=== PATIENT | female | born 1965 | race African-American/Black ===

== ENCOUNTER 2017-10-29 16:18 | Emergency (ER) | payer OTHER ==
[~2017-10-29] VITALS: Ht 149.9 cm; Wt 97.8 kg
[~2017-10-29 16:18] MED LIST: ALPR0.5T PO; ATAZ300C PO; CETI10TA84 PO; FLNIN NAE; RTN100 PO; TRVHP PO
[2017-10-29 16:22] VITALS: TEMP 37; Ht 149.9 cm; Wt 97.8 kg
--- NOTE | 2017-10-29 16:49 | EMERGENCY ROOM VISIT NOTE ---
ED Visit Note First contact with patient: 16:30 CHIEF COMPLAINT: Low back pain, rash on right thigh HISTORY OF PRESENTING ILLNESS: This 52-year-old female patient presents to the emergency department by private vehicle with her complaining of pain in the low back which began approximately 5 days ago. She states the pain starts in her buttock area and radiates down the lateral and medial aspect of her right thigh. She states the pain is most significant on her inner thigh. The pain was gradual in onset, is now constant and worse with movement and walking. The patient notes the pain as constant, severe, burning and a 10/10. The patient saw her PCP on Tuesday when her symptoms started, was prescribed prednisone taper and tizanidine for muscle relaxer which she has been taking, but has not had any relief of the pain. Patient states last night she got in a hot bath and noticed increased burning and pain on her right inner thigh, after she got out of the bath she noticed a red bumpy rash. She states the rash has been painful and has not gone away, which is what prompted her to come to the ED today. Patient denies any loss of control of their bowel or bladder functions. There has been no leg numbness or weakness, and no change in sensation. No nausea or vomiting or abdominal pain. No chest pain or shortness of breath. No fevers or chills. The patient has not had prior back injuries. No dysuria or increased urinary frequency. REVIEW OF SYSTEMS: A complete 10 point review of systems was reviewed with the patient with pertinent positives and negatives as per history of present illness. All else were negative. PAST MEDICAL HISTORY: Diabetes, no longer on medications; gastric bypass surgery SOCIAL HISTORY: Lives at home with her . Denies tobacco, alcohol, recreational drug use. ALLERGIES: Reviewed in chart. PHYSICAL EXAM: CONSTITUTIONAL: Pleasant and cooperative. No acute distress, but appears uncomfortable and in pain. Well-hydrated, well appearing and well nourished. HEENT: Normocephalic, atraumatic. Pupils equal, round and reactive to light, EOMI. TMs normal. Pharynx normal. Moist mucous membranes. NECK: Supple, full active range of motion without discomfort. No cervical adenopathy. RESPIRATORY: Clear to auscultation bilaterally with no wheezing, crackles, rhonchi or stridor. Equal expansion bilaterally. CARDIOVASCULAR: Regular rate and rhythm with no murmurs, rubs or gallops. Normal peripheral perfusion. No edema. GASTROINTESTINAL: Soft, nontender, nondistended. No palpable masses or HSM. Bowel sounds present in all quadrants. MUSCULOSKELETAL: Full range of motion of all joints without discomfort. No muscle atrophy, erythema, or edema noted of the back. There is no tenderness over the lumbar spinous processes. There is no tenderness over the paraspinous muscles bilaterally. There is no tenderness over the thoracic spine or paraspinous muscles. There are no muscle spasms present. The patient is slow to move around with maximum tenderness with standing from sitting. Negative straight leg raise test bilaterally. INTEGUMENTARY: There is a vesicular rash in a linear pattern along the medial thigh extending to the knee, as well as some blotchy red spots on the medial calf that have not become vesicular yet. The rash is extremely painful to even light touch. No drainage from the lesions noted. There is no rash noted anywhere else on the right leg, or anywhere else on the body. The rash appears consistent with a shingles infection. NEUROLOGIC: Alert and oriented X 4 with normal affect. Cranial nerves II-XII grossly intact. No focal neurologic deficits noted. Normal sensation to light and sharp touch. Deep tendon reflexes 2+ in the lower extremities. Dorsalis pedis pulse 2+ bilaterally. Strength 5/5 and equal in the bilateral lower extremities. ED COURSE AND MEDICAL DECISION MAKING: CC: Patient presenting with complaint of back pain radiating into the right thigh, rash DIFFERENTIAL DIAGNOSIS: Includes, but not limited to low back pain, lumbar radiculopathy, sciatica, shingles infection, contact dermatitis, allergic reaction, among others. MEDICATION RECONCILIATION: I attest that I have personally reviewed the patient 's current medication list. INITIAL VITAL SIGNS REVIEW: I reviewed the patient's initial vital signs and interpret them as follows: T: Afebrile; BP: Hypertensive; HR: Within normal limits; RR: Within normal limits; Pulse Ox: Within normal limits on room air. Blood pressure screening: The patient was found to have an elevated blood pressure and was referred to their primary doctor for recheck and further treatment. SUMMARY: Patient was evaluated at bedside, history and physical exam performed. Patient is alert and oriented, no acute distress but does appear uncomfortable and in pain, resting on the stretcher. Patient does not have any midline or paraspinous muscle tenderness of the thoracic or lumbar spine on exam. Neurologic exam is intact with no focal deficits, strength and sensation intact to both lower extremities. There is a linear patterned vesicular rash noted along the medial thigh that is exquisitely tender to touch, appears consistent with a shingles rash. Orders were placed at bedside for IM Toradol and PO Percocet to treat pain, PO Valtrex to initiate treatment for shingles infection. Rx for oxycodone and Valtrex were sent to the pharmacy. Patient reassessed multiple times throughout ED stay, patient reports much improved pain after medications, and appears much more comfortable. Patient was updated on all results and plan for discharge, she was encouraged to follow closely with her primary care provider. She was educated regarding her medications and expected progression of the shingles. Patient was also given strict return precautions should her symptoms worsen, she verbalized understanding. Patient was discharged home in stable condition and ambulatory. Problem List Medical Problems: (1) DM (diabetes mellitus) Status: Chronic (2) Human Immunodeficiency Virus [Hiv] Disease Status: Chronic Current/Historical Medications Scheduled Valacyclovir Hcl (Valtrex), 1,000 MG PO TID Scheduled PRN Oxycodone Ir (Roxicodone Ir), 1-2 TAB PO Q6H PRN for Severe Pain Allergies Coded Allergies: Ciprofloxacin (Verified Allergy, Severe, TONGUE SWELLS, HIVES/ITCHING, THROAT "CLOSES", 10/29/17) Vital Signs Date Time Temp Pulse Resp B/P (MAP) Pulse Ox O2 Delivery O2 Flow Rate FiO2 10/29/17 18:34 58 18 155/90 97 Room Air 10/29/17 16:22 37.0 67 18 153/85 99 Room Air Medications Administered Medications (Trade) Dose Ordered Sig/Edy Route Start Time Stop Time Status Last Admin Dose Admin Valacyclovir HCl (Valtrex Tab) 1,000 mg NOW ONCE PO 10/29/17 17:00 10/29/17 17:01 DC 10/29/17 17:07 1,000 MG Ketorolac Tromethamine (Toradol Inj) 60 mg NOW STAT IM 10/29/17 16:56 10/29/17 16:59 DC 10/29/17 17:07 60 MG Oxycodone/ Acetaminophen (Percocet 5-325mg Tab) 1 tab NOW STAT PO 10/29/17 16:56 10/29/17 16:59 DC 10/29/17 17:08 1 TAB Oxycodone HCl (Roxicodone Immediate Rel 5MG Home Pack) 1 homepack UD ONCE PO 10/29/17 18:30 10/29/17 18:31 DC 10/29/17 18:32 1 HOMEPACK Departure Information Impression Primary Impression: Thigh shingles Dispostion Home / Self-Care Condition GOOD Prescriptions Valacyclovir Hcl (VALTREX) 1 Gm Tab 1000 MG PO TID for 7 Days, #21 TAB Prov: Alice Ledesma, PRINCIPAL STATISTICAL SCIENTIST 10/29/17 Oxycodone Ir (Roxicodone Ir) 5 Mg Tab 1-2 TAB PO Q6H Y for Severe Pain, #20 TAB Prov: Alice Ledesma, PRINCIPAL STATISTICAL SCIENTIST 10/29/17 Referrals Idania Irizarry M.D. (PCP) Patient Instructions ED Shingles, [facility] Additional Instructions You have been evaluated and treated in the emergency department for shingles. You have been prescribed oxycodone to be taken as needed for SEVERE pain. This is a narcotic, do not drive, operate machinery, or alcohol while you are taking this medication. You may also take extra strength Tylenol (500 mg) 2 tablets every 8 hours as needed for pain. You have been prescribed Valtrex, which is an antiviral medication to treat the shingles. Take this 3 times a day for 7 days. You may continue taking the prednisone taper and muscle relaxer as prescribed. Please follow-up with your primary care provider if your symptoms are not improving or if they are getting worse. Please return to the emergency department for signs of secondary infection, including red/inflamed skin, hot to touch, pus drainage from the rash, fever/ chills, or any other concerns. Work Instructions Return To Work: 5 days
[2017-10-29] MEDS ORDERED: KETOROLAC TROMETHAMINE 60 MG/2 ML VIAL IM STA (16:56)
[2017-10-29] MEDS ORDERED: OXYCODONE/ACETAMINOPHEN 5-325 TAB PO STA (16:56)
[2017-10-29] MEDS ORDERED: VALA1TAB2 PO (18:06)
[2017-10-29] MEDS ORDERED: OXYC1TAB3 PO (18:06)
[2017-10-29] MEDS ORDERED: OXYCODONE IR HOME PACK PO ONE (18:30)
[2017-10-29 18:34] VITALS: BP 155/90; PULSE 58; O2SAT 97
== END 2017-10-29 18:46 | disposition home or self-care (01) ==
LOC: C.EDB 16:19 → C.EDD 18:46
DX: B02.9 Zoster without complications (principal); E11.9 Type 2 diabetes mellitus without complications; Z98.84 Bariatric surgery status; Z21 Asymptomatic human immunodeficiency virus [HIV] infection status; Z79.899 Other long term (current) drug therapy; Z88.1 Allergy status to other antibiotic agents

== ENCOUNTER 2017-10-31 00:20 | Inpatient (IN) | payer OTHER ==
[~2017-10-31] VITALS: Ht 149.9 cm; Wt 99.5 kg
[~2017-10-31 00:20] MED LIST changes: -ALPR0.5T PO; -ATAZ300C PO; -CETI10TA84 PO; -FLNIN NAE; +OXYC1TAB3 PO; -RTN100 PO; -TRVHP PO; +VALA1TAB2 PO
[2017-10-31] MEDS ORDERED: VALA1TAB31 PO (00:53)
[2017-10-31] MEDS ORDERED: OXYC1TAB3 PO (00:53)
[2017-10-31] MEDS ORDERED: MoRPHine SULFATE 4 MG/ML 1 ML CARP\\VIAL IV STA ×2 (01:01→03:20)
[2017-10-31] MEDS ORDERED: ONDANSETRON INJ 2 MG/ML 2 ML VIAL IV STA (01:01)
[2017-10-31 01:26] LABS: BASO % 0.2 %; BASO ABS # 0.01 K/uL (0-0.2); EOS % 0.4 %; EOS ABS # 0.02 K/uL (0-0.5); HEMATOCRIT 37.3 % (37-47); HEMOGLOBIN 12.9 g/dL (12.0-16.0); IG# 0.01 K/uL (0.00-0.02); LYMPH % 31.3 %; LYMPH ABS # 1.68 K/uL (1.2-3.4); MEAN CELL VOLUME 87.4 fL (80-100); MEAN CORPUSCULAR HEMOGLOBIN 30.2 pg (25-34); MEAN CORPUSCULAR HGB CONC 34.6 g/dl (32-36); MEAN PLATELET VOLUME 9.5 fL (7.4-10.4); MONO % 9.1 %; MONO ABS # 0.49 K/uL (0.11-0.59); NEUT % 58.8 %; NEUT ABS # 3.16 K/uL (1.4-6.5); PLATELET COUNT 297 K/uL (130-400); RED CELL DISTRIBUTION WIDTH SD 41.4 fL (36.4-46.3); WHITE BLOOD COUNT 5.37 K/uL (4.8-10.8)
[2017-10-31 01:35] LABS: INR 0.9 (0.9-1.1)
[2017-10-31 01:44] LABS: ALBUMIN 3.8 gm/dl (3.4-5.0); ALT/SGPT 31 U/L (12-78); BLOOD UREA NITROGEN 12 mg/dl (7-18); CALCIUM 9.2 mg/dl (8.5-10.1); CARBON DIOXIDE 31 mmol/L (21-32); CREATININE 0.82 mg/dl (0.60-1.20); GLUCOSE 169 mg/dl (70-99); POTASSIUM 3.5 mmol/L (3.5-5.1); SODIUM 137 mmol/L (136-145)
[2017-10-31 01:55] LABS: ALKALINE PHOSPHATASE 94 U/L (45-117); AST/SGOT 22 U/L (15-37); TOTAL PROTEIN 8.9 gm/dl (6.4-8.2)
[2017-10-31] MEDS ORDERED: ACYCLOVIR SOD INJ 750 MG in DEXTROSE 5% 250ML 250 ML IV STA (02:37)
--- NOTE | 2017-10-31 04:06 | EMERGENCY ROOM VISIT NOTE ---
History First contact with patient: 00:30 Chief Complaint: SWELLING TO EXTREMITY Stated Complaint: SWOLLEN LEGS WITH PAIN History of Present Illness The patient is a 52 year old female who presents to the Emergency Room with complaints of increasing bilateral leg swelling for the past day he was diagnosed yesterday with shingles and started on Valtrex. Patient has HIV and her CD4 count in July was 50. She has been taking her ART's mainly as directed. She states occasionally she forgets. Patient saw the family care doctor 1 week ago was placed on steroids for possible sciatica. Patient states she started off with severe leg pain and this is a prompted her to see the family doctor who placed her on steroids for sciatica. She developed a rash yesterday. 10 years ago she had shingles to the face. Patient has had HIV for greater than 30 years. She is on Bactrim prophylactically daily along with her ART's. Patient states her legs are more swollen than normal. No history of DVT. Patient complains of feeling fatigued. Patient denies chest pain, dyspnea , fever, chills, cough, congestion, localized weakness, numbness, tingling. Patient complains of severe pain in the leg. 8 out of 10. Nothing makes it better or worse. The pain goes down the leg. She is supposed to follow-up with Dr. Lane as her current ID doctor is retiring. Review of Systems An 10 system review of systems was completed with positives and pertinent negatives listed in the HPI. Past Medical/Surgical History Medical Problems: (1) DM (diabetes mellitus) (2) Human Immunodeficiency Virus [Hiv] Disease Family History FH: colonic polyps Social History Smoking Status: Never Smoker Alcohol Use: occasionally Marital Status: Housing Status: lives with significant other Current/Historical Medications Scheduled Valacyclovir Hcl (Valtrex), 1 GM PO TID Scheduled PRN Oxycodone Ir (Roxicodone Ir), 1-2 TAB PO Q6H PRN for Severe Pain Physical Exam Vital Signs Date Time Temp Pulse Resp B/P (MAP) Pulse Ox O2 Delivery O2 Flow Rate FiO2 10/31/17 03:14 74 20 158/90 99 Room Air 10/31/17 00:24 37.0 63 18 167/92 95 Room Air Physical Exam VITALS: Vitals are noted on the nurse's note and reviewed by myself. Vital signs hypertensive GENERAL: Pleasant female, in no acute distress, nondiaphoretic, well-developed well-nourished. SKIN: Right inner thigh with grouped raised vesicular dermatitis most consistent with shingles, the rest of the skin was without rashes, or bruising. There is no tenting of the skin. Capillary reflex less than 2 seconds. HEAD: Normocephalic atraumatic. EARS: External auditory canals clear, tympanic membranes pearly zhong without erythema or effusion bilaterally. EYES: Pupils equal round and reactive to light and accommodation. Conjunctivae without injection, sclerae without icterus. Extraocular movements intact. NOSE: Patent, turbinates without inflammation or discharge. No sinus tenderness. MOUTH: Mucous membranes moist. Pharynx without erythema or exudate. Uvula midline. Airway patent. Tongue does not deviate. NECK: Supple without nuchal rigidity. No lymphadenopathy. No thyromegaly. Cervical spine is nontender. No JVD. HEART: Regular rate and rhythm LUNGS: Clear to auscultation bilaterally without wheezes, rales or rhonchi. No retractions or accessory muscle use. ABDOMEN: Positive bowel sounds x 4. Normal tympanic percussion. Soft, nontender, without masses or organomegaly. Clayton sign negative. No guarding or rebound tenderness. No CVA tenderness MUSCULOSKELETAL: No muscle atrophy, noted. Right lower leg slightly more edematous than the left leg. Sensation is intact bilaterally. Pedal pulses +2 equal and present bilaterally. NEURO: Patient was alert and oriented to person place and time. Normal sensation to light and sharp touch. No focal neurological deficits. Medical Decision & Procedures Laboratory Results 10/31/17 01:10 Red Blood Count 4.27, Mean Corpuscular Volume 87.4, Mean Corpuscular Hemoglobin 30.2, Mean Corpuscular Hemoglobin Concent 34.6, Mean Platelet Volume 9.5, Neutrophils (%) (Auto) 58.8, Lymphocytes (%) (Auto) 31.3, Monocytes (%) (Auto) 9.1, Eosinophils (%) (Auto) 0.4, Basophils (%) (Auto) 0.2, Neutrophils # (Auto) 3.16, Lymphocytes # (Auto) 1.68, Monocytes # (Auto) 0.49, Eosinophils # (Auto) 0.02, Basophils # (Auto) 0.01 10/31/17 01:10 Test 10/31/17 01:00 10/31/17 01:10 10/31/17 01:21 10/31/17 03:36 Urine Color YELLOW Urine Appearance CLEAR (CLEAR) Urine pH 5.5 (4.5-7.5) Urine Specific Cameron 1.028 (1.000-1.030) Urine Protein TRACE (NEG) Urine Glucose (UA) 2+ (NEG) Urine Ketones NEG (NEG) Urine Occult Blood NEG (NEG) Urine Nitrite NEG (NEG) Urine Bilirubin NEG (NEG) Urine Urobilinogen NEG (NEG) Urine Leukocyte Esterase NEG (NEG) Urine WBC (Auto) 1-5 /hpf (0-5) Urine RBC (Auto) 0-4 /hpf (0-4) Urine Hyaline Casts (Auto) 1-5 /lpf (0-5) Urine Epithelial Cells (Auto) 20-30 /lpf (0-5) Urine Bacteria (Auto) NEG (NEG) White Blood Count 5.37 K/uL (4.8-10.8) Red Blood Count 4.27 M/uL (4.2-5.4) Hemoglobin 12.9 g/dL (12.0-16.0) Hematocrit 37.3 % (37-47) Mean Corpuscular Volume 87.4 fL (80-100) Mean Corpuscular Hemoglobin 30.2 pg (25-34) Mean Corpuscular Hemoglobin Concent 34.6 g/dl (32-36) Platelet Count 297 K/uL (130-400) Mean Platelet Volume 9.5 fL (7.4-10.4) Neutrophils (%) (Auto) 58.8 % Lymphocytes (%) (Auto) 31.3 % Monocytes (%) (Auto) 9.1 % Eosinophils (%) (Auto) 0.4 % Basophils (%) (Auto) 0.2 % Neutrophils # (Auto) 3.16 K/uL (1.4-6.5) Lymphocytes # (Auto) 1.68 K/uL (1.2-3.4) Monocytes # (Auto) 0.49 K/uL (0.11-0.59) Eosinophils # (Auto) 0.02 K/uL (0-0.5) Basophils # (Auto) 0.01 K/uL (0-0.2) RDW Standard Deviation 41.4 fL (36.4-46.3) RDW Coefficient of Variation 13.0 % (11.5-14.5) Immature Granulocyte % (Auto) 0.2 % Immature Granulocyte # (Auto) 0.01 K/uL (0.00-0.02) Prothrombin Time 9.4 SECONDS (9.0-12.0) Prothromb Time International Ratio 0.9 (0.9-1.1) Activated Partial Thromboplast Time 20.0 SECONDS (21.0-31.0) Partial Thromboplastin Ratio 0.8 Anion Gap 4.0 mmol/L (3-11) Est Creatinine Clear Calc Drug Dose 81.4 ml/min Estimated GFR () 94.0 Estimated GFR (Non- 81.1 BUN/Creatinine Ratio 15.0 (10-20) Calcium Level 9.2 mg/dl (8.5-10.1) Magnesium Level 2.2 mg/dl (1.8-2.4) Total Bilirubin 0.3 mg/dl (0.2-1) Direct Bilirubin 0.1 mg/dl (0-0.2) Aspartate Amino Transf (AST/SGOT) 22 U/L (15-37) Alanine Aminotransferase (ALT/SGPT) 31 U/L (12-78) Alkaline Phosphatase 94 U/L (45-117) Troponin I < 0.015 ng/ml (0-0.045) Pro-B-Type Natriuretic Peptide 89 pg/ml (0-900) Total Protein 8.9 gm/dl (6.4-8.2) Albumin 3.8 gm/dl (3.4-5.0) Thyroid Stimulating Hormone (TSH) 3.190 uIu/ml (0.300-4.500) Bedside Troponin I < 0.030 ng/ml (0-0.045) Medications Administered Medications (Trade) Dose Ordered Sig/Edy Route Start Time Stop Time Status Last Admin Dose Admin Morphine Sulfate (MoRPHine SULFATE INJ) 4 mg NOW STAT IV 10/31/17 01:01 10/31/17 01:02 DC 10/31/17 01:27 4 MG Ondansetron HCl (Zofran Inj) 4 mg NOW STAT IV 10/31/17 01:01 10/31/17 01:02 DC 10/31/17 01:26 4 MG Acyclovir Sodium 750 mg/Dextrose 265 ml @ 265 mls/hr NOW STAT IV 10/31/17 02:37 10/31/17 03:36 DC 10/31/17 03:12 265 MLS/HR Morphine Sulfate (MoRPHine SULFATE INJ) 4 mg NOW STAT IV 10/31/17 03:20 10/31/17 03:22 DC 10/31/17 03:28 4 MG ED Course Prior records/ancillary studies reviewed and summarized above. Nursing notes reviewed. Additional history obtained from family. The patient's history was concerning for rash with leg pain and swelling and low CD4 count. Differential diagnosis: Etiologies such as metabolic, infection, hypo/hyperglycemia, electrolyte abnormalities, cardiac sources, intracerebral event, toxicologic, neurologic, as well as others were entertained. Physical examination: As above. ER treatment provided: IV Lock Morphine, Zofran, acyclovir On reassessment the patient felt better. Diagnostics interpretation by me: ECG: Normal sinus, normal intervals, no acute ST-T wave changes, rate of 85. Impression normal sinus rhythm interpreted by myself The labs revealed no worrisome leukocytosis. Hyperglycemia without DKA CD4 count in July was 50 per chart review Prior records were reviewed. Imaging studies: Chest x-ray with no acute consolidation, pneumothorax or free air per my interpretation Ultrasound negative for DVT Consultation: A consultation was placed with the hospitalist, Dr Abebe. The case was discussed and diagnostics were reviewed. The patient was evaluated in the ER for further treatment. Exam and history seem consistent with recurrence of shingles with severe pain in a immunocompromised patient with a very low CD4 count. Patient had increasing pain and swelling in the legs. No obvious DVT. No leukocytosis. She was given an IV dose of acyclovir. She will be evaluated by medicine for possible admission. This is her second time with shingles this past 10 years. She had no ocular involvement. She was not altered. By the evaluation outlined above emergent etiologies such as electrolyte abnormalities, cardiac sources, intracerebral event, toxologic, neurologic, abnormalities blood glucose, metabolic, as well as others were deemed relatively unlikely. The pt informed about the findings as listed above. All questions were answered and pleased with the treatment. Case reviewed with my attending The chart was completed utilizing [employer] voice recognition software. Grammatical errors, random word insertions, pronoun errors, and incomplete sentences are an occassional consequence of this system due to software limitations, ambient noise, and hardware issues. Any formal questions or concerns about the content, text, or information contained within the body of this dictation should be directly addressed to the physician assistant project engineer for clarification.. Medical Decision As above Medication Reconcilliation Current Medication List: was personally reviewed by me Blood Pressure Screening Patient's blood pressure: Elevated blood pressure Blood pressure disposition: Elevated BP felt to be situational Impression Primary Impression: Shingles Additional Impressions: Intractable pain Pain and swelling of lower leg Departure Information Dispostion Being Evaluated By Hospitalist Condition FAIR Referrals Idania Irizarry M.D. (PCP) Patient Instructions My [facility] Problem Qualifiers Primary Impression: Shingles Herpes zoster complications: unspecified herpes zoster complication Qualified Codes: B02.8 - Zoster with other complications
[2017-10-31] MEDS ORDERED: NYSTCRE11 TOP (04:13)
[2017-10-31] MEDS ORDERED: ALBU18002 INH (04:13)
[2017-10-31] MEDS ORDERED: SULF800T23 PO (04:13)
[2017-10-31] MEDS ORDERED: ERGO50002 PO (04:13)
[2017-10-31] MEDS ORDERED: FLVHFA110 INH (04:13)
[2017-10-31] MEDS ORDERED: RITO100T PO (04:13)
[2017-10-31] MEDS ORDERED: TRVHP PO (04:13)
[2017-10-31] MEDS ORDERED: NYST100010 TOP (04:13)
[2017-10-31] MEDS ORDERED: CYAN10005 PO (04:13)
[2017-10-31] MEDS ORDERED: CLIN1GEL TOP (04:13)
[2017-10-31] MEDS ORDERED: ALPR-411 PO (04:13)
[2017-10-31] MEDS ORDERED: TIZA2CAP PO (04:13)
[2017-10-31] MEDS ORDERED: PRED10TA PO (04:13)
[2017-10-31] MEDS ORDERED: ATAZ300C PO (04:13)
[2017-10-31] MEDS ORDERED: ACETAMINOPHEN 325 MG TAB PO PRN (05:00)
[2017-10-31] MEDS ORDERED: GLUCOSE 10 TABS/TUBE PO PRN (05:00)
[2017-10-31] MEDS ORDERED: PROCHLORPERAZINE INJ 5 MG in SYRINGE 4 ML IV PRN (05:00)
[2017-10-31] MEDS ORDERED: IBUPROFEN 200 MG TAB PO PRN (05:00)
[2017-10-31] MEDS ORDERED: DEXTROSE 50% 50 ML SYR IV PRN (05:00)
[2017-10-31] MEDS ORDERED: DOXYCYCLINE IV 100 MG in DEXTROSE 5% 100ML 100 ML IV ONE (05:00)
[2017-10-31] MEDS ORDERED: GLUCAGON FOR INJ 1 MG VIAL SQ PRN (05:00)
[2017-10-31] MEDS ORDERED: ALPRAZOLAM 0.5 MG TAB PO PRN (05:00)
[2017-10-31] MEDS ORDERED: GLUCOSE 40% GEL 15 GM TUBE PO PRN (05:00)
[2017-10-31 05:29] VITALS: BP 166/98; PULSE 70; TEMP 36.9; O2SAT 94; Ht 149.9 cm; Wt 99.5 kg
[2017-10-31] MEDS ORDERED: CEFAZOLIN IV 1,000 MG in DEXTROSE 5% 50ML 50 ML IV ONE (05:30)
--- NOTE | 2017-10-31 05:37 | EMERGENCY ROOM VISIT NOTE ---
ED Visit Note First contact with patient: 00:30 Discussed case with PA multiple times. Please refer to her note for additional details and results. We have discussed her management. Patient aware of all results and agreeable with plan. Patient to be evaluated by hospitalist for additional evaluation and treatment. Patient hemodynamically stable here.
[2017-10-31 05:53] VITALS: BP 166/98; PULSE 70; TEMP 37; O2SAT 94
[2017-10-31] MEDS ORDERED: NSS + 20MEQ KCL 1000ML 1,000 ML IV ONE (06:00)
--- NOTE | 2017-10-31 06:04 | DIAGNOSTIC IMAGING REPORT ---
VENOUS DOPPLER LWR EXT BILA CLINICAL HISTORY: 52 years-old Female presenting with leg swelling. TECHNIQUE: Real-time grayscale and color and spectral Doppler ultrasound imaging of the veins of the bilateral lower extremities was performed. Compression and augmentation were also utilized. COMPARISON: 02/18/2015. FINDINGS: Right: Common femoral vein: Patent. Greater saphenous vein: Patent. Deep femoral vein: Patent. Femoral vein: Patent. Popliteal vein: Patent. Calf veins: Patent. Left: Common femoral vein: Patent. Greater saphenous vein: Patent. Deep femoral vein: Patent. Femoral vein: Patent. Popliteal vein: Patent. Calf veins: Patent. Other: None. IMPRESSION: No evidence of deep venous thrombosis. Electronically signed by: Joey Beverly M.D. 10/31/2017 6:03 AM Dictated Date/Time: 10/31/2017 6:02 AM
[2017-10-31] MEDS: KETOROLAC TROMETHAMINE 15 MG/ML VIAL IV. PRN ×3 (06:21→23:34)
--- NOTE | 2017-10-31 06:55 | DIAGNOSTIC IMAGING REPORT ---
CHEST 2 VIEWS ROUTINE CLINICAL HISTORY: 52 years-old Female presenting with swelling. TECHNIQUE: PA and lateral views of the chest were obtained. COMPARISON: 04/03/2016. FINDINGS: Atherosclerosis of the aortic arch. Cardiac silhouette normal in size. Lungs and pleural spaces clear. Osseous structures normal. Upper abdomen normal. IMPRESSION: 1. No acute cardiopulmonary disease. Electronically signed by: Joey Beverly M.D. 10/31/2017 6:54 AM Dictated Date/Time: 10/31/2017 6:53 AM
[2017-10-31] MEDS ORDERED: CEFAZOLIN IV 2,000 MG in SYRINGE 0 ML IV ONE (07:00)
[2017-10-31] MEDS ORDERED: INSULIN ASPART 100 UNITS/ML 3 ML PEN SC ONE (07:00)
[2017-10-31 07:18] LABS: HEMOGLOBIN A1C 6.6 % (4.5-5.6)
[2017-10-31 07:39] VITALS: BP 134/82; PULSE 74; TEMP 37; O2SAT 96
--- NOTE | 2017-10-31 07:50 | HISTORY & PHYSICAL EXAMINATION ---
DATE OF ADMISSION: 10/31/2017 PRIMARY CARE DOCTOR: Dr. Irizarry. CHIEF COMPLAINT: Right leg swelling, pain. HISTORY OF PRESENT ILLNESS: History obtained from patient and records. Medical history significant for HIV disease on HAART, sleep apnea, hyperlipidemia, DM2 diet controlled off meds since gastric bypass. Past tobacco abuse Endometrial cancer status post surgery. Recent confinement January 2012 for chest pain. Stress test negative. Few days ago, the patient noted achy right-sided hip pain going to the leg. Patient seen by PCP. Impression was sciatica. Prescribed tizanidine and prednisone. Patient later on noted worsening of pain symptoms and red bumpy rash on the right leg, no fever, no chills. Patient seen at the Emergency Room. Impression was R thigh shingles. Patient discharged on acyclovir, OxyIR. Worsening right leg swelling, pain noted. No fever, no chills. Patient returned to the ER due to worsening symptoms. MEDICAL HISTORY: As above. HIV disease for 30 years as per patient. [place] [facility] [place] [facility] [place]. As per note, CD4, CD8 count low. HIV RNA detectable. Patient counseled by ID specialist about necessity of compliance with regimen. Patient to followup in 3 months. Patient to eventually switch to a local ID specialist when [facility] specialist retires. SURGERIES: She has had bariatric surgery, hysterectomy. HOME MEDICATIONS: Include OxyIR, Valtrex, albuterol, clindamycin, gemcitabine, ritonavir, Truvada, fluticasone, nystatin, Bactrim daily, alprazolam. FAMILY HISTORY: Heart disease, diabetes. PERSONAL AND SOCIAL HISTORY: Past tobacco use. No chronic intake of alcohol beverages. Disabled. -[place] ethnicity. REVIEW OF SYSTEMS: As per HPI, all 10 systems reviewed. All other ROS negative. PHYSICAL EXAMINATION: VITAL SIGNS: Blood pressure 155/90, pulse rate 60, RR 18, T 37, O2 sats 95 on room air. GENERAL: Noted to be obese, slightly uncomfortable. No respiratory distress. SKIN: Normal color, warm. HEENT: [place] palpebral conjunctivae. No ptosis. Dry mucosa. NECK: Short neck, supple. CHEST: Decreased effort. No tenderness. HEART: Regular rate and rhythm, no murmur. ABDOMEN: Some distention, nontender. EXTREMITIES: Right lower extremity swelling, hyperesthesia, Note of tender rash on the right lower extremity. RLE noted to be warm. NEUROLOGIC: Coherent. No gross focality. LABORATORY DATA: Hemoglobin was noted to be 12.9, hematocrit 37.3, white cell count 5.37, platelets noted to be 297. Sodium noted to be 137, potassium 3.5, chloride 102, CO2 31. creatinine 0.82, glucose noted to be 169. Hg A1c 6.6 RLE Venous Dopplers initial read no DVT Chest x-ray as per my interpretation, atelectasis. ASSESSMENT: 1. Right lower extremity pain, swelling Possible secondary cellulitis Potential increased risk of secondary skin infections from concomitant antiviral and steroid use for shingles according to literature (UTDOL). recent hx shingles, R thigh immunocompromised patient (AIDS, HIV dse on rx/on suppression antibiotics/ antivirals, hx partial compliance) Steroid prescription for possible sciatica initiated outpatient prior to shingles diagnosis at the ER from last visit. no sepsis 2. Situational hypertension 3. DM2, diet controlled since bariatric surgery Well-controlled as of today's HgA1c 4. Endometrial cancer status post surgery 5. Past tobacco use. PLAN: GMF Local measures for cellulitis. Increase Bactrim once daily prophylactic dose to BID dosing for 1 week for now for cellulitis for MRSA coverage. Add Cephalosporin to Bactrim for Strep coverage. Stop outpatient steroid course. Monitor BP, analgesia Consider initiation of ACEI if persistently elevated BP elevation may be chronic given possible LVH on EKG. ISS BG goal 140-180 DVT prophylaxis, Lovenox subQ. Full code. MTDD
[2017-10-31 08:15] VITALS: O2SAT 96
[2017-10-31] MEDS: FLUTICASONE HFA 110MCG INHALER INH SCH ×2 (09:00→21:00)
[2017-10-31] MEDS ORDERED: SULFAMETHOXAZOLE/TRIMETHOPRIM DS 800/160MG TAB PO SCH (09:00)
[2017-10-31] MEDS ORDERED: EMTRICITABINE/TENOFOVIR TAB PO SCH (09:00)
[2017-10-31] MEDS: ENOXAPARIN 40 MG/0.4 ML SYR SQ SCH (09:09)
[2017-10-31] MEDS: SULFAMETHOXAZOLE/TRIMETHOPRIM DS 800/160MG TAB PO SCH ×2 (09:10→21:21)
[2017-10-31] MEDS ORDERED: INSULIN ASPART 100 UNITS/ML 3 ML PEN SC SCH (12:00)
[2017-10-31] MEDS: OXYCODONE/ACETAMINOPHEN 5-325 TAB PO PRN ×3 (12:36→22:27)
[2017-10-31] MEDS: GABAPENTIN 300 MG CAP PO SCH ×2 (14:01→21:21)
--- NOTE | 2017-10-31 14:36 | Progress Note ---
Subjective Date of Service: Oct 31, 2017. Subjective Pt evaluation today including: conversation w/ patient, physical exam, lab review, review of studies, review of inpatient medication list Saw/examined the patient in room 380 She is concerned about all the medications she is taking She is also c/o significant pain in the R LE; with minor improvement with Percocet Problem List Medical Problems: (1) Dehydration Status: Acute (2) Diarrhea Status: Acute (3) Intractable pain Status: Acute (4) Pain and swelling of lower leg Status: Acute (5) Shingles Status: Acute (6) Thigh shingles Status: Acute Review of Systems Constitutional: No fever, No chills, No weakness Respiratory: No shortness of breath Cardiac: No chest pain Musculoskeletal: + muscle pain (right lower extremity pain), No joint pain Medications Current Inpatient Medications Medications (Trade) Dose Ordered Sig/Edy Route Start Time Stop Time Status Last Admin Dose Admin Enoxaparin Sodium (Lovenox Inj) 40 mg Q24H SQ 10/31/17 08:00 11/30/17 07:59 Acetaminophen (Tylenol Tab) 650 mg Q4H PRN PO 10/31/17 05:00 11/30/17 04:59 Alprazolam (Xanax Tab) 0.5 mg BID PRN PO 10/31/17 05:00 11/30/17 04:59 Emtricitabine/ Tenofovir (Truvada 200-300mg Tab) 1 tab DAILY PO 10/31/17 09:00 11/30/17 08:59 Future Hold Fluticasone Propionate (Flovent Hfa 110MCG Inhaler) 2 puffs BID INH 10/31/17 09:00 11/30/17 08:59 Tizanidine HCl (Zanaflex Tab) 2 mg Q6H PRN PO 10/31/17 05:00 11/30/17 04:59 10/31/17 09:11 2 MG Non-Formulary Medication (Atazanavir Sulfate (Reyataz)) 300 mg DAILY PO 10/31/17 09:00 11/30/17 08:59 UNV Non-Formulary Medication (Ritonavir (Norvir)) 100 mg DAILY PO 10/31/17 09:00 11/30/17 08:59 UNV Ketorolac Tromethamine (Toradol Inj) 15 mg Q6H PRN IV. 10/31/17 05:00 11/05/17 04:59 10/31/17 06:21 15 MG Prochlorperazine Edisylate 5 mg/ Syringe 5 ml @ 5 mls/min Q6H PRN IV 10/31/17 05:00 11/30/17 04:59 Oxycodone/ Acetaminophen (Percocet 5-325mg Tab) 1 tab Q4H PRN PO 10/31/17 05:00 11/14/17 04:59 10/31/17 12:36 1 TAB Ibuprofen (Advil Tab) 400 mg Q6H PRN PO 10/31/17 05:00 11/30/17 04:59 Potassium Chloride/Sodium Chloride 1,000 ml @ 75 mls/hr [id number] ONCE IV 10/31/17 06:00 10/31/17 19:19 10/31/17 06:20 75 MLS/HR Valacyclovir HCl (Valtrex Tab) 1,000 mg TID PO 10/31/17 09:00 11/30/17 08:59 10/31/17 14:02 1,000 MG Miscellaneous Information (Pharmacy Consult) 1 ea DAILY N/A 10/31/17 09:00 11/30/17 08:59 Trimethoprim/ Sulfamethoxazole (Septra Ds 800/ 160MG Tab) 1 tab BID PO 10/31/17 09:00 11/06/17 21:01 10/31/17 09:10 1 TAB Trimethoprim/ Sulfamethoxazole (Septra Ds 800/ 160MG Tab) 1 tab DAILY PO 11/07/17 09:00 12/07/17 08:59 Cefazolin Sodium 1000 mg/Syringe 7.5 ml @ 2.5 mls/min Q8@0000,0800,1600 IV 10/31/17 16:00 11/10/17 15:59 Gabapentin (Neurontin Cap) 300 mg TID PO 10/31/17 14:00 11/30/17 13:59 10/31/17 14:01 300 MG Objective Vital Signs Date Time Temp Pulse Resp B/P (MAP) Pulse Ox O2 Delivery O2 Flow Rate FiO2 10/31/17 08:15 96 Room Air 10/31/17 08:05 Room Air 10/31/17 07:39 37.0 74 18 134/82 (99) 96 Room Air 10/31/17 05:53 37.0 70 14 166/98 (120) 94 Room Air 10/31/17 05:29 36.9 70 14 166/98 94 Room Air 10/31/17 05:00 78 18 142/87 99 Room Air 10/31/17 03:14 74 20 158/90 99 Room Air 10/31/17 00:24 37.0 63 18 167/92 95 Room Air Physical Exam General Appearance: no apparent distress Respiratory/Chest: no respiratory distress, no accessory muscle use Extremities: + swelling (swelling of the R LE - ), + pertinent finding ( blistering of the medial right lower extremity, erythetous vesicular blistering ; 8/10 pain) Neurologic/Psychiatric: no motor/sensory deficits, alert, normal mood/affect Laboratory Results Last 24 Hours Test 10/31/17 01:00 10/31/17 01:10 10/31/17 01:21 Urine Color YELLOW Urine Appearance CLEAR Urine pH 5.5 Urine Specific Margie 1.028 Urine Protein TRACE Urine Glucose (UA) 2+ Urine Ketones NEG Urine Occult Blood NEG Urine Nitrite NEG Urine Bilirubin NEG Urine Urobilinogen NEG Urine Leukocyte Esterase NEG Urine WBC (Auto) 1-5 /hpf Urine RBC (Auto) 0-4 /hpf Urine Hyaline Casts (Auto) 1-5 /lpf Urine Epithelial Cells (Auto) 20-30 /lpf Urine Bacteria (Auto) NEG White Blood Count 5.37 K/uL Red Blood Count 4.27 M/uL Hemoglobin 12.9 g/dL Hematocrit 37.3 % Mean Corpuscular Volume 87.4 fL Mean Corpuscular Hemoglobin 30.2 pg Mean Corpuscular Hemoglobin Concent 34.6 g/dl Platelet Count 297 K/uL Mean Platelet Volume 9.5 fL Neutrophils (%) (Auto) 58.8 % Lymphocytes (%) (Auto) 31.3 % Monocytes (%) (Auto) 9.1 % Eosinophils (%) (Auto) 0.4 % Basophils (%) (Auto) 0.2 % Neutrophils # (Auto) 3.16 K/uL Lymphocytes # (Auto) 1.68 K/uL Monocytes # (Auto) 0.49 K/uL Eosinophils # (Auto) 0.02 K/uL Basophils # (Auto) 0.01 K/uL RDW Standard Deviation 41.4 fL RDW Coefficient of Variation 13.0 % Immature Granulocyte % (Auto) 0.2 % Immature Granulocyte # (Auto) 0.01 K/uL Prothrombin Time 9.4 SECONDS Prothromb Time International Ratio 0.9 Activated Partial Thromboplast Time 20.0 SECONDS Partial Thromboplastin Ratio 0.8 Sodium Level 137 mmol/L Potassium Level 3.5 mmol/L Chloride Level 102 mmol/L Carbon Dioxide Level 31 mmol/L Anion Gap 4.0 mmol/L Blood Urea Nitrogen 12 mg/dl Creatinine 0.82 mg/dl Est Creatinine Clear Calc Drug Dose 81.4 ml/min Estimated GFR () 94.0 Estimated GFR (Non- 81.1 BUN/Creatinine Ratio 15.0 Random Glucose 169 mg/dl Estimated Average Glucose 143 mg/dl Hemoglobin A1c 6.6 % Calcium Level 9.2 mg/dl Magnesium Level 2.2 mg/dl Total Bilirubin 0.3 mg/dl Direct Bilirubin 0.1 mg/dl Aspartate Amino Transf (AST/SGOT) 22 U/L Alanine Aminotransferase (ALT/SGPT) 31 U/L Alkaline Phosphatase 94 U/L Troponin I < 0.015 ng/ml Pro-B-Type Natriuretic Peptide 89 pg/ml Total Protein 8.9 gm/dl Albumin 3.8 gm/dl Thyroid Stimulating Hormone (TSH) 3.190 uIu/ml Bedside Troponin I < 0.030 ng/ml Assessment and Plan This is a 52 year old female with a PMH of HIV, s/p gastric bypass, diet- controlled DM2, HLD - presents with shingles and possible overlying cellulitis Shingles would continue Valtrex Percocet PRN for pain adding Gabapentin if pain persists, may add Lidocaine patch Cellulitis R lower extremity swelling, skin tightening Doppler negative for acute DVTs Bactrim changed to twice daily dosing x1 week will continue Ancef while inpatient and change to Keflex on discharge Diet controlled DM2 Ha1c = 6.6% refusing insulin and diabetic diet will d/c insulin; put her on a regular diet HIV continue HAART therapy continue home medications outpatient ID follow-up DVT ppx Lovenox FULL CODE
[2017-10-31 15:05] VITALS: BP 146/94; PULSE 67; TEMP 36.9; O2SAT 96
[2017-10-31] MEDS: CEFAZOLIN IV 1,000 MG in SYRINGE 0 ML IV SCH ×2 (16:24→23:34)
[2017-10-31] MEDS ORDERED: DOXYCYCLINE HYCLATE 100 MG CAP PO SCH (21:00)
[2017-10-31 23:16] VITALS: BP_SYST 155; BP_SYST 164; BP_DIAS 91; BP_DIAS 95; PULSE 71; TEMP 36.9; O2SAT 98
[2017-11-01] MEDS: KETOROLAC TROMETHAMINE 15 MG/ML VIAL IV. PRN ×3 (06:22→21:05)
[2017-11-01 07:14] VITALS: BP 145/91; PULSE 78; TEMP 36.7; O2SAT 98
[2017-11-01 07:25] LABS: BASO % 0.2 %; BASO ABS # 0.01 K/uL (0-0.2); EOS % 1.1 %; EOS ABS # 0.05 K/uL (0-0.5); HEMATOCRIT 36.5 % (37-47); HEMOGLOBIN 11.9 g/dL (12.0-16.0); LYMPH % 32.6 %; LYMPH ABS # 1.54 K/uL (1.2-3.4); MEAN CELL VOLUME 88.2 fL (80-100); MEAN CORPUSCULAR HEMOGLOBIN 28.7 pg (25-34); MEAN CORPUSCULAR HGB CONC 32.6 g/dl (32-36); MEAN PLATELET VOLUME 9.9 fL (7.4-10.4); MONO % 8.5 %; NEUT % 57.6 %; NEUT ABS # 2.72 K/uL (1.4-6.5); PLATELET COUNT 251 K/uL (130-400); RED CELL DISTRIBUTION WIDTH CV 12.7 % (11.5-14.5); RED CELL DISTRIBUTION WIDTH SD 40.8 fL (36.4-46.3); WHITE BLOOD COUNT 4.72 K/uL (4.8-10.8)
[2017-11-01] MEDS: ENOXAPARIN 40 MG/0.4 ML SYR SQ SCH (08:00)
[2017-11-01] MEDS: OXYCODONE/ACETAMINOPHEN 5-325 TAB PO PRN ×4 (08:29→22:26)
[2017-11-01] MEDS: CEFAZOLIN IV 1,000 MG in SYRINGE 0 ML IV SCH ×3 (08:29→23:56)
[2017-11-01] MEDS: FLUTICASONE HFA 110MCG INHALER INH SCH ×2 (08:30→20:33)
[2017-11-01] MEDS: GABAPENTIN 300 MG CAP PO SCH ×3 (08:32→21:05)
[2017-11-01] MEDS: SULFAMETHOXAZOLE/TRIMETHOPRIM DS 800/160MG TAB PO SCH ×2 (08:32→21:05)
[2017-11-01] MEDS: ATAZANAVIR SULFATE 300 MG PO SCH (08:32)
[2017-11-01] MEDS: RITONAVIR 100 MG PO SCH (08:33)
--- NOTE | 2017-11-01 12:11 | Progress Note ---
Subjective Date of Service: Nov 01, 2017. Subjective Pt evaluation today including: conversation w/ patient, physical exam, lab review, review of studies, review of inpatient medication list Saw/examined the patient in room 380 She states her pain is around 6-7/10 Gabapentin helping; Percocet also helps. States she woke up with pain. Problem List Medical Problems: (1) Dehydration Status: Acute (2) Diarrhea Status: Acute (3) Intractable pain Status: Acute (4) Pain and swelling of lower leg Status: Acute (5) Shingles Status: Acute (6) Thigh shingles Status: Acute Review of Systems Constitutional: No fever, No chills, No weakness Cardiac: + problem reported (pain at the inner R thigh), No edema Medications Current Inpatient Medications Medications (Trade) Dose Ordered Sig/Edy Route Start Time Stop Time Status Last Admin Dose Admin Enoxaparin Sodium (Lovenox Inj) 40 mg Q24H SQ 10/31/17 08:00 11/30/17 07:59 Acetaminophen (Tylenol Tab) 650 mg Q4H PRN PO 10/31/17 05:00 11/30/17 04:59 Alprazolam (Xanax Tab) 0.5 mg BID PRN PO 10/31/17 05:00 11/30/17 04:59 Fluticasone Propionate (Flovent Hfa 110MCG Inhaler) 2 puffs BID INH 10/31/17 09:00 11/30/17 08:59 Tizanidine HCl (Zanaflex Tab) 2 mg Q6H PRN PO 10/31/17 05:00 11/30/17 04:59 10/31/17 19:58 2 MG Atazanavir (Reyataz) 300 mg DAILY PO 11/01/17 09:00 12/01/17 08:59 11/01/17 08:32 300 MG Ritonavir (Norvir) 100 mg DAILY PO 11/01/17 09:00 12/01/17 08:59 11/01/17 08:33 100 MG Ketorolac Tromethamine (Toradol Inj) 15 mg Q6H PRN IV. 10/31/17 05:00 11/05/17 04:59 11/01/17 06:22 15 MG Prochlorperazine Edisylate 5 mg/ Syringe 5 ml @ 5 mls/min Q6H PRN IV 10/31/17 05:00 11/30/17 04:59 Oxycodone/ Acetaminophen (Percocet 5-325mg Tab) 1 tab Q4H PRN PO 10/31/17 05:00 11/14/17 04:59 11/01/17 08:29 1 TAB Ibuprofen (Advil Tab) 400 mg Q6H PRN PO 10/31/17 05:00 11/30/17 04:59 Valacyclovir HCl (Valtrex Tab) 1,000 mg TID PO 10/31/17 09:00 11/30/17 08:59 11/01/17 08:31 1,000 MG Miscellaneous Information (Pharmacy Consult) 1 ea DAILY N/A 10/31/17 09:00 11/30/17 08:59 Trimethoprim/ Sulfamethoxazole (Septra Ds 800/ 160MG Tab) 1 tab BID PO 10/31/17 09:00 11/06/17 21:01 11/01/17 08:32 1 TAB Trimethoprim/ Sulfamethoxazole (Septra Ds 800/ 160MG Tab) 1 tab DAILY PO 11/07/17 09:00 12/07/17 08:59 Cefazolin Sodium 1000 mg/Syringe 7.5 ml @ 2.5 mls/min Q8@0000,0800,1600 IV 10/31/17 16:00 11/10/17 15:59 11/01/17 08:29 2.5 MLS/MIN Gabapentin (Neurontin Cap) 300 mg TID PO 10/31/17 14:00 11/30/17 13:59 11/01/17 08:32 300 MG Emtricitabine/ Tenofovir (Truvada 200-300mg Tab) 1 tab DAILY PO 11/01/17 09:00 12/01/17 08:59 11/01/17 08:33 1 TAB Diphenhydramine HCl (Benadryl Cap) 25 mg Q6H PRN PO 10/31/17 20:15 11/30/17 20:14 10/31/17 21:21 25 MG Lidocaine (Lidoderm Patch 5%) 1 patch QAM TD 11/02/17 09:00 12/02/17 08:59 UNV Miscellaneous (Remove Lidoderm Patch) 1 ea DAILY@21 N/A 11/01/17 21:00 12/01/17 20:59 UNV Objective Vital Signs Date Time Temp Pulse Resp B/P (MAP) Pulse Ox O2 Delivery O2 Flow Rate FiO2 11/01/17 08:30 Room Air 11/01/17 07:14 36.7 78 16 145/91 (109) 98 Room Air 10/31/17 23:40 Room Air 10/31/17 23:16 36.9 71 16 164/95 (118) 98 Room Air 10/31/17 23:16 155/91 (112) 10/31/17 16:24 Room Air 10/31/17 15:05 36.9 67 18 146/94 (111) 96 Room Air Physical Exam General Appearance: no apparent distress Respiratory/Chest: no respiratory distress, no accessory muscle use Extremities: + pertinent finding (painful blistering rash; edema improved on that side) Laboratory Results Last 24 Hours Test 11/01/17 06:41 White Blood Count 4.72 K/uL Red Blood Count 4.14 M/uL Hemoglobin 11.9 g/dL Hematocrit 36.5 % Mean Corpuscular Volume 88.2 fL Mean Corpuscular Hemoglobin 28.7 pg Mean Corpuscular Hemoglobin Concent 32.6 g/dl Platelet Count 251 K/uL Mean Platelet Volume 9.9 fL Neutrophils (%) (Auto) 57.6 % Lymphocytes (%) (Auto) 32.6 % Monocytes (%) (Auto) 8.5 % Eosinophils (%) (Auto) 1.1 % Basophils (%) (Auto) 0.2 % Neutrophils # (Auto) 2.72 K/uL Lymphocytes # (Auto) 1.54 K/uL Monocytes # (Auto) 0.40 K/uL Eosinophils # (Auto) 0.05 K/uL Basophils # (Auto) 0.01 K/uL RDW Standard Deviation 40.8 fL RDW Coefficient of Variation 12.7 % Immature Granulocyte % (Auto) 0.0 % Immature Granulocyte # (Auto) 0.00 K/uL Assessment and Plan This is a 52 year old female with a PMH of HIV, s/p gastric bypass, diet- controlled DM2, HLD - presents with shingles and possible overlying cellulitis Shingles 11/01 pain is improving, but patient states it is not to the point where she could go home will add a Lidocaine patch, which is approved by insurance for discharge will continue Gabapentin 300mg TID for now; can always increase to 600mg TID if this does not work continue Valtrex, Bactrim BID, Ancef (Keflex on discharge) Continue Percocet PRN for pain /5 would continue Valtrex Percocet PRN for pain adding Gabapentin if pain persists, may add Lidocaine patch Cellulitis R lower extremity swelling, skin tightening Doppler negative for acute DVTs Bactrim changed to twice daily dosing x1 week will continue Ancef while inpatient and change to Keflex on discharge Diet controlled DM2 Ha1c = 6.6% refusing insulin and diabetic diet will d/c insulin; put her on a regular diet HIV continue HAART therapy continue home medications outpatient ID follow-up DVT ppx Lovenox FULL CODE
[2017-11-01 15:02] VITALS: BP 145/82; PULSE 86; TEMP 36.7; O2SAT 94
[2017-11-01] MEDS: LIDODERM (LIDOCAINE) PATCH 5% TD SCH (15:39)
[2017-11-01] MEDS: CEFAZOLIN CONSULT PHARMACY SCH ×2 (17:35→17:36)
[2017-11-01 23:06] VITALS: BP 149/92; PULSE 75; TEMP 36.9; O2SAT 94
[2017-11-02] MEDS: OXYCODONE/ACETAMINOPHEN 5-325 TAB PO PRN ×5 (03:36→21:48)
[2017-11-02 07:25] VITALS: BP 151/94; PULSE 67; TEMP 36.8; O2SAT 97
[2017-11-02] MEDS: ENOXAPARIN 40 MG/0.4 ML SYR SQ SCH (08:00)
[2017-11-02] MEDS: CEFAZOLIN IV 1,000 MG in SYRINGE 0 ML IV SCH ×3 (08:38→23:57)
[2017-11-02] MEDS: FLUTICASONE HFA 110MCG INHALER INH SCH ×2 (08:40→21:00)
[2017-11-02] MEDS: SULFAMETHOXAZOLE/TRIMETHOPRIM DS 800/160MG TAB PO SCH ×2 (08:41→21:55)
[2017-11-02] MEDS: LIDODERM (LIDOCAINE) PATCH 5% TD SCH (08:42)
[2017-11-02] MEDS: GABAPENTIN 300 MG CAP PO SCH ×3 (08:42→21:55)
[2017-11-02] MEDS: RITONAVIR 100 MG PO SCH (08:43)
[2017-11-02] MEDS: ATAZANAVIR SULFATE 300 MG PO SCH (08:43)
[2017-11-02] MEDS: CEFAZOLIN CONSULT PHARMACY SCH (09:00)
[2017-11-02 15:16] VITALS: BP 122/74; PULSE 72; TEMP 36.7; O2SAT 94
[2017-11-02 15:40] VITALS: O2SAT 94
[2017-11-02] MEDS: KETOROLAC TROMETHAMINE 15 MG/ML VIAL IV. PRN ×2 (15:50→23:57)
--- NOTE | 2017-11-02 19:08 | Progress Note ---
Medicine Progress Note Date & Time of Visit: Nov 02, 2017 at 18:50. Subjective seen resting in bed, comfortable states right leg pain has improved now /10 from 06/07 no fever/chills can ambulate with less pain no other symptoms Objective Last 8 Hrs Date Time Temp Pulse Resp B/P (MAP) Pulse Ox O2 Delivery O2 Flow Rate FiO2 11/02/17 15:40 94 Room Air 11/02/17 15:16 36.7 72 19 122/74 (90) 94 Room Air Physical Exam: General- oriented x 3, not in distress, speaks in sentences with no effort Head- atraumatic Eyes- anicteric ENT- oropharynx clear Neck- supple, no JVD, no adenopathy, no thyromegaly; carotids +2/2, no bruits appreciated Lungs- clear to auscultation and percussion Heart- regular rhythm; no murmur, no gallop, no rub appreciated Abdomen- normal bowel sounds, soft, nontender, no masses or hepatosplenomegaly Extremities- no pretibial edema, no calf tenderness; peripheral pulses intact Neuro- alert, oriented x 3; PERRL, EOMI; no facial palsy; no dysarthria; motor 5 /5 bilaterally; no cogwheel rigidity; patellar DTRs +2/2; toes downgoing bilaterally; finger to nose intact bilaterally Skin- warm & dry Assessment & Plan This is a 52 year old female with a PMH of HIV, s/p gastric bypass, diet- controlled DM2, HLD - presents with shingles and possible overlying cellulitis Shingles with Cellulitis, Right Lower Extremity pain is improving Doppler negative for acute DVTs on Gabapentin, Lidoderm patch, PRN Percocet and Tramadol continue Valtrex continue Bactrim BID and Cefazolin will consult ID Diet controlled DM2 Ha1c = 6.6% refusing insulin and diabetic diet will d/c insulin; put her on a regular diet HIV continue HAART therapy continue home medications outpatient ID follow-up DVT ppx Lovenox FULL CODE Disposition anticipate d/c home when medically stable Current Inpatient Medications: Current Inpatient Medications Medications (Trade) Dose Ordered Sig/Edy Route Start Time Stop Time Status Last Admin Dose Admin Enoxaparin Sodium (Lovenox Inj) 40 mg Q24H SQ 10/31/17 08:00 11/30/17 07:59 Acetaminophen (Tylenol Tab) 650 mg Q4H PRN PO 10/31/17 05:00 11/30/17 04:59 Alprazolam (Xanax Tab) 0.5 mg BID PRN PO 10/31/17 05:00 11/30/17 04:59 Fluticasone Propionate (Flovent Hfa 110MCG Inhaler) 2 puffs BID INH 10/31/17 09:00 11/30/17 08:59 Tizanidine HCl (Zanaflex Tab) 2 mg Q6H PRN PO 10/31/17 05:00 11/30/17 04:59 10/31/17 19:58 2 MG Atazanavir (Reyataz) 300 mg DAILY PO 11/01/17 09:00 12/01/17 08:59 11/02/17 08:43 300 MG Ritonavir (Norvir) 100 mg DAILY PO 11/01/17 09:00 12/01/17 08:59 11/02/17 08:43 100 MG Ketorolac Tromethamine (Toradol Inj) 15 mg Q6H PRN IV. 10/31/17 05:00 11/05/17 04:59 11/02/17 15:50 15 MG Prochlorperazine Edisylate 5 mg/ Syringe 5 ml @ 5 mls/min Q6H PRN IV 10/31/17 05:00 11/30/17 04:59 Oxycodone/ Acetaminophen (Percocet 5-325mg Tab) 1 tab Q4H PRN PO 10/31/17 05:00 11/14/17 04:59 11/02/17 17:21 1 TAB Ibuprofen (Advil Tab) 400 mg Q6H PRN PO 10/31/17 05:00 11/30/17 04:59 Valacyclovir HCl (Valtrex Tab) 1,000 mg TID PO 10/31/17 09:00 11/30/17 08:59 11/02/17 14:03 1,000 MG Miscellaneous Information (Pharmacy Consult) 1 ea DAILY N/A 10/31/17 09:00 11/30/17 08:59 Trimethoprim/ Sulfamethoxazole (Septra Ds 800/ 160MG Tab) 1 tab BID PO 10/31/17 09:00 11/06/17 21:01 11/02/17 08:41 1 TAB Trimethoprim/ Sulfamethoxazole (Septra Ds 800/ 160MG Tab) 1 tab DAILY PO 11/07/17 09:00 12/07/17 08:59 Cefazolin Sodium 1000 mg/Syringe 7.5 ml @ 2.5 mls/min Q8@0000,0800,1600 IV 10/31/17 16:00 11/10/17 15:59 11/02/17 15:41 2.5 MLS/MIN Gabapentin (Neurontin Cap) 300 mg TID PO 10/31/17 14:00 11/30/17 13:59 11/02/17 14:03 300 MG Emtricitabine/ Tenofovir (Truvada 200-300mg Tab) 1 tab DAILY PO 11/01/17 09:00 12/01/17 08:59 11/02/17 08:44 1 TAB Diphenhydramine HCl (Benadryl Cap) 25 mg Q6H PRN PO 10/31/17 20:15 11/30/17 20:14 10/31/17 21:21 25 MG Lidocaine (Lidoderm Patch 5%) 1 patch QAM TD 11/02/17 09:00 12/02/17 08:59 11/02/17 08:42 1 PATCH Miscellaneous (Remove Lidoderm Patch) 1 ea DAILY@21 N/A 11/01/17 21:00 12/01/17 20:59 11/01/17 21:05 1 EA
[2017-11-02 23:15] VITALS: BP 169/85; PULSE 100; TEMP 36.8; O2SAT 93
[2017-11-02 23:50] VITALS: O2SAT 93
[2017-11-03] MEDS: KETOROLAC TROMETHAMINE 15 MG/ML VIAL IV. PRN (06:36)
[2017-11-03 07:24] VITALS: BP 130/76; PULSE 100; TEMP 36.7; O2SAT 93
[2017-11-03] MEDS ORDERED: CEFAZOLIN CONSULT PHARMACY SCH (07:45)
[2017-11-03] MEDS: ENOXAPARIN 40 MG/0.4 ML SYR SQ SCH (07:55)
[2017-11-03] MEDS: CEFAZOLIN IV 1,000 MG in SYRINGE 0 ML IV SCH (07:56)
[2017-11-03] MEDS: FLUTICASONE HFA 110MCG INHALER INH SCH ×2 (07:56→21:00)
[2017-11-03] MEDS: GABAPENTIN 300 MG CAP PO SCH ×3 (08:45→21:23)
[2017-11-03] MEDS: LIDODERM (LIDOCAINE) PATCH 5% TD SCH ×2 (08:45→13:39)
[2017-11-03] MEDS: OXYCODONE/ACETAMINOPHEN 5-325 TAB PO PRN ×3 (08:46→21:34)
[2017-11-03] MEDS: RITONAVIR 100 MG PO SCH (08:46)
[2017-11-03] MEDS: ATAZANAVIR SULFATE 300 MG PO SCH (08:47)
[2017-11-03 08:57] LABS: CREATININE 0.73 mg/dl (0.60-1.20)
[2017-11-03] MEDS: SULFAMETHOXAZOLE/TRIMETHOPRIM DS 800/160MG TAB PO SCH (09:00)
--- NOTE | 2017-11-03 10:50 | Medical Consult ---
Consultation Date of Consultation: Nov 03, 2017. Attending Physician: George Jaime MD Reason for Consultation: Shingles, cellulitis right leg, HIV patient History of Present Illness 52-year-old female well known to me from previous care for her HIV infection, with known HIV disease for at least 20 years, reasonably maintained on anti- retroviral therapy though with low CD4 count despite undetectable viral load. She is currently on Bactrim for PCP prophylaxis. She was admitted to the hospital with recurrence zoster infection involving her right leg, with question of possible secondary cellulitis. She has been treated with acyclovir and cefazolin with improvement. CD4 count and viral load are pending. Patient has been afebrile, complaining of severe pain in her right leg, currently 6/10 in intensity. No other new complaints. Past Medical/Surgical History Medical Problems: (1) Dehydration Status: Acute (2) Diarrhea Status: Acute (3) Intractable pain Status: Acute (4) Pain and swelling of lower leg Status: Acute (5) Shingles Status: Acute (6) Thigh shingles Status: Acute Medical Problems: (1) Cellulitis (2) DM (diabetes mellitus) (3) Human Immunodeficiency Virus [Hiv] Disease Family History FH: colonic polyps Social History Smoking Status: Never Smoker Marital Status: Housing Status: lives with significant other Allergies Coded Allergies: Ciprofloxacin (Verified Allergy, Severe, TONGUE SWELLS, HIVES/ITCHING, THROAT "CLOSES", 10/31/17) Current Inpatient Medications Current Inpatient Medications Medications (Trade) Dose Ordered Sig/Edy Route Start Time Stop Time Status Last Admin Dose Admin Enoxaparin Sodium (Lovenox Inj) 40 mg Q24H SQ 10/31/17 08:00 11/30/17 07:59 Acetaminophen (Tylenol Tab) 650 mg Q4H PRN PO 10/31/17 05:00 11/30/17 04:59 Alprazolam (Xanax Tab) 0.5 mg BID PRN PO 10/31/17 05:00 11/30/17 04:59 Fluticasone Propionate (Flovent Hfa 110MCG Inhaler) 2 puffs BID INH 10/31/17 09:00 11/30/17 08:59 Tizanidine HCl (Zanaflex Tab) 2 mg Q6H PRN PO 10/31/17 05:00 11/30/17 04:59 10/31/17 19:58 2 MG Atazanavir (Reyataz) 300 mg DAILY PO 11/01/17 09:00 12/01/17 08:59 11/03/17 08:47 300 MG Ritonavir (Norvir) 100 mg DAILY PO 11/01/17 09:00 12/01/17 08:59 11/03/17 08:46 100 MG Ketorolac Tromethamine (Toradol Inj) 15 mg Q6H PRN IV. 10/31/17 05:00 11/05/17 04:59 11/03/17 06:36 15 MG Prochlorperazine Edisylate 5 mg/ Syringe 5 ml @ 5 mls/min Q6H PRN IV 10/31/17 05:00 11/30/17 04:59 Oxycodone/ Acetaminophen (Percocet 5-325mg Tab) 1 tab Q4H PRN PO 10/31/17 05:00 11/14/17 04:59 11/03/17 08:46 1 TAB Ibuprofen (Advil Tab) 400 mg Q6H PRN PO 10/31/17 05:00 11/30/17 04:59 Valacyclovir HCl (Valtrex Tab) 1,000 mg TID PO 10/31/17 09:00 11/30/17 08:59 11/03/17 08:45 1,000 MG Trimethoprim/ Sulfamethoxazole (Septra Ds 800/ 160MG Tab) 1 tab BID PO 10/31/17 09:00 11/06/17 21:01 11/03/17 09:00 1 TAB Trimethoprim/ Sulfamethoxazole (Septra Ds 800/ 160MG Tab) 1 tab DAILY PO 11/07/17 09:00 12/07/17 08:59 Cefazolin Sodium 1000 mg/Syringe 7.5 ml @ 2.5 mls/min Q8@0000,0800,1600 IV 10/31/17 16:00 11/10/17 15:59 11/03/17 07:56 2.5 MLS/MIN Gabapentin (Neurontin Cap) 300 mg TID PO 10/31/17 14:00 11/30/17 13:59 11/03/17 08:45 300 MG Emtricitabine/ Tenofovir (Truvada 200-300mg Tab) 1 tab DAILY PO 11/01/17 09:00 12/01/17 08:59 11/03/17 08:47 1 TAB Diphenhydramine HCl (Benadryl Cap) 25 mg Q6H PRN PO 10/31/17 20:15 11/30/17 20:14 10/31/17 21:21 25 MG Lidocaine (Lidoderm Patch 5%) 1 patch QAM TD 11/02/17 09:00 12/02/17 08:59 11/03/17 08:45 1 PATCH Miscellaneous (Remove Lidoderm Patch) 1 ea DAILY@21 N/A 11/01/17 21:00 12/01/17 20:59 11/02/17 21:00 1 EA Miscellaneous Information (Pharmacy Consult) 1 ea UD N/A 11/03/17 07:45 11/30/17 08:59 Review of Systems All systems were reviewed and are negative except as per HPI Physical Exam Date Time Temp Pulse Resp B/P (MAP) Pulse Ox O2 Delivery O2 Flow Rate FiO2 11/03/17 07:24 36.7 100 16 130/76 (94) 93 Room Air 11/02/17 23:50 93 Room Air 11/02/17 23:15 36.8 100 16 169/85 (113) 93 Room Air 11/02/17 20:34 Room Air 11/02/17 15:40 94 Room Air 11/02/17 15:16 36.7 72 19 122/74 (90) 94 Room Air General Appearance: WD/WN, no apparent distress Head: normocephalic, atraumatic Eyes: normal inspection, EOMI, sclerae normal ENT: normal ENT inspection, hearing grossly normal, pharynx normal Neck: supple, no adenopathy, thyroid normal, trachea midline Respiratory/Chest: chest non-tender, lungs clear, normal breath sounds, no respiratory distress Cardiovascular: regular rate, rhythm, no gallop, no murmur Abdomen/GI: normal bowel sounds, non tender, soft, no organomegaly Back: normal inspection, no CVA tenderness Extremities/Musculoskelatal: no calf tenderness, normal capillary refill, non- tender, + swelling (Right leg) Neurologic/Psych: alert, oriented x 3 Skin: normal color, + pertinent finding (Resolving right leg zoster, minimal erythema of leg) Lymphatic: no adenopathy Laboratory Results Last 24 Hours Test 11/03/17 08:13 Creatinine 0.73 mg/dl Est Creatinine Clear Calc Drug Dose 91.4 ml/min Estimated GFR () 108.2 Estimated GFR (Non- 93.4 Patient Name: CARINA GUERRERO Unit Number: [id number] Dictated: 10/31/17652 Transcribed: 10/31/17652 PBS Printed Date/Time: [~ rep prt dt]/[~ rep prt tm] [~ rep ct labl] - [~ rep ct ivnm] [facility] [place] [address] Dictated: 10/31/17652 Transcribed: 10/31/17652 PBS Printed Date/Time: [~ rep prt dt]/[~ rep prt tm] [~ rep ct labl] - [~ rep ct ivnm] CHEST 2 VIEWS ROUTINE CLINICAL HISTORY: 52 years-old Female presenting with swelling. TECHNIQUE: PA and lateral views of the chest were obtained. COMPARISON: 04/03/2016. FINDINGS: Atherosclerosis of the aortic arch. Cardiac silhouette normal in size. Lungs and pleural spaces clear. Osseous structures normal. Upper abdomen normal. IMPRESSION: 1. No acute cardiopulmonary disease. Electronically signed by: Joey Beverly M.D. 10/31/2017 6:54 AM Dictated Date/Time: 10/31/2017 6:53 AM The status of this report is Signed. Draft = Not yet reviewed or approved by Radiologist. Signed = Reviewed and approved by Radiologist. <AttendingPhy>Janee Allison DO</AttendingPhy> <FamilyPhy>Idania Irizarry M.D.</FamilyPhy> <PrimaryPhy>Idania Irizarry M.D.</PrimaryPhy> <UnitNumber> [id number]</UnitNumber> <VisitNumber>[id number]</VisitNumber> <PatientName> CARINA GUERRERO</PatientName> <DateOfBirth>1965</DateOfBirth> <Location> C.MSN</Location> <ServiceDate>10/31/17</ServiceDate> <MNE>ESINDI</MNE> < OrderingPhy>Laquita Quezada PA-C</OrderingPhy> <OrderingPhyMNE>f rep ord dr de guzman</OrderingPhyMNE> <DictatingPhyMNE>f rep dict dr de guzman</DictatingPhyMNE> < CCListMNE>f rep ct mne</CCListMNE> <AdmittingPhyMNE>f pt admit dr de guzman</ AdmittingPhyMNE> <AttendingPhyMNE>f pt attend dr de guzman</AttendingPhyMNE> <ConsultingPhyMNE>f pt consult dr de guzman</ConsultingPhyMNE> <FamilyPhyMNE>f pt fam dr de guzman</FamilyPhyMNE> <OtherPhyMNE>f pt other dr de guzman</OtherPhyMNE> < PrimaryPhyMNE>f pt prim care dr de guzman</PrimaryPhyMNE> <ReferringPhyMNE>f pt referring dr de guzman</ReferringPhyMNE> Assessment & Plan 52-year-old female with longstanding HIV disease now presents with zoster involving her right leg. Appears to be responding appropriately to therapy, not clear whether she had secondary cellulitis or not. Would recommend completion of 7 days of therapy for her acute zoster, then would continue patient on Valtrex 1 gram daily as suppressive therapy given her multiple episodes of shingles. Patient I had long discussion regarding her HIV therapy, and discussed the possibility of changing to more user friendly 1 pill daily regimen. She appears interested in this. Her current HIV physician and will be retiring, and she will return to my office for further management. I would continue patient on cephalexin 500 milligrams q.i.d. for possible cellulitis for 7 more days.
[2017-11-03 15:11] VITALS: BP 160/93; PULSE 66; TEMP 36.9; O2SAT 94
[2017-11-03] MEDS ORDERED: TRAMADOL HCL 50 MG TAB PO PRN (15:15)
--- NOTE | 2017-11-03 15:17 | Progress Note ---
Medicine Progress Note Date & Time of Visit: Nov 03, 2017 at 15:17. Subjective seen resting in bed, comfortable states her pain is better today, about 5/10 able to ambulate better denies other symptoms states she is ready and would like to be discharged today Objective Last 8 Hrs Date Time Temp Pulse Resp B/P (MAP) Pulse Ox O2 Delivery O2 Flow Rate FiO2 11/03/17 15:11 36.9 66 19 160/93 (115) 94 Room Air 11/03/17 07:24 36.7 100 16 130/76 (94) 93 Room Air 11/03/17 07:20 Room Air Physical Exam: General- oriented x 3, not in distress, speaks in sentences with no effort Eyes- anicteric Neck- no JVD Lungs- clear to auscultation bilaterally, no rales/wheezes Heart- regular rhythm; no murmur, no gallop, no rub appreciated Abdomen- normal bowel sounds, soft, nontender Extremities- no pretibial edema, no calf tenderness; peripheral pulses intact rash on the medial thigh, lower leg: drying, few vesicles which are also drying , no leg edema/warmth/tenderness Neuro- alert, oriented x 3; no gross focal deficits Skin- warm & dry Laboratory Results: Last 24 Hours Test 11/03/17 08:13 Creatinine 0.73 mg/dl Est Creatinine Clear Calc Drug Dose 91.4 ml/min Estimated GFR () 108.2 Estimated GFR (Non- 93.4 Assessment & Plan This is a 52 year old female with a PMH of HIV, s/p gastric bypass, diet- controlled DM2, HLD - presents with shingles and possible overlying cellulitis Shingles with Cellulitis, Right Lower Extremity pain improving gradually Doppler negative for acute DVTs given Valtrex TID, Cefazolin, Bactrim BID x 5 days on Gabapentin, Lidoderm patch, PRN Percocet and Tramadol ID consulted- Dr. Lane, recommend: 2 more days of Cephalexin QID 2 more days of Valtrex TID then daily continue Gabapentin, Lidoderm patch, PRN Percocet Diet controlled DM2 Ha1c = 6.6% DM diet monitor as outpatient HIV continue HAART therapy continue home medications outpatient ID follow-up with Dr. Lane (previous ID specialist retiring) DVT ppx Lovenox FULL CODE Disposition d/c home ff up with PCP in 3-5 days ff up with Dr. Lane as scheduled Current Inpatient Medications: Current Inpatient Medications Medications (Trade) Dose Ordered Sig/Edy Route Start Time Stop Time Status Last Admin Dose Admin Enoxaparin Sodium (Lovenox Inj) 40 mg Q24H SQ 10/31/17 08:00 11/30/17 07:59 Acetaminophen (Tylenol Tab) 650 mg Q4H PRN PO 10/31/17 05:00 11/30/17 04:59 Alprazolam (Xanax Tab) 0.5 mg BID PRN PO 10/31/17 05:00 11/30/17 04:59 Fluticasone Propionate (Flovent Hfa 110MCG Inhaler) 2 puffs BID INH 10/31/17 09:00 11/30/17 08:59 Tizanidine HCl (Zanaflex Tab) 2 mg Q6H PRN PO 10/31/17 05:00 11/30/17 04:59 10/31/17 19:58 2 MG Atazanavir (Reyataz) 300 mg DAILY PO 11/01/17 09:00 12/01/17 08:59 11/03/17 08:47 300 MG Ritonavir (Norvir) 100 mg DAILY PO 11/01/17 09:00 12/01/17 08:59 11/03/17 08:46 100 MG Prochlorperazine Edisylate 5 mg/ Syringe 5 ml @ 5 mls/min Q6H PRN IV 10/31/17 05:00 11/30/17 04:59 Oxycodone/ Acetaminophen (Percocet 5-325mg Tab) 1 tab Q4H PRN PO 10/31/17 05:00 11/14/17 04:59 11/03/17 13:33 1 TAB Ibuprofen (Advil Tab) 400 mg Q6H PRN PO 10/31/17 05:00 11/30/17 04:59 Gabapentin (Neurontin Cap) 300 mg TID PO 10/31/17 14:00 11/30/17 13:59 11/03/17 13:33 300 MG Emtricitabine/ Tenofovir (Truvada 200-300mg Tab) 1 tab DAILY PO 11/01/17 09:00 12/01/17 08:59 11/03/17 08:47 1 TAB Diphenhydramine HCl (Benadryl Cap) 25 mg Q6H PRN PO 10/31/17 20:15 11/30/17 20:14 10/31/17 21:21 25 MG Lidocaine (Lidoderm Patch 5%) 1 patch QAM TD 11/02/17 09:00 12/02/17 08:59 11/03/17 13:39 1 PATCH Miscellaneous (Remove Lidoderm Patch) 1 ea DAILY@21 N/A 11/01/17 21:00 12/01/17 20:59 11/02/17 21:00 1 EA Miscellaneous Information (Pharmacy Consult) 1 ea UD N/A 11/03/17 07:45 11/30/17 08:59 Tramadol HCl (Ultram Tab) 50 mg Q4H PRN PO 11/03/17 15:15 12/03/17 15:14 UNV Senna/Docusate Sodium (Senokot S Tab) 1 tab QAM PO 11/04/17 09:00 12/04/17 08:59 UNV Senna/Docusate Sodium (Senokot S Tab) 1 tab ONE PO 11/03/17 15:15 12/03/17 15:14 UNV
[2017-11-03] MEDS ORDERED: DOCUSATE SODIUM/SENNA 50/8.6MG TAB PO ONE (15:30)
[2017-11-03 22:51] VITALS: BP 152/90; PULSE 62; TEMP 37; O2SAT 95
[2017-11-04] MEDS: OXYCODONE/ACETAMINOPHEN 5-325 TAB PO PRN ×4 (02:20→18:31)
[2017-11-04 07:15] VITALS: BP 133/82; PULSE 67; TEMP 36.8; O2SAT 98
[2017-11-04] MEDS: ENOXAPARIN 40 MG/0.4 ML SYR SQ SCH (08:00)
[2017-11-04 08:11] LABS: BASO % 0.2 %; BASO ABS # 0.01 K/uL (0-0.2); EOS % 1.5 %; EOS ABS # 0.07 K/uL (0-0.5); HEMATOCRIT 36.1 % (37-47); IG# 0.01 K/uL (0.00-0.02); LYMPH % 40.8 %; MEAN CELL VOLUME 88.3 fL (80-100); MEAN CORPUSCULAR HEMOGLOBIN 29.3 pg (25-34); MEAN CORPUSCULAR HGB CONC 33.2 g/dl (32-36); MEAN PLATELET VOLUME 9.4 fL (7.4-10.4); MONO % 6.7 %; MONO ABS # 0.31 K/uL (0.11-0.59); NEUT % 50.6 %; NEUT ABS # 2.36 K/uL (1.4-6.5); PLATELET COUNT 237 K/uL (130-400); RED CELL DISTRIBUTION WIDTH CV 13.1 % (11.5-14.5); RED CELL DISTRIBUTION WIDTH SD 41.7 fL (36.4-46.3); WHITE BLOOD COUNT 4.66 K/uL (4.8-10.8)
[2017-11-04] MEDS: FLUTICASONE HFA 110MCG INHALER INH SCH (08:19)
[2017-11-04] MEDS: GABAPENTIN 300 MG CAP PO SCH ×2 (08:26→14:29)
[2017-11-04] MEDS: RITONAVIR 100 MG PO SCH (08:27)
[2017-11-04] MEDS: ATAZANAVIR SULFATE 300 MG PO SCH (08:27)
[2017-11-04] MEDS: LIDODERM (LIDOCAINE) PATCH 5% TD SCH (08:29)
[2017-11-04 08:38] LABS: CREATININE 0.84 mg/dl (0.60-1.20)
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
[2017-11-04] MEDS ORDERED: DOCUSATE SODIUM/SENNA 50/8.6MG TAB PO SCH (09:00)
[2017-11-04] MEDS ORDERED: CEFAZOLIN IV 1,000 MG in SYRINGE 0 ML IV SCH (12:00)
[2017-11-04] MEDS ORDERED: SULFAMETHOXAZOLE/TRIMETHOPRIM DS 800/160MG TAB PO SCH (12:00)
[2017-11-04 16:52] VITALS: BP 129/87; PULSE 73; TEMP 36.7; O2SAT 94
[2017-11-04] MEDS ORDERED: KFL500 PO (18:43)
[2017-11-04] MEDS ORDERED: LDDP5 TD (18:43)
[2017-11-04] MEDS ORDERED: OXYC-57 PO (18:43)
[2017-11-04] MEDS ORDERED: NRN300 PO (18:43)
[2017-11-04] MEDS ORDERED: SENN8.6T7 PO (18:43)
[2017-11-04] MEDS ORDERED: IBUP-1050 PO (18:43)
[2017-11-04] MEDS ORDERED: VALA1TAB31 PO (18:43)
--- NOTE | 2017-11-04 18:50 | Discharge Instructions ---
Discharge Instructions Date of Service Nov 04, 2017. Admission Reason for Admission: Cellulitis Discharge Discharge Diagnosis / Problem: SHINGLES, CELLULITIS Discharge Goals Goal(s): Diagnostic testing, Therapeutic intervention Activity Recommendations Activity Limitations: as noted below (NO HEAVY EXERTION UNTIL FOLLOW UP WITH PRIMARY CARE PHYSICIAN) Lifting Limitations: until after follow-up appointment Exercise/Sports Limitations: until after follow-up appointment Driving or Machine Use: NO DRIVING WHILE TAKING PERCOCET . Instructions / Follow-Up Instructions / Follow-Up PLEASE REVIEW YOUR NEW MEDICATION LIST AND FOLLOW INSTRUCTIONS CAREFULLY. CALL PRIMARY CARE PHYSICIAN OR RETURN TO ER IMMEDIATELY IF WITH WORSENING OF SYMPTOMS, INCREASING LEG PAIN, SWELLING, REDNESS, FEVER/CHILLS. TO PREVENT TRANSMISSION: Keep the rash covered, and wash hands often to prevent the spread of virus to others. Avoid contact with women who have never had chickenpox or the varicella vaccine, premature or low weight infants, and immunocompromised individuals FOLLOW UP WITH DR. SHAFFER ON NOVEMBER 08, 2017 AT 11:00AM. FOLLOW UP WITH DR. OLEARY IN 1-2 WEEKS. TEL NO Current Hospital Diet Patient's current hospital diet: Regular Diet Discharge Diet Recommended Diet: Diabetes Type 2 Diet Procedures Procedures Performed: CHEST XRAY, ULTRASOUND OF THE LEGS Pending Studies Studies pending at discharge: no Laboratory Results Hemoglobin A1c Test 10/31/17 01:10 Range/Units Estimated Average Glucose 143 mg/dl Hemoglobin A1c 6.6 H 4.5-5.6 % Medical Emergencies . Who to Call and When: Medical Emergencies: If at any time you feel your situation is an emergency, please call 911 immediately. . Non-Emergent Contact Non-Emergency issues call your: Primary Care Provider, Specialist (DR. OLEARY) Call Non-Emergent contact if: you have a fever, your pain is not controlled, your pain is worsening, wound has increased drainage, wound has increased redness, wound has increased pain, you have any medication questions . . "Provider Documentation" section prepared by George Jaiem. . [place] Drug Monitoring Program Search Results: patient reviewed within database, no issues identified
--- NOTE | 2017-11-04 18:56 | Discharge Summary ---
Discharge Summary Date of Service Nov 04, 2017. Discharge Summary Admission Date: Oct 31, 2017 at 04:32 Discharge Date: Nov 04, 2017 Discharge Disposition: Home Principal Diagnosis: Shingles with Cellulitis, Right Lower Extremity Secondary Diagnoses/Problems: Please refer to hospital course below. Procedures: VENOUS DOPPLER LWR EXT BILA CLINICAL HISTORY: 52 years-old Female presenting with leg swelling. TECHNIQUE: Real-time grayscale and color and spectral Doppler ultrasound imaging of the veins of the bilateral lower extremities was performed. Compression and augmentation were also utilized. COMPARISON: 02/18/2015. FINDINGS: Right: Common femoral vein: Patent. Greater saphenous vein: Patent. Deep femoral vein: Patent. Femoral vein: Patent. Popliteal vein: Patent. Calf veins: Patent. Left: Common femoral vein: Patent. Greater saphenous vein: Patent. Deep femoral vein: Patent. Femoral vein: Patent. Popliteal vein: Patent. Calf veins: Patent. Other: None. IMPRESSION: No evidence of deep venous thrombosis. Electronically signed by: Joey Beverly M.D. 10/31/2017 6:03 AM CHEST 2 VIEWS ROUTINE CLINICAL HISTORY: 52 years-old Female presenting with swelling. TECHNIQUE: PA and lateral views of the chest were obtained. COMPARISON: 04/03/2016. FINDINGS: Atherosclerosis of the aortic arch. Cardiac silhouette normal in size. Lungs and pleural spaces clear. Osseous structures normal. Upper abdomen normal. IMPRESSION: 1. No acute cardiopulmonary disease. Consultations: ID DR. LANE, PAIN MANAGEMENT Pending Studies/Follow-Up: PLEASE REFER TO HOSPITAL COURSE BELOW. Medication Reconciliation New Medications: Cephalexin Monohydrate (Cephalexin) 500 Mg Cap 1 CAP PO QID for 6 Days, #24 CAP 0 Refills Gabapentin (Gabapentin) 300 Mg Cap 300 MG PO TID for 30 Days, #90 CAP 1 Refill Ibuprofen (Advil) 200 Mg Tab 400 MG PO Q6H PRN for pain for 7 Days Lidocaine (Lidocaine) 1 Patch Tdsy 1 PATCH TD QAM for 10 Days, #10 PATCH 2 Refills Oxycodone/Acetaminophen 5MG/325MG (Percocet 5MG/325MG) Tab 1 TAB PO Q4H PRN for Pain for 5 Days, #15 TAB [address] while taking Percocet Sennosides-Docusate Sodium (Senokot S) 1 Tab Tab 1 TAB PO QAM for 10 Days, #10 TAB 2 Refills Changed Medications: Valacyclovir Hcl (Valtrex) 1 Gm Tab 1 GM PO UD for 30 Days, #36 TAB 1 Refill (Changed from: TID; ; Refills: ; STARTED 10/30/17 FOR 7 DAYS) take 1 tab po TID x 2 days, then take 1 tab po daily Continued Medications: Albuterol Sulfate (Proair Respiclick) 108 Mcg/Act Aer 2 PUFFS INH Q4H PRN for Wheezing Alprazolam (Xanax) 0.5 Mg Tab 0.5 MG PO BID PRN for Anxiety, TAB Atazanavir Sulfate (Reyataz) 300 Mg Cap 300 MG PO DAILY for 30 Days, #30 CAP 3 Refills Clindamycin Phosphate (Topical (Cleocin-T) 1 % Gel 1 APPLN TOP BID for 30 Days, #60 GM APPLY TO VULVA, GROIN LESIONS. Cyanocobalamin (Vitamin B-12) 1,000 Mcg Tab 1000 MCG PO DAILY, TAB Emtricitabine/Temofovir (Truvada 200/300MG) Tab 1 TAB PO DAILY, TAB Ergocalciferol (Drisdol) 50,000 Unit Cap 95103 UNITS PO WK Fluticasone Propionate (Flovent Hfa) 120 Puffs/43913 Mcg Aero 2 PUFFS INH BID for 30 Days, #1 INHALER 3 Refills Nystatin (Topical) (Nystop) 100,000 Unit/Gm Pow 1 APPLN TOP BID TO AFFECTED AREA Nystatin/Triamcinolone (Mycolog ||) Cr 1 APPLN TOP BID APPLY TO AFFECTED AREA X 2 WEEKS. Ritonavir (Norvir) 100 Mg Tab 100 MG PO DAILY for 30 Days, #30 TAB 3 Refills Sulfa/Trimethoprim (Bactrim Ds 800MG/160MG) Tab 1 TAB PO DAILY, #6 TAB Tizanidine (Zanaflex) 2 Mg Cap 2 MG PO Q6H PRN for Muscle Spasms, CAP Discontinued Medications: Oxycodone Ir (Roxicodone Ir) 5 Mg Tab 1-2 TAB PO Q6H PRN for Severe Pain, #12 TAB Prednisone (Prednisone) 10 Mg Tab 0 PO UD, #1 PKT TAKE 5 TABS X 2 DAYS, 4 TABS X 2 DAYS, 3 TABS X 2 DAYS, 2 TABS X 2 DAYS, 1 TAB X 2 DAYS. Admission Information HPI (per Admitting provider): CHIEF COMPLAINT: Right leg swelling, pain. HISTORY OF PRESENT ILLNESS: History obtained from patient and records. Medical history significant for HIV disease on HAART, sleep apnea, hyperlipidemia, DM2 diet controlled off meds since gastric bypass. Past tobacco abuse Endometrial cancer status post surgery. Recent confinement January 2012 for chest pain. Stress test negative. Few days ago, the patient noted achy right-sided hip pain going to the leg. Patient seen by PCP. Impression was sciatica. Prescribed tizanidine and prednisone. Patient later on noted worsening of pain symptoms and red bumpy rash on the right leg, no fever, no chills. Patient seen at the Emergency Room. Impression was R thigh shingles. Patient discharged on acyclovir, OxyIR. Worsening right leg swelling, pain noted. No fever, no chills. Patient returned to the ER due to worsening symptoms. Physical Exam (per Admitting): VITAL SIGNS: Blood pressure 155/90, pulse rate 60, RR 18, T 37, O2 sats 95 on room air. GENERAL: Noted to be obese, slightly uncomfortable. No respiratory distress. SKIN: Normal color, warm. HEENT: [place] palpebral conjunctivae. No ptosis. Dry mucosa. NECK: Short neck, supple. CHEST: Decreased effort. No tenderness. HEART: Regular rate and rhythm, no murmur. ABDOMEN: Some distention, nontender. EXTREMITIES: Right lower extremity swelling, hyperesthesia, Note of tender rash on the right lower extremity. RLE noted to be warm. NEUROLOGIC: Coherent. No gross focality. Hospital Course This is a 52 year old female with a PMH of HIV, s/p gastric bypass, diet- controlled DM2, HLD - presents with shingles and possible overlying cellulitis Shingles with Cellulitis, Right Lower Extremity given Valtrex TID, Cefazolin, Bactrim BID x 5 days on Gabapentin, Lidoderm patch, PRN Percocet and Tramadol pain improving gradually, leg edema and tenderness much improved, rash improving ID consulted- Dr. Lane, recommended: 6 more days of Cephalexin QID 2 more days of Valtrex TID then daily Pain Management consulted continue Gabapentin TID x few weeks then taper off, Lidoderm patch, PRN Percocet Diet controlled DM2 Ha1c = 6.6% DM diet monitor as outpatient HIV continue HAART therapy continue home medications outpatient ID follow-up with Dr. Lane (previous ID specialist retiring) Disposition d/c home ff up with PCP in 3-5 days ff up with Dr. Lane as scheduled Total time spent on discharge = 30 minutes This includes examination of the patient, discharge planning, medication reconciliation, and communication with other providers. Discharge Instructions Discharge Instructions Date of Service Nov 04, 2017. Admission Reason for Admission: Cellulitis Discharge Discharge Diagnosis / Problem: SHINGLES, CELLULITIS Discharge Goals Goal(s): Diagnostic testing, Therapeutic intervention Activity Recommendations Activity Limitations: as noted below (NO HEAVY EXERTION UNTIL FOLLOW UP WITH PRIMARY CARE PHYSICIAN) Lifting Limitations: until after follow-up appointment Exercise/Sports Limitations: until after follow-up appointment Driving or Machine Use: NO DRIVING WHILE TAKING PERCOCET . Instructions / Follow-Up Instructions / Follow-Up PLEASE REVIEW YOUR NEW MEDICATION LIST AND FOLLOW INSTRUCTIONS CAREFULLY. CALL PRIMARY CARE PHYSICIAN OR RETURN TO ER IMMEDIATELY IF WITH WORSENING OF SYMPTOMS, INCREASING LEG PAIN, SWELLING, REDNESS, FEVER/CHILLS. TO PREVENT TRANSMISSION: Keep the rash covered, and wash hands often to prevent the spread of virus to others. Avoid contact with women who have never had chickenpox or the varicella vaccine, premature or low weight infants, and immunocompromised individuals FOLLOW UP WITH DR. SHAFFER ON NOVEMBER 08, 2017 AT 11:00AM. FOLLOW UP WITH DR. LANE IN 1-2 WEEKS. TEL NO Current Hospital Diet Patient's current hospital diet: Regular Diet Discharge Diet Recommended Diet: Diabetes Type 2 Diet Procedures Procedures Performed: CHEST XRAY, ULTRASOUND OF THE LEGS Pending Studies Studies pending at discharge: no Laboratory Results Hemoglobin A1c Test 10/31/17 01:10 Range/Units Estimated Average Glucose 143 mg/dl Hemoglobin A1c 6.6 H 4.5-5.6 % Medical Emergencies . Who to Call and When: Medical Emergencies: If at any time you feel your situation is an emergency, please call 911 immediately. . Non-Emergent Contact Non-Emergency issues call your: Primary Care Provider, Specialist (DR. LANE) Call Non-Emergent contact if: you have a fever, your pain is not controlled, your pain is worsening, wound has increased drainage, wound has increased redness, wound has increased pain, you have any medication questions . . "Provider Documentation" section prepared by George Jaime. . [place] Drug Monitoring Program Search Results: patient reviewed within database, no issues identified
[2017-11-04 19:00] VITALS: BP 129/87; PULSE 73; TEMP 36.7; O2SAT 94
[2017-11-07] MEDS ORDERED: SULFAMETHOXAZOLE/TRIMETHOPRIM DS 800/160MG TAB PO SCH (09:00)
== END 2017-11-04 19:45 | disposition home or self-care (01) | DRG 603 ==
LOC: C.EDB 00:21 → C.MSN 04:32 → ENRESERV 04:47
PROVIDERS: ADMIT Family Medicine; ATTEND Internal Medicine
DX: L03.115 Cellulitis of right lower limb (principal); B02.8 Zoster with other complications; E11.9 Type 2 diabetes mellitus without complications; G47.30 Sleep apnea, unspecified; Z87.891 Personal history of nicotine dependence; E66.9 Obesity, unspecified; E78.5 Hyperlipidemia, unspecified; Z21 Asymptomatic human immunodeficiency virus [HIV] infection status; Z98.84 Bariatric surgery status

== ENCOUNTER 2022-08-24 15:24 | Inpatient (IN) ==
[2022-08-24] MEDS ORDERED: ONDANSETRON INJ 2 MG/ML 2 ML VIAL IV STA ×2 (20:09→23:24)
[2022-08-24 20:15] LABS: Basophils # (auto) 0.02 K/uL (0-0.2); Basophils % (auto) 0.2 %; Hematocrit (blood only) 39.9 % (34.1-44.9); Hemoglobin 13.4 g/dl (12.0-16.0); Immature Granulocytes # (auto) 0.13 K/uL (0.00-0.02); Lymphocytes # (auto) 0.79 K/uL (1.2-3.4); Lymphocytes % (auto) 6.4 %; Mean Corpuscular Hgb Conc 33.6 g/dL (32.0-36.0); Mean Corpuscular Volume 86.4 fL (80.0-100.0); Monocytes # (auto) 0.32 K/uL (0.24-0.82); Monocytes % (auto) 2.6 %; Neutrophils # (auto) 11.14 K/uL (1.4-6.5); Neutrophils % (auto) 89.8 %; Platelet Count 307 K/uL (130-400); RDW Coefficient of Variation 14.5 % (11.5-14.5); RDW Standard Deviation 46.1 fL (36.4-46.3); Red Blood Count 4.62 M/uL (3.93-5.22)
[2022-08-24 20:20] LABS: Appearance Urine Clear (Clear); Bacteria Urine Automated Negative (Negative); Bilirubin Urine Negative (Negative); Blood Urine 1+ (Negative); Color Urine Yellow; Glucose Urine UA 3+ (Negative); Ketones Urine 4+ (Negative); Leukocyte Esterase Urine Negative (Negative); Nitrite Urine Negative (Negative); Protein Urine 2+ (Negative); RBC Urine Automated 0-4 /hpf (0-4); Specific Gravity Urine 1.036 (1.000-1.030); Urobilinogen Urine Negative (Negative); pH Urine 5.5 (4.5-7.5)
[2022-08-24 20:32] LABS: Pregnancy Test, Serum Negative (Negative)
[2022-08-24 20:47] LABS: Albumin Level 4.7 gm/dl (3.4-5.0); BUN Creatinine Ratio 15.6 (10-20); Bilirubin,Total 0.8 mg/dl (0.2-1.0); Calcium 9.9 mg/dl (8.5-10.1); Creatinine Clr Calc Pharmacy 106.2 ml/min; Est GFR (African American) 113.2 ml/min; Est GFR (Non-African American) 97.7 ml/min; Globulin 4.6 gm/dl (2.5-4.0); Potassium 3.9 mmol/L (3.5-5.1); Total Protein 9.3 gm/dl (6.0-8.3)
[2022-08-24] MEDS ORDERED: GI COCKTAIL ED USE PO ONE (21:29)
[2022-08-24] MEDS ORDERED: SODIUM CHLORIDE 0.9% 1000ML 1,000 ML IV ONE (21:29)
--- NOTE | 2022-08-24 21:34 | Emergency Department Note ---
Impression & Plan Abdominal pain, Acute cholecystitis ED Provider Note NAME: CARINA GUERRERO AGE: 57 SEX: F : 1965 ARRIVES VIA: Walk-In INFORMANT: Patient ED PROVIDER(S): Jairo Chen DO CHIEF COMPLAINT: abdominal pain HPI: Patient is a 57-year-old female with a past medical history of HIV, diabetes, gastric bypass that presents the ER for epigastric abdominal pain. She admits to nausea but no vomiting. Pain is a 10 out of 10 and constant. It has been present for the past 24 hours. Denies any dysuria, urgency, or frequency. No black or dark tarry stools. Previous history of hysterectomy. Does still have her gallbladder and appendix per her report. No other exacerbating or remitting factors. No fevers. Pain is worse with eating and drinking. ROS: See above HPI for pertinent positives & negatives. A total of 10 systems reviewed and were otherwise negative. PAST MEDICAL HISTORY:See Below PAST SURGICAL HISTORY:See Below FAMILY HISTORY:See Below SOCIAL HISTORY:See Below HOME MEDICATIONS:See Below ALLERGIES:See Below VITALS:See Below PHYSICAL EXAMINATION: GENERAL: Sitting up in chair, alert, well appearing, well nourished, no distress, non-toxic EYE EXAM: normal conjunctiva. OROPHARYNX: no exudate, no erythema, lips, buccal mucosa, and tongue normal and mucous membranes are moist NECK: supple, no nuchal rigidity, no adenopathy, non-tender LUNGS: Clear to auscultation. Normal chest wall mechanics HEART: no murmurs, S1 normal and S2 normal ABDOMEN: abdomen soft, TTP in epigastric abd pain, normo-active bowel sounds, no masses, no rebound or guarding. UPPER EXTREMITIES: upper extremities are grossly normal. LOWER EXTREMITIES: No pitting edema. NEURO EXAM: Normal sensorium, cranial nerves II-XII grossly intact, normal speech, no gross weakness of arms, no gross weakness of legs. MEDICAL DECISION MAKING: Patient is a 57-year-old female who presents ER for epigastric right upper quadrant abdominal pain. IV was established blood was obtained. Labs show leukocytosis 12,000. No significant anemia. BMP with mild hyponatremia 133. LFTs bilirubin was unremarkable. Lipase was normal. UA was clean. COVID- negative. CT abdomen pelvis shows dilated gallbladder with edematous wall consistent with acute cholecystitis. Patient was given IV Zosyn, morphine, Zofran and fluids. Updated bedside. Discussed with Dr. Leung who recommended discussing with the hospitalist. Discussed with Dr. Hannon for further evaluation and admission. Triage Nursing notes reviewed. Limited review of prior medical records performed Vital Signs: reviewed and remarkable for HTN Differential diagnosis: Differential diagnoses includes but is not limited to gastritis, peptic ulcer disease, GERD, gallbladder disease, pancreatitis, small bowel obstruction, acute coronary syndrome, pericarditis, ischemic bowel, irritable bowel disease, irritable bowel syndrome, appendicitis, diverticulitis, malignancy, hernia, urinary tract infection, torsion, [/ectopic (if female)], perforation, trauma, infectious. ER treatment provided: See below Diagnostics interpreted by me: Cardiac Monitoring: An order was placed for continuous cardiac monitoring. The monitor shows a rate of 101 with sinus rhythm. Laboratory studies: As stated above and show below. Imaging studies: CT abdomen pelvis shows cholecystitis Consultation(s): As described above discussed with general surgery as well as the hospitalist Procedures: none Critical Care: None Past Med/Surg History Medical History DM (diabetes mellitus) Human immunodeficiency virus [HIV] disease Hyperlipidemia Hypertension Family History Other No significant family history Social History Smoking Status: Never smoker Preferred Language: Maori Feels Safe at Home: Yes Allergies Allergies Allergy/AdvReac Type Severity Reaction Status Date / Time ciprofloxacin Allergy Severe TONGUE Verified 08/24/22 23:30 SWELLS, HIVES/ITCHING, THROAT "CLOSES" metformin AdvReac Severe DIARRHEA/VO Verified 08/24/22 23:30 MITING Home Meds Home Medications Medication Instructions Recorded Confirmed alprazolam 0.5 mg tablet 0.5 mg PO BID PRN Anxiety 08/17/18 08/24/22 clindamycin phosphate 1 % topical 1 applic topical DIRECTED 08/17/18 08/24/22 gel ergocalciferol (vitamin D2) 1,250 50,000 unit PO WK 12/15/19 08/24/22 mcg (50,000 unit) capsule (Vitamin D2) bictegravir 50 mg-emtricitabine 1 tab PO DAILY 08/24/22 08/24/22 200 mg-tenofovir alafenam 25 mg tablet (Biktarvy) cyanocobalamin (vitamin B-12) 1,000 mcg IM .[id number] 08/24/22 08/24/22 1,000 mcg/mL injection solution Results & Data (ED) Vital Signs Vital Signs - 24 hr 08/24/22 15:56 08/24/22 23:41 Temperature 36.8 C Temperature Source Oral Pulse Rate 70 Pulse Rate [Finger] 105 H Respiratory Rate 18 20 Blood Pressure 164/89 H Blood Pressure [Left Arm] 188/102 H Blood Pressure Mean 114 Blood Pressure Mean [Left Arm] 130 Blood Pressure Position Sitting Blood Pressure Position [Left Arm] Lying Pulse Oximetry 98 96 Oxygen Delivery Method Room Air Room Air Sepsis Recent Fever Within 48 Hours No Sepsis New/Unexplained Change in Mental Status No Sepsis Action Taken by Nursing No Action Required Laboratory Data Result diagrams: 08/24/22 20:03 08/24/22 20:03 Lab Results 08/24/22 08/24/22 08/24/22 Range/Units 19:58 20:03 20:03 WBC 12.40 H (4.8-10.8) K/ul RBC 4.62 (3.93-5.22) M/uL Hgb 13.4 (12.0-16.0) g/dl Hct 39.9 (34.1-44.9) % MCV 86.4 (80.0-100.0) fL MCH 29.0 (25.0-34.0) pg MCHC 33.6 (32.0-36.0) g/dL RDW Std Deviation 46.1 (36.4-46.3) fL RDW Coeff of Tami 14.5 (11.5-14.5) % Plt Count 307 (130-400) K/uL MPV 10.0 (9.4-12.3) fL Immature Gran % (Auto) 1.0 % Neut % (Auto) 89.8 % Lymph % (Auto) 6.4 % [place] % (Auto) 2.6 % Eos % (Auto) 0.0 % Baso % (Auto) 0.2 % Neut # (Auto) 11.14 H (1.4-6.5) K/uL Lymph # (Auto) 0.79 L (1.2-3.4) K/uL [place] # (Auto) 0.32 (0.24-0.82) K/uL Eos # (Auto) 0.00 (0-0.50) K/uL Baso # (Auto) 0.02 (0-0.2) K/uL Immature Gran # (Auto) 0.13 H (0.00-0.02) K/uL Sodium 133 L (136-145) mmol/L Potassium 3.9 (3.5-5.1) mmol/L Chloride 95 L (98-107) mmol/L Carbon Dioxide 24 (21-32) mmol/L Anion Gap 14 H (3-11) BUN 10 (6-23) mg/dl Creatinine 0.64 (0.6-1.2) mg/dl Est Cr Clr Drug Dosing 106.2 ml/min Est GFR ( Amer) 113.2 ml/min Est GFR (Non-Af Amer) 97.7 ml/min BUN/Creatinine Ratio 15.6 (10-20) Glucose 263 H (70-99(Fasting)) mg/dl Calcium 9.9 (8.5-10.1) mg/dl Total Bilirubin 0.8 (0.2-1.0) mg/dl AST 12 L (13-39) U/L ALT 12 (7-52) U/L Alkaline Phosphatase 120 H (34-104) U/L Total Protein 9.3 H (6.0-8.3) gm/dl Albumin 4.7 (3.4-5.0) gm/dl Globulin 4.6 H (2.5-4.0) gm/dl Albumin/Globulin Ratio 1.0 (0.9-2) Lipase 8 L (11-82) U/L HCG, Qual (Negative) Urine Color Yellow Urine Appearance Clear (Clear) Urine pH 5.5 (4.5-7.5) Ur Specific [place] 1.036 H (1.000-1.030) Urine Protein 2+ H (Negative) Urine Glucose (UA) 3+ H (Negative) Urine Ketones 4+ H (Negative) Urine Blood 1+ H (Negative) Urine Nitrite Negative (Negative) Urine Bilirubin Negative (Negative) Urine Urobilinogen Negative (Negative) Ur Leukocyte Esterase Negative (Negative) Urine WBC (Auto) 1-5 (0-5) /hpf Urine RBC (Auto) 0-4 (0-4) /hpf U Hyaline Cast (Auto) 1-5 (0-5) /lpf U Epithel Cells (Auto) 5-10 H (0-5) /lpf Urine Bacteria (Auto) Negative (Negative) POC Ur Test (NEG) 08/24/22 08/24/22 Range/Units 20:03 Unknown WBC (4.8-10.8) K/ul RBC (3.93-5.22) M/uL Hgb (12.0-16.0) g/dl Hct (34.1-44.9) % MCV (80.0-100.0) fL MCH (25.0-34.0) pg MCHC (32.0-36.0) g/dL RDW Std Deviation (36.4-46.3) fL RDW Coeff of Tami (11.5-14.5) % Plt Count (130-400) K/uL MPV (9.4-12.3) fL Immature Gran % (Auto) % Neut % (Auto) % Lymph % (Auto) % [place] % (Auto) % Eos % (Auto) % Baso % (Auto) % Neut # (Auto) (1.4-6.5) K/uL Lymph # (Auto) (1.2-3.4) K/uL [place] # (Auto) (0.24-0.82) K/uL Eos # (Auto) (0-0.50) K/uL Baso # (Auto) (0-0.2) K/uL Immature Gran # (Auto) (0.00-0.02) K/uL Sodium (136-145) mmol/L Potassium (3.5-5.1) mmol/L Chloride (98-107) mmol/L Carbon Dioxide (21-32) mmol/L Anion Gap (3-11) BUN (6-23) mg/dl Creatinine (0.6-1.2) mg/dl Est Cr Clr Drug Dosing ml/min Est GFR ( Amer) ml/min Est GFR (Non-Af Amer) ml/min BUN/Creatinine Ratio (10-20) Glucose (70-99(Fasting)) mg/dl Calcium (8.5-10.1) mg/dl Total Bilirubin (0.2-1.0) mg/dl AST (13-39) U/L ALT (7-52) U/L Alkaline Phosphatase (34-104) U/L Total Protein (6.0-8.3) gm/dl Albumin (3.4-5.0) gm/dl Globulin (2.5-4.0) gm/dl Albumin/Globulin Ratio (0.9-2) Lipase (11-82) U/L HCG, Qual Negative (Negative) Urine Color Urine Appearance (Clear) Urine pH (4.5-7.5) Ur Specific [place] (1.000-1.030) Urine Protein (Negative) Urine Glucose (UA) (Negative) Urine Ketones (Negative) Urine Blood (Negative) Urine Nitrite (Negative) Urine Bilirubin (Negative) Urine Urobilinogen (Negative) Ur Leukocyte Esterase (Negative) Urine WBC (Auto) (0-5) /hpf Urine RBC (Auto) (0-4) /hpf U Hyaline Cast (Auto) (0-5) /lpf U Epithel Cells (Auto) (0-5) /lpf Urine Bacteria (Auto) (Negative) POC Ur Test NEG (NEG) Administered Medications Discontinued Medications Al Hydrox/Mg Hydrox/Simethicone (Gi Cocktail Ed Use) 1 dose PO ONE ONE Stop: 08/24/22 21:30 Last Admin: 08/24/22 23:33 Dose: 1 dose Documented By: MIL Sodium Chloride (Nss 1000ml) 1,000 mls @ 999 mls/hr IV .Q1H1M ONE Stop: 08/24/22 22:29 Last Admin: 08/24/22 23:33 Dose: 999 mls/hr Documented By: MIL Piperacillin Sod/Tazobactam Sod (Zosyn) 4.5 gm in 120 mls @ 240 mls/hr IV NOW ONE Stop: 08/24/22 23:53 Last Infusion: 08/25/22 00:38 Dose: 0 mls/hr Documented By: Admin: 08/24/22 23:37 Dose: 240 mls/hr Documented By: MIL Ioversol (Optiray 350 100ml) 81 ml IV ONCE ONE Stop: 08/24/22 21:53 Last Admin: 08/24/22 21:53 Dose: 81 ml Documented By: PATRICIA Morphine Sulfate (Morphine Sulfate 10 Mg/Ml Carp/Vial) 6 mg IV NOW STA Stop: 08/24/22 23:25 Last Admin: 08/24/22 23:36 Dose: 6 mg Documented By: MIL Ondansetron HCl (Ondansetron Inj 2 Mg/Ml 2 Ml Vial) 4 mg IV NOW STA Stop: 08/24/22 20:10 Last Admin: 08/24/22 20:13 Dose: 4 mg Documented By: ALBINO Ondansetron HCl (Ondansetron Inj 2 Mg/Ml 2 Ml Vial) 4 mg IV NOW STA Stop: 08/24/22 23:25 Last Admin: 08/24/22 23:36 Dose: 4 mg Documented By: MIL Discharge Plan Visit Data Chief Complaint: Abdominal Pain Stated Complaint: ABD PAIN ED Provider: Jairo Chen Discharge Problem: Abdominal pain, Acute cholecystitis Forms Stand Alone Forms: [facility] Prescriptions Prescriptions: No Action alprazolam 0.5 mg tablet 0.5 mg PO BID PRN (Reason: Anxiety) clindamycin phosphate 1 % gel 1 applic topical DIRECTED Rx Instructions: USE TOPICALLY TWICE DAILY TO GROIN ergocalciferol (vitamin D2) [Vitamin D2] 1,250 mcg (50,000 unit) capsule 50,000 unit PO WK Rx Instructions: TAKE THIS MED EVERY TUESDAY cyanocobalamin (vitamin B-12) 1,000 mcg/mL Solution 1,000 mcg IM .[id number] Biktarvy 50-200-25 mg tablet 1 tab PO DAILY Referrals Referrals: Idania Irizarry MD [Primary Care Provider] -
[2022-08-24] MEDS ORDERED: OPTIRAY 350 100ml IV ONE (21:52)
[2022-08-24] MEDS ORDERED: MoRPHine SULFATE 10 MG/ML CARP/VIAL IV STA (23:24)
[2022-08-24] MEDS ORDERED: PIPERACILLIN/TAZOBACTAM 4.5 GM/120 ML BAG IV ONE (23:24)
[2022-08-25] MEDS ORDERED: HYDROmorphone INJ 1 MG/ML SYRINGE IV STA (01:03)
[2022-08-25] MEDS ORDERED: GLUCAGON FOR INJ 1 MG VIAL SQ PRN (01:59)
[2022-08-25] MEDS ORDERED: CARBOHYDRATES FOR HYPOGLYCEMIA PO PRN (01:59)
[2022-08-25] MEDS ORDERED: carvediloL 6.25 MG TAB PO PRN (01:59)
[2022-08-25] MEDS ORDERED: HYDROmorphone INJ 0.5 MG/0.5 ML SYR IV PRN (01:59)
[2022-08-25] MEDS ORDERED: ONDANSETRON INJ 2 MG/ML 2 ML VIAL IV PRN ×2 (01:59→10:04)
[2022-08-25] MEDS ORDERED: DEXTROSE 50% 50 ML SYRINGE IV PRN (01:59)
[2022-08-25] MEDS ORDERED: ACETAMINOPHEN 325 MG TAB PO PRN (01:59)
[2022-08-25] MEDS ORDERED: ALPRAZolam 0.5 MG TABLET PO PRN (01:59)
[2022-08-25] MEDS ORDERED: GLUCOSE 40% GEL 15 GM TUBE PO PRN (01:59)
[2022-08-25] MEDS ORDERED: POLYETHYLENE (MIRALAX) 17 GM PACK PO PRN (01:59)
[2022-08-25] MEDS ORDERED: GLUCOSE 10 TAB/TUBE PO PRN (01:59)
--- NOTE | 2022-08-25 02:15 | History and Physical Report ---
DATE OF ADMISSION: 08/25/2022 CHIEF COMPLAINT: Abdominal pain. HISTORY OF PRESENT ILLNESS: This is a 57-year-old female with past medical history significant for hyperlipidemia, diabetes, postherpetic neuralgia, hidradenitis, cough variant asthma, HIV disease, MARTINEZ, chronic anxiety, history of bariatric surgery, depression, comes with abdominal pain. The patient says her abdominal pain started about 2 a.m. on Tuesday night and was not getting better. It was in the epigastrium and right upper quadrant region, radiating to the back, very severe, associated with nausea, no vomiting and she was constipated and she came to the ER today and CAT scan showing cholecystitis. She notes that she has no fever, has some mild headache. No blurred visions, no runny nose, no sore throat, no cough. When the pain is severe, she is getting some shortness of breath. Sometimes her pain seems to come to the lower chest. No swelling in the legs. Currently, resting comfortably, hemodynamically stable, but does feel the pain seems to be coming back. ALLERGIES: CIPROFLOXACIN, METFORMIN. PAST MEDICAL HISTORY: As mentioned above. PAST SURGICAL HISTORY: , EGD, EGD with biopsy, laparoscopic hysterectomy, laparoscopic procedure of the liver, laparoscopic gastric restrictive bypass Morris-en-Y surgery, cataract surgery, sweat gland excision. MEDICATIONS: The patient is on alprazolam 0.5 mg p.o. b.i.d. p.r.n., Biktarvy one tablet p.o. daily, clindamycin topical p.r.n., vitamin B12 1000 mcg IM q. 3 months, vitamin D 50,000 units p.o. weekly. FAMILY HISTORY: Significant for sister has allergies, asthma, breast cancer, another sister with diabetes, brother has diabetes, mother has diabetes. SOCIAL HISTORY: . Quit smoking in 1977. Smoked quarter pack a day for 3 years. Alcohol, rarely. No drug use. REVIEW OF SYSTEMS: As per HPI. Rest of the review of systems is negative. PHYSICAL EXAMINATION: GENERAL: The patient is obese, not in acute distress. VITAL SIGNS: Temperature 36.8, pulse 105, respiratory rate 20, blood pressure 188/102, oxygen 96% on room air. HEENT: Pupils equal, round and reactive to light. Oral mucosa moist. NECK: No neck masses seen. CARDIOVASCULAR: S1 and S2 heard. Regular rate and rhythm. No murmur, no gallop. RESPIRATORY SYSTEM: Normal AP diameter. No accessory muscle use. No wheezing, no crackles. ABDOMEN: Soft, bowel sounds present. Tenderness in the epigastric and right upper quadrant region. Mild guarding, no rigidity, no distention. CENTRAL NERVOUS SYSTEM: Cranial nerves II-XII grossly intact, nonfocal. EXTREMITIES: No edema, no erythema. LABORATORY DATA: WBC 12.4, hemoglobin 13.4, hematocrit 39.9, platelets 307. Sodium 133, potassium 3.9, chloride 95, bicarbonate 24, BUN 10, creatinine 0.6, serum glucose 263, calcium 9.9, total bilirubin 0.8, AST 12, ALT 12, alkaline phosphatase 120. Lipase 8. HCG qualitative negative. Urinalysis +4 ketones, +3 glucose. SARS-CoV-2 rapid test pending. IMAGING DATA: CT of abdomen and pelvis preliminary report showing moderately distended with low attenuating, edematous wall thickening compatible with cholecystitis in the correct clinical setting. No calcified stones evident. Mild central intrahepatic biliary ductal dilatation noted. The common bile duct measures 8 mm, mildly dilated. No obvious calcified choledocholithiasis or stone. ASSESSMENT AND PLAN: This 57-year-old female presents with abdominal pain and found to have cholecystitis. 1. Acute cholecystitis on the CAT scan preliminary report. Started on IV Zosyn, n.p.o., IV fluids, IV antiemetics, IV Dilaudid p.r.n., Surgical consult. Monitor in the medical floor. 2. Hyponatremia. Sodium 133. Getting fluids. Follow the labs. 3. Hypertension, could be situational. Placed on Coreg p.r.n. Monitor the blood pressure. 4. History of anxiety. Continue alprazolam p.r.n. 5. History of human immunodeficiency virus (HIV). Continue Biktarvy. 6. Deep vein thrombosis: Sequential compression devices. Addendum: Around 5:30 code alexa was called as non arousable and hypoxic and hypotensive and tachycardic. Patient received narcotics for pain.Gave a dose of narcan 0.2mg and patient woke up answered few questions appropriately and went back to sleep, gave another 0.2mg narcan iv woke up again for brief moment and was drowsy again.Moving extremities when woke up.No facial droop seen, Speech ok. Oxygen saturations improved with oxygenation, initially was on Non breather titrated to nasal canula. ABG were ok. Sugars were ok. Blood pressure dropped sbp into 70's. Gave 1lt fluid bolus. Labs drawn Ct head ordered and transferred to PCU. In PCU planned to give one more dose of narcan 0.4mg and if goes back to sleep again planned to transfer to icu and start on Narcan drip but after another dose of narcan 0.4mg patient woke up and was talking in sentences SBP in 120's. Hr 110's. Saturating fine on nasal canula.Breathing fine. Labs showed leukopenia and elevated ast and alt possible shock liver from hypotension and hypoxia. CT head ok.Will follow repeat labs,Follow liver US. GI consult. Thanks DISPOSITION: Closely monitor in the medical floor. PT, OT prior to discharge. Social service to help with discharge planning. Job ID: [id number]
[2022-08-25] MEDS: SODIUM CHLORIDE 0.9% 1000ML 1,000 ML IV SCH ×2 (02:27→14:40)
[2022-08-25] MEDS: INSULIN ASPART PER UNIT SC SCH ×4 (02:42→20:24)
[2022-08-25] MEDS ORDERED: NALOXONE HCL 0.4 MG/1 ML VIAL/CARP ONE ×2 (05:50→06:29)
[2022-08-25 06:16] LABS: iSTAT Allen Test Pass; iSTAT Art Bld Gas pCO2 Correct 28 mmHg (35-46); iSTAT Art Bld Gas pH Corrected 7.469 (7.35-7.45); iSTAT Arterial Blood Gas HCO3 21 meg/L (19-24); iSTAT Arterial Blood Gas pCO2 28 mmHg (35-46); iSTAT Arterial Blood Gas pH 7.47 (7.35-7.45); iSTAT Arterial Blood Gas pO2 201 mmHg (80-95); iSTAT Arterial Blood Gas pO2 C 201; iSTAT Carbon Dioxide 21 mmol/L (24-31); iSTAT FiO2 100 %; iSTAT Hematocrit 34 % (37-47); iSTAT Hemoglobin 11.6 g/dl (12.0-16.0); iSTAT Potassium 3.3 mmol/L (3.3-5.0); iSTAT Site L Radial; iSTAT Sodium 133 mmol/L (135-144)
[2022-08-25 06:41] LABS: Hemoglobin 11.7 g/dl (12.0-16.0); Mean Corpuscular Hemoglobin 28.7 pg (25.0-34.0); Mean Corpuscular Hgb Conc 33.4 g/dL (32.0-36.0); Mean Corpuscular Volume 85.8 fL (80.0-100.0); Mean Platelet Volume 9.8 fL (9.4-12.3); Platelet Count 208 K/uL (130-400); RDW Coefficient of Variation 14.5 % (11.5-14.5); RDW Standard Deviation 44.8 fL (36.4-46.3); Red Blood Count 4.08 M/uL (3.93-5.22); White Blood Count 1.83 K/ul (4.8-10.8)
[2022-08-25] MEDS ORDERED: NALOXONE HCL 0.4 MG/1 ML VIAL/CARP IV STA (06:47)
[2022-08-25 07:01] LABS: Basophils # (auto) 0.01 K/uL (0-0.2); Basophils % (auto) 0.5 %; Giant Platelets 1+; Immature Granulocytes # (auto) 0.01 K/uL (0.00-0.02); Immature Granulocytes % (auto) 0.5 %; Lymphocytes # (auto) 0.16 K/uL (1.2-3.4); Lymphocytes % (auto) 8.7 %; Monocytes # (auto) 0.01 K/uL (0.24-0.82); Monocytes % (auto) 0.5 %; Neutrophils # (auto) 1.64 K/uL (1.4-6.5); Neutrophils % (auto) 89.8 %; Toxic Vacuolation 1+
--- NOTE | 2022-08-25 07:03 | CT Scan Report ---
CT SCAN OF THE BRAIN WITHOUT IV CONTRAST CLINICAL HISTORY: Change in mental status. COMPARISON STUDY: CT of the brain dated 04/23/2021. TECHNIQUE: Unenhanced axial CT scan of the brain is performed from the vertex to the skull base. A d ose lowering technique was utilized adhering to the principles of ALARA. CT DOSE: 537.48 mGy.cm FINDINGS: Brain parenchyma: The brain parenchyma is normal in appearance. There is no hemorrhage, mass effect, or evidence of acute territorial ischemia by CT criteria. Holder-white matter differentiation is preser bruce. No extra-axial fluid collection is seen. Ventricles, sulci, cisterns: Normal in configuration. Intracranial vasculature: The visualized intracranial vasculature at the skull base is normal in appe arance. Calvarium: Unremarkable. Sinuses and mastoids: The visualized paranasal sinuses are clear. The mastoid air cells are well pneu matized. Orbits: The bony orbits are grossly intact. There are bilateral ocular lens implants. IMPRESSION: There is no hemorrhage, mass effect, or evidence of acute territorial ischemia by CT franchesca hester. ACT 112: Negative or not required by law. Electronically signed by: Agustín Stafford M.D. 08/25/2022 7:02 AM
[2022-08-25 07:11] LABS: Albumin Level 3.5 gm/dl (3.4-5.0); BUN Creatinine Ratio 11.6 (10-20); Bilirubin Direct 0.6 mg/dl (0-0.2); Bilirubin,Total 1.2 mg/dl (0.2-1.0); Calcium 8.3 mg/dl (8.5-10.1); Creatinine Clr Calc Pharmacy 51.9 ml/min; Est GFR (African American) 62.3 ml/min; Est GFR (Non-African American) 53.7 ml/min; Magnesium 1.7 mg/dl (1.7-2.4); Potassium 3.5 mmol/L (3.5-5.1)
--- NOTE | 2022-08-25 07:29 | CT Scan Report ---
CT abd pelvis IV con only CLINICAL HISTORY: epigastric abd pain TECHNIQUE: Helical axial images of the abdomen and pelvis were obtained and displayed. Automated dose lowering techniques and/or adjustment according to patient size were utilized for this exam. This e xam was performed with intravenous contrast. CT DOSE: 892.28 mGy.cm COMPARISON: FINDINGS: Lower chest: No acute abnormality. Liver: Unremarkable. No focal lesions are seen. Gallbladder and biliary tree: The gallbladder wall is thickened with surrounding cholecystic fluid. N o definite stones are seen. No intra- or extrahepatic biliary ductal dilation. Pancreas: Unremarkable, no focal lesions. Spleen: Unremarkable. Adrenals: Unremarkable. Kidneys and ureters: Unremarkable. Bladder: Unremarkable. Reproductive organs: Unremarkable. Bowel: Unremarkable appearance of the bowel. The appendix is normal. Bowel resection is seen. Lymph nodes Retroperitoneal: Unremarkable. Pelvic: Unremarkable. Mesenteric: Unremarkable. Peritoneum: Normal. Vessels: Unremarkable. Abdominal wall: Unremarkable. Bones: Unremarkable. IMPRESSION: Pericholecystic fluid and gallbladder wall thickening compatible with acute cholecystitis. ACT 112: Negative or not required by law. Electronically signed by: Alfa Liu M.D. 08/25/2022 7:28 AM
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
[2022-08-25 08:01] LABS: Estimated Average Glucose 266 mg/dl; Hemoglobin A1C 10.9 % (4.5-5.6)
[2022-08-25] MEDS: PIPERACILLIN/TAZOBACTAM 4.5 GM in DEXTROSE 5% 100 ML IV SCH ×3 (08:12→20:25)
--- NOTE | 2022-08-25 08:35 | Anesthesiology Consultation ---
Date of Service August 25, 2022 History Surgery Operation Date: 08/25/22 08:45 Proposed Procedures p Laparoscopic Cholecystectomy - Gerard Villalta MD Height/Weight Height: 4 ft 11 in Weight: 87.1 kg Allergies Allergy/AdvReac Type Severity Reaction Status Date / Time ciprofloxacin Allergy Severe TONGUE Verified 08/24/22 23:30 SWELLS, HIVES/ITCHING, THROAT "CLOSES" metformin AdvReac Severe DIARRHEA/VO Verified 08/24/22 23:30 MITING Medications Home Medications Medication Instructions Recorded Confirmed Last Taken alprazolam 0.5 mg tablet 0.5 mg PO BID PRN Anxiety 08/17/18 08/24/22 Unknown clindamycin phosphate 1 % topical 1 applic topical DIRECTED 08/17/18 08/24/22 Unknown gel ergocalciferol (vitamin D2) 1,250 50,000 unit PO WK 12/15/19 08/24/22 08/23/22 mcg (50,000 unit) capsule (Vitamin D2) bictegravir 50 mg-emtricitabine 1 tab PO DAILY 08/24/22 08/24/22 08/24/22 200 mg-tenofovir alafenam 25 mg tablet (Biktarvy) cyanocobalamin (vitamin B-12) 1,000 mcg IM .[id number] 08/24/22 08/24/22 Unknown 1,000 mcg/mL injection solution Active Medications Generic Name Dose Route Start Last Admin Trade Name Freq PRN Reason Stop Dose Admin Piperacillin Sod/Tazobactam 120 mls @ 30 mls/hr 08/25/22 06:00 08/25/22 08:12 Sod 4.5 gm/ Dextrose IV 09/04/22 05:59 30 mls/hr Q8H DELORES Administration Protocol Sodium Chloride 1,000 mls @ 125 mls/hr 08/25/22 01:59 08/25/22 02:27 Nss 1000ml IV 09/24/22 01:58 125 mls/hr .Q8H DELORES Administration Insulin Aspart 0 units 08/25/22 02:30 08/25/22 02:42 Insulin Aspart Per Unit SC 09/24/22 02:29 4 units Q6H DELORES Administration Miscellaneous 1 each 08/25/22 08:00 08/25/22 08:12 Order Awaiting Action: Hnbahjnrt-Jdboyyic-Pafgrjk Ala [Biktarvy] 50-200-25 Mg Tablet N/A 09/24/22 07:59 Not Given QS DELORES Miscellaneous 1 each 08/25/22 08:00 08/25/22 08:12 Order Awaiting Action: Clindamycin Phosphate 1 % Gel N/A 09/24/22 07:59 Not Given QS DELORES Past Medical History Medical History DM (diabetes mellitus) Human immunodeficiency virus [HIV] disease Hyperlipidemia Hypertension Past Family History Family History Other No significant family history Past Surgical History Surgical History (Updated 08/25/22 @ 08:38 by Shan Buckley DO) History of laparoscopy-assisted vaginal hysterectomy Hx of gastric bypass Social History Smoking Status: Never smoker Do You Dip or Chew Tobacco: No Hx Alcohol Use: No Hx Substance Use: No substance use type: does not use Physical Exam Vital Signs Last Vital Signs Temp 99.1 F 08/25/22 02:14 Pulse 133 H 08/25/22 05:45 Resp 14 08/25/22 05:45 BP 79/50 L 08/25/22 05:45 Pulse Ox 84 L 08/25/22 05:45 O2 Del Method 08/25/22 05:45 Testing Laboratory Results 08/25/22 05:29 08/25/22 05:29 Hemoglobin A1c 10.9 % (4.5-5.6) H 08/25/22 05:29 Urine Color Yellow 08/24/22 19:58 Urine Appearance Clear (Clear) 08/24/22 19:58 Urine pH 5.5 (4.5-7.5) 08/24/22 19:58 Ur Specific [place] 1.036 (1.000-1.030) H 08/24/22 19:58 Urine Protein 2+ (Negative) H 08/24/22 19:58 Urine Glucose (UA) 3+ (Negative) H 08/24/22 19:58 Urine Ketones 4+ (Negative) H 08/24/22 19:58 Urine Nitrite Negative (Negative) 08/24/22 19:58 Ur Leukocyte Esterase Negative (Negative) 08/24/22 19:58 Urine WBC (Auto) 1-5 /hpf (0-5) 08/24/22 19:58 Urine RBC (Auto) 0-4 /hpf (0-4) 08/24/22 19:58 U Hyaline Cast (Auto) 1-5 /lpf (0-5) 08/24/22 19:58 U Epithel Cells (Auto) 5-10 /lpf (0-5) H 08/24/22 19:58 Urine Bacteria (Auto) Negative (Negative) 08/24/22 19:58 08/25/22 08/25/22 08/25/22 05:45 05:43 02:35 POC Glucose 309 H* 324 H* 255 H 08/24/22 Unknown POC Ur Test NEG
[2022-08-25] MEDS ORDERED: MIDAZOLAM HCL 1 MG/ML 2ML VIAL ONE (09:21)
[2022-08-25] MEDS ORDERED: ONDANSETRON INJ 2 MG/ML 2 ML VIAL ONE (09:21)
[2022-08-25] MEDS ORDERED: fentaNYL citrate 100 MCG/2 ML VIAL ONE (09:21)
[2022-08-25] MEDS ORDERED: DEXAMETHASONE SOD INJ 4 MG/ML VIAL ONE (09:21)
[2022-08-25] MEDS ORDERED: ROCURONIUM BROMIDE 10 MG/ML 5 ML VIAL IV ONE ×3 (09:21→12:19)
[2022-08-25] MEDS ORDERED: PROPOFOL IV EMULSION 10 MG/ML 20 ML VIAL IV ONE (09:21)
[2022-08-25] MEDS ORDERED: LIDOCAINE 2% MPF LOCAL 5 ML VIAL INFIL ONE (09:21)
--- NOTE | 2022-08-25 09:24 | History & Physical Bridge Note ---
Date of Service August 25, 2022 History & Physical Bridge Note I have examined the patient, reviewed the History & Physical and in the interval since the performance of the History & Physical I have noted the following changes of clinical significance: no changes noted
[2022-08-25] MEDS ORDERED: LIDOCAINE 1% LOCAL 20 ML VIAL ONE (09:33)
[2022-08-25] MEDS ORDERED: BACITRACIN OINT 15 GM TUBE ONE (09:33)
[2022-08-25] MEDS ORDERED: BUPIVACAINE 0.5 % 5 MG/1 ML MPF 30ML VIAL ONE (09:33)
--- NOTE | 2022-08-25 09:47 | Electrocardiogram Report ---
Test Reason : Blood Pressure : / mmHG Vent. Rate : 114 BPM Atrial Rate : 114 BPM P-R Int : 112 ms QRS Dur : 118 ms QT Int : 346 ms P-R-T Axes : 113 -27 133 degrees QTc Int : 476 ms Sinus tachycardia Left ventricular hypertrophy with QRS widening Lateral infarct , age undetermined Abnormal ECG When compared with ECG of 11-SEP-2019 20:31, QRS duration has increased Lateral infarct is now Present ST now depressed in Lateral leads T wave inversion now evident in Lateral leads Confirmed by Dixon Mcmahan ([id number]) on 08/25/2022 9:47:44 AM Referred By: REFERRED SELF Confirmed By:Baalji Mcmahan
--- NOTE | 2022-08-25 09:51 | Anesthesiology Consultation ---
Date of Service August 25, 2022 Assessment & Plan (1) Encounter for pre-operative examination: Chart Review Chart Review: Acceptable Risk for Surgery History Surgery Operation Date: 08/25/22 08:45 Proposed Procedures p Laparoscopic Cholecystectomy - Gerard Villalta MD Height/Weight Height: 4 ft 11 in Weight: 87.1 kg Allergies Allergy/AdvReac Type Severity Reaction Status Date / Time ciprofloxacin Allergy Severe TONGUE Verified 08/24/22 23:30 SWELLS, HIVES/ITCHING, THROAT "CLOSES" metformin AdvReac Severe DIARRHEA/VO Verified 08/24/22 23:30 MITING Medications Home Medications Medication Instructions Recorded Confirmed Last Taken alprazolam 0.5 mg tablet 0.5 mg PO BID PRN Anxiety 08/17/18 08/24/22 Unknown clindamycin phosphate 1 % topical 1 applic topical DIRECTED 08/17/18 08/24/22 Unknown gel ergocalciferol (vitamin D2) 1,250 50,000 unit PO WK 12/15/19 08/24/22 08/23/22 mcg (50,000 unit) capsule (Vitamin D2) bictegravir 50 mg-emtricitabine 1 tab PO DAILY 08/24/22 08/24/22 08/24/22 200 mg-tenofovir alafenam 25 mg tablet (Biktarvy) cyanocobalamin (vitamin B-12) 1,000 mcg IM .[id number] 08/24/22 08/24/22 Unknown 1,000 mcg/mL injection solution Active Medications Generic Name Dose Route Start Last Admin Trade Name Freq PRN Reason Stop Dose Admin Piperacillin Sod/Tazobactam 120 mls @ 30 mls/hr 08/25/22 06:00 08/25/22 08:12 Sod 4.5 gm/ Dextrose IV 09/04/22 05:59 30 mls/hr Q8H DELORES Administration Protocol Sodium Chloride 1,000 mls @ 125 mls/hr 08/25/22 01:59 08/25/22 02:27 Nss 1000ml IV 09/24/22 01:58 125 mls/hr .Q8H DELORES Administration Insulin Aspart 0 units 08/25/22 02:30 08/25/22 02:42 Insulin Aspart Per Unit SC 09/24/22 02:29 4 units Q6H DELORES Administration Miscellaneous 1 each 08/25/22 08:00 08/25/22 08:12 Order Awaiting Action: Voxuamwhs-Jlhdfhru-Swfbtwc Ala [Biktarvy] 50-200-25 Mg Tablet N/A 09/24/22 07:59 Not Given QS DELORES Miscellaneous 1 each 08/25/22 08:00 08/25/22 08:12 Order Awaiting Action: Clindamycin Phosphate 1 % Gel N/A 09/24/22 07:59 Not Given QS DELORES NPO Date Last Intake of Fluids: 08/24/22 Time Last Intake of Fluids: 23:55 Date Last Intake of Solids: 08/24/22 Time Last Intake of Solids: 23:55 Past Medical History Medical History DM (diabetes mellitus) Human immunodeficiency virus [HIV] disease Hyperlipidemia Hypertension Past Family History Family History Other No significant family history Past Surgical History Surgical History History of laparoscopy-assisted vaginal hysterectomy Hx of gastric bypass Social History Smoking Status: Never smoker Do You Dip or Chew Tobacco: No Hx Alcohol Use: No Hx Substance Use: No substance use type: does not use Physical Exam Vital Signs Last Vital Signs Temp 36.8 C 08/25/22 09:00 Pulse 112 H 08/25/22 09:00 Resp 20 08/25/22 09:00 BP 106/56 L 08/25/22 09:00 Pulse Ox 96 08/25/22 09:00 O2 Del Method 08/25/22 09:04 O2 Flow Rate 2 08/25/22 09:04 Testing Laboratory Results 08/25/22 05:29 08/25/22 05:29 Hemoglobin A1c 10.9 % (4.5-5.6) H 08/25/22 05:29 Urine Color Yellow 08/24/22 19:58 Urine Appearance Clear (Clear) 08/24/22 19:58 Urine pH 5.5 (4.5-7.5) 08/24/22 19:58 Ur Specific [place] 1.036 (1.000-1.030) H 08/24/22 19:58 Urine Protein 2+ (Negative) H 08/24/22 19:58 Urine Glucose (UA) 3+ (Negative) H 08/24/22 19:58 Urine Ketones 4+ (Negative) H 08/24/22 19:58 Urine Nitrite Negative (Negative) 08/24/22 19:58 Ur Leukocyte Esterase Negative (Negative) 08/24/22 19:58 Urine WBC (Auto) 1-5 /hpf (0-5) 08/24/22 19:58 Urine RBC (Auto) 0-4 /hpf (0-4) 08/24/22 19:58 U Hyaline Cast (Auto) 1-5 /lpf (0-5) 08/24/22 19:58 U Epithel Cells (Auto) 5-10 /lpf (0-5) H 08/24/22 19:58 Urine Bacteria (Auto) Negative (Negative) 08/24/22 19:58 08/25/22 08/25/22 08/25/22 05:45 05:43 02:35 POC Glucose 309 H* 324 H* 255 H 08/24/22 Unknown POC Ur Test NEG Electrocardiogram Date: 08/25/22 Findings: + ST @ (114) possible lateral infarct
[2022-08-25] MEDS ORDERED: fentaNYL citrate 100 MCG/2 ML VIAL IV PRN (10:04)
[2022-08-25] MEDS ORDERED: KETOROLAC 30 MG/ML VIAL IV PRN (10:04)
[2022-08-25] MEDS ORDERED: PROMETHAZINE HCL 6.25 MG in SODIUM CHLORIDE 0.9% 50 ML IV PRN (10:04)
[2022-08-25] MEDS ORDERED: ATROPINE SULFATE 0.1 MG/ML 10ML SYR IV PRN (10:04)
[2022-08-25] MEDS ORDERED: ePHEDrine sulfate 50 MG/ML SYR ONE ×2 (11:06→12:17)
[2022-08-25] MEDS ORDERED: PHENYLEPHRINE 100MCG/ML 5ML SYR ONE (11:06)
--- NOTE | 2022-08-25 11:11 | Communication Note ---
Date of Service: August 25, 2022 GI note: Received a consultation request to evaluate pt for elevated LFTs. Pt currently in OR for scheduled cholecystectomy w possible cholangiogram. Chart reviewed: Pt is a 57-year-old female with past medical history significant for hyperlipidemia, diabetes, postherpetic neuralgia, hidradenitis, cough variant asthma, HIV disease, MARTINEZ, chronic anxiety, history of bariatric surgery, depression. She presented with epigastric and RUQ abd pain radiating to back associated w nausea wo vomiting and constipated. Workup showed signs of batool cystitis on CT abd/pelvis wo intra/extrahepatic biliary ductal dilation. LFTs and lipase normal on presentation. toolmaker grade three code purple called as pt became hypoxic, hypotensive and tachycardic. She received several doses of narcan. LFTs noted to be markedly elevated this AM: Tbili 1.2, AST 990, ALT 214, Alk phos 281. DDx: cholecystitis, shock liver, DILI. Will evaluate pt when she is out of OR. Attg add: Op note reviewed. Pt will need MRI to clear CBD - will defer to surgery service to order. Follow LFT's.
[2022-08-25] MEDS ORDERED: PHENYLEPHRINE HCL 10 MG/ML VIAL ONE (11:13)
[2022-08-25] MEDS ORDERED: ACETAMINOPHEN 1000 MG/100 ML IV IV ONE (11:38)
[2022-08-25] MEDS ORDERED: ALBUMIN HUMAN 5% 12.5 GM/250 ML VIAL IV ONE (11:38)
[2022-08-25] MEDS ORDERED: SUGAMMADEX SODIUM 200 MG/2 ML VIAL IV ONE (12:01)
[2022-08-25] MEDS ORDERED: INSULIN ASPART PER UNIT SC STA ×2 (12:11→13:22)
[2022-08-25] MEDS ORDERED: NovoLIN-R INSULIN PER UNIT CHARGE ONE (12:12)
[2022-08-25] MEDS ORDERED: FLOSEAL HEMOSTATIC MATRIX 10ML TOP ONE (12:18)
--- NOTE | 2022-08-25 12:35 | Post Operative Brief Note ---
Immediate Post Op Note v1 Date of Surgery August 25, 2022 Pre & Post Diagnosis Operation Date: 08/25/22 08:45 Pre-Op Diagnosis: Acute cholecystitis Post-Op Diagnosis: Acute cholecystitis, cholelithiasis I identified the patient and participated in the time-out.: Yes Procedure Operation Date: 08/25/22 08:45 Actual Procedures p Laparoscopic Subtotal Cholecystectomy(Not Applicable) - Gerard Villalta MD Surgeon Gerard Villalta MD Mems Process Engineer MIKEL Reeves Estimated Blood Loss 30 Findings Consistent with Post-Op Diagnosis significant inflammation on gallbladder wall, pus in gallbladder,culture sent, cholelithiasis, Fluids 1300ml Specimens gallbladder Drains Sanford Catheter (inserted by Mag Stovall RN without complications) and Osmin- Moraes Drain (10 flat) Anesthesia Type General Complications none Disposition Accompanied Patient To Recovery: Yes
[2022-08-25] MEDS ORDERED: KETAMINE 50 MG/5 ML SYRINGE ONE (12:48)
--- NOTE | 2022-08-25 14:10 | Anesthesiology Progress Note ---
Date of Service August 25, 2022 Anesthesia Post Procedure Vital Signs Vital Signs: Temp Pulse Pulse Pulse Resp BP BP 08/25/22 14:00 110 H 12 08/25/22 13:50 110 H 18 08/25/22 13:40 113 H 20 08/25/22 13:30 112 H 18 08/25/22 13:20 112 H 20 08/25/22 13:14 97.5 F L 115 H 20 08/25/22 09:04 08/25/22 09:00 98.2 F 112 H 20 106/56 L 08/25/22 08:33 116 H 20 117/62 08/25/22 05:45 133 H 14 79/50 L 08/25/22 02:14 99.1 F 110 H 18 149/90 H 08/25/22 01:36 162/86 H 08/25/22 01:20 85 18 188/102 H 08/24/22 23:41 105 H 20 188/102 H 08/24/22 15:56 98.2 F 70 18 164/89 H BP Pulse Ox O2 Del Method O2 Flow Rate 08/25/22 14:00 107/67 96 Nasal Cannula 2 08/25/22 13:50 94/66 L 98 Nasal Cannula 2 08/25/22 13:40 95/60 L 97 Nasal Cannula 2 08/25/22 13:30 103/62 100 Oxymask 10 08/25/22 13:20 105/69 100 Oxymask 10 08/25/22 13:14 93/71 L 100 Oxymask 10 08/25/22 09:04 Nasal Cannula 2 08/25/22 09:00 96 Nasal Cannula 2 08/25/22 08:33 98 Room Air 08/25/22 05:45 84 L Room Air 08/25/22 02:14 97 Room Air 08/25/22 01:36 08/25/22 01:20 94 Room Air 08/24/22 23:41 96 Room Air 08/24/22 15:56 98 Room Air Pain Intensity Right Abdomen: Pain Intensity: 5 Transfer of Care Handoff Completed per policy Notes Mental Status: alert / awake / arousable and participated in evaluation Patient Amnestic to Procedure: Yes Nausea / Vomiting: adequately controlled Pain: adequately controlled Airway Patency, RR, SpO2: stable & adequate BP & HR: stable & adequate Hydration State: stable & adequate Anesthetic Complications: no major complications apparent and Pt Satisfied with anesthetic care
[2022-08-25] MEDS ORDERED: CYANOCOBALAMIN 1000 MCG/ML VIAL IM SCH (14:39)
[2022-08-25] MEDS ORDERED: PHARMACY GLYCEMIC MGMT CONSULT PRN (15:06)
[2022-08-25] MEDS ORDERED: LANTUS PER UNIT CHARGE SQ STA (15:12)
[2022-08-25] MEDS ORDERED: INSULIN HUMAN REGULAR PER UNIT 9 UNITS in SYRINGE 8.91 ML IV STA (15:14)
[2022-08-25] MEDS ORDERED: POTASSIUM CHLORIDE 20 MEQ/15 ML UDC PO STA (15:22)
[2022-08-25] MEDS: POTASSIUM CHLORIDE / WTR 10 MEQ/100 ML PLCT IV SCH ×2 (15:29→16:50)
--- NOTE | 2022-08-25 15:29 | Pharmacy Report ---
Pharmacy Glycemic Short Note 2 - Date of Service August 25, 2022 - Glycemic Short BSG Results (Last 24 hours): 08/24/22 08/25/22 08/25/22 20:03 02:35 05:29 Glucose 263 H 329 H* POC Glucose 255 H 08/25/22 08/25/22 08/25/22 05:43 05:45 12:05 Glucose POC Glucose 324 H* 309 H* 359 H* 08/25/22 08/25/22 08/25/22 13:18 13:20 14:04 Glucose POC Glucose 387 H* 386 H* 406 H* OUTPATIENT ANTIDIABETIC REGIMEN: * None * HbA1c: 10.9% (08/25/22) ASSESSMENT: * 57 yo F admitted secondary to acute cholecystitis now POD #0 s/p laparoscopic cholecystectomy. Pharmacy has been consulted to assist with inpatient glycemic management. Patient has a history of T2DM but appears to not be compliant with home meds. According to Mo MTM note from 07/20/21: "hasn't been seen by MTM since 10/20/20, previous adherence issues, did not want to take medications at last MTM visit, currently only on max dose ozempic, previous intolerance to metformin and pt is unwilling to try other meds at last visit, would recommend addition of jardiance and emphasis on the complications of uncontrolled diabetes, due for foot exam". * BSGs have been significantly elevated: [phone] mg/dL. * Will give full 24 hours dose of Lantus based on weight/stress of 3. * Tighten Novolog to weight/stress of 3 and tighten goal range. Starting with q4h checks for now until BSGs improved. * Will give 9 units IV insulin push now stat. K was 3.5 so provider ok'd addition of IV and PO KCl. PLAN FOR INPATIENT GLYCEMIC CONTROL: * Basal insulin * Lantus 40 units SC x 1 * Will reassess in AM * Bolus insulin * NovoLog per scale ACHS or Q6hrs while NPO * Goal Range: Low 110 mg/dL - High 140 mg/dL * Correction Factor: 20 mg/dL/unit * Nutritional / Prandial insulin per carb ratio of 1 unit per 6 grams CHO consumed
[2022-08-25] MEDS: MoRPHine SULFATE 2 MG/ML CARP IV PRN ×2 (15:43→20:24)
[2022-08-25 16:53] LABS: Albumin Globulin Ratio 1.1 (0.9-2); Albumin Level 3.3 gm/dl (3.4-5.0); BUN Creatinine Ratio 12.8 (10-20); Bilirubin Direct 0.3 mg/dl (0-0.2); Bilirubin,Total 0.7 mg/dl (0.2-1.0); Calcium 7.7 mg/dl (8.5-10.1); Est GFR (African American) 44.1 ml/min; Globulin 3.1 gm/dl (2.5-4.0); Potassium 4.6 mmol/L (3.5-5.1); Total Protein 6.4 gm/dl (6.0-8.3)
[2022-08-25] MEDS: BIKTARVY PO SCH (18:05)
[2022-08-25 18:11] LABS: Amphetamines+Metham, Urine Neg (Neg); Barbiturates, Urine Neg (Neg); Benzodiazepine, Urine Neg (Neg); Cocaine, Urine Neg (Neg); MDMA (Ecstacy), Urine Neg (Neg); Methadone, Urine Neg (Neg); Opiate, Urine Pos (Neg); Phencyclidine, Urine Neg (Neg)
[2022-08-26] MEDS: SODIUM CHLORIDE 0.9% 1000ML 1,000 ML IV SCH ×4 (00:53→22:28)
[2022-08-26] MEDS: INSULIN ASPART PER UNIT SC SCH ×6 (00:54→20:25)
[2022-08-26] MEDS: PIPERACILLIN/TAZOBACTAM 4.5 GM in DEXTROSE 5% 100 ML IV SCH ×3 (06:13→22:30)
[2022-08-26] MEDS: MoRPHine SULFATE 2 MG/ML CARP IV PRN ×4 (06:13→20:37)
[2022-08-26 06:24] LABS: Hematocrit (blood only) 29.4 % (34.1-44.9); Hemoglobin 9.6 g/dl (12.0-16.0); Mean Corpuscular Hemoglobin 28.5 pg (25.0-34.0); Mean Corpuscular Hgb Conc 32.7 g/dL (32.0-36.0); Mean Corpuscular Volume 87.2 fL (80.0-100.0); Mean Platelet Volume 11.1 fL (9.4-12.3); Platelet Count 169 K/uL (130-400); RDW Coefficient of Variation 15.3 % (11.5-14.5); RDW Standard Deviation 49.1 fL (36.4-46.3); Red Blood Count 3.37 M/uL (3.93-5.22); White Blood Count 10.61 K/ul (4.8-10.8)
[2022-08-26 06:48] LABS: Basophils # (auto) 0.02 K/uL (0-0.2); Basophils % (auto) 0.2 %; Dohle Bodies 1+; Eosinophils # (auto) 0.02 K/uL (0-0.50); Eosinophils % (auto) 0.2 %; Immature Granulocytes # (auto) 0.17 K/uL (0.00-0.02); Immature Granulocytes % (auto) 1.6 %; Lymphocytes # (auto) 0.53 K/uL (1.2-3.4); Monocytes # (auto) 0.57 K/uL (0.24-0.82); Monocytes % (auto) 5.4 %; Neutrophils % (auto) 87.6 %; Toxic Vacuolation 1+
[2022-08-26 06:54] LABS: Albumin Level 3.1 gm/dl (3.4-5.0); BUN Creatinine Ratio 12.9 (10-20); Bilirubin,Total 0.7 mg/dl (0.2-1.0); Calcium 7.6 mg/dl (8.5-10.1); Creatinine Clr Calc Pharmacy 32.6 ml/min; Est GFR (African American) 35.6 ml/min; Est GFR (Non-African American) 30.7 ml/min; Globulin 3.2 gm/dl (2.5-4.0); Magnesium 1.8 mg/dl (1.7-2.4); Phosphorus 3.8 mg/dl (2.5-4.9); Potassium 4.2 mmol/L (3.5-5.1); Total Protein 6.3 gm/dl (6.0-8.3)
[2022-08-26] MEDS ORDERED: FLUARIX QUADRIVALENT 0.5 ML SYR IM ONE (08:00)
--- NOTE | 2022-08-26 08:13 | Operative Report (OR) ---
DATE OF PROCEDURE: 08/25/2022. PREOPERATIVE DIAGNOSIS: Acute cholecystitis. POSTOPERATIVE DIAGNOSES: Acute cholecystitis and cholelithiasis. OPERATION: Laparoscopic subtotal cholecystectomy with SAMANTHA drainage x1. SURGEON: Gerard Villalta MD. WIND TURBINE PERFORMANCE ENGINEER: Nancy Vale PA-C. ANESTHESIA: General. ESTIMATED BLOOD LOSS: About 30 mL. FINDINGS: Significant inflammation on the gallbladder wall with pus inside the gallbladder. The woun d culture sent. The pus sent to culture and cholelithiasis. COMPLICATIONS: None. INDICATIONS FOR THE PROCEDURE: This is a 57-year-old female, who was admitted to the hospital for ac mary's igloo cholecystitis and I recommended to do laparoscopic cholecystectomy, possible open, possible chola ngiogram. I did talk to the patient about the benefits, risks, and alternate procedure. I indicated the risks may include, but not limited to such as bleeding, infection, injury to other organs, subto alise cholecystectomy, multiple organs failure, incisional hernia, may need ERCP. The patient understa nds. She signed informed consent and I answered all questions. DETAILS OF PROCEDURE: After we identified the patient and verified the procedure, we brought the patient to the OR, put the patient in the supine position on the OR table. The patient received SCD on bilateral legs to preve nt DVT. Also, the patient received 4.5 grams Zosyn IV for prophylactic antibiotic. The patient rece ived general anesthesia without difficulty. Also, the patient received Sanford catheter insertion to d rainage the urine. The abdomen was prepped and draped in routine sterile fashion. After timeout, I injected the local anesthesia by using 1% lidocaine mixed with 0.5% Marcaine just above the umbilicus . Then, I made a small incision just above the umbilicus, opened fascia, opened peritoneum under dir ect vision, put a Los trocar in, connected to CO2 to create pneumoperitoneum, flow rate at 6 liter s per minute, pressure not more than 14 mmHg. Once we got a nice pneumoperitoneum, we put a camera i n, looked around the abdomen. Normal finding on the liver; however, the gallbladder with significant inflammation, gallbladder distention, and diagnosis of acute cholecystitis. Once diagnosis of acute cholecystitis, we put another three 5 mm trocars on the right upper quadrant, one is a 12 mm trocar on the epigastric area. Once all trocars in, we used the large needle to decompress the gallbladder f irst to suction the gallbladder pus. We sent it for culture. Again, we found the patient had pus co mando from the gallbladder. Once we decompressed the gallbladder, we used the grasper to hold the bas e of gallbladder, another grasper to hold the pouch of gallbladder, put the latter to try to explore the triangle of [place]ot. Based on significant inflammation on the gallbladder, whole gallbladder and t he gallbladder neck was hard to visulaize the cystic duct. At this moment, we decided to use a top-d own technique to subtotal cholecystectomy and we took most of gallbladder dissection from the liver b ed. We used the Endo-JLUIS stapler for transection of the gallbladder and again, we opened the gallbla dder using the Harmonic and suctioned all the fluid out from gallbladder. We found the patient had o ne gallstone inside the gallbladder cavity. We removed the gallstone and sent to pathology with the gallbladder and at this moment, we used the Endoloop to close the gallbladder, cystic duct, and put d ouble Endoloops to close the gallbladder, cystic duct and rechecked, no active bleeding. Then, we us ed the Harmonic, removed most of gallbladder and liver, where a tiny piece of gallbladder near the ga llbladder and cystic duct to prevent injury to common bile duct. Hemostasis obtained. However, ther e was some oozing from the liver based on significant inflammation and I used FloSeal, applied to the liver surface and rechecked, no active bleeding. I decided to put one 10 mm SAMANTHA drainage around the liver based on significant inflammation with pus coming from the gallbladder and then we removed the gallbladder through the catch bag. Then, we reinserted Los trocar in, connected to CO2 to create pneumoperitoneum, again looked around the abdomen, no active bleeding from the liver bed. Then, we r emoved all trocars under direct vision. No active bleeding from the trocar sites. Pneumoperitoneum was released, then I closed the umbilical incision fascial layer by using 0 Vicryl [id number] x2 , closed subcutaneous layer by 2-0 Vicryl interruptedly, closed skin by using 4-0 Vicryl continuous r unning, closed the epigastric incision fascial layer by using 0 Vicryl [id number] x2, closed sub cutaneous layer by using 2-0 Vicryl interruptedly, closed skin by using 4-0 Vicryl interruptedly, darnell sed another three 5 mm trocar sites of skin only by using 4-0 Vicryl. Then, we put the dressing on. The patient tolerated the procedure well. All instrument, needle, and sponge counts were correct x2 at the end of the case. The patient was transferred to recovery room in stable condition. The spec imen was sent to pathology and gallbladder fluid culture sent to the laboratory and after procedure, I did talk to the patient about the OR finding and the procedure we did, she understands. The first aid instructor, Nancy was necessary for this procedure. Her role was to hold the camera and retraction and exposure. Job ID: [id number]
[2022-08-26] MEDS: BIKTARVY PO SCH (08:24)
--- NOTE | 2022-08-26 09:00 | Hospitalist Progress Note ---
Date of Service August 26, 2022 Assessment & Plan (1) Acute cholecystitis: (2) Abdominal pain: (3) Human immunodeficiency virus [HIV] disease: Plan: 57-year-old female presents with abdominal pain and found to have cholecystitis. 1. Acute cholecystitis on the CAT scan report. Started on IV Zosyn, - will continue IV fluids, IV antiemetics, pain control (cautious use of opiates as pt required narcane - unresponsive / code purple the night of admission) Surgery consulted - pt is now s/p cholecystectomy (08/25) w/ Dr. Villalta LFTs continues to be elevated monitor CMP GI also consulted, appreciate their input MRCP ordered and pending 2. Hyponatremia.- resolved Sodium 133. on admission, now 138. Getting fluids. continue to monitor. 3. Hypertension on admission, could be situational. likely due to pain Placed on Coreg p.r.n. Monitor the blood pressure. BP on lower side 4. History of anxiety. Continue alprazolam p.r.n. cautious use w/ pain meds/opiates 5. History of human immunodeficiency virus (HIV). Continue Biktarvy. 6. Hyperglycemia/ diabetes mellitus -Blood glucose levels 300s - 400s yesterday, glycemic pharmacy consulted, started IV insulin yesterday - current A1c 10.9% - cont to closely monitor, appreciate glyc. pharm. input DVT ppx: SCDs Admission and Anticipated Discharge Date Admission Date: August 25, 2022 Subjective Patient seen in follow-up of abdominal pain, acute cholecystitis, underwent cholecystectomy yesterday Continues to have elevated LFTs Patient with history of HIV Currently on IV antibiotics Zosyn, and IV fluids Creatinine also elevated today Overnight febrile, postsurgery On admission required pain medications and then required Narcan as she was unresponsive, code purple. Please see admission note for further detail. Currently patient is sitting up in chair in NAD She does report some abdominal pain No fevers chills chest pain shortness of breath nausea vomiting Currently has Sanford catheter placed Seen by GI, plan for MRCP today Review of Systems Review of Systems: All systems reviewed & are unremarkable except as noted in Subjective Physical Exam Physical Exam: GENERAL: The patient is obese, not in acute distress. HEENT: Pupils equal, round and reactive to light. EOMI. Oral mucosa moist. NECK: No neck masses seen. CARDIOVASCULAR: S1 and S2 heard. Regular rate and rhythm. No murmur, no gallop. RESPIRATORY: Normal AP diameter. No accessory muscle use. No wheezing, no crackles. ABDOMEN: Soft, bowel sounds present. Tenderness in the epigastric and right upper quadrant region. Mild guarding, no rigidity, no distention. surg. dressings intact : Sanford catheter placed - drains clear yellow urine NEURO: Alert oriented, answering questions appropriately, moves extremities, voice is very soft, but speech is fluent EXTREMITIES: No edema, no erythema. Results & Data Results & Data ([facility]) Vital Signs (Past 12 Hours) Vital Signs Temp Pulse Pulse Resp BP Pulse Ox O2 Del Method 08/26/22 08:16 37.7 C H 105 H 20 111/70 90 Room Air 08/25/22 23:15 106 H 08/25/22 23:00 Room Air 08/26/22 04:00 37.5 C 108 H 18 104/62 94 Room Air 08/25/22 22:38 39.3 C H 107 H 18 102/64 91 Room Air 08/25/22 21:12 36.8 C Laboratory Results 08/26/22 08/26/22 08/26/22 Range/Units 07:34 05:57 05:57 WBC 10.61 (4.8-10.8) K/ul RBC 3.37 L (3.93-5.22) M/uL Hgb 9.6 L (12.0-16.0) g/dl Hct 29.4 L (34.1-44.9) % MCV 87.2 (80.0-100.0) fL MCH 28.5 (25.0-34.0) pg MCHC 32.7 (32.0-36.0) g/dL RDW Std Deviation 49.1 H (36.4-46.3) fL RDW Coeff of Tami 15.3 H (11.5-14.5) % Plt Count 169 (130-400) K/uL MPV 11.1 (9.4-12.3) fL Immature Gran % (Auto) 1.6 % Neut % (Auto) 87.6 % Lymph % (Auto) 5.0 % Grimes % (Auto) 5.4 % Eos % (Auto) 0.2 % Baso % (Auto) 0.2 % Neut # (Auto) 9.30 H (1.4-6.5) K/uL Lymph # (Auto) 0.53 L (1.2-3.4) K/uL Grimes # (Auto) 0.57 (0.24-0.82) K/uL Eos # (Auto) 0.02 (0-0.50) K/uL Baso # (Auto) 0.02 (0-0.2) K/uL Immature Gran # (Auto) 0.17 H (0.00-0.02) K/uL Toxic Vacuolation 1+ Dohle Bodies 1+ Sodium 138 (136-145) mmol/L Potassium 4.2 (3.5-5.1) mmol/L Chloride 109 H (98-107) mmol/L Carbon Dioxide 21 (21-32) mmol/L Anion Gap 8 (3-11) BUN 23 (6-23) mg/dl Creatinine 1.78 H (0.6-1.2) mg/dl Est Cr Clr Drug Dosing 32.6 ml/min Est GFR ( Amer) 35.6 ml/min Est GFR (Non-Af Amer) 30.7 ml/min BUN/Creatinine Ratio 12.9 (10-20) Glucose 89 (70-99(Fasting)) mg/dl POC Glucose 95 (70-99) mg/dl Calcium 7.6 L (8.5-10.1) mg/dl Phosphorus 3.8 (2.5-4.9) mg/dl Magnesium 1.8 (1.7-2.4) mg/dl Total Bilirubin 0.7 (0.2-1.0) mg/dl Direct Bilirubin (0-0.2) mg/dl AST 896 H (13-39) U/L ALT 436 H (7-52) U/L Alkaline Phosphatase 164 H (34-104) U/L Total Protein 6.3 (6.0-8.3) gm/dl Albumin 3.1 L (3.4-5.0) gm/dl Globulin 3.2 (2.5-4.0) gm/dl Albumin/Globulin Ratio 1.0 (0.9-2) Urine Opiates Screen (Neg) U Codeine Confrm GC/MS Ur Morphine (GC/MS) Ur Hydrocodone (GC/MS) Ur Norhydrocodone Ur Noroxycodone Urine Oxycodone (GC/MS) U Oxymorphone GC/MS Ur Methadone, Qual (Neg) Ur Hydromorphone (GC/MS) Urine Barbiturates (Neg) Ur Phencyclidine (PCP) (Neg) U Amphetamin/Meth Scrn (Neg) MDMA (Ecstasy) Screen (Neg) U Benzodiazepines Scrn (Neg) Ur Cocaine Metabolite (Neg) U Marijuana (THC) Screen (Neg) Drug Screen Comment 08/26/22 08/26/22 08/26/22 Range/Units 04:29 04:10 00:51 WBC (4.8-10.8) K/ul RBC (3.93-5.22) M/uL Hgb (12.0-16.0) g/dl Hct (34.1-44.9) % MCV (80.0-100.0) fL MCH (25.0-34.0) pg MCHC (32.0-36.0) g/dL RDW Std Deviation (36.4-46.3) fL RDW Coeff of Tami (11.5-14.5) % Plt Count (130-400) K/uL MPV (9.4-12.3) fL Immature Gran % (Auto) % Neut % (Auto) % Lymph % (Auto) % Grimes % (Auto) % Eos % (Auto) % Baso % (Auto) % Neut # (Auto) (1.4-6.5) K/uL Lymph # (Auto) (1.2-3.4) K/uL Grimes # (Auto) (0.24-0.82) K/uL Eos # (Auto) (0-0.50) K/uL Baso # (Auto) (0-0.2) K/uL Immature Gran # (Auto) (0.00-0.02) K/uL Toxic Vacuolation Dohle Bodies Sodium (136-145) mmol/L Potassium (3.5-5.1) mmol/L Chloride (98-107) mmol/L Carbon Dioxide (21-32) mmol/L Anion Gap (3-11) BUN (6-23) mg/dl Creatinine (0.6-1.2) mg/dl Est Cr Clr Drug Dosing ml/min Est GFR ( Amer) ml/min Est GFR (Non-Af Amer) ml/min BUN/Creatinine Ratio (10-20) Glucose (70-99(Fasting)) mg/dl POC Glucose 78 66 L* 92 (70-99) mg/dl Calcium (8.5-10.1) mg/dl Phosphorus (2.5-4.9) mg/dl Magnesium (1.7-2.4) mg/dl Total Bilirubin (0.2-1.0) mg/dl Direct Bilirubin (0-0.2) mg/dl AST (13-39) U/L ALT (7-52) U/L Alkaline Phosphatase (34-104) U/L Total Protein (6.0-8.3) gm/dl Albumin (3.4-5.0) gm/dl Globulin (2.5-4.0) gm/dl Albumin/Globulin Ratio (0.9-2) Urine Opiates Screen (Neg) U Codeine Confrm GC/MS Ur Morphine (GC/MS) Ur Hydrocodone (GC/MS) Ur Norhydrocodone Ur Noroxycodone Urine Oxycodone (GC/MS) U Oxymorphone GC/MS Ur Methadone, Qual (Neg) Ur Hydromorphone (GC/MS) Urine Barbiturates (Neg) Ur Phencyclidine (PCP) (Neg) U Amphetamin/Meth Scrn (Neg) MDMA (Ecstasy) Screen (Neg) U Benzodiazepines Scrn (Neg) Ur Cocaine Metabolite (Neg) U Marijuana (THC) Screen (Neg) Drug Screen Comment 08/25/22 08/25/22 08/25/22 Range/Units 20:12 17:17 17:17 WBC (4.8-10.8) K/ul RBC (3.93-5.22) M/uL Hgb (12.0-16.0) g/dl Hct (34.1-44.9) % MCV (80.0-100.0) fL MCH (25.0-34.0) pg MCHC (32.0-36.0) g/dL RDW Std Deviation (36.4-46.3) fL RDW Coeff of Tami (11.5-14.5) % Plt Count (130-400) K/uL MPV (9.4-12.3) fL Immature Gran % (Auto) % Neut % (Auto) % Lymph % (Auto) % Grimes % (Auto) % Eos % (Auto) % Baso % (Auto) % Neut # (Auto) (1.4-6.5) K/uL Lymph # (Auto) (1.2-3.4) K/uL Grimes # (Auto) (0.24-0.82) K/uL Eos # (Auto) (0-0.50) K/uL Baso # (Auto) (0-0.2) K/uL Immature Gran # (Auto) (0.00-0.02) K/uL Toxic Vacuolation Dohle Bodies Sodium (136-145) mmol/L Potassium (3.5-5.1) mmol/L Chloride (98-107) mmol/L Carbon Dioxide (21-32) mmol/L Anion Gap (3-11) BUN (6-23) mg/dl Creatinine (0.6-1.2) mg/dl Est Cr Clr Drug Dosing ml/min Est GFR ( Amer) ml/min Est GFR (Non-Af Amer) ml/min BUN/Creatinine Ratio (10-20) Glucose (70-99(Fasting)) mg/dl POC Glucose 324 H* (70-99) mg/dl Calcium (8.5-10.1) mg/dl Phosphorus (2.5-4.9) mg/dl Magnesium (1.7-2.4) mg/dl Total Bilirubin (0.2-1.0) mg/dl Direct Bilirubin (0-0.2) mg/dl AST (13-39) U/L ALT (7-52) U/L Alkaline Phosphatase (34-104) U/L Total Protein (6.0-8.3) gm/dl Albumin (3.4-5.0) gm/dl Globulin (2.5-4.0) gm/dl Albumin/Globulin Ratio (0.9-2) Urine Opiates Screen Pos H (Neg) U Codeine Confrm GC/MS Pending Ur Morphine (GC/MS) Pending Ur Hydrocodone (GC/MS) Pending Ur Norhydrocodone Pending Ur Noroxycodone Pending Urine Oxycodone (GC/MS) Pending U Oxymorphone GC/MS Pending Ur Methadone, Qual Neg (Neg) Ur Hydromorphone (GC/MS) Pending Urine Barbiturates Neg (Neg) Ur Phencyclidine (PCP) Neg (Neg) U Amphetamin/Meth Scrn Neg (Neg) MDMA (Ecstasy) Screen Neg (Neg) U Benzodiazepines Scrn Neg (Neg) Ur Cocaine Metabolite Neg (Neg) U Marijuana (THC) Screen Neg (Neg) Drug Screen Comment Pending 08/25/22 08/25/22 08/25/22 Range/Units 16:29 16:28 16:03 WBC (4.8-10.8) K/ul RBC (3.93-5.22) M/uL Hgb (12.0-16.0) g/dl Hct (34.1-44.9) % MCV (80.0-100.0) fL MCH (25.0-34.0) pg MCHC (32.0-36.0) g/dL RDW Std Deviation (36.4-46.3) fL RDW Coeff of Tami (11.5-14.5) % Plt Count (130-400) K/uL MPV (9.4-12.3) fL Immature Gran % (Auto) % Neut % (Auto) % Lymph % (Auto) % Grimes % (Auto) % Eos % (Auto) % Baso % (Auto) % Neut # (Auto) (1.4-6.5) K/uL Lymph # (Auto) (1.2-3.4) K/uL Grimes # (Auto) (0.24-0.82) K/uL Eos # (Auto) (0-0.50) K/uL Baso # (Auto) (0-0.2) K/uL Immature Gran # (Auto) (0.00-0.02) K/uL Toxic Vacuolation Dohle Bodies Sodium 134 L (136-145) mmol/L Potassium 4.6 D (3.5-5.1) mmol/L Chloride 106 (98-107) mmol/L Carbon Dioxide 18 L (21-32) mmol/L Anion Gap 10 (3-11) BUN 19 (6-23) mg/dl Creatinine 1.49 H D (0.6-1.2) mg/dl Est Cr Clr Drug Dosing 39.0 ml/min Est GFR ( Amer) 44.1 ml/min Est GFR (Non-Af Amer) 38.0 ml/min BUN/Creatinine Ratio 12.8 (10-20) Glucose 361 H* (70-99(Fasting)) mg/dl POC Glucose 329 H* 334 H* (70-99) mg/dl Calcium 7.7 L (8.5-10.1) mg/dl Phosphorus (2.5-4.9) mg/dl Magnesium (1.7-2.4) mg/dl Total Bilirubin 0.7 D (0.2-1.0) mg/dl Direct Bilirubin 0.3 H (0-0.2) mg/dl AST 874 H (13-39) U/L ALT 365 H (7-52) U/L Alkaline Phosphatase 212 H (34-104) U/L Total Protein 6.4 (6.0-8.3) gm/dl Albumin 3.3 L (3.4-5.0) gm/dl Globulin 3.1 (2.5-4.0) gm/dl Albumin/Globulin Ratio 1.1 (0.9-2) Urine Opiates Screen (Neg) U Codeine Confrm GC/MS Ur Morphine (GC/MS) Ur Hydrocodone (GC/MS) Ur Norhydrocodone Ur Noroxycodone Urine Oxycodone (GC/MS) U Oxymorphone GC/MS Ur Methadone, Qual (Neg) Ur Hydromorphone (GC/MS) Urine Barbiturates (Neg) Ur Phencyclidine (PCP) (Neg) U Amphetamin/Meth Scrn (Neg) MDMA (Ecstasy) Screen (Neg) U Benzodiazepines Scrn (Neg) Ur Cocaine Metabolite (Neg) U Marijuana (THC) Screen (Neg) Drug Screen Comment 08/25/22 08/25/22 08/25/22 Range/Units 14:04 13:20 13:18 WBC (4.8-10.8) K/ul RBC (3.93-5.22) M/uL Hgb (12.0-16.0) g/dl Hct (34.1-44.9) % MCV (80.0-100.0) fL MCH (25.0-34.0) pg MCHC (32.0-36.0) g/dL RDW Std Deviation (36.4-46.3) fL RDW Coeff of Tami (11.5-14.5) % Plt Count (130-400) K/uL MPV (9.4-12.3) fL Immature Gran % (Auto) % Neut % (Auto) % Lymph % (Auto) % Grimes % (Auto) % Eos % (Auto) % Baso % (Auto) % Neut # (Auto) (1.4-6.5) K/uL Lymph # (Auto) (1.2-3.4) K/uL Grimes # (Auto) (0.24-0.82) K/uL Eos # (Auto) (0-0.50) K/uL Baso # (Auto) (0-0.2) K/uL Immature Gran # (Auto) (0.00-0.02) K/uL Toxic Vacuolation Dohle Bodies Sodium (136-145) mmol/L Potassium (3.5-5.1) mmol/L Chloride (98-107) mmol/L Carbon Dioxide (21-32) mmol/L Anion Gap (3-11) BUN (6-23) mg/dl Creatinine (0.6-1.2) mg/dl Est Cr Clr Drug Dosing ml/min Est GFR ( Amer) ml/min Est GFR (Non-Af Amer) ml/min BUN/Creatinine Ratio (10-20) Glucose (70-99(Fasting)) mg/dl POC Glucose 406 H* 386 H* 387 H* (70-99) mg/dl Calcium (8.5-10.1) mg/dl Phosphorus (2.5-4.9) mg/dl Magnesium (1.7-2.4) mg/dl Total Bilirubin (0.2-1.0) mg/dl Direct Bilirubin (0-0.2) mg/dl AST (13-39) U/L ALT (7-52) U/L Alkaline Phosphatase (34-104) U/L Total Protein (6.0-8.3) gm/dl Albumin (3.4-5.0) gm/dl Globulin (2.5-4.0) gm/dl Albumin/Globulin Ratio (0.9-2) Urine Opiates Screen (Neg) U Codeine Confrm GC/MS Ur Morphine (GC/MS) Ur Hydrocodone (GC/MS) Ur Norhydrocodone Ur Noroxycodone Urine Oxycodone (GC/MS) U Oxymorphone GC/MS Ur Methadone, Qual (Neg) Ur Hydromorphone (GC/MS) Urine Barbiturates (Neg) Ur Phencyclidine (PCP) (Neg) U Amphetamin/Meth Scrn (Neg) MDMA (Ecstasy) Screen (Neg) U Benzodiazepines Scrn (Neg) Ur Cocaine Metabolite (Neg) U Marijuana (THC) Screen (Neg) Drug Screen Comment 08/25/22 Range/Units 12:05 WBC (4.8-10.8) K/ul RBC (3.93-5.22) M/uL Hgb (12.0-16.0) g/dl Hct (34.1-44.9) % MCV (80.0-100.0) fL MCH (25.0-34.0) pg MCHC (32.0-36.0) g/dL RDW Std Deviation (36.4-46.3) fL RDW Coeff of Tami (11.5-14.5) % Plt Count (130-400) K/uL MPV (9.4-12.3) fL Immature Gran % (Auto) % Neut % (Auto) % Lymph % (Auto) % Grimes % (Auto) % Eos % (Auto) % Baso % (Auto) % Neut # (Auto) (1.4-6.5) K/uL Lymph # (Auto) (1.2-3.4) K/uL Grimes # (Auto) (0.24-0.82) K/uL Eos # (Auto) (0-0.50) K/uL Baso # (Auto) (0-0.2) K/uL Immature Gran # (Auto) (0.00-0.02) K/uL Toxic Vacuolation Dohle Bodies Sodium (136-145) mmol/L Potassium (3.5-5.1) mmol/L Chloride (98-107) mmol/L Carbon Dioxide (21-32) mmol/L Anion Gap (3-11) BUN (6-23) mg/dl Creatinine (0.6-1.2) mg/dl Est Cr Clr Drug Dosing ml/min Est GFR ( Amer) ml/min Est GFR (Non-Af Amer) ml/min BUN/Creatinine Ratio (10-20) Glucose (70-99(Fasting)) mg/dl POC Glucose 359 H* (70-99) mg/dl Calcium (8.5-10.1) mg/dl Phosphorus (2.5-4.9) mg/dl Magnesium (1.7-2.4) mg/dl Total Bilirubin (0.2-1.0) mg/dl Direct Bilirubin (0-0.2) mg/dl AST (13-39) U/L ALT (7-52) U/L Alkaline Phosphatase (34-104) U/L Total Protein (6.0-8.3) gm/dl Albumin (3.4-5.0) gm/dl Globulin (2.5-4.0) gm/dl Albumin/Globulin Ratio (0.9-2) Urine Opiates Screen (Neg) U Codeine Confrm GC/MS Ur Morphine (GC/MS) Ur Hydrocodone (GC/MS) Ur Norhydrocodone Ur Noroxycodone Urine Oxycodone (GC/MS) U Oxymorphone GC/MS Ur Methadone, Qual (Neg) Ur Hydromorphone (GC/MS) Urine Barbiturates (Neg) Ur Phencyclidine (PCP) (Neg) U Amphetamin/Meth Scrn (Neg) MDMA (Ecstasy) Screen (Neg) U Benzodiazepines Scrn (Neg) Ur Cocaine Metabolite (Neg) U Marijuana (THC) Screen (Neg) Drug Screen Comment Medications Administered Current Inpatient Medications Acetaminophen (Acetaminophen 325 Mg Tab) 650 mg PO Q4H PRN PRN Reason: pain/fever Stop: 09/24/22 01:58 Last Admin: 08/25/22 22:44 Dose: 650 mg Bictegravir/Emtricitabine/Tenofovir (Biktarvy) 1 each PO DAILY DELORES Stop: 09/24/22 17:59 Last Admin: 08/26/22 08:24 Dose: 1 each Carvedilol (Carvedilol 6.25 Mg Tab) 6.25 mg PO BID PRN PRN Reason: hypertension Stop: 09/24/22 01:58 Dextrose (Dextrose 50% 50 Ml Syringe) 25 - 50 ml IV UD PRN; Protocol PRN Reason: Hypoglycemia Protocol Stop: 09/24/22 01:58 Ergocalciferol (Ergocalciferol 50,000 Units 1250 Mcg Cap) 50,000 units PO Mo@0900 [facility] Stop: 09/29/22 08:59 Glucagon (Glucagon For Inj 1 Mg Vial) 1 mg SQ UD PRN; Protocol PRN Reason: Hypoglycemia Protocol Stop: 09/24/22 01:58 Glucose (Glucose 40% Gel 15 Gm Tube) 15 - 30 gm PO UD PRN; Protocol PRN Reason: Hypoglycemia Protocol Stop: 09/24/22 01:58 Glucose (Glucose 10 Tab/Tube) 4 - 8 tab PO UD PRN; Protocol PRN Reason: Hypoglycemia Treatment Stop: 09/24/22 01:58 Piperacillin Sod/Tazobactam (Sod 4.5 gm/ Dextrose) 120 mls @ 30 mls/hr IV Q8H [facility]; Protocol Stop: 09/04/22 05:59 Last Admin: 08/26/22 06:13 Dose: 30 mls/hr Sodium Chloride (Nss 1000ml) 1,000 mls @ 125 mls/hr IV .Q8H [facility] Stop: 09/24/22 01:58 Last Admin: 08/26/22 07:23 Dose: Not Given Insulin Aspart (Insulin Aspart Per Unit) 0 units SC [facility]; Protocol Stop: 09/25/22 07:29 Last Admin: 08/26/22 08:25 Dose: Not Given Miscellaneous (Order Awaiting Action: Clindamycin Phosphate 1 % Gel) 1 each N/A QS [facility] Stop: 09/24/22 07:59 Last Admin: 08/26/22 08:25 Dose: Not Given Miscellaneous (Carbohydrates For Hypoglycemia ) 15 - 30 gm PO UD PRN PRN Reason: Hypoglycemia Protocol Stop: 09/24/22 01:58 Last Admin: 08/26/22 04:12 Dose: 15 gm Miscellaneous Information (Pharmacy Glycemic Mgmt Consult) 1 each N/A UD PRN PRN Reason: Consult Stop: 09/24/22 15:05 Morphine Sulfate (Morphine Sulfate 2 Mg/Ml Carp) 2 mg IV Q4H PRN PRN Reason: Pain Stop: 09/08/22 15:23 Last Admin: 08/26/22 06:13 Dose: 2 mg Ondansetron HCl (Ondansetron Inj 2 Mg/Ml 2 Ml Vial) 4 mg IV Q6H PRN PRN Reason: Nausea Stop: 09/24/22 01:58 Oxycodone/Acetaminophen (Oxycodone/Acetaminophen 5mg/325mg Tab) 1 tab PO Q4H PRN PRN Reason: moderate pain Stop: 09/09/22 08:41 Polyethylene Glycol (Polyethylene (Miralax) 17 Gm Pack) 17 gm PO DAILY PRN PRN Reason: Constipation Stop: 09/24/22 01:58
[2022-08-26] MEDS: oxyCODONE/ACETAMINOPHEN 5mg/325mg TAB PO PRN ×2 (09:48→15:20)
--- NOTE | 2022-08-26 09:50 | Pharmacy Report ---
Pharmacy Glycemic Short Note 2 - Date of Service August 26, 2022 - Glycemic Short BSG Results (Last 24 hours): 08/25/22 08/25/22 08/25/22 12:05 13:18 13:20 Glucose POC Glucose 359 H* 387 H* 386 H* 08/25/22 08/25/22 08/25/22 14:04 16:03 16:28 Glucose 361 H* POC Glucose 406 H* 334 H* 08/25/22 08/25/22 08/26/22 16:29 20:12 00:51 Glucose POC Glucose 329 H* 324 H* 92 08/26/22 08/26/22 08/26/22 04:10 04:29 05:57 Glucose 89 POC Glucose 66 L* 78 08/26/22 07:34 Glucose POC Glucose 95 OUTPATIENT ANTIDIABETIC REGIMEN: * None * HbA1c: 10.9% (08/25/22) ASSESSMENT: 08/26/22: * POD#1 s/p laparoscopic cholecystectomy. Patient remains NPO on IV pip-tazo. * She received 40 units of Lantus + 28 units of Novolog yesterday. Her severe hyperglycemia has resolved. She did have one episode of hypoglycemia (BSG = 66 mg/dL) overnight ~0400. No further episodes since then. Will hold basal insulin this AM and resume at lunchtime if BSG remains at/above goal. * Will back off basal insulin dosing now that patients insulin resistant state has resolved. Background: * 57 yo F admitted secondary to acute cholecystitis now POD #0 s/p laparoscopic cholecystectomy. Pharmacy has been consulted to assist with inpatient glycemic management. Patient has a history of T2DM but appears to not be compliant with home meds. According to Mo MTM note from 07/20/21: "hasn't been seen by MTM since 10/20/20, previous adherence issues, did not want to take medications at last MTM visit, currently only on max dose ozempic, previous intolerance to metformin and pt is unwilling to try other meds at last visit, would recommend addition of jardiance and emphasis on the complications of uncontrolled dora betes, due for foot exam". * BSGs have been significantly elevated: [phone] mg/dL. * Will give full 24 hours dose of Lantus based on weight/stress of 3. * Tighten Novolog to weight/stress of 3 and tighten goal range. Starting with q4h checks for now until BSGs improved. * Will give 9 units IV insulin push now stat. K was 3.5 so provider ok'd addition of IV and PO KCl. PLAN FOR INPATIENT GLYCEMIC CONTROL: * Basal insulin * Lantus 8-15 units SQ BID per BSG * 8 units for BSG < 120 mg/dL * 15 units for BSG 120 mg/dL or more * Bolus insulin * NovoLog per scale ACHS or Q6hrs while NPO * Goal Range: Low 110 mg/dL - High 140 mg/dL * Correction Factor: 25 mg/dL/unit * Nutritional / Prandial insulin per carb ratio of 1 unit per 8 grams CHO consumed
--- NOTE | 2022-08-26 10:19 | Gastrointestinal Consultation ---
Date of Consultation August 26, 2022 Assessment & Plan (1) Acute cholecystitis: (2) Elevated LFTs: Patient is a 57 years old female admitted with acute cholecystitis, status post laparoscopic subtotal cholecystectomy and SAMANTHA drain placement x1 yesterday. Initially presented with JAW: No tenderness or swelling over the mandible or TMJs, mouth opens fully. LFTs, however developed hypoxia and hypotension first night she was admitted, needed Narcan. Suspect that elevated LFTs may be related to shock liver, with other differential diagnosis being: DILI, cholangitis, choledocholithiasis. - NPO - Obtain MRCP today - Trend LFTs - Avoid hepatotoxic meds - OOB, Incentive spirometry, encourage ambulation - Surgery following - Symptomatic management w antiemetics and analgesics prn Supervising Physician Co-Signing Physician Notes Attg add: Pt with cholecystitis, increased LFT's. Recommendations as above. History of Present Illness Reason for Consultation: Elevated LFTs Requesting Physician: Dr. Chintan Jiang Attending Physician: Dr. Azucena Baeza History of Present Illness Pt is [id number] female with past medical history significant for hyperlipidemia, diabetes, postherpetic neuralgia, hidradenitis, cough variant asthma, HIV disease, MARTINEZ, chronic anxiety, history of bariatric surgery, depression. She presented with epigastric and RUQ abd pain radiating to back associated w nausea wo vomiting and constipated x 2 nights ago. Workup showed signs of cholecystitis on CT abd/pelvis wo intra/extrahepatic biliary ductal dilation. LFTs and lipase normal on presentation. mental health counselor on 08/25 code purple called as pt became hypoxic, hypotensive and tachycardic. She received several doses of narcan. LFTs noted to be markedly elevated 08/25: Tbili 1.2, AST 990, ALT 214, Alk phos 281. She was taken to the OR yesterday for laparoscopic subtotal cholecystectomy and SAMANTHA drain placement. Found to have a gallstone. No Intra-Op cholangiogram done. Patient reports that this morning she is having quite a bit of abdominal pain, has not passed flatus yet. Her goal today was to ambulate, get her Sanford catheter removed, and pain under control. She denies any fevers or chills overnight, nausea or vomiting. She had some clear liquids this morning. LFTs today: Total bilirubin 0.7, AST 896, ALT 436, alkaline phosphatase 164. Patient denies any new medications. She does take herbal supplements but cannot tell me the name of these. Allergies Allergy/AdvReac Type Severity Reaction Status Date / Time ciprofloxacin Allergy Severe TONGUE Verified 08/24/22 23:30 SWELLS, HIVES/ITCHING, THROAT "CLOSES" metformin AdvReac Severe DIARRHEA/VO Verified 08/24/22 23:30 MITING Home Medications Medication Instructions Recorded Confirmed Type alprazolam 0.5 mg tablet 0.5 mg PO BID PRN Anxiety 08/17/18 08/24/22 History clindamycin phosphate 1 % topical 1 applic topical DIRECTED 08/17/18 08/24/22 History gel ergocalciferol (vitamin D2) 1,250 50,000 unit PO WK 12/15/19 08/24/22 History mcg (50,000 unit) capsule (Vitamin D2) bictegravir 50 mg-emtricitabine 1 tab PO DAILY 08/24/22 08/24/22 History 200 mg-tenofovir alafenam 25 mg tablet (Biktarvy) cyanocobalamin (vitamin B-12) 1,000 mcg IM [id number] 08/24/22 08/24/22 History 1,000 mcg/mL injection solution Patient History Medical History (Updated 08/27/22 @ 14:04 by Irwin John MD) DM (diabetes mellitus) Elevated LFTs Human immunodeficiency virus [HIV] disease Hyperlipidemia Hypertension Surgical History History of laparoscopy-assisted vaginal hysterectomy Hx of gastric bypass Family History Other No significant family history Social History Smoking Status: Never smoker Second Hand Exposure: No; Hx Alcohol Use: No Hx Substance Use: No Preferred Language: Kiswahili Communication Ability: Effective Engine Watchman Required: No Beliefs That Will Affect Care: Scientology Current Living Situation: Spouse and Family Feels Safe at Home: Yes Assistive Devices: None Review of Systems Review of Systems: All systems reviewed & are unremarkable except as noted in HPI & below Physical Exam Constitutional: WD/WN, vitals as above well groomed and cooperative Eyes: PERRL, conjunctivae normal, anicteric sclerae ENMT: external ear and nose normal, oropharynx normal Respiratory: normal respiratory effort, lungs clear to auscultation Cardiovascular: RRR, no murmur, no edema Gastrointestinal (Abdomen): Hypoactive bowel sounds, mild distention, diffusely tender. Laparoscopic surgical wounds covered with dressing CDI, SAMANTHA drain x1 with serosanguineous drainage noted. Skin: no rashes, warm and dry Psychiatric: A+Ox3, euthymic affect Lymphatic: no lymphedema Results & Data ([facility]) Vital Signs (Past 12 Hours) Vital Signs Temp Pulse Pulse Resp BP Pulse Ox O2 Del Method 08/26/22 08:16 37.7 C H 105 H 20 111/70 90 Room Air 08/25/22 23:15 106 H 08/25/22 23:00 Room Air 08/26/22 04:00 37.5 C 108 H 18 104/62 94 Room Air 08/25/22 22:38 39.3 C H 107 H 18 102/64 91 Room Air
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
[2022-08-26] MEDS ORDERED: ALBUMIN 25% 100 mL 25 GM/100 ML VIAL IV ONE ×2 (12:58→16:06)
--- NOTE | 2022-08-26 14:10 | Magnetic Resonance Report ---
MR MRCP HISTORY: Elevated LFTs. TECHNIQUE: MRCP of the abdomen was performed without contrast according to standard departmental prot ocol. COMPARISON STUDY: Abdomen and pelvis CT 08/24/2022. FINDINGS: Suboptimal evaluation due to the motion artifact. The lung bases appear clear. The heart is mildly enlarged. No hepatic or splenic masses. The adrenal glands, pancreas, and kidneys are within normal limits. There is mild bilateral perinephric edema. This is likely chronic. No retroperitoneal lymphadenopathy. Normal caliber abdominal aorta. The common bile duct appears to be normal and course and caliber. The main pancreatic duct is not well visualized due to the motion artifact but also is likely in course and caliber. No definite filling defects within the common bile duct. No significant bile duct dilatation. The common bile measures up to 6 mm diameter. The gallbladder surgically absen t. Trace edema/fluid at the cholecystectomy bed is noted. The right upper quadrant percutaneous drain age catheter is partially visualized. IMPRESSION: 1. Suboptimal evaluation due to the motion artifact. 2. Normal caliber common bile duct and main pancreatic duct. No filling defects within the common mary e duct. 3. Prior cholecystectomy. Trace edema/fluid at the cholecystectomy bed favors expected postoperative changes. ACT 112: Negative or not required by law. Electronically signed by: Erick Walton M.D. 08/26/2022 2:08 PM
[2022-08-26 17:24] LABS: Bilirubin Direct 0.3 mg/dl (0-0.2); Bilirubin,Total 0.7 mg/dl (0.2-1.0)
[2022-08-26] MEDS: LANTUS PER UNIT CHARGE SQ SCH (20:26)
[2022-08-27] MEDS: SODIUM CHLORIDE 0.9% 1000ML 1,000 ML IV SCH ×3 (03:40→18:08)
[2022-08-27] MEDS: PIPERACILLIN/TAZOBACTAM 4.5 GM in DEXTROSE 5% 100 ML IV SCH ×3 (05:45→20:12)
[2022-08-27 07:25] LABS: Hematocrit (blood only) 26.6 % (34.1-44.9); Hemoglobin 8.9 g/dl (12.0-16.0); Mean Corpuscular Hemoglobin 28.9 pg (25.0-34.0); Mean Corpuscular Hgb Conc 33.5 g/dL (32.0-36.0); Mean Corpuscular Volume 86.4 fL (80.0-100.0); Mean Platelet Volume 10.6 fL (9.4-12.3); Platelet Count 150 K/uL (130-400); RDW Coefficient of Variation 15.7 % (11.5-14.5); Red Blood Count 3.08 M/uL (3.93-5.22); White Blood Count 10.55 K/ul (4.8-10.8)
[2022-08-27 07:44] LABS: Albumin Globulin Ratio 1.1 (0.9-2); Albumin Level 3.3 gm/dl (3.4-5.0); BUN Creatinine Ratio 12.1 (10-20); Bilirubin,Total 0.5 mg/dl (0.2-1.0); Calcium 8.2 mg/dl (8.5-10.1); Creatinine Clr Calc Pharmacy 29.2 ml/min; Est GFR (African American) 31.1 ml/min; Est GFR (Non-African American) 26.8 ml/min; Globulin 3.1 gm/dl (2.5-4.0); Magnesium 1.9 mg/dl (1.7-2.4); Phosphorus 3.3 mg/dl (2.5-4.9); Total Protein 6.4 gm/dl (6.0-8.3)
[2022-08-27] MEDS: oxyCODONE/ACETAMINOPHEN 5mg/325mg TAB PO PRN ×4 (07:53→21:51)
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
[2022-08-27] MEDS: BIKTARVY PO SCH (09:42)
[2022-08-27] MEDS: INSULIN ASPART PER UNIT SC SCH ×4 (09:42→23:25)
[2022-08-27] MEDS: LANTUS PER UNIT CHARGE SQ SCH ×2 (09:54→20:07)
[2022-08-27] MEDS ORDERED: INDOMETHACIN 50 MG SUPP PR ONE ×2 (09:55→14:53)
--- NOTE | 2022-08-27 10:44 | Pharmacy Report ---
Pharmacy Glycemic Short Note 2 - Date of Service August 27, 2022 - Glycemic Short BSG Results (Last 24 hours): 08/26/22 08/26/22 08/26/22 11:39 16:15 20:13 Glucose POC Glucose 125 H 150 H 261 H 08/27/22 08/27/22 07:06 08:04 Glucose 165 H POC Glucose 161 H OUTPATIENT ANTIDIABETIC REGIMEN: * None HbA1c: 10.9% (08/25/22) ASSESSMENT: 08/27/22: * POD #2 s/p lap. batool, now with concern for possible bile leak. Plan is HIDA/ERCP today. Remains NPO. * BSGs well-controlled yesterday, except for upward trend at HS, which may be explained by initiation of clear liquid diet at dinnertime with potentially no carb coverage * Basal insulin held by provider this morning, will reassess later today 08/26/22: * POD#1 s/p laparoscopic cholecystectomy. Patient remains NPO on IV pip-tazo. * She received 40 units of Lantus + 28 units of Novolog yesterday. Her severe hyperglycemia has resolved. She did have one episode of hypoglycemia (BSG = 66 mg/dL) overnight ~0400. No further episodes since then. Will hold basal insulin this AM and resume at lunchtime if BSG remains at/above goal. * Will back off basal insulin dosing now that patients insulin resistant state has resolved. Background: * 57 yo F admitted secondary to acute cholecystitis now POD #0 s/p laparoscopic cholecystectomy. Pharmacy has been consulted to assist with inpatient glycemic management. Patient has a history of T2DM but appears to not be compliant with home meds. According to Mo MTM note from 07/20/21: "hasn't been seen by MTM since 10/20/20, previous adherence issues, did not want to take medications at last MTM visit, currently only on max dose ozempic, previous intolerance to metformin and pt is unwilling to try other meds at last visit, would recommend addition of jardiance and emphasis on the complications of uncontrolled diabetes, due for foot exam". * BSGs have been significantly elevated: [phone] mg/dL. * Will give full 24 hours dose of Lantus based on weight/stress of 3. * Tighten Novolog to weight/stress of 3 and tighten goal range. Starting with q4h checks for now until BSGs improved. * Will give 9 units IV insulin push now stat. K was 3.5 so provider ok'd addition of IV and PO KCl. PLAN FOR INPATIENT GLYCEMIC CONTROL: * Basal insulin * Lantus 0-15 units SC HS (see EHR for details) * Reassess in AM * Bolus insulin * NovoLog per scale ACHS or Q6hrs while NPO * Goal Range: Low 110 mg/dL - High 140 mg/dL * Correction Factor: 20 mg/dL/unit * Nutritional / Prandial insulin per carb ratio of 1 unit per 7 grams CHO consumed
--- NOTE | 2022-08-27 11:59 | Gastroenterology Progress Note ---
Date of Service August 27, 2022 Assessment & Plan (1) Acute cholecystitis: (2) Elevated LFTs: Plan: Patient is a 57 years old female admitted with acute cholecystitis, status post laparoscopic subtotal cholecystectomy and SAMANTHA drain placement x1 yesterday. Initially presented with JAW: No tenderness or swelling over the mandible or TMJs, mouth opens fully. LFTs, however developed hypoxia and hypotension first night she was admitted, needed Narcan. Suspect that elevated LFTs may be related to shock liver, with other differential diagnosis being: DILI, cholangitis, choledocholithiasis. LFTs trending down, it is noted that her SAMANTHA drain is putting out bilious appearing fluid, suspect to have a bile leak status postcholecystectomy. - NPO for ERCP to control bile leak by Dr. Garcia - Trend LFTs - Avoid hepatotoxic meds - OOB, Incentive spirometry, encourage ambulation - Surgery following - Symptomatic management w antiemetics and analgesics prn Admission and Anticipated Discharge Date Admission Date: August 25, 2022 Supervising Physician Co-Signing Physician Notes I performed a history and physical examination of the patient today, including specifically on physical exam - soft abdomen. I have discussed the patient's management with the advanced practitioner. Please refer to the nurse practitioner's note for the documented findings and plan of care. ERCP today Patient was explained in detail regarding risks, benefits, limitations and alternatives of the above endoscopic procedure. Risks of intravenous sedation used for procedure were also explained. Risks include, but not limited to perforation, bleeding, infection, respiratory distress, cardiac arrest and . Patient is also aware about the possibility of missed lesion. Patient's questions were answered. The patient verbalized understanding the information and agreed to undergo the procedure. Subjective Patient had fevers, denies chills, chest pain or shortness of breath. Still having abdominal pain mostly in the surgical site. Passing flatus. Sanford catheter removed, urinating well. It is noted that her SAMANTHA drain is having high output with bilious appearing drainage. Review of Systems Review of Systems: All systems reviewed & are unremarkable except as noted in HPI & below Physical Exam Constitutional: WD/WN, vitals as above well groomed and cooperative Eyes: PERRL, conjunctivae normal, anicteric sclerae ENMT: external ear and nose normal, oropharynx normal Respiratory: normal respiratory effort, lungs clear to auscultation Cardiovascular: RRR, no murmur, no edema Gastrointestinal (Abdomen): Tender to palpation, surgical site with dressing clean, dry, intact. SAMANTHA drain x1 to right side of the abdomen with bilious appearing fluid. Bowel sounds present Skin: no rashes, warm and dry Psychiatric: A+Ox3, euthymic affect Lymphatic: no lymphedema Results & Data ([facility]) Vital Signs (Past 12 Hours) Vital Signs Temp Pulse Resp BP BP Pulse Ox O2 Del Method 08/27/22 11:36 36.7 C 89 19 116/76 94 Room Air 08/27/22 07:00 38.3 C H 99 H 18 112/67 92 Room Air 08/27/22 02:30 38 C H 98 H 18 125/67 94 Room Air
--- NOTE | 2022-08-27 14:06 | Anesthesiology Consultation ---
Date of Service August 27, 2022 Assessment & Plan (1) Encounter for pre-operative examination: Chart Review Chart Review: Acceptable Risk for Surgery and Patient NOT seen in Pre Admission Testing Consults Requested none History Surgery Operation Date: 08/25/22 08:45 Proposed Procedures p Laparoscopic Cholecystectomy - Gerard Villalta MD Operation Date: 08/27/22 09:15 Proposed Procedures p Endoscopic Retrograde Cholangiopancreatogram - Polina Garcia MD Height/Weight Height: 4 ft 11 in Weight: 87.1 kg Allergies Allergy/AdvReac Type Severity Reaction Status Date / Time ciprofloxacin Allergy Severe TONGUE Verified 08/24/22 23:30 SWELLS, HIVES/ITCHING, THROAT "CLOSES" metformin AdvReac Severe DIARRHEA/VO Verified 08/24/22 23:30 MITING Medications Home Medications Medication Instructions Recorded Confirmed Last Taken alprazolam 0.5 mg tablet 0.5 mg PO BID PRN Anxiety 08/17/18 08/24/22 Unknown clindamycin phosphate 1 % topical 1 applic topical DIRECTED 08/17/18 08/24/22 Unknown gel ergocalciferol (vitamin D2) 1,250 50,000 unit PO WK 12/15/19 08/24/22 08/23/22 mcg (50,000 unit) capsule (Vitamin D2) bictegravir 50 mg-emtricitabine 1 tab PO DAILY 08/24/22 08/24/22 08/24/22 200 mg-tenofovir alafenam 25 mg tablet (Biktarvy) cyanocobalamin (vitamin B-12) 1,000 mcg IM .[id number] 08/24/22 08/24/22 Unknown 1,000 mcg/mL injection solution Active Medications Generic Name Dose Route Start Last Admin Trade Name Freq PRN Reason Stop Dose Admin Acetaminophen 650 mg 08/25/22 01:59 08/25/22 22:44 Acetaminophen 325 Mg Tab PO 09/24/22 01:58 650 mg Q4H PRN Administration pain/fever Bictegravir/Emtricitabine/Tenofovir 1 each 08/25/22 18:00 08/27/22 09:42 Biktarvy PO 09/24/22 17:59 1 each DAILY DELORES Administration Piperacillin Sod/Tazobactam 120 mls @ 30 mls/hr 08/25/22 06:00 08/27/22 09:43 Sod 4.5 gm/ Dextrose IV 09/04/22 05:59 Infused Q8H DELORES Infusion Protocol Sodium Chloride 1,000 mls @ 125 mls/hr 08/25/22 01:59 08/27/22 12:47 Nss 1000ml IV 09/24/22 01:58 125 mls/hr .Q8H DELORES Administration Insulin Aspart 0 units 08/27/22 12:00 08/27/22 12:47 Insulin Aspart Per Unit SC 09/25/22 07:29 Not Given Q6 DELORES Protocol Insulin Glargine 0 units 08/26/22 12:00 08/27/22 09:54 Lantus Per Unit Charge SQ 09/25/22 11:59 Not Given BID DELORES Protocol Miscellaneous 1 each 08/25/22 08:00 08/27/22 07:53 Order Awaiting Action: Clindamycin Phosphate 1 % Gel N/A 09/24/22 07:59 Not Given QS DELORES Miscellaneous 15 - 30 gm 08/25/22 01:59 08/26/22 04:12 Carbohydrates For Hypoglycemia PO 09/24/22 01:58 15 gm UD PRN Administration Hypoglycemia Protocol Morphine Sulfate 2 mg 08/25/22 15:24 08/26/22 20:37 Morphine Sulfate 2 Mg/Ml Carp IV 09/08/22 15:23 2 mg Q4H PRN Administration Pain Oxycodone/Acetaminophen 1 tab 08/26/22 08:42 08/27/22 12:49 Oxycodone/Acetaminophen 5mg/325mg Tab PO 09/09/22 08:41 1 tab Q4H PRN Administration moderate pain Past Medical History Medical History (Updated 08/27/22 @ 14:04 by Irwin John MD) DM (diabetes mellitus) Elevated LFTs Human immunodeficiency virus [HIV] disease Hyperlipidemia Hypertension Assessment & Plan (1) Acute cholecystitis: (2) Elevated LFTs: Plan: Patient is a 57 years old female admitted with acute cholecystitis, status post laparoscopic subtotal cholecystectomy and SAMANTHA drain placement x1 yesterday. Initially presented with JAW: No tenderness or swelling over the mandible or TMJs, mouth opens fully. LFTs, however developed hypoxia and hypotension first night she was admitted, needed Narcan. Suspect that elevated LFTs may be related to shock liver, with other differential diagnosis being: DILI, cholangitis, choledocholithiasis. LFTs trending down, it is noted that her SAMANTHA drain is putting out bilious appearing fluid, suspect to have a bile leak status postcholecystectomy. Past Family History Family History Other No significant family history Past Surgical History Surgical History History of laparoscopy-assisted vaginal hysterectomy Hx of gastric bypass Lap Wendy Social History Smoking Status: Never smoker Do You Dip or Chew Tobacco: No Hx Alcohol Use: No Hx Substance Use: No substance use type: does not use Physical Exam Vital Signs Last Vital Signs Temp 36.7 C 08/27/22 11:36 Pulse 82 08/27/22 13:16 Resp 19 08/27/22 11:36 BP 116/76 08/27/22 11:36 Pulse Ox 94 08/27/22 11:36 O2 Del Method 08/27/22 11:36 O2 Flow Rate 2 08/25/22 14:10 Testing Laboratory Results 08/27/22 07:06 08/27/22 07:06 Hemoglobin A1c 10.9 % (4.5-5.6) H 08/25/22 05:29 Urine Color Yellow 08/24/22 19:58 Urine Appearance Clear (Clear) 08/24/22 19:58 Urine pH 5.5 (4.5-7.5) 08/24/22 19:58 Ur Specific [place] 1.036 (1.000-1.030) H 08/24/22 19:58 Urine Protein 2+ (Negative) H 08/24/22 19:58 Urine Glucose (UA) 3+ (Negative) H 08/24/22 19:58 Urine Ketones 4+ (Negative) H 08/24/22 19:58 Urine Nitrite Negative (Negative) 08/24/22 19:58 Ur Leukocyte Esterase Negative (Negative) 08/24/22 19:58 Urine WBC (Auto) 1-5 /hpf (0-5) 08/24/22 19:58 Urine RBC (Auto) 0-4 /hpf (0-4) 08/24/22 19:58 U Hyaline Cast (Auto) 1-5 /lpf (0-5) 08/24/22 19:58 U Epithel Cells (Auto) 5-10 /lpf (0-5) H 08/24/22 19:58 Urine Bacteria (Auto) Negative (Negative) 08/24/22 19:58 08/25/22 11:01 Gram Stain - Final Gallbladder Fluid Aerobic and Anaerobic Culture - Preliminary Escherichia coli Escherichia coli#2 08/27/22 08:04 POC Glucose 161 H 08/24/22 Unknown POC Ur Test NEG Electrocardiogram Date: 08/25/22 Findings: + ST @ (114) possible lateral infarct
[2022-08-27] MEDS ORDERED: ONDANSETRON INJ 2 MG/ML 2 ML VIAL ONE (14:54)
[2022-08-27] MEDS ORDERED: fentaNYL citrate 100 MCG/2 ML VIAL ONE (14:54)
[2022-08-27] MEDS ORDERED: MIDAZOLAM HCL 1 MG/ML 2ML VIAL ONE (14:54)
[2022-08-27] MEDS ORDERED: DEXAMETHASONE SOD INJ 4 MG/ML VIAL ONE (14:54)
[2022-08-27] MEDS ORDERED: PROPOFOL IV EMULSION 10 MG/ML 20 ML VIAL IV ONE (14:54)
[2022-08-27] MEDS ORDERED: ROCURONIUM BROMIDE 10 MG/ML 5 ML VIAL IV ONE (14:55)
[2022-08-27] MEDS ORDERED: LIDOCAINE 2% MPF LOCAL 5 ML VIAL INFIL ONE (14:55)
[2022-08-27] MEDS ORDERED: LARYING-O-JET KIT (LTA) ONE (14:55)
[2022-08-27] MEDS ORDERED: LABETALOL HCL IV 5 MG/ML 20ML IV PRN (15:22)
[2022-08-27] MEDS ORDERED: ONDANSETRON INJ 2 MG/ML 2 ML VIAL IV PRN (15:22)
[2022-08-27] MEDS ORDERED: PHENYLEPHRINE 100MCG/ML 5ML SYR IV PRN (15:22)
[2022-08-27] MEDS ORDERED: ATROPINE SULFATE 0.1 MG/ML 10ML SYR IV PRN (15:22)
[2022-08-27] MEDS ORDERED: ePHEDrine sulfate 50 MG/ML AMP IV PRN (15:22)
[2022-08-27] MEDS ORDERED: fentaNYL citrate 100 MCG/2 ML VIAL IV PRN (15:22)
--- NOTE | 2022-08-27 15:38 | Hospitalist Progress Note ---
Date of Service August 27, 2022 Assessment & Plan (1) Acute cholecystitis: (2) Abdominal pain: (3) Human immunodeficiency virus [HIV] disease: Plan: 57-year-old female presents with abdominal pain and found to have cholecystitis. Acute cholecystitis CT abd/pelvis showed pericholecystic fluid and gallbladder wall thickening compatible with acute cholecystitis. S/P cholecystectomy done om 08/[address] Villalta pathology report showed high grade dysplasia MRCP showed Normal caliber common bile duct and main pancreatic duct. No filling defects within the common bile duct. Cx from gallbladder fluid grew Ecoli Continue IV abx with Zosyn for now ID Consult pending gastro on board Pt went for ERCP, but unfortunately she has history of gastric bypass. EGD showed RYGB hence ERCP cannot be done at [facility] and will need transfer to [facility] for EDGE procedure. Plan to transfer to [place], waiting for call back from the transfer service Ok to start on clear liquid diet as per GI Unresponsive Mostly related to narcotic dilaudid (cautious use of opiates as pt required narcane) Narcan was given resolved Hyponatremia Sodium 138 today, Na admission 138. Continue gentle IVF Hypertension Possible likely due to pain Placed on Coreg p.r.n. Monitor the blood pressure. resolved History of anxiety. Continue alprazolam p.r.n. cautious use w/ pain meds/opiates History of human immunodeficiency virus (HIV). Continue Biktarvy. Hyperglycemia Diabetes mellitus A1c 10.9 on 08/19 Continue monitor BS DVT ppx: SCDs Disposition Plan to transfer to [place] for EDGE procedure Admission and Anticipated Discharge Date Admission Date: August 25, 2022 Subjective Pt was seen and examined for follow up of abdominal pain Sitting in chair with no acute distress Pt said that she continues to have on and off abdominal pain GI and surgery texted me because they wanted pt to have ERCP since she continues to spike fever and they were concerned about bile leak At first the plan was to transfer the patient to [place] to get the ERCP done Few minutes later I got a text from GI and surgery to hold on the transfer because Dr. Garcia will try to do the ERCP here Pt denies any chest pain, palpitation, dizziness and SOB Review of Systems Review of Systems: All systems reviewed & are unremarkable except as noted in Subjective Physical Exam Physical Exam: General- No acute distress Head- atraumatic Eyes- PERRL, EOMI, ENT- oropharynx clear Neck- supple, no JVD Lungs- clear to auscultation Heart- regular rhythm; no murmur Abdomen- normal bowel sounds, +tender Extremities- no calf tenderness, +trace edema Neuro- alert, oriented x 3; PERRL, EOMI; no facial palsy; no dysarthria Skin- warm & dry Results & Data Results & Data ([facility]) Vital Signs (Past 12 Hours) Vital Signs Temp Pulse Pulse Resp BP BP Pulse Ox 08/27/22 14:56 36.9 C 82 18 126/78 94 08/27/22 13:16 82 08/27/22 11:36 36.7 C 89 19 116/76 94 08/27/22 07:00 38.3 C H 99 H 18 112/67 92 O2 Del Method 08/27/22 14:56 Room Air 08/27/22 13:16 08/27/22 11:36 Room Air 08/27/22 07:00 Room Air
[2022-08-27] MEDS ORDERED: PHENYLEPHRINE HCL 10 MG/ML VIAL ONE (16:07)
--- NOTE | 2022-08-27 16:11 | Operative Report ---
Post Operative Report Pre & Post Diagnosis Operation Date: 08/25/22 08:45 Pre-Op Diagnosis: Acute cholecystitis Post-Op Diagnosis: Acute cholecystitis Operation Date: 08/27/22 09:15 Pre-Op Diagnosis: ABDOMINAL PAIN, bile leak I identified the patient and participated in the time-out.: Yes Procedure Operation Date: 08/25/22 08:45 Actual Procedures p Laparoscopic Subtotal Cholecystectomy(Not Applicable) - Gerard Villalta MD Operation Date: 08/27/22 09:15 <No data on this case meets the specified criteria> Surgeon Polina Garcia MD Coremaker Experimental MIKEL Reeves Estimated Blood Loss 30 Findings See Below (Procedure aborted as patient has RYGB. ) Specimens None Description of Procedure ERCP I attest to the content of the Intraoperative Record and any orders documented therein. Any exceptions are noted below.
--- NOTE | 2022-08-27 16:16 | Gastroenterology Progress Note ---
Date of Service August 27, 2022 Assessment & Plan Admission and Anticipated Discharge Date Admission Date: August 25, 2022 Subjective I was contacted by about the patient as she has bile leak with biliary output in her SAMANTHA drain, I came to do the procedure and EGD was done which showed RYGB hence ERCP cannot be done at [facility] and will need transfer to [facility] for EDGE procedure. Results & Data ([facility]) Vital Signs (Past 12 Hours) Vital Signs Temp Pulse Pulse Resp BP BP Pulse Ox 08/27/22 14:56 36.9 C 82 18 126/78 94 08/27/22 13:16 82 08/27/22 11:36 36.7 C 89 19 116/76 94 08/27/22 07:00 38.3 C H 99 H 18 112/67 92 O2 Del Method 08/27/22 14:56 Room Air 08/27/22 13:16 08/27/22 11:36 Room Air 08/27/22 07:00 Room Air
--- NOTE | 2022-08-27 16:28 | GI REPORT ---
Patient Name: Nasima Nieto Procedure Date: 08/27/2022 10:50 AM Date of : 1965 Admit Type: Inpatient Age: 57 Gender: Female Attending MD: Polina Garcia MD, Procedure: Upper GI endoscopy Providers: Polina Garcia MD Referring MD: Gerard OSBORN . Md Indications: Abnormal MRI of the GI tract Medicines: General Anesthesia Complications: No immediate complications. Estimated Blood Loss: Estimated blood loss: none. Procedure: Pre-Anesthesia Assessment: - Prior to the procedure, a History and Physical was performed, and patient medications, allergies and sensitivities were reviewed. The patient's tolerance of previous anesthesia was reviewed. - The risks and benefits of the procedure and the sedation options and risks were discussed with the patient. All questions were answered and informed consent was obtained. - Patient identification and proposed procedure were verified prior to the procedure by the physician and the nurse. The procedure was verified in the procedure room. - Pre-procedure physical examination revealed no contraindications to sedation. After obtaining informed consent, the endoscope was passed under direct vision. Throughout the procedure, the patient's blood pressure, pulse, and oxygen saturations were monitored continuously. The Duodenoscope was introduced through the mouth, and advanced to the duodenum efferent jejunal loop. After obtaining informed consent, the endoscope was passed under direct vision. Throughout the procedure, the patient's blood pressure, pulse, and oxygen saturations were monitored continuously.The upper GI endoscopy was accomplished without difficulty. The patient tolerated the procedure well. Findings: The examined esophagus was normal. Evidence of a gastric bypass was found. A gastric pouch with a small size was found. The gastrojejunal anastomosis was characterized by healthy appearing mucosa. This was traversed. Impression: - Normal esophagus. - Gastric bypass with a small-sized pouch. Gastrojejunal anastomosis characterized by healthy appearing mucosa. Recommendation: - Transfer patient to [facility] for EDGE procedure in view of RYGB anatomy and ongoing bile leak. Polina Garcia MD 08/27/2022 4:27:59 PM This report has been signed electronically. Note Initiated On: 08/27/2022 10:50 AM Number of Addenda: 0 I attest to the content of the Intraoperative Record and orders documented therein, exceptions below {[id number]}
--- NOTE | 2022-08-27 17:30 | Anesthesiology Progress Note ---
Date of Service August 27, 2022 Anesthesia Post Procedure Vital Signs Vital Signs: Temp Pulse Pulse Resp BP BP Pulse Ox 08/27/22 16:55 82 12 122/96 100 08/27/22 16:45 85 12 101/81 99 08/27/22 17:15 36.4 C L 84 16 134/90 97 08/27/22 17:05 87 22 149/92 H 100 08/27/22 16:37 36 C L 85 16 116/75 98 08/27/22 14:56 36.9 C 82 18 126/78 94 08/27/22 13:16 82 08/27/22 11:36 36.7 C 89 19 116/76 94 08/27/22 07:00 38.3 C H 99 H 18 112/67 92 08/27/22 02:30 38 C H 98 H 18 125/67 94 08/26/22 22:38 37.2 C 91 H 18 111/67 96 08/26/22 19:35 36.8 C 94 H 18 94/57 L 93 O2 Del Method O2 Flow Rate 08/27/22 16:55 Oxymask 4 08/27/22 16:45 Oxymask 6 08/27/22 17:15 Room Air 08/27/22 17:05 Oxymask 2 08/27/22 16:37 Oxymask 6 08/27/22 14:56 Room Air 08/27/22 13:16 08/27/22 11:36 Room Air 08/27/22 07:00 Room Air 08/27/22 02:30 Room Air 08/26/22 22:38 Room Air 08/26/22 19:35 Room Air Pain Intensity Right Abdomen: Pain Intensity: 3 Transfer of Care Handoff Completed per policy Notes Mental Status: alert / awake / arousable Patient Amnestic to Procedure: Yes Nausea / Vomiting: adequately controlled Pain: adequately controlled Airway Patency, RR, SpO2: stable & adequate BP & HR: stable & adequate Hydration State: stable & adequate Anesthetic Complications: no major complications apparent and Pt Satisfied with anesthetic care Notes: The patient is awake and stable. She tolerated the anesthetic well. Dr. Garcia was unable to complete the procedure due to the patient's history of gastric bypass. He spoke to the patient in PACU and will recommend her further care.
[2022-08-27 23:57] LABS: Codeine Urine NEGATIVE ng/mL (<50); Hydrocodone Urine NEGATIVE ng/mL (<50); Hydromor Urine 206 ng/mL (<50); Morphine Urine 1240 ng/mL (<50); Norhydrocodone Conf Ur NEGATIVE ng/mL (<50); Noroxycodone Urine NEGATIVE ng/mL (<50); Oxycodone Urine NEGATIVE ng/mL (<50); Oxymorph Urine NEGATIVE ng/mL (<50)
[2022-08-28] MEDS: SODIUM CHLORIDE 0.9% 1000ML 1,000 ML IV SCH (04:18)
[2022-08-28] MEDS: PIPERACILLIN/TAZOBACTAM 4.5 GM in DEXTROSE 5% 100 ML IV SCH (05:31)
[2022-08-28] MEDS: INSULIN ASPART PER UNIT SC SCH ×2 (05:40→11:24)
[2022-08-28] MEDS: oxyCODONE/ACETAMINOPHEN 5mg/325mg TAB PO PRN (06:49)
[2022-08-28 07:17] LABS: Hematocrit (blood only) 27.2 % (34.1-44.9); Mean Corpuscular Hgb Conc 33.1 g/dL (32.0-36.0); Mean Corpuscular Volume 87.7 fL (80.0-100.0); Platelet Count 152 K/uL (130-400); RDW Coefficient of Variation 15.9 % (11.5-14.5); RDW Standard Deviation 50.7 fL (36.4-46.3); White Blood Count 9.46 K/ul (4.8-10.8)
[2022-08-28 07:47] LABS: Albumin Level 3.2 gm/dl (3.4-5.0); BUN Creatinine Ratio 10.9 (10-20); Bilirubin,Total 0.5 mg/dl (0.2-1.0); Calcium 8.4 mg/dl (8.5-10.1); Creatinine Clr Calc Pharmacy 26.4 ml/min; Est GFR (African American) 27.5 ml/min; Est GFR (Non-African American) 23.8 ml/min; Globulin 3.2 gm/dl (2.5-4.0); Potassium 3.9 mmol/L (3.5-5.1); Total Protein 6.4 gm/dl (6.0-8.3)
[2022-08-28] MEDS: LANTUS PER UNIT CHARGE SQ SCH (09:24)
[2022-08-28] MEDS: BIKTARVY PO SCH (09:24)
--- NOTE | 2022-08-28 10:16 | Surgery Progress Note ---
Date of Service August 28, 2022 Assessment & Plan (1) Acute cholecystitis: Plan: POD#3 from lap subtotal cholecystectomy with bile leak. Unable to do ERCP here due to prior [facility]. Awaiting transfer for EDGE procedure as per GI note. Stable with bile well drained, liver function tests improving. (2) Human immunodeficiency virus [HIV] disease: Admission and Anticipated Discharge Date Admission Date: August 25, 2022 Subjective Sitting in chair. Intermittent abdominal pain, intermittent nausea. No vomiting. Medications work for controlling pain/nausea. Review of Systems Review of Systems: All systems reviewed & are unremarkable except as noted in HPI & below Respiratory: + cough Physical Exam Constitutional: WD/WN, vitals as above Respiratory: normal respiratory effort; no respiratory distress Auscultation: lungs clear to auscultation bilaterally Cardiovascular: RRR, no murmur, no edema Gastrointestinal (Abdomen): Inspection/Auscultation: + abdomen distended, + abdominal surgical incision (dressings dry) and + abdominal surgical drain present (bilious) Percussion/Palpation: abdomen soft Musculoskeletal: Extremities: extremities normal to inspection Neurologic: awake; no focal motor deficits Psychiatric: A+Ox3, euthymic affect Results & Data ([facility]) Vital Signs (Past 12 Hours) Vital Signs Temp Pulse Resp BP Pulse Ox O2 Del Method 08/28/22 07:06 37 C 84 18 136/74 94 Room Air 08/28/22 02:56 37.0 C 90 15 112/73 96 Room Air 08/27/22 22:49 36.7 C 85 18 116/80 96 Room Air Laboratory Results 08/28/22 08/28/22 08/28/22 Range/Units 07:05 07:05 05:39 WBC 9.46 (4.8-10.8) K/ul RBC 3.10 L (3.93-5.22) M/uL Hgb 9.0 L (12.0-16.0) g/dl Hct 27.2 L (34.1-44.9) % MCV 87.7 (80.0-100.0) fL MCH 29.0 (25.0-34.0) pg MCHC 33.1 (32.0-36.0) g/dL RDW Std Deviation 50.7 H (36.4-46.3) fL RDW Coeff of Tami 15.9 H (11.5-14.5) % Plt Count 152 (130-400) K/uL MPV 10.0 (9.4-12.3) fL Sodium 140 (136-145) mmol/L Potassium 3.9 (3.5-5.1) mmol/L Chloride 113 H (98-107) mmol/L Carbon Dioxide 17 L (21-32) mmol/L Anion Gap 10 (3-11) BUN 24 H (6-23) mg/dl Creatinine 2.20 H (0.6-1.2) mg/dl Est Cr Clr Drug Dosing 26.4 ml/min Est GFR ( Amer) 27.5 ml/min Est GFR (Non-Af Amer) 23.8 ml/min BUN/Creatinine Ratio 10.9 (10-20) Glucose 97 (70-99(Fasting)) mg/dl POC Glucose 82 (70-99) mg/dl Calcium 8.4 L (8.5-10.1) mg/dl Total Bilirubin 0.5 (0.2-1.0) mg/dl AST 71 H (13-39) U/L ALT 168 H (7-52) U/L Alkaline Phosphatase 120 H (34-104) U/L Total Protein 6.4 (6.0-8.3) gm/dl Albumin 3.2 L (3.4-5.0) gm/dl Globulin 3.2 (2.5-4.0) gm/dl Albumin/Globulin Ratio 1.0 (0.9-2) U Codeine Confrm GC/MS (<50) ng/mL Ur Morphine (GC/MS) (<50) ng/mL Ur Hydrocodone (GC/MS) (<50) ng/mL Ur Norhydrocodone (<50) ng/mL Ur Noroxycodone (<50) ng/mL Urine Oxycodone (GC/MS) (<50) ng/mL U Oxymorphone GC/MS (<50) ng/mL Ur Hydromorphone (GC/MS) (<50) ng/mL Drug Screen Comment 08/27/22 08/27/22 08/27/22 Range/Units 23:20 18:12 16:38 WBC (4.8-10.8) K/ul RBC (3.93-5.22) M/uL Hgb (12.0-16.0) g/dl Hct (34.1-44.9) % MCV (80.0-100.0) fL MCH (25.0-34.0) pg MCHC (32.0-36.0) g/dL RDW Std Deviation (36.4-46.3) fL RDW Coeff of Tami (11.5-14.5) % Plt Count (130-400) K/uL MPV (9.4-12.3) fL Sodium (136-145) mmol/L Potassium (3.5-5.1) mmol/L Chloride (98-107) mmol/L Carbon Dioxide (21-32) mmol/L Anion Gap (3-11) BUN (6-23) mg/dl Creatinine (0.6-1.2) mg/dl Est Cr Clr Drug Dosing ml/min Est GFR ( Amer) ml/min Est GFR (Non-Af Amer) ml/min BUN/Creatinine Ratio (10-20) Glucose (70-99(Fasting)) mg/dl POC Glucose 257 H 152 H 167 H (70-99) mg/dl Calcium (8.5-10.1) mg/dl Total Bilirubin (0.2-1.0) mg/dl AST (13-39) U/L ALT (7-52) U/L Alkaline Phosphatase (34-104) U/L Total Protein (6.0-8.3) gm/dl Albumin (3.4-5.0) gm/dl Globulin (2.5-4.0) gm/dl Albumin/Globulin Ratio (0.9-2) U Codeine Confrm GC/MS (<50) ng/mL Ur Morphine (GC/MS) (<50) ng/mL Ur Hydrocodone (GC/MS) (<50) ng/mL Ur Norhydrocodone (<50) ng/mL Ur Noroxycodone (<50) ng/mL Urine Oxycodone (GC/MS) (<50) ng/mL U Oxymorphone GC/MS (<50) ng/mL Ur Hydromorphone (GC/MS) (<50) ng/mL Drug Screen Comment 08/27/22 08/27/22 08/25/22 Range/Units 15:35 11:53 17:17 WBC (4.8-10.8) K/ul RBC (3.93-5.22) M/uL Hgb (12.0-16.0) g/dl Hct (34.1-44.9) % MCV (80.0-100.0) fL MCH (25.0-34.0) pg MCHC (32.0-36.0) g/dL RDW Std Deviation (36.4-46.3) fL RDW Coeff of Tami (11.5-14.5) % Plt Count (130-400) K/uL MPV (9.4-12.3) fL Sodium (136-145) mmol/L Potassium (3.5-5.1) mmol/L Chloride (98-107) mmol/L Carbon Dioxide (21-32) mmol/L Anion Gap (3-11) BUN (6-23) mg/dl Creatinine (0.6-1.2) mg/dl Est Cr Clr Drug Dosing ml/min Est GFR ( Amer) ml/min Est GFR (Non-Af Amer) ml/min BUN/Creatinine Ratio (10-20) Glucose (70-99(Fasting)) mg/dl POC Glucose 142 H 140 H (70-99) mg/dl Calcium (8.5-10.1) mg/dl Total Bilirubin (0.2-1.0) mg/dl AST (13-39) U/L ALT (7-52) U/L Alkaline Phosphatase (34-104) U/L Total Protein (6.0-8.3) gm/dl Albumin (3.4-5.0) gm/dl Globulin (2.5-4.0) gm/dl Albumin/Globulin Ratio (0.9-2) U Codeine Confrm GC/MS NEGATIVE (<50) ng/mL Ur Morphine (GC/MS) 1240 H (<50) ng/mL Ur Hydrocodone (GC/MS) NEGATIVE (<50) ng/mL Ur Norhydrocodone NEGATIVE (<50) ng/mL Ur Noroxycodone NEGATIVE (<50) ng/mL Urine Oxycodone (GC/MS) NEGATIVE (<50) ng/mL U Oxymorphone GC/MS NEGATIVE (<50) ng/mL Ur Hydromorphone (GC/MS) 206 H (<50) ng/mL Drug Screen Comment SEE NOTE
--- NOTE | 2022-08-28 14:46 | Discharge Summary ---
Date of Service August 28, 2022 Admission HPI Per Admitting Provider CHIEF COMPLAINT: Abdominal pain. HISTORY OF PRESENT ILLNESS: This is a 57-year-old female with past medical history significant for hyperlipidemia, diabetes, postherpetic neuralgia, hidradenitis, cough variant asthma, HIV disease, MARTINEZ, chronic anxiety, history of bariatric surgery, depression, comes with abdominal pain. The patient says her abdominal pain started about 2 a.m. on Tuesday night and was not getting better. It was in the epigastrium and right upper quadrant region, radiating to the back, very severe, associated with nausea, no vomiting and she was constipated and she came to the ER today and CAT scan showing cholecystitis. She notes that she has no fever, has some mild headache. No blurred visions, no runny nose, no sore throat, no cough. When the pain is severe, she is getting some shortness of breath. Sometimes her pain seems to come to the lower chest. No swelling in the legs. Currently, resting comfortably, hemodynamically stable, but does feel the pain seems to be coming back. Admission Exam Per Admitting Provider GENERAL: The patient is obese, not in acute distress. VITAL SIGNS: Temperature 36.8, pulse 105, respiratory rate 20, blood pressure 188/102, oxygen 96% on room air. HEENT: Pupils equal, round and reactive to light. Oral mucosa moist. NECK: No neck masses seen. CARDIOVASCULAR: S1 and S2 heard. Regular rate and rhythm. No murmur, no gallop. RESPIRATORY SYSTEM: Normal AP diameter. No accessory muscle use. No wheezing, no crackles. ABDOMEN: Soft, bowel sounds present. Tenderness in the epigastric and right upper quadrant region. Mild guarding, no rigidity, no distention. CENTRAL NERVOUS SYSTEM: Cranial nerves II-XII grossly intact, nonfocal. EXTREMITIES: No edema, no erythema. Principal Diagnosis Acute cholecystitis: Abdominal pain: Human immunodeficiency virus [HIV] disease Unresponsive Hyponatremia Hypertension History of anxiety. Hyperglycemia Discharge Exam General- No acute distress Head- atraumatic Eyes- PERRL, EOMI, ENT- oropharynx clear Neck- supple, no JVD Lungs- clear to auscultation Heart- regular rhythm; no murmur Abdomen- normal bowel sounds, +tender Extremities- no calf tenderness, +trace edema Neuro- alert, oriented x 3; PERRL, EOMI; no facial palsy; no dysarthria Skin- warm & dry Discharge Data Allergies Allergy/AdvReac Type Severity Reaction Status Date / Time ciprofloxacin Allergy Severe TONGUE Verified 08/24/22 23:30 SWELLS, HIVES/ITCHING, THROAT "CLOSES" metformin AdvReac Severe DIARRHEA/VO Verified 08/24/22 23:30 MITING Consultations 08/24/22 23:24 ED Decision to Admit Stat 08/25/22 08:00 Consult General Surgery Routine 08/25/22 09:33 Consult Gastroenterology Routine 08/26/22 12:45 Consult Infectious Diseases Routine 08/27/22 19:40 Burn CD for patient Stat Procedures Performed Operation Date: 08/25/22 08:45 Actual Procedures p Laparoscopic Subtotal Cholecystectomy(Not Applicable) - Gerard Villalta MD Operation Date: 08/27/22 09:15 Actual Procedures p Endoscopic Retrograde Cholangiopancreato - Polina Garcia MD Ordered Studies 08/24/22 21:29 CT Abd and Pelvis [CT abd pelvis IV con only] Urgent 08/25/22 06:12 CT head/brain wo con Stat 08/26/22 08:48 MRI MRCP [MR MRCP] Routine Laboratory Results WBC 9.46 K/ul (4.8-10.8) 08/28/22 07:05 RBC 3.10 M/uL (3.93-5.22) L 08/28/22 07:05 Hgb 9.0 g/dl (12.0-16.0) L 08/28/22 07:05 POC Hgb 11.6 g/dl (12.0-16.0) L 08/25/22 05:59 Hct 27.2 % (34.1-44.9) L 08/28/22 07:05 POC Hct 34 % (37-47) L 08/25/22 05:59 MCV 87.7 fL (80.0-100.0) 08/28/22 07:05 MCH 29.0 pg (25.0-34.0) 08/28/22 07:05 MCHC 33.1 g/dL (32.0-36.0) 08/28/22 07:05 RDW Std Deviation 50.7 fL (36.4-46.3) H 08/28/22 07:05 RDW Coeff of Tami 15.9 % (11.5-14.5) H 08/28/22 07:05 Plt Count 152 K/uL (130-400) 08/28/22 07:05 MPV 10.0 fL (9.4-12.3) 08/28/22 07:05 Immature Gran % (Auto) 1.6 % 08/26/22 05:57 Neut % (Auto) 87.6 % 08/26/22 05:57 Lymph % (Auto) 5.0 % 08/26/22 05:57 Maverick % (Auto) 5.4 % 08/26/22 05:57 Eos % (Auto) 0.2 % 08/26/22 05:57 Baso % (Auto) 0.2 % 08/26/22 05:57 Neut # (Auto) 9.30 K/uL (1.4-6.5) H 08/26/22 05:57 Lymph # (Auto) 0.53 K/uL (1.2-3.4) L 08/26/22 05:57 Maverick # (Auto) 0.57 K/uL (0.24-0.82) 08/26/22 05:57 Eos # (Auto) 0.02 K/uL (0-0.50) 08/26/22 05:57 Baso # (Auto) 0.02 K/uL (0-0.2) 08/26/22 05:57 Immature Gran # (Auto) 0.17 K/uL (0.00-0.02) H 08/26/22 05:57 Toxic Vacuolation 1+ 08/26/22 05:57 Dohle Bodies 1+ 08/26/22 05:57 Giant Platelets 1+ 08/25/22 05:29 Sample Site L Radial 08/25/22 05:59 POC pH 7.47 (7.35-7.45) H 08/25/22 05:59 POC pCO2 28 mmHg (35-46) L 08/25/22 05:59 POC pO2 201 mmHg (80-95) H 08/25/22 05:59 POC HCO3 21 jeramie/L (19-24) 08/25/22 05:59 POC Total CO2 21 mmol/L (24-31) L 08/25/22 05:59 POC Base Excess -3.0 jeramie/L (-9-1.8) 08/25/22 05:59 ABG pH (Temp Correct) 7.469 (7.35-7.45) H 08/25/22 05:59 ABG pCO2 (Temp Corrct 28 mmHg (35-46) L 08/25/22 05:59 POC ABG pO2 at Pt Temp 201 08/25/22 05:59 POC ABG O2 Sat 100.0 % (90-95) H 08/25/22 05:59 Efrain Test Pass 08/25/22 05:59 O2 Delivery Device NonRb Mask 08/25/22 05:59 POC FiO2 100 % 08/25/22 05:59 POC Sodium 133 mmol/L (135-144) L 08/25/22 05:59 Sodium 140 mmol/L (136-145) 08/28/22 07:05 POC Potassium 3.3 mmol/L (3.3-5.0) 08/25/22 05:59 Potassium 3.9 mmol/L (3.5-5.1) 08/28/22 07:05 Chloride 113 mmol/L (98-107) H 08/28/22 07:05 Carbon Dioxide 17 mmol/L (21-32) L 08/28/22 07:05 Anion Gap 10 (3-11) 08/28/22 07:05 BUN 24 mg/dl (6-23) H 08/28/22 07:05 Creatinine 2.20 mg/dl (0.6-1.2) H 08/28/22 07:05 Est Cr Clr Drug Dosing 26.4 ml/min 08/28/22 07:05 Est GFR ( Amer) 27.5 ml/min 08/28/22 07:05 Est GFR (Non-Af Amer) 23.8 ml/min 08/28/22 07:05 BUN/Creatinine Ratio 10.9 (10-20) 08/28/22 07:05 Glucose 97 mg/dl (70-99(Fasting)) 08/28/22 07:05 POC Glucose 98 mg/dl (70-99) 08/28/22 11:13 Estimat Average Glucose 266 mg/dl 08/25/22 05:29 Hemoglobin A1c 10.9 % (4.5-5.6) H 08/25/22 05:29 Lactate 3.4 mmol/L (0.4-2.0) H* 08/25/22 06:11 Calcium 8.4 mg/dl (8.5-10.1) L 08/28/22 07:05 Phosphorus 3.3 mg/dl (2.5-4.9) 08/27/22 07:06 Magnesium 1.9 mg/dl (1.7-2.4) 08/27/22 07:06 Total Bilirubin 0.5 mg/dl (0.2-1.0) 08/28/22 07:05 Direct Bilirubin 0.3 mg/dl (0-0.2) H 08/26/22 05:57 AST 71 U/L (13-39) H 08/28/22 07:05 ALT 168 U/L (7-52) H 08/28/22 07:05 Alkaline Phosphatase 120 U/L (34-104) H 08/28/22 07:05 Ammonia 37.0 umol/L (18-72) 08/25/22 06:59 Total Protein 6.4 gm/dl (6.0-8.3) 08/28/22 07:05 Albumin 3.2 gm/dl (3.4-5.0) L 08/28/22 07:05 Globulin 3.2 gm/dl (2.5-4.0) 08/28/22 07:05 Albumin/Globulin Ratio 1.0 (0.9-2) 08/28/22 07:05 Lipase 8 U/L (11-82) L 08/24/22 20:03 HCG, Qual Negative (Negative) 08/24/22 20:03 Urine Color Yellow 08/24/22 19:58 Urine Appearance Clear (Clear) 08/24/22 19:58 Urine pH 5.5 (4.5-7.5) 08/24/22 19:58 Ur Specific [place] 1.036 (1.000-1.030) H 08/24/22 19:58 Urine Protein 2+ (Negative) H 08/24/22 19:58 Urine Glucose (UA) 3+ (Negative) H 08/24/22 19:58 Urine Ketones 4+ (Negative) H 08/24/22 19:58 Urine Blood 1+ (Negative) H 08/24/22 19:58 Urine Nitrite Negative (Negative) 08/24/22 19:58 Urine Bilirubin Negative (Negative) 08/24/22 19:58 Urine Urobilinogen Negative (Negative) 08/24/22 19:58 Ur Leukocyte Esterase Negative (Negative) 08/24/22 19:58 Urine WBC (Auto) 1-5 /hpf (0-5) 08/24/22 19:58 Urine RBC (Auto) 0-4 /hpf (0-4) 08/24/22 19:58 U Hyaline Cast (Auto) 1-5 /lpf (0-5) 08/24/22 19:58 U Epithel Cells (Auto) 5-10 /lpf (0-5) H 08/24/22 19:58 Urine Bacteria (Auto) Negative (Negative) 08/24/22 19:58 POC Ur Test NEG (NEG) 08/24/22 Unknown Nasal Screen MRSA (PCR) Negative (Negative) 08/25/22 06:40 Urine Opiates Screen Pos (Neg) H 08/25/22 17:17 U Codeine Confrm GC/MS NEGATIVE ng/mL (<50) 08/25/22 17:17 Ur Morphine (GC/MS) 1240 ng/mL (<50) H 08/25/22 17:17 Ur Hydrocodone (GC/MS) NEGATIVE ng/mL (<50) 08/25/22 17:17 Ur Norhydrocodone NEGATIVE ng/mL (<50) 08/25/22 17:17 Ur Noroxycodone NEGATIVE ng/mL (<50) 08/25/22 17:17 Urine Oxycodone (GC/MS) NEGATIVE ng/mL (<50) 08/25/22 17:17 U Oxymorphone GC/MS NEGATIVE ng/mL (<50) 08/25/22 17:17 Ur Methadone, Qual Neg (Neg) 08/25/22 17:17 Ur Hydromorphone (GC/MS) 206 ng/mL (<50) H 08/25/22 17:17 Urine Barbiturates Neg (Neg) 08/25/22 17:17 Ur Phencyclidine (PCP) Neg (Neg) 08/25/22 17:17 U Amphetamin/Meth Scrn Neg (Neg) 08/25/22 17:17 MDMA (Ecstasy) Screen Neg (Neg) 08/25/22 17:17 U Benzodiazepines Scrn Neg (Neg) 08/25/22 17:17 Ur Cocaine Metabolite Neg (Neg) 08/25/22 17:17 U Marijuana (THC) Screen Neg (Neg) 08/25/22 17:17 Drug Screen Comment SEE NOTE 08/25/22 17:17 SARS-CoV-2, RNA, NAAT NEGATIVE (NEGATIVE) 08/24/22 Unknown Impressions Abdomen/Pelvis CT 08/24/22 21:29 CT abd pelvis IV con only CLINICAL HISTORY: epigastric abd pain TECHNIQUE: Helical axial images of the abdomen and pelvis were obtained and displayed. Automated dose lowering techniques and/or adjustment according to patient size were utilized for this exam. This exam was performed with intravenous contrast. CT DOSE: 892.28 mGy.cm COMPARISON: FINDINGS: Lower chest: No acute abnormality. Liver: Unremarkable. No focal lesions are seen. Gallbladder and biliary tree: The gallbladder wall is thickened with surrounding cholecystic fluid. No definite stones are seen. No intra- or extrahepatic biliary ductal dilation. Pancreas: Unremarkable, no focal lesions. Spleen: Unremarkable. Adrenals: Unremarkable. Kidneys and ureters: Unremarkable. Bladder: Unremarkable. Reproductive organs: Unremarkable. Bowel: Unremarkable appearance of the bowel. The appendix is normal. Bowel resection is seen. Lymph nodes Retroperitoneal: Unremarkable. Pelvic: Unremarkable. Mesenteric: Unremarkable. Peritoneum: Normal. Vessels: Unremarkable. Abdominal wall: Unremarkable. Bones: Unremarkable. IMPRESSION: Pericholecystic fluid and gallbladder wall thickening compatible with acute cholecystitis. ACT 112: Negative or not required by law. Electronically signed by: Alfa Liu M.D. 08/25/2022 7:[address] 08/25/22 06:12 CT SCAN OF THE BRAIN WITHOUT IV CONTRAST CLINICAL HISTORY: Change in mental status. COMPARISON STUDY: CT of the brain dated 04/23/2021. TECHNIQUE: Unenhanced axial CT scan of the brain is performed from the vertex to the skull base. A dose lowering technique was utilized adhering to the principles of ALARA. CT DOSE: 537.48 mGy.cm FINDINGS: Brain parenchyma: The brain parenchyma is normal in appearance. There is no hemorrhage, mass effect, or evidence of acute territorial ischemia by CT criteria. Holder-white matter differentiation is preserved. No extra-axial fluid collection is seen. Ventricles, sulci, cisterns: Normal in configuration. Intracranial vasculature: The visualized intracranial vasculature at the skull base is normal in appearance. Calvarium: Unremarkable. Sinuses and mastoids: The visualized paranasal sinuses are clear. The mastoid air cells are well pneumatized. Orbits: The bony orbits are grossly intact. There are bilateral ocular lens implants. IMPRESSION: There is no hemorrhage, mass effect, or evidence of acute territorial ischemia by CT criteria. ACT 112: Negative or not required by law. Electronically signed by: Agustín Stafford M.D. 08/25/2022 7:02 AM Cholangiopancreatography MRI 08/26/22 08:48 MR MRCP HISTORY: Elevated LFTs. TECHNIQUE: MRCP of the abdomen was performed without contrast according to standard departmental protocol. COMPARISON STUDY: Abdomen and pelvis CT 08/24/2022. FINDINGS: Suboptimal evaluation due to the motion artifact. The lung bases appear clear. The heart is mildly enlarged. No hepatic or splenic masses. The adrenal glands, pancreas, and kidneys are within normal limits. There is mild bilateral perinephric edema. This is likely chronic. No retroperitoneal lymphadenopathy. Normal caliber abdominal aorta. The common bile duct appears to be normal and course and caliber. The main pancreatic duct is not well visualize d due to the motion artifact but also is likely in course and caliber. No definite filling defects within the common bile duct. No significant bile duct dilatation. The common bile measures up to 6 mm diameter. The gallbladder surgically absent. Trace edema/fluid at the cholecystectomy bed is noted. The right upper quadrant percutaneous drainage catheter is partially visualized. IMPRESSION: 1. Suboptimal evaluation due to the motion artifact. 2. Normal caliber common bile duct and main pancreatic duct. No filling defects within the common bile duct. 3. Prior cholecystectomy. Trace edema/fluid at the cholecystectomy bed favors expected postoperative changes. ACT 112: Negative or not required by law. Electronically signed by: Erick Walton M.D. 08/26/2022 2:08 PM Hospital Course (1) Acute cholecystitis: (2) Abdominal pain: (3) Human immunodeficiency virus [HIV] disease: 57-year-old female presents with abdominal pain and found to have cholecystitis. Acute cholecystitis CT abd/pelvis showed pericholecystic fluid and gallbladder wall thickening compatible with acute cholecystitis. S/P cholecystectomy done om 08/[address] Villalta pathology report showed high grade dysplasia MRCP showed Normal caliber common bile duct and main pancreatic duct. No filling defects within the common bile duct. Cx from gallbladder fluid grew Ecoli Continue IV abx with Zosyn for now ID Consult pending Gastro on board Pt went for ERCP, but unfortunately she has history of gastric bypass. EGD showed RYGB hence ERCP cannot be done at [facility] and will need transfer to [facility] for EDGE procedure. Plan to transfer to [facility], waiting for call back from the transfer service Ok to start on clear liquid diet as per GI But will make NPO for now Keep NPO for now ( Plan for EDGE procedure at 4:30pm by Dr. Garcia ) Unresponsive Mostly related to narcotic dilaudid (cautious use of opiates as pt required narcane) Narcan was given resolved Hyponatremia Sodium 138 today, Na admission 138. Continue gentle IVF Hypertension Possible likely due to pain Placed on Coreg p.r.n. Monitor the blood pressure. resolved History of anxiety. Continue alprazolam p.r.n. cautious use w/ pain meds/opiates History of human immunodeficiency virus (HIV). Continue Biktarvy. Hyperglycemia Diabetes mellitus A1c 10.9 on 08/19 Continue monitor BS DVT ppx: SCDs Disposition Plan to transfer to [facility] for EDGE procedure Total Time Total Time Spent Total Time Spent (In Minutes): 35 minutes Discharge Plan Discharge Items Patient Disposition: Transfer Acute Care Hospital Reason For Visit: ABDOMINAL PAIN Discharge Diagnosis: Acute cholecystitis Activity: Resume your previous activity Non-emergency contact: Primary Care Provider, Surgeon and Paste Mixer Call non-emergency contact if: you have any medication questions, your symptoms worsen and your temperature is above 101 Follow-up/Referrals: Idania Irizarry MD [Primary Care Provider] - Gerard Villalta MD [Physician] - 09/02/22 3:45 pm Diet: Nothing by Mouth Addtl Attending Provider Instructions: Transfer to [facility] Accepted provider Dr. Alan Oviedo at [facility] Continue IV antibiotic with Zosyn Follow up with Surgery outpatient Dr. Villalta on 09/02/22 on 3:45 PM Keep NPO for now ( Plan for EDGE procedure at 4:30pm by Dr. 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 Try to keep incision sites and drain site dry. Clean around drain site until it is removed. - Leave steri strips on for one week , they may fall off on their own - Change drain dressing daily or as needed to keep clean and dry - You can apply small dressings on the incision sites and change daily . - Surgical drain will be removed in office. Keep record of output and color and bring record with you to office. - Call the surgeon's office with any questions or concerns - - (ex. temperature higher than 101 degrees F, excessive bleeding or pain). MEDICATIONS: - Resume previous medications unless instructed otherwise by your surgeon. - Avoid NSAIDs (Ibuprofen, Motrin, Aleve) and Aspirin for 7 days - Percocet 1 every 6 hours, as needed for moderate to severe pain FOLLOW UP VISIT: - You are scheduled for a follow-up with Dr. Villalta on 09/02/22 at 3:45 pm. Office number Pending Studies at Discharge: Yes (blood culture) Stand-Alone Forms: [facility] Skilled Items Patient informed of condition?: Yes DNR: No Discharge Level of Care: Other Communicable Disease: No Discharge Prognosis: Stable Lines: Peripheral IV Urinary Catheter: No Medications and DC Order Prescriptions: Continued alprazolam 0.5 mg tablet 0.5 mg PO BID PRN (Reason: Anxiety) clindamycin phosphate 1 % gel 1 applic topical DIRECTED Rx Instructions: USE TOPICALLY TWICE DAILY TO GROIN ergocalciferol (vitamin D2) [Vitamin D2] 1,250 mcg (50,000 unit) capsule 50,000 unit PO WK Rx Instructions: TAKE THIS MED EVERY TUESDAY cyanocobalamin (vitamin B-12) 1,000 mcg/mL Solution 1,000 mcg IM .[id number] Biktarvy 50-200-25 mg tablet 1 tab PO DAILY Discharge Orders: Discharge Order (Routine); Ordered 08/28/22 Ordered By: [place]ue [place]/Other Patient Handouts: High Blood Sugar (Hyperglycemia), Managing Type 2 Diabetes Admission Data Admit Date/Time: 08/25/22 00:30 Attending Provider: Yue Sampson Admit Provider: Messi Byrnes Primary Care Provider: Idania Irizarry Other Providers: Chintan Jiang ; Messi Byrnes ; Gerard Villalta ; Azucena Baeza ; Lino Reyna ; Lilia Oswald ; Oleksandr Cho I. ; Niall Rodriguez II ; Luna Rivera ; Cheko Stephen ; Keith Ram ; Ham Díaz Other Interventions: Discharge Summary Assessment (RN) Last Done: 08/28/22 13:50
[2022-08-30] MEDS ORDERED: ERGOCALCIFEROL 50,000 UNITS 1250 MCG CAP PO SCH (09:00)
== END 2022-08-28 15:15 | disposition short-term general hospital (02) | DRG 417 ==
LOC: ED 15:24 → 3W 08-25 00:30 → SUATTDRO 08-25 00:30 → 3W 08-25 02:12 → 1E 08-25 06:36 → 2S 08-25 21:03

== ENCOUNTER 2022-09-10 10:47 | Inpatient (IN) ==
[2022-09-10] MEDS ORDERED: SODIUM CHLORIDE 0.9% 1000ML 1,000 ML IV ONE ×2 (10:51→10:57)
[2022-09-10] MEDS ORDERED: CEFEPIME 2,000 MG/20 ML VIAL IV STA (10:58)
--- NOTE | 2022-09-10 11:05 | Emergency Department Note ---
Impression & Plan Altered mental status, DKA (diabetic ketoacidosis), Acute dehydration, S/P cholecystectomy, Renal failure ED Provider Note NAME: CARINA GUERRERO AGE: 57 SEX: F : 1965 ARRIVES VIA: Ambulance INFORMANT: [Patient][nursing, ems] ED PROVIDER(S): [Agustín Lee MD] CHIEF COMPLAINT: Hyperglycemia, lethargic HISTORY OF PRESENT ILLNESS: The patient is a 57-year-old female with a history of diabetes. She had surgery to remove her gallbladder just over 2 weeks ago. She was discharged from our hospital on the --she was sent from our hospital to [place] for an EGD. She still has a surgical drain in place. As per EMS, she has been more lethargic and tired lately and then today, was quite a bit worse. Her blood sugar was high at around 500. She was brought to the hospital by EMS for evaluation. Currently, the patient is sleeping. She wakes to voice and touch but more so moans answers to questions rather than speaks in full sentences. Given the circumstances, no further history obtainable. There is no family at bedside. PMHx/PSHx: See Below SOCIAL HISTORY: See Below. PHYSICAL EXAM: GENERAL: Patient is in no acute distress. HEENT: No acute trauma, normocephalic atraumatic, mucous membranes quite dry, no nasal congestion. Pupils equal and reactive to light. NECK: No stridor, no adenopathy, no meningismus, trachea is midline. LUNGS: Clear to auscultation bilaterally when listening anterior, breath sounds are equal, no respiratory distress. HEART: Mildly tachycardic, regular rhythm, no murmurs. ABDOMEN: Soft. There is urine colored drainage noted in her SAMANTHA drain. No peritonitis by my exam. No abdominal distention. EXTREMITIES: No cyanosis or edema, full range of motion of all the joints without pain or difficulty, no signs for acute trauma. NEUROLOGIC: Awakes to voice or touch, moans answers, moves all extremities. SKIN: No rash, no jaundice, no diaphoresis. DIFFERENTIAL DIAGNOSIS: Sepsis, UTI, pyelonephritis, pneumonia, metabolic abnormality, DKA, electrolyte abnormality, cardiac ischemia, bacteremia, intracerebral event, toxicologic etiology, neurologic event, as well as other pathologies. EMERGENCY DEPARTMENT COURSE/PROCEDURES: Prior/Outside records reviewed: Recent surgical notes and discharge summary. EMS sheet. ECG per my interpretation: Indication was tachycardia and altered mental state. The ECG shows a sinus tachycardia with a rate of 115. There is some baseline artifact. LVH is seen. There is no concerning ST elevation. No PVCs. The QTc is 462. Continuous Cardiac Monitoring per my interpretation: An order was placed for continuous cardiac monitoring. The monitor shows a rate of 111 with sinus tach ycardia. Critical Care Note: I have personally spent 53 minutes of critical care time in the direct management of this patient. This includes bedside care, interpretation of diagnostic studies, and testing, discussion with consultants, patient, and family members, and other required patient management activities. This 53 minutes is in excess of all separately billable procedures. MEDICAL DECISION MAKING: There is no leukocytosis or concerning anemia. There is a normal platelet count. ABG does show acidosis. Bicarb was only 7. Renal panel testing shows an acidosis. Potassium was somewhat high at 5.7. Creatinine was elevated co nsistent with some mild acute on chronic renal failure. Glucose was high at 608. Lactic acid level was not elevated making severe sepsis less likely. No concerning liver enzyme elevation. There was no evidence for thyroid dysfunction. Urinalysis shows dehydration and ketones, no infection. COVID, influenza and RSV test were negative. Chest x-ray did not show pneumonia or free air. Abdominal and pelvis CT shows findings consistent with her recent gallbladder work/surgery. No urinary or bowel obstruction. Brain CT shows no acute bleed or mass-effect. On exam, the patient was quite somnolent, she appeared dehydrated. I could not really elicit any abdominal pain with palpation. The patient was aggressively managed given her presentation. She received 2 L of IV saline. She was given IV cefepime as antibiotic coverage. She was eventually given a bolus of insulin and placed on an insulin drip. With the above treatment the patient's mental state improved. She was much more interactive and asking questions, she was much more appropriate. I did call and speak with Dr. Borges of the ICU. He did accept the patient to his unit if felt warranted by the hospitalist. I spoke with case management, I talked to the patient, I did consult the on-call hospitalist. In short, the patient appears to be in acute DKA, this has led to her mental status change. Admission is certainly indicated. DISPOSITION: The patient's presentation and findings warrant a hospital stay Past Med/Surg History Medical History Anemia DM (diabetes mellitus) Elevated LFTs Human immunodeficiency virus [HIV] disease Hyperlipidemia Hypertension Obesity Surgical History (Updated 09/10/22 @ 14:14 by Agustín Lee MD) History of laparoscopy-assisted vaginal hysterectomy Hx of gastric bypass Family History Other No significant family history Social History Smoking Status: Current every day smoker Second Hand Exposure: No; Hx Alcohol Use: No Hx Substance Use: No Preferred Language: Arabic Communication Ability: Effective Psychiatric Cns Required: No Beliefs That Will Affect Care: Advent Current Living Situation: Spouse and Family Feels Safe at Home: Yes Assistive Devices: None Allergies Allergies Allergy/AdvReac Type Severity Reaction Status Date / Time ciprofloxacin Allergy Severe TONGUE Verified 08/24/22 23:30 SWELLS, HIVES/ITCHING, THROAT "CLOSES" metformin AdvReac Severe DIARRHEA/VO Verified 08/24/22 23:30 MITING Home Meds Home Medications Medication Instructions Recorded Confirmed bictegravir 50 mg-emtricitabine 1 tab PO DAILY 08/24/22 09/10/22 200 mg-tenofovir alafenam 25 mg tablet (Biktarvy) cyanocobalamin (vitamin B-12) 1,000 mcg IM .[id number] 08/24/22 09/10/22 1,000 mcg/mL injection solution amoxicillin 875 mg-potassium 1 tab PO BID 09/10/22 09/10/22 clavulanate 125 mg tablet omeprazole 20 mg capsule,delayed 20 mg PO DAILY 09/10/22 09/10/22 release Results & Data (ED) Vital Signs Vital Signs - 24 hr 09/10/22 11:14 09/10/22 11:14 09/10/22 11:53 Temperature 36.3 C L Temperature Source Temporal Artery Scan Pulse Rate 113 H 111 H Pulse Rhythm Regular Pulse Strength Normal Respiratory Rate 17 16 Respiratory Effort / Characteristics Non-Labored Respiratory Depth Normal Respiratory Pattern Regular Blood Pressure 147/92 H 156/78 H Blood Pressure Mean 110 104 Pulse Oximetry 98 98 99 Oxygen Delivery Method Room Air Room Air Sepsis Recent Fever Within 48 Hours No Sepsis New/Unexplained Change in Mental Status Yes Sepsis Action Taken by Nursing Physician Notified 09/10/22 12:00 09/10/22 12:15 09/10/22 12:30 Temperature Temperature Source Pulse Rate 112 H 105 H 113 H Pulse Rhythm Pulse Strength Respiratory Rate 17 18 15 Respiratory Effort / Characteristics Respiratory Depth Respiratory Pattern Blood Pressure 129/93 128/110 H 167/90 H Blood Pressure Mean 105 116 115 Pulse Oximetry 99 100 100 Oxygen Delivery Method Sepsis Recent Fever Within 48 Hours Sepsis New/Unexplained Change in Mental Status Sepsis Action Taken by Nursing 09/10/22 13:00 09/10/22 13:15 09/10/22 13:30 Temperature Temperature Source Pulse Rate 113 H 115 H 113 H Pulse Rhythm Pulse Strength Respiratory Rate 16 16 14 Respiratory Effort / Characteristics Respiratory Depth Respiratory Pattern Blood Pressure 154/80 H 157/86 H 168/84 H Blood Pressure Mean 104 109 112 Pulse Oximetry 99 99 100 Oxygen Delivery Method Sepsis Recent Fever Within 48 Hours Sepsis New/Unexplained Change in Mental Status Sepsis Action Taken by Nursing 09/10/22 13:45 Temperature Temperature Source Pulse Rate 114 H Pulse Rhythm Pulse Strength Respiratory Rate 15 Respiratory Effort / Characteristics Respiratory Depth Respiratory Pattern Blood Pressure 176/95 H Blood Pressure Mean 122 Pulse Oximetry 100 Oxygen Delivery Method Sepsis Recent Fever Within 48 Hours Sepsis New/Unexplained Change in Mental Status Sepsis Action Taken by [facility] Medications Current Medication List: was personally reviewed by me Laboratory Data Attestation: I reviewed the patient's lab results. 09/10/22 11:05 09/10/22 11:05 Lab Results 09/10/22 09/10/22 09/10/22 Range/Units 11:05 11:05 11:05 WBC 10.26 (4.8-10.8) K/ul RBC 4.80 (3.93-5.22) M/uL Hgb 13.7 (12.0-16.0) g/dl Hct 40.9 (34.1-44.9) % MCV 85.2 (80.0-100.0) fL MCH 28.5 (25.0-34.0) pg MCHC 33.5 (32.0-36.0) g/dL RDW Std Deviation 53.1 H (36.4-46.3) fL RDW Coeff of Tami 17.0 H (11.5-14.5) % Plt Count 345 (130-400) K/uL MPV 11.1 (9.4-12.3) fL Immature Gran % (Auto) 0.6 % Neut % (Auto) 77.2 % Lymph % (Auto) 17.1 % [place] % (Auto) 4.4 % Eos % (Auto) 0.0 % Baso % (Auto) 0.7 % Neut # (Auto) 7.93 H (1.4-6.5) K/uL Lymph # (Auto) 1.75 (1.2-3.4) K/uL [place] # (Auto) 0.45 (0.24-0.82) K/uL Eos # (Auto) 0.00 (0-0.50) K/uL Baso # (Auto) 0.07 (0-0.2) K/uL Immature Gran # (Auto) 0.06 H (0.00-0.02) K/uL Polychromasia 1+ Echinocytes 1+ Acanthocytes (Spur) 2+ ABG pCO2 (35-46) mmHg ABG pO2 (80-95) mmHg ABG HCO3 (19-24) mmol/L ABG O2 Saturation (90-95) % ABG Base Excess (-9-1.8) mEq/L Efrain Test (Pos) Oxygen Given Sodium 145 (136-145) mmol/L Potassium 5.7 H (3.5-5.1) mmol/L Chloride 111 H (98-107) mmol/L Carbon Dioxide 9 L* (21-32) mmol/L Anion Gap 25 H (3-11) BUN 42 H (6-23) mg/dl Creatinine 2.27 H (0.6-1.2) mg/dl Est Cr Clr Drug Dosing 29.4 ml/min Est GFR ( Amer) 26.5 ml/min Est GFR (Non-Af Amer) 22.9 ml/min BUN/Creatinine Ratio 18.5 (10-20) Glucose 608 H* (70-99(Fasting)) mg/dl POC Glucose (70-99) mg/dl Lactate (0.4-2.0) mmol/L Calcium 9.1 (8.5-10.1) mg/dl Magnesium 2.5 H (1.7-2.4) mg/dl Total Bilirubin 0.4 (0.2-1.0) mg/dl AST 10 L (13-39) U/L ALT 12 (7-52) U/L Alkaline Phosphatase 163 H (34-104) U/L Ammonia (18-72) umol/L Total Protein 8.6 H (6.0-8.3) gm/dl Albumin 3.3 L (3.4-5.0) gm/dl Globulin 5.3 H (2.5-4.0) gm/dl Albumin/Globulin Ratio 0.6 L (0.9-2) TSH 1.234 (0.300-4.500) uIu/ml Urine Color Urine Appearance (Clear) Urine pH (4.5-7.5) Ur Specific [place] (1.000-1.030) Urine Protein (Negative) Urine Glucose (UA) (Negative) Urine Ketones (Negative) Urine Blood (Negative) Urine Nitrite (Negative) Urine Bilirubin (Negative) Urine Urobilinogen (Negative) Ur Leukocyte Esterase (Negative) Urine WBC (Auto) (0-5) /hpf Urine RBC (Auto) (0-4) /hpf U Hyaline Cast (Auto) (0-5) /lpf U Epithel Cells (Auto) (0-5) /lpf Urine Bacteria (Auto) (Negative) Urine Yeast (None Prsent) SARS-CoV-2 (PCR) (Negative) Influenza Type A (PCR) (Neg) Influenza Type B (PCR) (Neg) RSV (RT-PCR) (Neg) 09/10/22 09/10/22 09/10/22 Range/Units 11:28 11:31 11:32 WBC (4.8-10.8) K/ul RBC (3.93-5.22) M/uL Hgb (12.0-16.0) g/dl Hct (34.1-44.9) % MCV (80.0-100.0) fL MCH (25.0-34.0) pg MCHC (32.0-36.0) g/dL RDW Std Deviation (36.4-46.3) fL RDW Coeff of Tami (11.5-14.5) % Plt Count (130-400) K/uL MPV (9.4-12.3) fL Immature Gran % (Auto) % Neut % (Auto) % Lymph % (Auto) % [place] % (Auto) % Eos % (Auto) % Baso % (Auto) % Neut # (Auto) (1.4-6.5) K/uL Lymph # (Auto) (1.2-3.4) K/uL [place] # (Auto) (0.24-0.82) K/uL Eos # (Auto) (0-0.50) K/uL Baso # (Auto) (0-0.2) K/uL Immature Gran # (Auto) (0.00-0.02) K/uL Polychromasia Echinocytes Acanthocytes (Spur) ABG pCO2 18 L (35-46) mmHg ABG pO2 104 H (80-95) mmHg ABG HCO3 7 L (19-24) mmol/L ABG O2 Saturation 95.5 H (90-95) % ABG Base Excess -19.8 L (-9-1.8) mEq/L Efrain Test Pos (Pos) Oxygen Given ROOM AIR Sodium (136-145) mmol/L Potassium (3.5-5.1) mmol/L Chloride (98-107) mmol/L Carbon Dioxide (21-32) mmol/L Anion Gap (3-11) BUN (6-23) mg/dl Creatinine (0.6-1.2) mg/dl Est Cr Clr Drug Dosing ml/min Est GFR ( Amer) ml/min Est GFR (Non-Af Amer) ml/min BUN/Creatinine Ratio (10-20) Glucose (70-99(Fasting)) mg/dl POC Glucose 544 H* (70-99) mg/dl Lactate (0.4-2.0) mmol/L Calcium (8.5-10.1) mg/dl Magnesium (1.7-2.4) mg/dl Total Bilirubin (0.2-1.0) mg/dl AST (13-39) U/L ALT (7-52) U/L Alkaline Phosphatase (34-104) U/L Ammonia (18-72) umol/L Total Protein (6.0-8.3) gm/dl Albumin (3.4-5.0) gm/dl Globulin (2.5-4.0) gm/dl Albumin/Globulin Ratio (0.9-2) TSH (0.300-4.500) uIu/ml Urine Color Urine Appearance (Clear) Urine pH (4.5-7.5) Ur Specific [place] (1.000-1.030) Urine Protein (Negative) Urine Glucose (UA) (Negative) Urine Ketones (Negative) Urine Blood (Negative) Urine Nitrite (Negative) Urine Bilirubin (Negative) Urine Urobilinogen (Negative) Ur Leukocyte Esterase (Negative) Urine WBC (Auto) (0-5) /hpf Urine RBC (Auto) (0-4) /hpf U Hyaline Cast (Auto) (0-5) /lpf U Epithel Cells (Auto) (0-5) /lpf Urine Bacteria (Auto) (Negative) Urine Yeast (None Prsent) SARS-CoV-2 (PCR) NEGATIVE (Negative) Influenza Type A (PCR) Negative (Neg) Influenza Type B (PCR) Negative (Neg) RSV (RT-PCR) Negative (Neg) 09/10/22 09/10/22 09/10/22 Range/Units 11:47 11:54 12:26 WBC (4.8-10.8) K/ul RBC (3.93-5.22) M/uL Hgb (12.0-16.0) g/dl Hct (34.1-44.9) % MCV (80.0-100.0) fL MCH (25.0-34.0) pg MCHC (32.0-36.0) g/dL RDW Std Deviation (36.4-46.3) fL RDW Coeff of Tami (11.5-14.5) % Plt Count (130-400) K/uL MPV (9.4-12.3) fL Immature Gran % (Auto) % Neut % (Auto) % Lymph % (Auto) % [place] % (Auto) % Eos % (Auto) % Baso % (Auto) % Neut # (Auto) (1.4-6.5) K/uL Lymph # (Auto) (1.2-3.4) K/uL [place] # (Auto) (0.24-0.82) K/uL Eos # (Auto) (0-0.50) K/uL Baso # (Auto) (0-0.2) K/uL Immature Gran # (Auto) (0.00-0.02) K/uL Polychromasia Echinocytes Acanthocytes (Spur) ABG pCO2 (35-46) mmHg ABG pO2 (80-95) mmHg ABG HCO3 (19-24) mmol/L ABG O2 Saturation (90-95) % ABG Base Excess (-9-1.8) mEq/L Efrain Test (Pos) Oxygen Given Sodium (136-145) mmol/L Potassium (3.5-5.1) mmol/L Chloride (98-107) mmol/L Carbon Dioxide (21-32) mmol/L Anion Gap (3-11) BUN (6-23) mg/dl Creatinine (0.6-1.2) mg/dl Est Cr Clr Drug Dosing ml/min Est GFR ( Amer) ml/min Est GFR (Non-Af Amer) ml/min BUN/Creatinine Ratio (10-20) Glucose (70-99(Fasting)) mg/dl POC Glucose (70-99) mg/dl Lactate 1.5 (0.4-2.0) mmol/L Calcium (8.5-10.1) mg/dl Magnesium (1.7-2.4) mg/dl Total Bilirubin (0.2-1.0) mg/dl AST (13-39) U/L ALT (7-52) U/L Alkaline Phosphatase (34-104) U/L Ammonia 56.0 (18-72) umol/L Total Protein (6.0-8.3) gm/dl Albumin (3.4-5.0) gm/dl Globulin (2.5-4.0) gm/dl Albumin/Globulin Ratio (0.9-2) TSH (0.300-4.500) uIu/ml Urine Color Yellow Urine Appearance Cloudy A (Clear) Urine pH 5.0 (4.5-7.5) Ur Specific [place] 1.028 (1.000-1.030) Urine Protein 1+ H (Negative) Urine Glucose (UA) 3+ H (Negative) Urine Ketones 4+ H (Negative) Urine Blood 1+ H (Negative) Urine Nitrite Negative (Negative) Urine Bilirubin Negative (Negative) Urine Urobilinogen Negative (Negative) Ur Leukocyte Esterase Negative (Negative) Urine WBC (Auto) 10-30 H (0-5) /hpf Urine RBC (Auto) 5-10 H (0-4) /hpf U Hyaline Cast (Auto) 1-5 (0-5) /lpf U Epithel Cells (Auto) 20-30 H (0-5) /lpf Urine Bacteria (Auto) Negative (Negative) Urine Yeast Budding A (None Prsent) SARS-CoV-2 (PCR) (Negative) Influenza Type A (PCR) (Neg) Influenza Type B (PCR) (Neg) RSV (RT-PCR) (Neg) 09/10/22 Range/Units 13:49 WBC (4.8-10.8) K/ul RBC (3.93-5.22) M/uL Hgb (12.0-16.0) g/dl Hct (34.1-44.9) % MCV (80.0-100.0) fL MCH (25.0-34.0) pg MCHC (32.0-36.0) g/dL RDW Std Deviation (36.4-46.3) fL RDW Coeff of Tami (11.5-14.5) % Plt Count (130-400) K/uL MPV (9.4-12.3) fL Immature Gran % (Auto) % Neut % (Auto) % Lymph % (Auto) % [place] % (Auto) % Eos % (Auto) % Baso % (Auto) % Neut # (Auto) (1.4-6.5) K/uL Lymph # (Auto) (1.2-3.4) K/uL [place] # (Auto) (0.24-0.82) K/uL Eos # (Auto) (0-0.50) K/uL Baso # (Auto) (0-0.2) K/uL Immature Gran # (Auto) (0.00-0.02) K/uL Polychromasia Echinocytes Acanthocytes (Spur) ABG pCO2 (35-46) mmHg ABG pO2 (80-95) mmHg ABG HCO3 (19-24) mmol/L ABG O2 Saturation (90-95) % ABG Base Excess (-9-1.8) mEq/L Efrain Test (Pos) Oxygen Given Sodium (136-145) mmol/L Potassium (3.5-5.1) mmol/L Chloride (98-107) mmol/L Carbon Dioxide (21-32) mmol/L Anion Gap (3-11) BUN (6-23) mg/dl Creatinine (0.6-1.2) mg/dl Est Cr Clr Drug Dosing ml/min Est GFR ( Amer) ml/min Est GFR (Non-Af Amer) ml/min BUN/Creatinine Ratio (10-20) Glucose (70-99(Fasting)) mg/dl POC Glucose 459 H* (70-99) mg/dl Lactate (0.4-2.0) mmol/L Calcium (8.5-10.1) mg/dl Magnesium (1.7-2.4) mg/dl Total Bilirubin (0.2-1.0) mg/dl AST (13-39) U/L ALT (7-52) U/L Alkaline Phosphatase (34-104) U/L Ammonia (18-72) umol/L Total Protein (6.0-8.3) gm/dl Albumin (3.4-5.0) gm/dl Globulin (2.5-4.0) gm/dl Albumin/Globulin Ratio (0.9-2) TSH (0.300-4.500) uIu/ml Urine Color Urine Appearance (Clear) Urine pH (4.5-7.5) Ur Specific [place] (1.000-1.030) Urine Protein (Negative) Urine Glucose (UA) (Negative) Urine Ketones (Negative) Urine Blood (Negative) Urine Nitrite (Negative) Urine Bilirubin (Negative) Urine Urobilinogen (Negative) Ur Leukocyte Esterase (Negative) Urine WBC (Auto) (0-5) /hpf Urine RBC (Auto) (0-4) /hpf U Hyaline Cast (Auto) (0-5) /lpf U Epithel Cells (Auto) (0-5) /lpf Urine Bacteria (Auto) (Negative) Urine Yeast (None Prsent) SARS-CoV-2 (PCR) (Negative) Influenza Type A (PCR) (Neg) Influenza Type B (PCR) (Neg) RSV (RT-PCR) (Neg) Administered Medications Insulin Human Regular 250 (units/ Sodium Chloride) 250 mls @ 10.6 mls/hr IV .[id number] [facility], [facility]; Protocol Stop: 10/10/22 12:14 Last Titration: 09/10/22 13:56 Dose: 10.6 units/hr, 10.6 mls/hr Documented By: KITTY Co-signed By: AMARIS Admin: 09/10/22 12:53 Dose: 8.8 units/hr, 8.8 mls/hr Documented By: OALogan Co-signed By: AMARIS Insulin Aspart (Insulin Aspart Per Unit) 0 units SC ACHS DELORES Stop: 10/10/22 12:14 Last Admin: 09/10/22 13:56 Dose: Not Given Documented By: OALogan Co-signed By: AMARIS Discontinued Medications Sodium Chloride (Nss 1000ml) 1,000 mls @ 999 mls/hr IV .[id number] ONE Stop: 09/10/22 11:51 Last Infusion: 09/10/22 12:29 Dose: 0 mls/hr Documented By: OALogan Admin: 09/10/22 11:21 Dose: 999 mls/hr Documented By: OALogan Sodium Chloride (Nss 1000ml) 1,000 mls @ 999 mls/hr IV .Q1H1M ONE Stop: 09/10/22 11:57 Last Infusion: 09/10/22 13:30 Dose: 0 mls/hr Documented By: OALogan Admin: 09/10/22 12:25 Dose: 999 mls/hr Documented By: KITTY Cefepime HCl (Maxipime) 2,000 mg in 20 mls @ 5 mls/min IV NOW STA; Protocol Stop: 09/10/22 11:01 Last Admin: 09/10/22 12:25 Dose: 5 mls/min Documented By: KITTY Insulin Human Regular (Novolin-R Bolus From Bag) 8.8 units IV ONE ONE Stop: 09/10/22 12:16 Last Admin: 09/10/22 12:55 Dose: 8.8 units Documented By: KITTY Co-signed By: AMARIS Imaging Data Radiologist's Impression: Chest X-Ray 09/10/22 10:51 XR chest 1V portable CLINICAL HISTORY: weakness COMPARISON STUDY: Chest radiograph December 15, 2019. FINDINGS: Lung volumes are normal. Lungs are clear. There is no pneumothorax or pleural effusion. Cardiac size is normal. Mediastinal contours are normal. There is no evidence for pulmonary edema. IMPRESSION: No acute cardiopulmonary findings. ACT 112: Negative or not required by law. Electronically signed by: Jalil Hester M.D. 09/10/2022 11:[address] 09/10/22 10:57 CT head/brain wo con CLINICAL HISTORY: 57 years-old Female with altered. Acutely altered mental status TECHNIQUE: Multiple axial CT images of the head were obtained without contrast. A dose lowering technique was utilized adhering to the principles of ALARA. CT DOSE: 1247.81 mGy.cm COMPARISON: 08/25/2022 FINDINGS: No acute intracranial hemorrhage, midline shift, intracranial mass, hydrocephalus, territorial ischemia or abnormal extra-axial collection. Motion degraded exam. Portion of the study was then repeated. Involutional changes. White matter hypodensities suggestive of chronic microvascular ischemic disease. Senescent calcifications of the basal ganglia. The calvarium is intact. Prior bilateral lens repair. The paranasal sinuses, mastoid air cells, and middle ear cavities are clear. IMPRESSION: Motion degraded study. No acute intracranial abnormality. ACT 112: Negative or not required by law. The above report was generated using voice recognition software. It may contain grammatical, syntax or spelling errors. Electronically signed by: Ben Hart M.D. 09/10/2022 12:58 PM Abdomen/Pelvis CT 09/10/22 12:10 CT OF THE ABDOMEN AND PELVIS WITHOUT CONTRAST CLINICAL HISTORY: high creatinine, recent surgery COMPARISON STUDY: CT of the abdomen and pelvis August 24, 2022 and MRCP August 26, 2022. TECHNIQUE: Axial images of the abdomen and pelvis were obtained without IV contrast. Images were reviewed in the axial, sagittal, and coronal planes. Automated exposure control was utilized for the study. A dose lowering t echnique was utilized adhering to the principles of ALARA. FINDINGS: Lung bases are unremarkable. No pneumatosis or portal venous gas is present. Evaluation of the abdomen and pelvis is suboptimal on this unenhanced exam. There are postoperative findings consistent with a cholecystectomy. Surgical drain within the operative bed is in place. A small amount of extraluminal gas within the cholecystectomy bed is noted. Pneumobilia is expected. Biliary stents are well-positioned. There are postoperative findings from Morris-en-Y gastric bypass. A stent extending from the jejunal limb to the excluded stomach is in place. No drainable fluid collection is present. There is no evidence for a bowel obstruction. No renal, ureteral or bladder calculi are present. There's no hydronephrosis. Sanford balloon and gas within the bladder noted. No hepatic lesions are identified on this unenhanced examination. IMPRESSION: 1. No urinary calculi or hydronephrosis. 2. Status post cholecystectomy. Small amount of gas within the cholecystectomy bed is nonspecific. This may be postsurgical or related to the indwelling drain. However, gas related to a biliary/cystic duct remnant leak, given pneumobilia, could appear similar. 3. No bowel obstruction. 4. Status post Morris-en-Y gastric bypass. Placement of an endoscopic stent between the excluded stomach and jejunal limb, as described above. 5. Pneumobilia, as expected. Appropriately positioned biliary stents. ACT 112: Negative or not required by law. Electronically signed by: Jalil Hester M.D. 09/10/2022 1:09 PM Discharge Plan Visit Data Chief Complaint: Hyperglycemia Stated Complaint: HYPERGLYCEMIA, AMS ED Provider: Agustín Lee Discharge Problem: Altered mental status, DKA (diabetic ketoacidosis), Acute dehydration, S/P cholecystectomy, Renal failure Patient Disposition: Admitted As Inpatient Condition: Serious Forms Stand Alone Forms: [employer] Prescriptions Prescriptions: No Action cyanocobalamin (vitamin B-12) 1,000 mcg/mL Solution 1,000 mcg IM .[id number] Biktarvy 50-200-25 mg tablet 1 tab PO DAILY omeprazole 20 mg capsule,delayed release(DR/EC) 20 mg PO DAILY amoxicillin-pot clavulanate 875-125 mg tablet 1 tab PO BID Rx Instructions: x 7 days Referrals Referrals: Idania Irizarry MD [Primary Care Provider] -
[2022-09-10 11:35] LABS: Hematocrit (blood only) 40.9 % (34.1-44.9); Hemoglobin 13.7 g/dl (12.0-16.0); Mean Corpuscular Hemoglobin 28.5 pg (25.0-34.0); Mean Corpuscular Hgb Conc 33.5 g/dL (32.0-36.0); Mean Corpuscular Volume 85.2 fL (80.0-100.0); Mean Platelet Volume 11.1 fL (9.4-12.3); Platelet Count 345 K/uL (130-400); RDW Standard Deviation 53.1 fL (36.4-46.3); White Blood Count 10.26 K/ul (4.8-10.8)
[2022-09-10 11:43] LABS: Acanthocytes 2+; Basophils # (auto) 0.07 K/uL (0-0.2); Basophils % (auto) 0.7 %; Echinocytes 1+; Immature Granulocytes # (auto) 0.06 K/uL (0.00-0.02); Immature Granulocytes % (auto) 0.6 %; Lymphocytes # (auto) 1.75 K/uL (1.2-3.4); Lymphocytes % (auto) 17.1 %; Monocytes # (auto) 0.45 K/uL (0.24-0.82); Monocytes % (auto) 4.4 %; Neutrophils # (auto) 7.93 K/uL (1.4-6.5); Neutrophils % (auto) 77.2 %; Polychromasia 1+
--- NOTE | 2022-09-10 11:52 | XRay Report ---
XR chest 1V portable CLINICAL HISTORY: weakness COMPARISON STUDY: Chest radiograph December 15, 2019. FINDINGS: Lung volumes are normal. Lungs are clear. There is no pneumothorax or pleural effusion. Car diac size is normal. Mediastinal contours are normal. There is no evidence for pulmonary edema. IMPRESSION: No acute cardiopulmonary findings. ACT 112: Negative or not required by law. Electronically signed by: Jalil Hester M.D. 09/10/2022 11:50 AM
[2022-09-10 11:56] LABS: Base Excess ABG -19.8 mEq/L (-9-1.8); HCO3 ABG 7 mmol/L (19-24); Oxygen Saturation ABG 95.5 % (90-95); PCO2 ABG 18 mmHg (35-46); PO2 ABG 104 mmHg (80-95)
[2022-09-10 11:57] LABS: Allen Test Pos (Pos)
[2022-09-10] MEDS ORDERED: STAT IV Infusion **Titration per Protocol STA ×2 (12:07→15:59)
[2022-09-10] MEDS ORDERED: PHARMACY GLYCEMIC MGMT CONSULT PRN ×3 (12:07→15:59)
[2022-09-10 12:08] LABS: Albumin Globulin Ratio 0.6 (0.9-2); Albumin Level 3.3 gm/dl (3.4-5.0); BUN Creatinine Ratio 18.5 (10-20); Bilirubin,Total 0.4 mg/dl (0.2-1.0); Calcium 9.1 mg/dl (8.5-10.1); Creatinine Clr Calc Pharmacy 29.4 ml/min; Est GFR (African American) 26.5 ml/min; Est GFR (Non-African American) 22.9 ml/min; Globulin 5.3 gm/dl (2.5-4.0); Magnesium 2.5 mg/dl (1.7-2.4); Potassium 5.7 mmol/L (3.5-5.1); Total Protein 8.6 gm/dl (6.0-8.3)
[2022-09-10 12:14] LABS: Appearance Urine Cloudy (Clear); Bacteria Urine Automated Negative (Negative); Bilirubin Urine Negative (Negative); Blood Urine 1+ (Negative); Color Urine Yellow; Epithelial Cell Urine Auto 20-30 /lpf (0-5); Glucose Urine UA 3+ (Negative); Ketones Urine 4+ (Negative); Leukocyte Esterase Urine Negative (Negative); Nitrite Urine Negative (Negative); Protein Urine 1+ (Negative); Specific Gravity Urine 1.028 (1.000-1.030); Urobilinogen Urine Negative (Negative)
[2022-09-10] MEDS ORDERED: DKA GOAL RANGE 150-250 mg/dl ONE ×2 (12:15→15:59)
[2022-09-10] MEDS ORDERED: NovoLIN-R BOLUS FROM BAG IV ONE (12:15)
[2022-09-10] MEDS ORDERED: CARBOHYDRATES FOR HYPOGLYCEMIA PO PRN (12:18)
[2022-09-10] MEDS ORDERED: GLUCAGON FOR INJ 1 MG VIAL SQ PRN (12:18)
[2022-09-10] MEDS ORDERED: DEXTROSE 50% 50 ML SYRINGE IV PRN (12:18)
[2022-09-10] MEDS ORDERED: GLUCOSE 10 TAB/TUBE PO PRN (12:18)
[2022-09-10] MEDS ORDERED: GLUCOSE 40% GEL 15 GM TUBE PO PRN (12:18)
[2022-09-10 12:31] LABS: Influenza A virus by PCR Negative (Neg); Influenza B virus by PCR Negative (Neg); RSV by PCR Negative (Neg); SARS CoV2 RNA(COVID-19) Ceph NEGATIVE (Negative)
[2022-09-10] MEDS: INSULIN REGULAR 250 UNITS in SODIUM CHLORIDE 0.9% 247.5 ML IV SCH (12:53)
--- NOTE | 2022-09-10 12:59 | CT Scan Report ---
CT head/brain wo con CLINICAL HISTORY: 57 years-old Female with altered. Acutely altered mental status TECHNIQUE: Multiple axial CT images of the head were obtained without contrast. A dose lowering tech nique was utilized adhering to the principles of ALARA. CT DOSE: 1247.81 mGy.cm COMPARISON: 08/25/2022 FINDINGS: No acute intracranial hemorrhage, midline shift, intracranial mass, hydrocephalus, territorial ischem ia or abnormal extra-axial collection. Motion degraded exam. Portion of the study was then repeated. Involutional changes. White matter hypodensities suggestive of chronic microvascular ischemic disease . Senescent calcifications of the basal ganglia. The calvarium is intact. Prior bilateral lens repair. The paranasal sinuses, mastoid air cells, and m iddle ear cavities are clear. IMPRESSION: Motion degraded study. No acute intracranial abnormality. ACT 112: Negative or not required by law. The above report was generated using voice recognition software. It may contain grammatical, syntax o r spelling errors. Electronically signed by: Ben Hart M.D. 09/10/2022 12:58 PM
--- NOTE | 2022-09-10 13:11 | CT Scan Report ---
CT OF THE ABDOMEN AND PELVIS WITHOUT CONTRAST CLINICAL HISTORY: high creatinine, recent surgery COMPARISON STUDY: CT of the abdomen and pelvis August 24, 2022 and MRCP August 26, 2022. TECHNIQUE: Axial images of the abdomen and pelvis were obtained without IV contrast. Images were revi ewed in the axial, sagittal, and coronal planes. Automated exposure control was utilized for the jessica dy. A dose lowering technique was utilized adhering to the principles of ALARA. FINDINGS: Lung bases are unremarkable. No pneumatosis or portal venous gas is present. Evaluation of the abdomen and pelvis is suboptimal on this unenhanced exam. There are postoperative findings consis tent with a cholecystectomy. Surgical drain within the operative bed is in place. A small amount of e xtraluminal gas within the cholecystectomy bed is noted. Pneumobilia is expected. Biliary stents are well-positioned. There are postoperative findings from Morris-en-Y gastric bypass. A stent extending fr om the jejunal limb to the excluded stomach is in place. No drainable fluid collection is present. Th ere is no evidence for a bowel obstruction. No renal, ureteral or bladder calculi are present. There' s no hydronephrosis. Sanford balloon and gas within the bladder noted. No hepatic lesions are identifie d on this unenhanced examination. IMPRESSION: 1. No urinary calculi or hydronephrosis. 2. Status post cholecystectomy. Small amount of gas within the cholecystectomy bed is nonspecific. Th is may be postsurgical or related to the indwelling drain. However, gas related to a biliary/cystic d uct remnant leak, given pneumobilia, could appear similar. 3. No bowel obstruction. 4. Status post Morris-en-Y gastric bypass. Placement of an endoscopic stent between the excluded stomac h and jejunal limb, as described above. 5. Pneumobilia, as expected. Appropriately positioned biliary stents. ACT 112: Negative or not required by law. Electronically signed by: Jalil Hester M.D. 09/10/2022 1:09 PM
--- NOTE | 2022-09-10 13:42 | Critical Care Consultation ---
Date of Consultation September 10, 2022 Assessment & Plan (1) DKA (diabetic ketoacidosis): Reason Critically Ill: 57 yo female with PMHx of HIV on HAART, T2DM, history of bariatric surgery, HLD, history of moderate CLEMENT no longer on CPAP who presented with lethargy and weakness x1 week. Admitted to ICU for DKA on insulin drip. Neuro - Sedation: None Analgesia: Tylenol Somnolent secondary to DKA/dehydration. Should improve with DKA management. Cardiac - Acute hypertension/tachycardia -likely stress induced, cont. to monitor -not on any HTN meds at home Respiratory - saturating well on room air GI - NPO until gap closes and transition to SQ insulin RENAL/LYTES - Replace lytes as needed per protocol SONAL -likely in setting of DKA/dehydration -should improve with DKA management, cont. to monitor -CT a/p reveals no obstruction High anion gap metabolic acidosis -AG 25 secondary to DKA. DKA protocol as below. - Sanford in place ENDO - DKA, DM2 -continue insulin gtt per protocol, DKA goal range 150-250 -received 2 L of IVF in ED. Will give additional 2L bolus of 1/2NSS and then place on maintenance 1/2NSS 200cc/hr until K drops below 5.1, at that time will add 20 meq KCL -q2h bmp, q4hr mag, phos, vbg -q1hr accuchecks -remain NPO until anion gap closes, ph improves and pt more alert/arousable -A1c 10.9, will need to discuss type 2 diabetic medications as an outpatient -glycemic consult placed HEME - Stable H&H ID - Acute cholecystitis s/p partial GB removal with bile leak s/p SAMANTHA drain by Dr. Villalta 08/25/22 -recently discharged from hospital on augmentin but was only able to take a few days worth due to poor oral intake. Gallbladder fluid culture 08/25 grew pansensitive e. coli. -CT a/p shows postsurgical changes with no signs of infection -no signs of acute infection -blood cx pending -s/p cefepime in ED. Will continue IV antibiotic coverage with Rocephin. Unclear need for pseudomonal/anaerobic coverage. General surgery consulted to assess continued need for SAMANTHA drain/antibiotics. HIV -on Biktarvy as outpatient -resume when able LINES/IV ACCESS - PIVs, SAMANTHA drain GI PROPHYLAXIS- Protonix DVT PROPHYLAXIS - Heparin SQ Thank you for allowing us to be part of this patient's care. Please refer to my attending's documentation for any further recommendations. (2) Hx of gastric bypass: (3) Human immunodeficiency virus [HIV] disease: (4) DM (diabetes mellitus): Supervising Physician Co-Signing Physician Notes Patient seen and examined. EMR reviewed. Discussed with family practice resident and agree with assessment plan as noted. The patient presents with poorly controlled diabetes with a hemoglobin A1c above 10 and DKA with encephalopathy likely due to metabolic disarrangement's. She requires additional crystalloid for volume repletion as well as insulin. She has an indwelling SAMANTHA drain of unclear etiology. No obvious abscess identified on the CT scan. We will consult general surgery to see whether or not the drain can be removed and whether or not additional antimicrobial therapy is required. Continue to trend kidney function. Obtaining her prior laboratory studies to see whether or not this is her new baseline creatinine clearance or not may be helpful. Follow serial labs with aggressive electrolyte replacement. Hopefully her encephalopathy improves with improvement in her metabolic disarray. If she continues to have issues, additional evaluation might be warranted. No indication for imaging currently. History of Present Illness Reason for Consultation: DKA Attending Physician: Dr. Lee Clifton History of Present Illness 57 yo female with PMHx of HIV on HAART, T2DM, history of bariatric surgery, HLD, history of moderate CLEMENT no longer on CPAP who presented with lethargy and weakness x1 week. Patient was recently hospitalized on 08/25/2022 secondary to acute cholecystitis with subsequent cholecystectomy by Dr. Villalta.Her postop surgical course was complicated by a partial colon removal with subsequent bile leak status post SAMANTHA drain. She required transfer to [facility] for Edge procedure and stent placement. She followed up with Dr. Villalta as outpatient and continued on antibiotics Augmentin. Her gallbladder pathology returned high- grade dysplasia.She was discharged from [facility] on 08/31. When entering room, sister was at bedside. States her lethargy began soon after arriving home from her prior hospitalization with progressive weakness. She used to be on DM2 medication including insulin but has not needed any diabetic medication since her gastric bypass surgery ~5 years ago. Does not check sugars at home. Per hospitalist HPI: at bedside started to notice a general decline starting 09/02. He states she gradually came a week, nausea, unable to take oral pills and eventually lethargic. She has not taken her medications in the last 3 days including her abx. She also has not taken her narcotics. Today she was mostly unarousable and therefore EMS was called. History obtained from ED provider and family member at bedside.In ED patient was hemodynamically stable although tachycardic.She was found to be in DKA with pH of 7.1, CO2 of 18 and bicarb of 7.She had significant elevation of renal function with a BUN 42, creatinine 2.27, elevated potassium 5.7, admitting glucose of 608. Her infectious work-up was otherwise unremarkable. 1 blood culture was drawn as they were unable to obtain to despite multiple attempts.CT abdomen pelvis revealed postsurgical changes but nothing acute. She was treated with empiric antibiotics cefepime, 2 L of IV fluid and started on insulin drip. Per ED provider she did make slight improvement while in ED. Allergies Allergy/AdvReac Type Severity Reaction Status Date / Time ciprofloxacin Allergy Severe TONGUE Verified 08/24/22 23:30 SWELLS, HIVES/ITCHING, THROAT "CLOSES" metformin AdvReac Severe DIARRHEA/VO Verified 08/24/22 23:30 MITING Home Medications Medication Instructions Recorded Confirmed Type bictegravir 50 mg-emtricitabine 1 tab PO DAILY 08/24/22 09/10/22 History 200 mg-tenofovir alafenam 25 mg tablet (Biktarvy) cyanocobalamin (vitamin B-12) 1,000 mcg IM .[id number] 08/24/22 09/10/22 History 1,000 mcg/mL injection solution amoxicillin 875 mg-potassium 1 tab PO BID 09/10/22 09/10/22 History clavulanate 125 mg tablet omeprazole 20 mg capsule,delayed 20 mg PO DAILY 09/10/22 09/10/22 History release Patient History Medical History Anemia DM (diabetes mellitus) Elevated LFTs Human immunodeficiency virus [HIV] disease Hyperlipidemia Hypertension Obesity Surgical History (Updated 09/10/22 @ 14:14 by Agustín Lee MD) History of laparoscopy-assisted vaginal hysterectomy Hx of gastric bypass Family History (Updated 09/10/22 @ 14:40 by Daisy Granado PA-C) Other Breast cancer Social History (Updated 09/10/22 @ 14:40 by Daisy Granado PA-C) Smoking Status: Never smoker Second Hand Exposure: No; Hx Alcohol Use: No Hx Substance Use: No Preferred Language: Thai Communication Ability: Effective Communication Ability Comment: Basline no impairment. Unable to follow commands at this time Welding Estimator Required: No Beliefs That Will Affect Care: None Current Living Situation: Spouse and Family Feels Safe at Home: Yes Safety Concerns: Feels Safe At This Time Assistive Devices: Glasses Review of Systems Review of Systems: Unobtainable due to reduced consciousness Physical Exam Physical Exam: Constitutional: Somnolent, in acute distress. Vitals as above. HEENT: No scleral injection or discharge.Dry mucous membranes. Clear oropharynx. Neck: Supple without lymphadenopathy or thyromegaly. Trachea midline. Lungs: Clear to auscultation bilaterally with good effort. Cardiac: Tachycardic. Normal rhythm.No murmurs.No extremity edema. 2+ peripheral pulses. Abdomen: Bowel sounds present. Soft, nontender, and nondistended.No guarding or rebound tenderness. No hepatosplenomegaly. +SAMANTHA drain draining serous fluid MSK: No cyanosis or clubbing. Skin: Bandages over incision site s/p cholecystectomy Neurologic: Unable to assess cranial nerves due to her presentation. Results & Data Results & Data ([facility]) Vital Signs (Past 12 Hours) Vital Signs Temp Pulse Resp BP Pulse Ox O2 Del Method 09/10/22 13:00 113 H 16 154/80 H 99 09/10/22 12:30 113 H 15 167/90 H 100 09/10/22 12:15 105 H 18 128/110 H 100 09/10/22 12:00 112 H 17 129/93 99 09/10/22 11:53 111 H 16 156/78 H 99 09/10/22 11:14 98 Room Air 09/10/22 11:14 36.3 C L 113 H 17 147/92 H 98 Room Air Laboratory Results Laboratory Results WBC 10.26 K/ul (4.8-10.8) 09/10/22 11:05 RBC 4.80 M/uL (3.93-5.22) 09/10/22 11:05 Hgb 13.7 g/dl (12.0-16.0) 09/10/22 11:05 Hct 40.9 % (34.1-44.9) 09/10/22 11:05 MCV 85.2 fL (80.0-100.0) 09/10/22 11:05 MCH 28.5 pg (25.0-34.0) 09/10/22 11:05 MCHC 33.5 g/dL (32.0-36.0) 09/10/22 11:05 RDW Std Deviation 53.1 fL (36.4-46.3) H 09/10/22 11:05 RDW Coeff of Tami 17.0 % (11.5-14.5) H 09/10/22 11:05 Plt Count 345 K/uL (130-400) 09/10/22 11:05 MPV 11.1 fL (9.4-12.3) 09/10/22 11:05 Immature Gran % (Auto) 0.6 % 09/10/22 11:05 Neut % (Auto) 77.2 % 09/10/22 11:05 Lymph % (Auto) 17.1 % 09/10/22 11:05 Pacific % (Auto) 4.4 % 09/10/22 11:05 Eos % (Auto) 0.0 % 09/10/22 11:05 Baso % (Auto) 0.7 % 09/10/22 11:05 Neut # (Auto) 7.93 K/uL (1.4-6.5) H 09/10/22 11:05 Lymph # (Auto) 1.75 K/uL (1.2-3.4) 09/10/22 11:05 Pacific # (Auto) 0.45 K/uL (0.24-0.82) 09/10/22 11:05 Eos # (Auto) 0.00 K/uL (0-0.50) 09/10/22 11:05 Baso # (Auto) 0.07 K/uL (0-0.2) 09/10/22 11:05 Immature Gran # (Auto) 0.06 K/uL (0.00-0.02) H 09/10/22 11:05 Polychromasia 1+ 09/10/22 11:05 Echinocytes 1+ 01/13/23 11:05 Acanthocytes (Spur) 2+ 09/10/22 11:05 ABG pCO2 18 mmHg (35-46) L 09/10/22 11:32 ABG pO2 104 mmHg (80-95) H 09/10/22 11:32 ABG HCO3 7 mmol/L (19-24) L 09/10/22 11:32 ABG O2 Saturation 95.5 % (90-95) H 09/10/22 11:32 ABG Base Excess -19.8 mEq/L (-9-1.8) L 09/10/22 11:32 Efrain Test Pos (Pos) 09/10/22 11:32 Oxygen Given ROOM AIR 09/10/22 11:32 Sodium 145 mmol/L (136-145) 09/10/22 11:05 Potassium 5.7 mmol/L (3.5-5.1) H 09/10/22 11:05 Chloride 111 mmol/L (98-107) H 09/10/22 11:05 Carbon Dioxide 9 mmol/L (21-32) L* 09/10/22 11:05 Anion Gap 25 (3-11) H 09/10/22 11:05 BUN 42 mg/dl (6-23) H 09/10/22 11:05 Creatinine 2.27 mg/dl (0.6-1.2) H 09/10/22 11:05 Est Cr Clr Drug Dosing 29.4 ml/min 09/10/22 11:05 Est GFR ( Amer) 26.5 ml/min 09/10/22 11:05 Est GFR (Non-Af Amer) 22.9 ml/min 09/10/22 11:05 BUN/Creatinine Ratio 18.5 (10-20) 09/10/22 11:05 Glucose 608 mg/dl (70-99(Fasting)) H* 09/10/22 11:05 POC Glucose 544 mg/dl (70-99) H* 09/10/22 11:31 Lactate 1.5 mmol/L (0.4-2.0) 09/10/22 12:26 Calcium 9.1 mg/dl (8.5-10.1) 09/10/22 11:05 Magnesium 2.5 mg/dl (1.7-2.4) H 09/10/22 11:05 Total Bilirubin 0.4 mg/dl (0.2-1.0) 09/10/22 11:05 AST 10 U/L (13-39) L 09/10/22 11:05 ALT 12 U/L (7-52) 09/10/22 11:05 Alkaline Phosphatase 163 U/L (34-104) H 09/10/22 11:05 Ammonia 56.0 umol/L (18-72) 09/10/22 11:47 Total Protein 8.6 gm/dl (6.0-8.3) H 09/10/22 11:05 Albumin 3.3 gm/dl (3.4-5.0) L 09/10/22 11:05 Globulin 5.3 gm/dl (2.5-4.0) H 09/10/22 11:05 Albumin/Globulin Ratio 0.6 (0.9-2) L 09/10/22 11:05 TSH 1.234 uIu/ml (0.300-4.500) 09/10/22 11:05 Urine Color Yellow 09/10/22 11:54 Urine Appearance Cloudy (Clear) A 09/10/22 11:54 Urine pH 5.0 (4.5-7.5) 09/10/22 11:54 Ur Specific [place] 1.028 (1.000-1.030) 09/10/22 11:54 Urine Protein 1+ (Negative) H 09/10/22 11:54 Urine Glucose (UA) 3+ (Negative) H 09/10/22 11:54 Urine Ketones 4+ (Negative) H 09/10/22 11:54 Urine Blood 1+ (Negative) H 09/10/22 11:54 Urine Nitrite Negative (Negative) 09/10/22 11:54 Urine Bilirubin Negative (Negative) 09/10/22 11:54 Urine Urobilinogen Negative (Negative) 09/10/22 11:54 Ur Leukocyte Esterase Negative (Negative) 09/10/22 11:54 Urine WBC (Auto) 10-30 /hpf (0-5) H 09/10/22 11:54 Urine RBC (Auto) 5-10 /hpf (0-4) H 09/10/22 11:54 U Hyaline Cast (Auto) 1-5 /lpf (0-5) 09/10/22 11:54 U Epithel Cells (Auto) 20-30 /lpf (0-5) H 09/10/22 11:54 Urine Bacteria (Auto) Negative (Negative) 09/10/22 11:54 Urine Yeast Budding (None Prsent) A 09/10/22 11:54 SARS-CoV-2 (PCR) NEGATIVE (Negative) 09/10/22 11:28 Influenza Type A (PCR) Negative (Neg) 09/10/22 11:28 Influenza Type B (PCR) Negative (Neg) 09/10/22 11:28 RSV (RT-PCR) Negative (Neg) 09/10/22 11:28 Impressions Chest X-Ray 09/10/22 10:51 XR chest 1V portable CLINICAL HISTORY: weakness COMPARISON STUDY: Chest radiograph December 15, 2019. FINDINGS: Lung volumes are normal. Lungs are clear. There is no pneumothorax or pleural effusion. Cardiac size is normal. Mediastinal contours are normal. There is no evidence for pulmonary edema. IMPRESSION: No acute cardiopulmonary findings. ACT 112: Negative or not required by law. Electronically signed by: Jalil Hester M.D. 09/10/2022 11:[address] 09/10/22 10:57 CT head/brain wo con CLINICAL HISTORY: 57 years-old Female with altered. Acutely altered mental status TECHNIQUE: Multiple axial CT images of the head were obtained without contrast. A dose lowering technique was utilized adhering to the principles of ALARA. CT DOSE: 1247.81 mGy.cm COMPARISON: 08/25/2022 FINDINGS: No acute intracranial hemorrhage, midline shift, intracranial mass, hydrocephalus, territorial ischemia or abnormal extra-axial collection. Motion degraded exam. Portion of the study was then repeated. Involutional changes. White matter hypodensities suggestive of chronic microvascular ischemic disease. Senescent calcifications of the basal ganglia. The calvarium is intact. Prior bilateral lens repair. The paranasal sinuses, mastoid air cells, and middle ear cavities are clear. IMPRESSION: Motion degraded study. No acute intracranial abnormality. ACT 112: Negative or not required by law. The above report was generated using voice recognition software. It may contain grammatical, syntax or spelling errors. Electronically signed by: Ben Hart M.D. 09/10/2022 12:58 PM Abdomen/Pelvis CT 09/10/22 12:10 CT OF THE ABDOMEN AND PELVIS WITHOUT CONTRAST CLINICAL HISTORY: high creatinine, recent surgery COMPARISON STUDY: CT of the abdomen and pelvis August 24, 2022 and MRCP August 26, 2022. TECHNIQUE: Axial images of the abdomen and pelvis were obtained without IV contrast. Images were reviewed in the axial, sagittal, and coronal planes. Automated exposure control was utilized for the study. A dose lowering technique was utilized adhering to the principles of ALARA. FINDINGS: Lung bases are unremarkable. No pneumatosis or portal venous gas is present. Evaluation of the abdomen and pelvis is suboptimal on this unenhanced exam. There are postoperative findings consistent with a cholecystectomy. Surgical drain within the operative bed is in place. A small amount of extraluminal gas within the cholecystectomy bed is noted. Pneumobilia is expected. Biliary stents are well-positioned. There are postoperative findings from Morris-en-Y gastric bypass. A stent extending from the jejunal limb to the excluded stomach is in place. No drainable fluid collection is present. There is no evidence for a bowel obstruction. No renal, ureteral or bladder calculi are present. There's no hydronephrosis. Sanford balloon and gas within the bladder noted. No hepatic lesions are identified on this unenhanced examination. IMPRESSION: 1. No urinary calculi or hydronephrosis. 2. Status post cholecystectomy. Small amount of gas within the cholecystectomy bed is nonspecific. This may be postsurgical or related to the indwelling drain. However, gas related to a biliary/cystic duct remnant leak, given pneumobilia, could appear similar. 3. No bowel obstruction. 4. Status post Morris-en-Y gastric bypass. Placement of an endoscopic stent between the excluded stomach and jejunal limb, as described above. 5. Pneumobilia, as expected. Appropriately positioned biliary stents. ACT 112: Negative or not required by law. Electronically signed by: Jalil Hester M.D. 09/10/2022 1:09 PM Resident Activity Tracking Resident Involvement: Resident Care Provided Care Provided: [facility]
[2022-09-10] MEDS: INSULIN ASPART PER UNIT SC SCH ×2 (13:56→16:39)
--- NOTE | 2022-09-10 14:02 | History & Physical Report ---
Date of Service September 10, 2022 Assessment & Plan (1) DKA (diabetic ketoacidosis): (2) Acute metabolic encephalopathy: (3) High anion gap metabolic acidosis: (4) Lactic acidosis: (5) SONAL (acute kidney injury): Plan This is a 57-year-old female who presents to ED with significant past medical history of HIV on HAART, T2DM, history of bariatric surgery, HLD, history of moderate CLEMENT no longer on CPAP who presented to ER secondary to lethargy and weakness x1 week. Patient recently hospitalized 08/25-08/31/22 2/2 acute cholecystitis complicated by partial GB resection, bile leak s/p SAMANTHA drain, requiring transfer to [facility] for EGD due to hx of bariatric surgery and subsequent stent placement. Pt discharged on oral antibiotics and recently started on Augmentin. 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 During time of admission A1C 10.9, currently not on diabetic regimen. Returns to ED today 2/2 weakness, lethargy x 1 week. Acute metabolic encephalopathy Diabetic ketoacidosis T2DM High Anion gap Metabolic acidosis Lactic acidosis -resolved admit to ICU continue insulin gtt per protocol, DKA goal range 150-250 received 2 L of IVF in ED, place on maintenance /2 NSS 200cc/hr until K drops below 5.1, at that time will add 20 meq KCL q2h bmp, q4hr mag, phos, vbg q1hr accuchecks consult piano teacher - will defer further management to them remain NPO until anion gap closes, ph improves and pt more alert/arousable pt will need to meet with informatics educator as well as will require initiation of outpt tx of diabetes, currently not on any oral or injectable medications Acute kidney injury kidney function was normal prior to recent hospitalizations likely in setting of dehydration, dka monitor with rehydration, if worsen consider renal consult CT a/p reveals no obstruction Hypernatremia 2/2 to dehydration and dka corrected sodium 153 serial labs on 2 NSS Acute cholecystitis s/p partial GB removal with bile leak s/p SAMANTHA drain by Dr. Villalta 08/25/22 - currently on Augmentin as outpt EGDE/EGD procedure done at [facility] and stents placed no acute infection, but will continue IV antibiotics with rocephin, would resume oral augmentin when pt able to tolerate Pt is to f/u with Dr. Villalta as OP for drain removal, if still hospitalized will likely need to recall surgery for removal at that time HIV on biktarvy as outpatient resume when able Morbid obesity, hx of gastric bypass BMI 48.9 when able pt will require weight loss counseling DVT Ppx: SQ Heparin Dispo: Admit to ICU FULL CODE PCP : Dr. Irizarry Pt was seen and examined in collaboration with Dr. Clifton, please see addendum A total of 100 minutes were spent with greater than 50% of that time face to face with the patient, personally reviewing all current laboratories, imaging studies, past medication reconciliation, outpatient chart review, and discussion with specialists to collaborate care for the patient with attending. Please see attending documentation for corrections and/or additions. History of Present Illness Chief Complaint: Lethargy and weakness x 1 weak Primary Care Provider: Idania Irizarry MD This is a 57-year-old female who presents to ED with significant past medical history of HIV on HAART, T2DM, history of bariatric surgery, HLD, history of moderate CLEMENT no longer on CPAP who presented to ER secondary to lethargy and weakness x1 week. Of significance patient was recently hospitalized on 08/25/2022 secondary to acute cholecystitis. She underwent acute cholecystectomy by Dr. Villalta. Her postop surgical course was complicated by a partial gallbladder removal with subsequent bile leak status post SAMANTHA drain. She required transfer to [facility] for Edge procedure and stent placement. She followed up with Dr. Villalta as outpatient and continued on antibiotics Augmentin. Her gallbladder pathology returned high-grade dysplasia. She was discharged from [facility] on 08/31. at bedside started to notice a general decline starting 09/02. He states she gradually came a week, nausea, unable to take oral pills and eventually lethargic. She has not taken her medications in the last 3 days. This includes her antibiotics. She also has not taken her narcotics. Today she was mostly unarousable and therefore EMS was called. ROS unable to be obtained from patient due to lethargy. History obtained from ED provider and family member at bedside. In ED patient was hemodynamically stable although tachycardic. She was found to be in DKA with pH of 7.1, CO2 of 18 and bicarb of 7. She had significant elevation of renal function with a BUN 42, creatinine 2.27, elevated potassium 5.7, admitting glucose of 608. Her infectious work-up was otherwise unremarkable. 1 blood culture was drawn as they were unable to obtain to despite multiple attempts. CT abdomen pelvis revealed postsurgical changes but nothing acute. She was treated with empiric antibiotics cefepime, 2 L of IV fluid and started on insulin drip. Per ED provider she did make slight improvement while in ED. and sister at bedside. Allergies Allergy/AdvReac Type Severity Reaction Status Date / Time ciprofloxacin Allergy Severe TONGUE Verified 08/24/22 23:30 SWELLS, HIVES/ITCHING, THROAT "CLOSES" metformin AdvReac Severe DIARRHEA/VO Verified 08/24/22 23:30 MITING Home Medications Medication Instructions Recorded Confirmed Type bictegravir 50 mg-emtricitabine 1 tab PO DAILY 08/24/22 09/10/22 History 200 mg-tenofovir alafenam 25 mg tablet (Biktarvy) cyanocobalamin (vitamin B-12) 1,000 mcg IM .[id number] 08/24/22 09/10/22 History 1,000 mcg/mL injection solution amoxicillin 875 mg-potassium 1 tab PO BID 09/10/22 09/10/22 History clavulanate 125 mg tablet omeprazole 20 mg capsule,delayed 20 mg PO DAILY 09/10/22 09/10/22 History release Past Med/Surg History Medical History Anemia DM (diabetes mellitus) Elevated LFTs Human immunodeficiency virus [HIV] disease Hyperlipidemia Hypertension Obesity Surgical History History of laparoscopy-assisted vaginal hysterectomy Hx of gastric bypass Family History Other Breast cancer Social History Smoking Status: Never smoker Second Hand Exposure: No; Hx Alcohol Use: No Hx Substance Use: No Preferred Language: Taiwanese Communication Ability: Effective Communication Ability Comment: Basline no impairment. Unable to follow commands at this time Production Line Required: No Beliefs That Will Affect Care: None Current Living Situation: Spouse and Family Feels Safe at Home: Yes Safety Concerns: Feels Safe At This Time Assistive Devices: Glasses Review of Systems Review of Systems: Unobtainable due to cognitive status Physical Exam Physical Exam: Constitutional: WD/WN, obese, F, vitals as above, lethargic, minimally arousable Head: Normocephalic, Atraumatic Eyes: PERRL, conjunctivae normal, anicteric sclerae ENMT: external ear and nose normal, oropharynx normal dry membranes Neck: trachea midline, no thyromegaly normal visual inspection Respiratory: normal respiratory effort, lungs clear to auscultation, no wheeze, rales, rhonchi. Normal insp/exp effort, no accessory muscle use Cardiovascular: tachycardic rate, regular rhythm, no murmur, no edema Vessels: no JVD or carotid bruit Chest: normal inspection of chest Abdomen: obsee abd, soft, + lap batool incisions x4, SAMANTHA drain in place with serous drainage, normal bowel sounds, + tender to palpation no rebound, guarding, rigidity, hepatosplenomegaly Musculoskeletal: no cyanosis or clubbing, unable to assess strength due to mental status Skin: no rashes, warm and dry normal turgor Neurologic: PERRL, EOMI, accommodation nl, no face palsy, no dysarthria CN's II-XI intact bilaterally and moves all extremities Psychiatric: lethargic, minimally alert, not oriented, unable to assess affect Lymphatic: no cervical or axillary lymphadenopathy : deferred Results & Data Results & Data ([facility]) Vital Signs (Past 12 Hours) Vital Signs Temp Pulse Resp BP Pulse Ox O2 Del Method 09/10/22 13:00 113 H 16 154/80 H 99 09/10/22 12:30 113 H 15 167/90 H 100 09/10/22 12:15 105 H 18 128/110 H 100 09/10/22 12:00 112 H 17 129/93 99 09/10/22 11:53 111 H 16 156/78 H 99 09/10/22 11:14 98 Room Air 09/10/22 11:14 36.3 C L 113 H 17 147/92 H 98 Room Air Laboratory Results Short CBC 09/10/22 Range/Units 11:05 WBC 10.26 (4.8-10.8) K/ul Hgb 13.7 (12.0-16.0) g/dl Hct 40.9 (34.1-44.9) % Plt Count 345 (130-400) K/uL BMP 09/10/22 11:05 Sodium 145 Potassium 5.7 H Chloride 111 H Carbon Dioxide 9 L* BUN 42 H Creatinine 2.27 H Glucose 608 H* Calcium 9.1 Liver Function 09/10/22 Range/Units 11:05 Total Bilirubin 0.4 (0.2-1.0) mg/dl AST 10 L (13-39) U/L ALT 12 (7-52) U/L Alkaline Phosphatase 163 H (34-104) U/L Albumin 3.3 L (3.4-5.0) gm/dl Urine 09/10/22 Range/Units 11:54 Urine Color Yellow Urine Appearance Cloudy A (Clear) Urine pH 5.0 (4.5-7.5) Ur Specific [place] 1.028 (1.000-1.030) Urine Protein 1+ H (Negative) Urine Glucose (UA) 3+ H (Negative) Diagnostic Findings Chest X-Ray 09/10/22 10:51 XR chest 1V portable CLINICAL HISTORY: weakness COMPARISON STUDY: Chest radiograph December 15, 2019. FINDINGS: Lung volumes are normal. Lungs are clear. There is no pneumothorax or pleural effusion. Cardiac size is normal. Mediastinal contours are normal. There is no evidence for pulmonary edema. IMPRESSION: No acute cardiopulmonary findings. ACT 112: Negative or not required by law. Electronically signed by: Jalil Hester M.D. 09/10/2022 11:[address] 09/10/22 10:57 CT head/brain wo con CLINICAL HISTORY: 57 years-old Female with altered. Acutely altered mental status TECHNIQUE: Multiple axial CT images of the head were obtained without contrast. A dose lowering technique was utilized adhering to the principles of ALARA. CT DOSE: 1247.81 mGy.cm COMPARISON: 08/25/2022 FINDINGS: No acute intracranial hemorrhage, midline shift, intracranial mass, hydrocephalus, territorial ischemia or abnormal extra-axial collection. Motion degraded exam. Portion of the study was then repeated. Involutional changes. White matter hypodensities suggestive of chronic microvascular ischemic disease. Senescent calcifications of the basal ganglia. The calvarium is intact. Prior bilateral lens repair. The paranasal sinuses, mastoid air cells, and middle ear cavities are clear. IMPRESSION: Motion degraded study. No acute intracranial abnormality. ACT 112: Negative or not required by law. The above report was generated using voice recognition software. It may contain grammatical, syntax or spelling errors. Electronically signed by: Ben Hart M.D. 09/10/2022 12:58 PM Abdomen/Pelvis CT 09/10/22 12:10 CT OF THE ABDOMEN AND PELVIS WITHOUT CONTRAST CLINICAL HISTORY: high creatinine, recent surgery COMPARISON STUDY: CT of the abdomen and pelvis August 24, 2022 and MRCP August 26, 2022. TECHNIQUE: Axial images of the abdomen and pelvis were obtained without IV contrast. Images were reviewed in the axial, sagittal, and coronal planes. Automated exposure control was utilized for the study. A dose lowering technique was utilized adhering to the principles of ALARA. FINDINGS: Lung bases are unremarkable. No pneumatosis or portal venous gas is present. Evaluation of the abdomen and pelvis is suboptimal on this unenhanced exam. There are postoperative findings consistent with a cholecystectomy. Surgical drain within the operative bed is in place. A small amount of extraluminal gas within the cholecystectomy bed is noted. Pneumobilia is expected. Biliary stents are well-positioned. There are postoperative findings from Morris-en-Y gastric bypass. A stent extending from the jejunal limb to the excluded stomach is in place. No drainable fluid collection is present. There is no evidence for a bowel obstruction. No renal, ureteral or bladder calculi are present. There's no hydronephrosis. Sanford balloon and gas within the bladder noted. No hepatic lesions are identified on this unenhanced examination. IMPRESSION: 1. No urinary calculi or hydronephrosis. 2. Status post cholecystectomy. Small amount of gas within the cholecystectomy bed is nonspecific. This may be postsurgical or related to the indwelling drain. However, gas related to a biliary/cystic duct remnant leak, given pneumobilia, could appear similar. 3. No bowel obstruction. 4. Status post Morris-en-Y gastric bypass. Placement of an endoscopic stent between the excluded stomach and jejunal limb, as described above. 5. Pneumobilia, as expected. Appropriately positioned biliary stents. ACT 112: Negative or not required by law. Electronically signed by: Jalil Hester M.D. 09/10/2022 1:09 PM Medications Administered Medication List Insulin Human Regular 250 (units/ Sodium Chloride) 250 mls @ 10.6 mls/hr IV .[id number] DELORES; Protocol Stop: 10/10/22 12:14 Last Titration: 09/10/22 13:56 Dose: 10.6 units/hr, 10.6 mls/hr Documented By: KITTY Co-signed By: QGV Admin: 09/10/22 12:53 Dose: 8.8 units/hr, 8.8 mls/hr Documented By: OAM Co-signed By: QGV Insulin Aspart (Insulin Aspart Per Unit) 0 units SC ACHS [facility] Stop: 10/10/22 12:14 Last Admin: 09/10/22 13:56 Dose: Not Given Documented By: OALogan Co-signed By: QGV Discontinued Medications Sodium Chloride (Nss 1000ml) 1,000 mls @ 999 mls/hr IV .Q1H1M ONE Stop: 09/10/22 11:51 Last Infusion: 09/10/22 12:29 Dose: 0 mls/hr Documented By: Admin: 09/10/22 11:21 Dose: 999 mls/hr Documented By: OAM Sodium Chloride (Nss 1000ml) 1,000 mls @ 999 mls/hr IV .Q1H1M ONE Stop: 09/10/22 11:57 Last Infusion: 09/10/22 13:30 Dose: 0 mls/hr Documented By: Admin: 09/10/22 12:25 Dose: 999 mls/hr Documented By: KITTY Cefepime HCl (Maxipime) 2,000 mg in 20 mls @ 5 mls/min IV NOW STA; Protocol Stop: 09/10/22 11:01 Last Admin: 09/10/22 12:25 Dose: 5 mls/min Documented By: OAM Insulin Human Regular (Novolin-R Bolus From Bag) 8.8 units IV ONE ONE Stop: 09/10/22 12:16 Last Admin: 09/10/22 12:55 Dose: 8.8 units Documented By: KITTY Co-signed By: QGV ECG Rate (beats per minute): 115 Rhythm: sinus tachycardia COVID-19 Results Results COVID-19 Adm Lab Results: RBC 4.80 M/uL (3.93-5.22) 09/10/22 WBC 10.26 K/ul (4.8-10.8) 09/10/22 Hgb 13.7 g/dl (12.0-16.0) 09/10/22 Hct 40.9 % (34.1-44.9) 09/10/22 Plt Count 345 K/uL (130-400) 09/10/22 Neutrophils (%) (Auto) 77.2 % 09/10/22 Lymphocytes (%) (Auto) 17.1 % 09/10/22 Monocytes # (Auto) 0.45 K/uL (0.24-0.82) 09/10/22 Eosinophils # (Auto) 0.00 K/uL (0-0.50) 09/10/22 Immature Granulocyte % (Auto) 0.6 % 09/10/22 Neutrophils # (Auto) 7.93 K/uL (1.4-6.5) H 09/10/22 Lymphocytes # (Auto) 1.75 K/uL (1.2-3.4) 09/10/22 Monocytes # (Auto) 0.45 K/uL (0.24-0.82) 09/10/22 Eosinophils # (Auto) 0.00 K/uL (0-0.50) 09/10/22 Basophils # (Auto) 0.07 K/uL (0-0.2) 09/10/22 Immature Granulocyte # (Auto) 0.06 K/uL (0.00-0.02) H 09/10 Polychromasia 1+ 09/10/22 Echinocytes 1+ 09/10/22 Acanthocytes 2+ 09/10/22 Na 149 mmol/L (136-145) H 09/10/22 K 4.2 mmol/L (3.5-5.1) 09/10/22 Cl 120 mmol/L (98-107) H 09/10/22 CO2 10 mmol/L (21-32) L 09/10/22 Anion Gap 19 (3-11) H 09/10/22 BUN 41 mg/dl (6-23) H 09/10/22 Creatinine 2.07 mg/dl (0.6-1.2) H 09/10/22 BUN/Creatinine Ratio 19.8 (10-20) 09/10/22 Glucose Level 352 mg/dl (70-99(Fasting)) H* 09/10/22 Ca 8.3 mg/dl (8.5-10.1) L 09/10/22 Phosphorus Level 2.7 mg/dl (2.5-4.9) 09/10/22 Total Bilirubin 0.4 mg/dl (0.2-1.0) 09/10/22 AST/SGOT 10 U/L (13-39) L 09/10/22 ALT/SGPT 12 U/L (7-52) 09/10/22 Alkaline Phosphatase 163 U/L (34-104) H 09/10/22 Total Protein 8.6 gm/dl (6.0-8.3) H 09/10/22 Albumin 3.3 gm/dl (3.4-5.0) L 09/10/22 Globulin 5.3 gm/dl (2.5-4.0) H 09/10/22 Albumin/Globulin Ratio 0.6 (0.9-2) L 09/10/22 COVID-19 PCR NEGATIVE (Negative) 09/10/22 Influenza Virus Type A (PCR) Negative (Neg) 09/10/22 Influenza Virus Type B (PCR) Negative (Neg) 09/10/22 ABG pH 7.17 (7.35-7.45) L* 09/10/22 ABG pCO2 18 mmHg (35-46) L 09/10/22 ABG pO2 104 mmHg (80-95) H 09/10/22 ABG HCO3 7 mmol/L (19-24) L 09/10/22 ABG O2 Saturation 95.5 % (90-95) H 09/10/22 ABG Base Excess -19.8 mEq/L (-9-1.8) L 09/10/22 Chest X-Ray 09/10/22 Code Status & VTE Plan Code Status FULL CODE VTE Prophylaxis Plan VTE Prophylaxis will be ordered: Yes Supervising Physician Co-Signing Physician Notes Attending addendum: The patient was seen and examined in emergency room in presence of the family members She is a status post subtotal cholecystectomy on 08/26 followed by biliary stent placement and gastrojejunal stent placement and cholecystectomy bed drainage f or bile leak following surgery which was done in [facility] She has been complaining of increasing lethargy, has been almost bedbound and not been eating or drinking much for the last 4 days Brought into ER via 911 call and noted to have DKA with acute renal failure On examination She has been very drowsy and communicating with minimal words Noted to be tachycardic otherwise hemodynamically stable and saturating normally Chest-decreased breath sounds without any crackles Heart-S1-S2, tachycardia Abdomen-distended, mildly tender, drain tube in situ, bowel sound decreased Extremities-negative for any edema 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 Very drowsy and lethargic. Minimally communicative but moving all limbs Her admission labs, EKG and imaging studies reviewed Acute metabolic encephalopathy secondary to She has DKA with high anion gap metabolic acidosis SONAL Status post recent subtotal cholecystectomy, status post biliary stent and gastrojejunal stent placement and also has intra-abdominal drains Has been getting IV fluid, IV insulin with IV antibiotic in ICU Agree with assessment and plan as outlined above by Daisy Clifton
--- NOTE | 2022-09-10 14:27 | Electrocardiogram Report ---
Test Reason : Blood Pressure : / mmHG Vent. Rate : 115 BPM Atrial Rate : 115 BPM P-R Int : 112 ms QRS Dur : 066 ms QT Int : 334 ms P-R-T Axes : 051 -17 095 degrees QTc Int : 462 ms Sinus tachycardia Left ventricular hypertrophy with repolarization abnormality Abnormal ECG When compared with ECG of 25-AUG-2022 08:49, Probably no change Confirmed by Ermias Owen ([id number]) on 09/10/2022 2:26:28 PM Referred By: Confirmed By:Ermias Owen
[2022-09-10 14:43] LABS: pH ABG 7.17 (7.35-7.45)
[2022-09-10 15:26] LABS: Base Excess VBG -15.6 mEq/L; HCO3 VBG 11 mmol/L; Oxygen Saturation VBG 82.9 %; PCO2 VBG 28 mmHg (38-50); PO2 VBG 54 mmHg
[2022-09-10 15:52] LABS: BUN Creatinine Ratio 19.8 (10-20); Calcium 8.3 mg/dl (8.5-10.1); Creatinine Clr Calc Pharmacy 32.3 ml/min; Est GFR (African American) 29.6 ml/min; Est GFR (Non-African American) 25.6 ml/min; Magnesium 2.2 mg/dl (1.7-2.4); Phosphorus 2.7 mg/dl (2.5-4.9); Potassium 4.2 mmol/L (3.5-5.1)
[2022-09-10] MEDS ORDERED: INSULIN REGULAR 250 UNITS in SODIUM CHLORIDE 0.9% 247.5 ML IV SCH (15:59)
[2022-09-10] MEDS ORDERED: PENDING 1/2NSS+20mEq KCL IVF SCH (15:59)
[2022-09-10] MEDS ORDERED: PENDING D5 1/2NS+20mEq KCL IVF SCH (15:59)
[2022-09-10] MEDS ORDERED: SODIUM CHLOR 0.45% + 20MEQ KCL 20 MEQ/1,000 ML BAG IV SCH (16:15)
[2022-09-10] MEDS ORDERED: ICU Protocol for HYPERglycemia SCH (16:30)
[2022-09-10] MEDS ORDERED: INSULIN ASPART PER UNIT SC SCH (16:30)
--- NOTE | 2022-09-10 16:41 | Billing Data ---
Date of Service September 10, 2022 Patient is critically ill with multiple life-threatening metabolic derangements including kidney failure and severe DKA with metabolic acidosis. A total of 40 minutes in critical care time was spent evaluation management stabilization of this patient. Coding Level of Care Code Critical Care 1st 30-74 mins
[2022-09-10] MEDS: SODIUM CHLORIDE 0.45 % 1,000 ML IV SCH ×2 (16:43→17:51)
[2022-09-10] MEDS: PANTOprazole 40 MG in SYRINGE 0 ML IV SCH (16:43)
--- NOTE | 2022-09-10 16:52 | Surgery Consultation ---
Date of Consultation September 10, 2022 Assessment & Plan (1) DKA (diabetic ketoacidosis): This is a 57y F with a PMH of gastric bypass, DM2, HTN, HLD, recent cholecystectomy complicated by bile leak, who presents to the [facility] ED on 09/10/22 with lethargy and fatigue over the last week. Of significance patient underwent laparoscopic subtotal cholecystectomy with Dr. Villalta on 08/26. procedure complicated by bile leak. Due to history of gastric bypass she was transferred to [facility] for stenting + edge procedure. In the ER she underwent a CT a/p that showed a "small amount of gas within the cholecystectomy bed is nonspecific. This may be postsurgical or related to the indwelling drain. However, gas related to a biliary/cystic duct remnant leak, given pneumobilia, could appear similar." On exam patient's abdomen is soft, non distended, incisions c/d/i, and appears to wince with generalized palpation to the abdomen. SAMANTHA drain is serous in character. Labs reveal WBC 10, Glucose initially 600s and K 5.7 now 4.2. Tb: 0.4. Lactate 1.5. She is currently in the ICU being treated for DKA. We have been asked to consult on the patient given her SAMANTHA drain status and abx. Would continue SAMANTHA drain for now and defer timing of removal to Dr. Villalta of whom we can discuss with him on Tuesday. Appreciate medical/critical care teams assistance with patient. (2) S/P cholecystectomy: Supervising Physician Co-Signing Physician Notes Dr. Thomas was seen in the ICU-please see above note Patient has a biliary stent in place and also a drain in the subhepatic space- these both could account for any small amount of air in this area We will leave the drain in place and allow patient to follow-up with Dr. Villalta for removal As a note it appears to be draining normal serous fluid and not bile History of Present Illness Attending Physician: Lee Clifton MD History of Present Illness This is a 57y F with a PMH of gastric bypass, DM2, HTN, HLD, recent cholecystectomy complicated by bile leak, who presents to the [facility] ED on 09/10/22 with lethargy and fatigue. Of significance patient underwent laparoscopic subtotal cholecystectomy with Dr. Villalta on 08/26. procedure complicated by bile leak. Due to history fo gastric bypass she was transferred to [facility] for stenting and edge procedure. Patient is lethargic and majority of history obtained from the at bedside. He states that 2 days since discharge from [facility] he noticed a progressive deterioration in patient. Very fatigued, thirsty, and unable to feed herself. No noted fevers/chills, abdominal pain, or change in bowel habits. He noticed some nausea with vomiting over last week. Patient did see Dr. Villalta for first post op who recommended she continue on a course of augmentin and was scheduled for another follow up this upcoming Tuesday. Currently has SAMANTHA drain in place. In the ER she underwent a CT a/p that showed a "small amount of gas within the cholecystectomy bed is nonspecific. This may be postsurgical or related to the indwelling drain. However, gas related to a biliary/cystic duct remnant leak, given pneumobilia, could appear similar. Allergies Allergy/AdvReac Type Severity Reaction Status Date / Time ciprofloxacin Allergy Severe TONGUE Verified 08/24/22 23:30 SWELLS, HIVES/ITCHING, THROAT "CLOSES" metformin AdvReac Severe DIARRHEA/VO Verified 08/24/22 23:30 MITING Home Medications Medication Instructions Recorded Confirmed Type bictegravir 50 mg-emtricitabine 1 tab PO DAILY 08/24/22 09/10/22 History 200 mg-tenofovir alafenam 25 mg tablet (Biktarvy) cyanocobalamin (vitamin B-12) 1,000 mcg IM .[id number] 08/24/22 09/10/22 History 1,000 mcg/mL injection solution amoxicillin 875 mg-potassium 1 tab PO BID 09/10/22 09/10/22 History clavulanate 125 mg tablet omeprazole 20 mg capsule,delayed 20 mg PO DAILY 09/10/22 09/10/22 History release Patient History Medical History Anemia DM (diabetes mellitus) Elevated LFTs Human immunodeficiency virus [HIV] disease Hyperlipidemia Hypertension Obesity Surgical History History of laparoscopy-assisted vaginal hysterectomy Hx of gastric bypass Family History Other Breast cancer Social History Smoking Status: Never smoker Second Hand Exposure: No; Hx Alcohol Use: No Hx Substance Use: No Preferred Language: Italian Communication Ability: Effective Communication Ability Comment: Basline no impairment. Unable to follow commands at this time Physical Therapist Aide Required: No Beliefs That Will Affect Care: None Current Living Situation: Spouse and Family Feels Safe at Home: Yes Safety Concerns: Feels Safe At This Time Assistive Devices: Glasses Review of Systems Review of Systems: Unobtainable due to reduced consciousness Physical Exam Physical Exam: eyes closed, minimal response to questions Gastrointestinal (Abdomen): Inspection/Auscultation: + abdominal surgical incision (steri strips c/d/i) and + abdominal surgical drain present (serous in character); abdomen not distended Percussion/Palpation: + abdomen tender (winces with some palpation to generalized abdomen) and abdomen soft Results & Data ([facility]) Vital Signs (Past 12 Hours) Vital Signs Temp Pulse Pulse Resp BP BP Pulse Ox 09/10/22 16:20 112 H 18 97 09/10/22 16:10 113 H 15 98 09/10/22 16:00 114 H 16 98 09/10/22 16:00 140/95 09/10/22 15:56 113 H 14 145/100 H 98 09/10/22 15:52 37.2 C 113 H 20 145/100 H 98 09/10/22 15:15 114 H 19 131/99 98 09/10/22 15:12 115 H 19 129/84 97 09/10/22 15:00 108 H 12 128/80 97 09/10/22 14:45 105 H 13 135/87 98 09/10/22 14:30 107 H 12 155/95 H 99 09/10/22 14:15 115 H 16 150/92 H 99 09/10/22 14:00 118 H 16 157/93 H 99 09/10/22 13:45 114 H 15 176/95 H 100 09/10/22 13:30 113 H 14 168/84 H 100 09/10/22 13:15 115 H 16 157/86 H 99 09/10/22 13:00 113 H 16 154/80 H 99 09/10/22 12:30 113 H 15 167/90 H 100 09/10/22 12:15 105 H 18 128/110 H 100 09/10/22 12:00 112 H 17 129/93 99 09/10/22 11:53 111 H 16 156/78 H 99 09/10/22 11:14 98 09/10/22 11:14 36.3 C L 113 H 17 147/92 H 98 O2 Del Method 09/10/22 16:20 09/10/22 16:10 09/10/22 16:00 09/10/22 16:00 09/10/22 15:56 Room Air 09/10/22 15:52 Room Air 09/10/22 15:15 09/10/22 15:12 09/10/22 15:00 09/10/22 14:45 09/10/22 14:30 09/10/22 14:15 09/10/22 14:00 09/10/22 13:45 09/10/22 13:30 09/10/22 13:15 09/10/22 13:00 09/10/22 12:30 09/10/22 12:15 09/10/22 12:00 09/10/22 11:53 09/10/22 11:14 Room Air 09/10/22 11:14 Room Air Diagnostic Findings CT OF THE ABDOMEN AND PELVIS WITHOUT CONTRAST CLINICAL HISTORY: high creatinine, recent surgery COMPARISON STUDY: CT of the abdomen and pelvis August 24, 2022 and MRCP August 26, 2022. TECHNIQUE: Axial images of the abdomen and pelvis were obtained without IV contrast. Images were reviewed in the axial, sagittal, and coronal planes. Automated exposure control was utilized for the study. A dose lowering technique was utilized adhering to the principles of ALARA. FINDINGS: Lung bases are unremarkable. No pneumatosis or portal venous gas is present. Evaluation of the abdomen and pelvis is suboptimal on this unenhanced exam. There are postoperative findings consistent with a cholecystectomy. Surgical drain within the operative bed is in place. A small amount of ext raluminal gas within the cholecystectomy bed is noted. Pneumobilia is expected. Biliary stents are well-positioned. There are postoperative findings from Morris-en-Y gastric bypass. A stent extending from the jejunal limb to the excluded stomach is in place. No drainable fluid collection is present. There is no evidence for a bowel obstruction. No renal, ureteral or bladder calculi are present. There's no hydronephrosis. Sanford balloon and gas within the bladder noted. No hepatic lesions are identified on this unenhanced examination. IMPRESSION: 1. No urinary calculi or hydronephrosis. 2. Status post cholecystectomy. Small amount of gas within the cholecystectomy bed is nonspecific. This may be postsurgical or related to the indwelling drain. However, gas related to a biliary/cystic duct remnant leak, given pneumobilia, could appear similar. 3. No bowel obstruction. 4. Status post Morris-en-Y gastric bypass. Placement of an endoscopic stent between the excluded stomach and jejunal limb, as described above. 5. Pneumobilia, as expected. Appropriately positioned biliary stents. ACT 112: Negative or not required by law. Electronically signed by: Jalil Hester M.D. PG Care Time/CCT Total # of Minutes Spent Total Time Spent with Patient: Total time spent is greater than 50% in coordination of care (as documented) at patient's floor/unit and/or counseling patient: Coding Level of Care Code 16963 INT INP/OBS CARE 1/40MIN Diagnoses DKA (diabetic ketoacidosis) E10.10 Diabetes mellitus complication detail: without coma Diabetes mellitus type: type 1 S/P cholecystectomy Z90.49 (1) DKA (diabetic ketoacidosis) Diabetes mellitus complication detail: without coma Diabetes mellitus type: type 1 Qualified Code(s): E10.10 - Type 1 diabetes mellitus with ketoacidosis without coma
[2022-09-10 17:50] LABS: Calcium 8.3 mg/dl (8.5-10.1); Creatinine Clr Calc Pharmacy 36.9 ml/min; Est GFR (African American) 34.9 ml/min; Est GFR (Non-African American) 30.1 ml/min; Magnesium 2.1 mg/dl (1.7-2.4); Phosphorus 1.9 mg/dl (2.5-4.9); Potassium 3.6 mmol/L (3.5-5.1)
[2022-09-10] MEDS: D5W AND 1/2NSS + 20MEQ KCL 20 MEQ/1,000 ML BAG IV SCH ×2 (17:52→23:32)
[2022-09-10] MEDS: metroNIDAZOLE 500 MG/100 ML BAG IV SCH (20:11)
[2022-09-10] MEDS ORDERED: ONDANSETRON INJ 2 MG/ML 2 ML VIAL ONE (20:38)
[2022-09-10] MEDS: cefTRIAXone SODIUM 2,000 MG in DEXTROSE 5% 50 ML IV SCH (21:40)
[2022-09-10 21:45] LABS: BUN Creatinine Ratio 20.5 (10-20); Creatinine Clr Calc Pharmacy 40.2 ml/min; Est GFR (African American) 38.7 ml/min; Est GFR (Non-African American) 33.4 ml/min; Magnesium 1.9 mg/dl (1.7-2.4); Phosphorus 1.8 mg/dl (2.5-4.9); Potassium 3.8 mmol/L (3.5-5.1)
[2022-09-10] MEDS ORDERED: MAGNESIUM SULFATE / D5W 1 GM/100 ML BAG IV ONE (21:47)
[2022-09-10] MEDS: HEPARIN SOD 5,000 UNIT/0.5 ML VIAL SQ SCH (22:09)
[2022-09-11] MEDS: INSULIN ASPART PER UNIT SC SCH ×5 (00:16→18:27)
[2022-09-11] MEDS ORDERED: ONDANSETRON INJ 2 MG/ML 2 ML VIAL IV STA (01:15)
[2022-09-11] MEDS ORDERED: ONDANSETRON INJ 2 MG/ML 2 ML VIAL IV PRN (01:15)
[2022-09-11 02:20] LABS: BUN Creatinine Ratio 20.4 (10-20); Calcium 7.9 mg/dl (8.5-10.1); Creatinine Clr Calc Pharmacy 45.4 ml/min; Est GFR (African American) 44.8 ml/min; Est GFR (Non-African American) 38.7 ml/min; Magnesium 2.1 mg/dl (1.7-2.4); Phosphorus 1.7 mg/dl (2.5-4.9); Potassium 4.1 mmol/L (3.5-5.1)
[2022-09-11] MEDS: D5W AND 1/2NSS + 20MEQ KCL 20 MEQ/1,000 ML BAG IV SCH ×4 (04:31→14:36)
[2022-09-11] MEDS: metroNIDAZOLE 500 MG/100 ML BAG IV SCH ×3 (06:01→22:18)
[2022-09-11] MEDS: HEPARIN SOD 5,000 UNIT/0.5 ML VIAL SQ SCH ×3 (06:01→21:50)
[2022-09-11] MEDS: SODIUM CHLORIDE 0.9% 1000ML 1,000 ML IV SCH ×2 (07:09→07:22)
[2022-09-11] MEDS: PANTOprazole 40 MG in SYRINGE 0 ML IV SCH (07:43)
[2022-09-11] MEDS ORDERED: SODIUM BICARB 8.4% INJ 50 MEQ/50 ML SYR IV ONE (09:15)
--- NOTE | 2022-09-11 09:55 | Critical Care Progress Note ---
Date of Service September 11, 2022 Assessment & Plan (1) DKA (diabetic ketoacidosis): Plan: Reason Critically Ill: 57 yo female with PMHx of HIV on HAART, T2DM, history of bariatric surgery, HLD, history of moderate CLEMENT no longer on CPAP who presented with lethargy and weakness x1 week. Admitted to ICU for DKA on insulin drip. 24-hour events: Patient admitted to the ICU on insulin drip. Overnight her electrolytes have been replaced and her gap is closed. She remains mildly acidotic with a non-anion gap acidosis. Recommendations Neuro -encephalopathy likely secondary to underlying metabolic derangement. Improved today but she remains mildly acidotic. We will see how she responds. No indication for additional imaging Cardiac -tachycardia secondary to hypovolemia, now resolved. Continue to follow at this point in time. Her blood pressure is increased. We will see how she trends and may consider antihypertensives depending on clinical response Respiratory -tachypnea secondary to compensation for metabolic abnormalities. Continue to follow. Chest x-ray clear. Oxygenating well. History of sleep disordered breathing. Follow clinically. If witnessed apnea or cyclical oxygen desaturations may use empiric CPAP. GI -NPO. Appreciate general surgery consultation. They recommended keeping the SAMANTHA drain in place until the patient's surgeon rounds on her on Tuesday. Hold on antibiotics for now. If the patient's encephalopathy improves to the point that we can initiated diet, carb controlled diet will be initiated. RENAL/LYTES -anion gap metabolic acidosis initially now with non-anion gap acidosis potentially secondary to bicarb as well as renal insufficiency. Will administer 1 amp of bicarb. Continue electrolyte replacement. SONAL -was improving. Await labs this morning. -keep Sanford until mental status improves ENDO -severe DKA: Adequately resuscitated with crystalloid. 1 amp bicarb now for non-anion gap acidosis. We will transition off the insulin drip to subcutaneous insulin. Pharmacy for glycemic management. HEME - Stable H&H ID -status post cholecystectomy complicated by bile leak with SAMANTHA drain. Patient should have completed appropriate antibiotics. Currently on Rocephin and Flagyl. Appreciate general surgery assistance in guiding duration of antimicrobial therapy and management of SAMANTHA drain. The air in the gallbladder bed is felt to be likely secondary to the ASMANTHA drain or postsurgical. History of biliary leak. HIV Will need to bring in her home medications and restart when she is taking oral. LINES/IV ACCESS - PIVs, SAMANTHA drain GI PROPHYLAXIS- Protonix DVT PROPHYLAXIS - Heparin SQ 50 minutes spent coordinating care on this patient. (2) Hx of gastric bypass: (3) Human immunodeficiency virus [HIV] disease: (4) DM (diabetes mellitus): Admission and Anticipated Discharge Date Admission Date: September 10, 2022 Subjective Patient is awake and opens eyes to commands and is able to follow some simple commands but does not really answer questions or verbalize much. She has been hemodynamically stable. No acute issues overnight. Tachycardia is resolved. Review of Systems Review of Systems: Unobtainable due to reduced consciousness Physical Exam Physical Exam: Slightly encephalopathic Constitutional: WD/WN, vitals as above Neck: trachea midline, no thyromegaly Respiratory: normal respiratory effort, lungs clear to auscultation Cardiovascular: RRR, no murmur, no edema Gastrointestinal (Abdomen): normal bowel sounds, soft, nontender, no hepatosplenomegaly Musculoskeletal: Extremities: extremities normal to inspection Skin: Decubitus ulcers noted over the sacrum. See imaging. Wound consult pending Neurologic: Nonfocal exam Lymphatic: no cervical lymphadenopathy Results & Data Results & Data ([facility]) Vital Signs (Past 12 Hours) Vital Signs Temp Pulse Resp BP Pulse Ox O2 Del Method 09/11/22 08:00 92 H 15 98 09/11/22 08:00 147/79 H 09/11/22 07:57 147/81 H 09/11/22 07:57 90 16 98 09/11/22 07:00 88 12 99 09/11/22 07:00 156/84 H 09/11/22 06:45 84 12 100 09/11/22 08:00 88 09/11/22 04:00 88 13 99 Room Air 09/11/22 04:00 165/94 H 09/11/22 03:00 89 14 98 09/11/22 03:00 133/89 09/11/22 02:00 94 H 16 99 09/11/22 02:00 164/94 H 09/11/22 01:00 93 H 16 99 09/11/22 01:00 171/99 H 09/11/22 00:00 98 H 15 98 09/11/22 00:00 172/93 H 09/10/22 23:00 88 12 98 Room Air 09/10/22 23:00 145/82 H 09/10/22 22:00 95 H 14 97 09/10/22 22:00 140/78 09/11/22 00:00 36.8 C 09/11/22 04:24 36.9 C 09/10/22 23:45 90 Critical Care Results & Data Vital Signs (Past 12 Hours) Vital Signs Temp Pulse Resp BP Pulse Ox O2 Del Method 09/11/22 08:00 92 H 15 98 09/11/22 08:00 147/79 H 09/11/22 07:57 147/81 H 09/11/22 07:57 90 16 98 09/11/22 07:00 88 12 99 09/11/22 07:00 156/84 H 09/11/22 06:45 84 12 100 09/11/22 08:00 88 09/11/22 04:00 88 13 99 Room Air 09/11/22 04:00 165/94 H 09/11/22 03:00 89 14 98 09/11/22 03:00 133/89 09/11/22 02:00 94 H 16 99 09/11/22 02:00 164/94 H 09/11/22 01:00 93 H 16 99 09/11/22 01:00 171/99 H 09/11/22 00:00 98 H 15 98 09/11/22 00:00 172/93 H 09/10/22 23:00 88 12 98 Room Air 09/10/22 23:00 145/82 H 09/10/22 22:00 95 H 14 97 09/10/22 22:00 140/78 09/11/22 00:00 36.8 C 09/11/22 04:24 36.9 C 09/10/22 23:45 90 Lab & Micro Results (Past 24 Hours) RBC 4.80 M/uL (3.93-5.22) 09/10/22 WBC 10.26 K/ul (4.8-10.8) 09/10/22 Hgb 13.7 g/dl (12.0-16.0) 09/10/22 Hct 40.9 % (34.1-44.9) 09/10/22 MCV 85.2 fL (80.0-100.0) 09/10/22 MCH 28.5 pg (25.0-34.0) 09/10/22 MCHC 33.5 g/dL (32.0-36.0) 09/10/22 RDW Standard Deviation 53.1 fL (36.4-46.3) H 09/10/22 RDW Coefficient of Variation 17.0 % (11.5-14.5) H 09/10/22 Plt Count 345 K/uL (130-400) 09/10/22 MPV 11.1 fL (9.4-12.3) 09/10/22 Neutrophils (%) (Auto) 77.2 % 09/10/22 Lymphocytes (%) (Auto) 17.1 % 09/10/22 Monocytes # (Auto) 0.45 K/uL (0.24-0.82) 09/10/22 Eosinophils # (Auto) 0.00 K/uL (0-0.50) 09/10/22 Immature Granulocyte % (Auto) 0.6 % 09/10/22 Neutrophils # (Auto) 7.93 K/uL (1.4-6.5) H 09/10/22 Lymphocytes # (Auto) 1.75 K/uL (1.2-3.4) 09/10/22 Monocytes # (Auto) 0.45 K/uL (0.24-0.82) 09/10/22 Eosinophils # (Auto) 0.00 K/uL (0-0.50) 09/10/22 Basophils # (Auto) 0.07 K/uL (0-0.2) 09/10/22 Immature Granulocyte # (Auto) 0.06 K/uL (0.00-0.02) H 09/10 Polychromasia 1+ 09/10/22 Echinocytes 1+ 09/10/22 Acanthocytes 2+ 09/10/22 Na 145 mmol/L (136-145) 09/11/22 K 4.1 mmol/L (3.5-5.1) 09/11/22 Cl 119 mmol/L (98-107) H 09/11/22 CO2 19 mmol/L (21-32) L 09/11/22 Anion Gap 7 (3-11) 09/11/22 BUN 30 mg/dl (6-23) H 09/11/22 Creatinine 1.47 mg/dl (0.6-1.2) H 09/11/22 Estimated GFR ( Amer) 44.8 ml/min 09/11/22 Estimated GFR (Non-Af Amer) 38.7 ml/min 09/11/22 BUN/Creatinine Ratio 20.4 (10-20) H 09/11/22 Glu 190 mg/dl (70-99(Fasting)) H 09/11/22 Ca 7.9 mg/dl (8.5-10.1) L 09/11/22 Phosphorus Level 1.7 mg/dl (2.5-4.9) L 09/11/22 Total Bilirubin 0.4 mg/dl (0.2-1.0) 09/10/22 AST 10 U/L (13-39) L 09/10/22 ALT 12 U/L (7-52) 09/10/22 Alkaline Phosphatase 163 U/L (34-104) H 09/10/22 TP 8.6 gm/dl (6.0-8.3) H 09/10/22 Albumin 3.3 gm/dl (3.4-5.0) L 09/10/22 Globulin 5.3 gm/dl (2.5-4.0) H 09/10/22 Albumin/Globulin Ratio 0.6 (0.9-2) L 09/10/22 Mg 2.1 mg/dl (1.7-2.4) 09/11/22 01:41 Calcium Level 7.9 mg/dl (8.5-10.1) L 09/11/22 01:41 Venous Blood pH 7.24 (7.36-7.41) L 09/11/22 01:48 Venous Blood Partial Pressure CO2 28 mmHg (38-50) L 09/10/22 15 :15 Venous Blood Partial Pressure O2 54 mmHg 09/10/22 15:15 Venous Blood HCO3 11 mmol/L 09/10/22 15:15 Venous Blood Base Excess -15.6 mEq/L 09/10/22 15:15 Venous Blood Oxygen Saturation 82.9 % 09/10/22 15:15 Arterial Blood pH 7.17 (7.35-7.45) L* 09/10/22 11:32 Arterial Blood Partial Pressure CO2 18 mmHg (35-46) L 09/10/22 11:32 Arterial Blood Partial Pressure O2 104 mmHg (80-95) H 09/10/22 11:32 Arterial Blood HCO3 7 mmol/L (19-24) L 09/10/22 11:32 Arterial Blood Base Excess -19.8 mEq/L (-9-1.8) L 09/10/22 11:3 2 Arterial Blood Oxygen Saturation 95.5 % (90-95) H 09/10/22 11:3 2 Blood Gas Oxygen Given ROOM AIR 09/10/22 11:32 Efrain Test Pos (Pos) 09/10/22 11:32 Diagnostic Findings (Past 24 Hours) Chest X-Ray 09/10/22 10:51 XR chest 1V portable CLINICAL HISTORY: weakness COMPARISON STUDY: Chest radiograph December 15, 2019. FINDINGS: Lung volumes are normal. Lungs are clear. There is no pneumothorax or pleural effusion. Cardiac size is normal. Mediastinal contours are normal. There is no evidence for pulmonary edema. IMPRESSION: No acute cardiopulmonary findings. ACT 112: Negative or not required by law. Electronically signed by: Jalil Hester M.D. 09/10/2022 11:[address] 09/10/22 10:57 CT head/brain wo con CLINICAL HISTORY: 57 years-old Female with altered. Acutely altered mental status TECHNIQUE: Multiple axial CT images of the head were obtained without contrast. A dose lowering technique was utilized adhering to the principles of ALARA. CT DOSE: 1247.81 mGy.cm COMPARISON: 08/25/2022 FINDINGS: No acute intracranial hemorrhage, midline shift, intracranial mass, hydrocephalus, territorial ischemia or abnormal extra-axial collection. Motion degraded exam. Portion of the study was then repeated. Involutional changes. White matter hypodensities suggestive of chronic microvascular ischemic disease. Senescent calcifications of the basal ganglia. The calvarium is intact. Prior bilateral lens repair. The paranasal sinuses, mastoid air cells, and middle ear cavities are clear. IMPRESSION: Motion degraded study. No acute intracranial abnormality. ACT 112: Negative or not required by law. The above report was generated using voice recognition software. It may contain grammatical, syntax or spelling errors. Electronically signed by: Ben Hart M.D. 09/10/2022 12:58 PM Abdomen/Pelvis CT 09/10/22 12:10 CT OF THE ABDOMEN AND PELVIS WITHOUT CONTRAST CLINICAL HISTORY: high creatinine, recent surgery COMPARISON STUDY: CT of the abdomen and pelvis August 24, 2022 and MRCP August 26, 2022. TECHNIQUE: Axial images of the abdomen and pelvis were obtained without IV contrast. Images were reviewed in the axial, sagittal, and coronal planes. Automated exposure control was utilized for the study. A dose lowering technique was utilized adhering to the principles of ALARA. FINDINGS: Lung bases are unremarkable. No pneumatosis or portal venous gas is present. Evaluation of the abdomen and pelvis is suboptimal on this unenhanced exam. There are postoperative findings consistent with a cholecystectomy. Surgical drain within the operative bed is in place. A small amount of extraluminal gas within the cholecystectomy bed is noted. Pneumobilia is expected. Biliary stents are well-positioned. There are postoperative findings from Morris-en-Y gastric bypass. A stent extending from the jejunal limb to the excluded stomach is in place. No drainable fluid collection is present. There is no evidence for a bowel obstruction. No renal, ureteral or bladder calculi are present. There's no hydronephrosis. Sanford balloon and gas within the bladder noted. No hepatic lesions are identified on this unenhanced examination. IMPRESSION: 1. No urinary calculi or hydronephrosis. 2. Status post cholecystectomy. Small amount of gas within the cholecystectomy bed is nonspecific. This may be postsurgical or related to the indwelling drain. However, gas related to a biliary/cystic duct remnant leak, given pneumobilia, could appear similar. 3. No bowel obstruction. 4. Status post Morris-en-Y gastric bypass. Placement of an endoscopic stent between the excluded stomach and jejunal limb, as described above. 5. Pneumobilia, as expected. Appropriately positioned biliary stents. ACT 112: Negative or not required by law. Electronically signed by: Jalil Hester M.D. 09/10/2022 1:09 PM I & O Totals 24 Hours 09/10/22 09/11/22 09/12/22 06:59 06:59 06:59 Intake Total 6350.589 / 6350.589 1101.980 / 1101.980 Output Total 986 / 986 Balance 5364.589 / 5364.589 1101.980 / 1101.980 Cumulative 09/10/22 10:39 thru 09/11/22 09:30 Intake Total 7452.569 Output Total 986 Balance 6466.569 RT Ventilator Mngmt (Last Documented) Ventilator Ordered Settings Respiratory Rate 15 09/11/22 08:00 Ventilator - PT Measurements Respiratory Rate 15 Coding Level of Care Code 31445 SUB INP/OBS CARE 3/50MIN Diagnoses DKA (diabetic ketoacidosis) E11.10 Hx of gastric bypass Z98.84 Human immunodeficiency virus [HIV] disease B20 DM (diabetes mellitus) E11.9
[2022-09-11 10:14] LABS: BUN Creatinine Ratio 16.8 (10-20); Creatinine Clr Calc Pharmacy 48.7 ml/min; Est GFR (African American) 48.8 ml/min; Est GFR (Non-African American) 42.1 ml/min
[2022-09-11] MEDS ORDERED: LANTUS PER UNIT CHARGE SQ ONE (10:15)
[2022-09-11 10:16] LABS: Phosphorus 1.2 mg/dl (2.5-4.9)
[2022-09-11] MEDS ORDERED: SODIUM PHOSPHATE 3 MMOL/1 ML INFUSION IV STA (10:19)
[2022-09-11] MEDS ORDERED: SODIUM PHOSPHATE 12 MMOL in SODIUM CHLORIDE 0.9% 250 ML IV ONE (10:30)
--- NOTE | 2022-09-11 13:01 | Hospitalist Progress Note ---
Date of Service September 11, 2022 Assessment & Plan (1) DKA (diabetic ketoacidosis): (2) Acute metabolic encephalopathy: (3) High anion gap metabolic acidosis: (4) Lactic acidosis: (5) SONAL (acute kidney injury): Plan This is a 57-year-old female who presents to ED with significant past medical history of HIV on HAART, T2DM, history of bariatric surgery, HLD, history of moderate CLEMENT no longer on CPAP who presented to ER secondary to lethargy and weakness x1 week. Patient recently hospitalized 08/25-08/31/22 2/2 acute cholecystitis complicated by partial GB resection, bile leak s/p SAMANTHA drain, requiring transfer to [facility] for EGD due to hx of bariatric surgery and subsequent stent placement. Pt discharged on oral antibiotics and recently started on Augmentin. 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 During time of admission A1C 10.9, currently not on diabetic regimen. Returns to ED today 2/2 weakness, lethargy x 1 week. Acute metabolic encephalopathy Diabetic ketoacidosis [id number] A1c 10.9 High Anion gap Metabolic acidosis Lactic acidosis -resolved Was admitted to ICU Started on insulin gtt per protocol, DKA goal range 150-250 Received adequate amount of intravenous fluid with electrolyte replacement Appreciate bureau chief input and recommendation Still remains n.p.o. due to lethargy and minimally communicative Pt will need to meet with research test engine operator as well as will require initiation of outpt tx of diabetes, currently not on any oral or injectable medications Medically much improved and can be transferred to telemetry unit for continuation of care Acute kidney injury kidney function was normal prior to recent hospitalizations likely in setting of dehydration, dka CTdid not show any obstruction Received adequate amount of intravenous fluid Kidney function has been improving Continue intravenous fluid for now Hypernatremia 2/2 to dehydration and dka corrected sodium 153 Received half-normal saline Sodium level has been corrected as of this morning is 144 Acute cholecystitis s/p partial GB removal with bile leak s/p SAMANTHA drain by Dr. Villalta 08/25/22 - currently on Augmentin as outpt EGDE/EGD procedure done at [facility] and stents placed no acute infection, but will continue IV antibiotics with rocephin, would resume oral augmentin when pt able to tolerate Pt is to f/u with Dr. Villalta as OP for drain removal, if still hospitalized will likely need to recall surgery for removal at that time SAMANTHA drain remains in situ and the drainage is minimal CT did not show any increase in accumulation of the fluid HIV on biktarvy as outpatient resume when able Morbid obesity, hx of gastric bypass BMI 48.9 when able pt will require weight loss counseling DVT Ppx: SQ Heparin Dispo: Admit to ICU FULL CODE PCP : Dr. Irizarry Admission and Anticipated Discharge Date Admission Date: September 10, 2022 Subjective 09/11/2022 The patient was seen and examined in ICU She remains minimally communicative but looks much better Complains to extreme weakness and tiredness but denies any other distress Review of Systems Review of Systems: All systems reviewed and are unremarkable except as noted below Physical Exam Physical Exam: Lying in bed comfortably Constitutional: well developed, well nourished, + ill appearing and + obese Results & Data Results & Data ([facility]) Vital Signs (Past 12 Hours) Vital Signs Temp Pulse Resp BP Pulse Ox O2 Del Method 09/11/22 11:13 92 H 09/11/22 08:00 92 H 15 98 09/11/22 08:00 147/79 H 09/11/22 07:57 147/81 H 09/11/22 07:57 90 16 98 09/11/22 07:00 88 12 99 09/11/22 07:00 156/84 H 09/11/22 06:45 84 12 100 09/11/22 08:00 88 09/11/22 04:00 88 13 99 Room Air 09/11/22 04:00 165/94 H 09/11/22 03:00 89 14 98 09/11/22 03:00 133/89 09/11/22 02:00 94 H 16 99 09/11/22 02:00 164/94 H 09/11/22 01:00 93 H 16 99 09/11/22 01:00 171/99 H 09/11/22 04:24 36.9 C Laboratory Results [facility] 09/10/22 09/10/22 09/10/22 15:15 16:56 21:14 Sodium 149 H 150 H 146 H Potassium 4.2 D 3.6 3.8 Chloride 120 H 123 H 120 H Carbon Dioxide 10 L 15 L 17 L BUN 41 H 38 H 34 H Creatinine 2.07 H 1.81 H 1.66 H Glucose 352 H* 229 H 167 H Calcium 8.3 L 8.3 L 8.0 L 09/11/22 09/11/22 01:41 09:25 Sodium 145 144 Potassium 4.1 4.0 Chloride 119 H 118 H Carbon Dioxide 19 L 21 BUN 30 H 23 Creatinine 1.47 H 1.37 H Glucose 190 H 247 H Calcium 7.9 L 8.0 L Medications Administered Current Inpatient Medications Dextrose (Dextrose 50% 50 Ml Syringe) 25 - 50 ml IV UD PRN; Protocol PRN Reason: Hypoglycemia Protocol Stop: 10/10/22 12:17 Glucagon (Glucagon For Inj 1 Mg Vial) 1 mg SQ UD PRN; Protocol PRN Reason: Hypoglycemia Protocol Stop: 10/10/22 12:17 Glucose (Glucose 40% Gel 15 Gm Tube) 15 - 30 gm PO UD PRN; Protocol PRN Reason: Hypoglycemia Protocol Stop: 10/10/22 12:17 Glucose (Glucose 10 Tab/Tube) 4 - 8 tab PO UD PRN; Protocol PRN Reason: Hypoglycemia Treatment Stop: 10/10/22 12:17 Heparin Sodium (Porcine) (Heparin Sod 5,000 Unit/0.5 Ml Vial) 5,000 units SQ Q8 [facility] Stop: 10/10/22 21:59 Last Admin: 09/11/22 06:01 Dose: 5,000 units Insulin Human Regular 250 (units/ Sodium Chloride) 250 mls @ 3.7 mls/hr IV .Q24H [facility]; Protocol Stop: 10/10/22 12:14 Last Titration: 09/11/22 12:05 Dose: 3.7 units/hr, 3.7 mls/hr Pantoprazole Sodium 40 mg/ (Syringe) 10 mls @ 5 mls/min IV DAILY [facility] Stop: 10/10/22 16:29 Last Admin: 09/11/22 07:43 Dose: 5 mls/min Ceftriaxone Sodium 2,000 mg/ (Dextrose) 70 mls @ 100 mls/hr IV Q24H [facility]; Pro tocol Stop: 09/14/22 20:59 Last Infusion: 09/11/22 00:14 Dose: Infused Potassium Chloride/Dextrose/Sod Cl (D5w And 1/2nss + 20meq Kcl) 20 meq in 1,000 mls @ 200 mls/hr IV .Q5H [facility] Stop: 10/10/22 17:29 Last Admin: 09/11/22 09:30 Dose: 200 mls/hr Metronidazole (Flagyl) 500 mg in 100 mls @ 100 mls/hr IV Q8 [facility] Stop: 09/20/22 19:29 Last Infusion: 09/11/22 07:08 Dose: Infused Sodium Phosphate 12 mmol/ (Sodium Chloride) 254 mls @ 88 mls/hr IV ONE ONE Stop: 09/11/22 13:23 Last Admin: 09/11/22 10:36 Dose: 88 mls/hr Insulin Aspart (Insulin Aspart Per Unit) 0 units SC Q6 [facility] Stop: 10/11/22 11:59 Last Admin: 09/11/22 12:07 Dose: Not Given Miscellaneous (Carbohydrates For Hypoglycemia ) 15 - 30 gm PO UD PRN PRN Reason: Hypoglycemia Protocol Stop: 10/10/22 12:17 Miscellaneous Information (Pharmacy Glycemic Mgmt Consult) 1 each N/A UD PRN; Protocol PRN Reason: Consult Stop: 10/10/22 15:22 Ondansetron HCl (Ondansetron Inj 2 Mg/Ml 2 Ml Vial) 4 mg IV Q4H PRN PRN Reason: Nausea Stop: 10/11/22 01:14 Last Admin: 09/11/22 08:29 Dose: 4 mg
[2022-09-11] MEDS: INSULIN REGULAR 250 UNITS in SODIUM CHLORIDE 0.9% 247.5 ML IV SCH (13:14)
--- NOTE | 2022-09-11 15:14 | Pharmacy Report ---
Pharmacy Glycemic Short Note 2 - Date of Service September 11, 2022 - Glycemic Short BSG Results (Last 24 hours): 09/10/22 09/10/22 09/10/22 15:15 16:04 16:56 Glucose 352 H* 229 H POC Glucose 261 H 09/10/22 09/10/22 09/10/22 17:03 18:18 19:58 Glucose POC Glucose 213 H 211 H 167 H 09/10/22 09/10/22 09/10/22 20:56 21:14 22:02 Glucose 167 H POC Glucose 165 H 142 H 09/10/22 09/11/22 09/11/22 23:26 01:13 01:41 Glucose 190 H POC Glucose 156 H 176 H 09/11/22 09/11/22 09/11/22 02:08 04:05 06:12 Glucose POC Glucose 178 H 166 H 147 H 09/11/22 09/11/22 09/11/22 07:34 08:26 09:25 Glucose 247 H POC Glucose 195 H 183 H 09/11/22 09/11/22 09/11/22 09:51 11:05 12:03 Glucose POC Glucose 228 H 259 H 228 H 09/11/22 09/11/22 13:16 13:55 Glucose POC Glucose 210 H 188 H OUTPATIENT ANTIDIABETIC REGIMEN: * N/A ASSESSMENT: * 57 y/o F admitted for DKA yesterday. Patient has history of diabetes with morbid obesity but has been non-compliant on anti-diabetic meds in the past. It does not look like she was on any anti-diabetic meds recently. Of note, she was admitted in the hospital at the end of last month for cholecystitis. * HbA1c = 10.9% on 08/25/22 * Insulin drip was started for patient yesterday. Drip rate trended down to ~3.1 units/hr this morning and BSG at goal. Labs within normal limits. * A Lantus dose of 15 units was given this morning to help with transitioning the insulin off. Dosing was based off data from last admission. * Insulin drip discontinued around 1400 and Novolog parameters ordered based on stress between 2 and 3. * Patient is NPO. IV fluids with Dextrose rate decreased after insulin drip discontinuation. PLAN FOR INPATIENT GLYCEMIC CONTROL: * Basal insulin * Lantus 15 units SQ today AM, reassess tomorrow * Bolus insulin * NovoLog per scale ACHS or Q6hrs while NPO. Added check at 0400 * Goal Range: Low 110 mg/dL - High 140 mg/dL * Correction Factor: 25 mg/dL/unit * Nutritional / Prandial insulin per carb ratio of 1 unit per 8 grams CHO consumed
[2022-09-11] MEDS ORDERED: INSULIN ASPART PER UNIT SC ONE (16:00)
[2022-09-11] MEDS: cefTRIAXone SODIUM 2,000 MG in DEXTROSE 5% 50 ML IV SCH (21:45)
[2022-09-12] MEDS: INSULIN ASPART PER UNIT SC SCH ×5 (00:19→21:39)
[2022-09-12] MEDS: D5W AND 1/2NSS + 20MEQ KCL 20 MEQ/1,000 ML BAG IV SCH (04:18)
[2022-09-12] MEDS ORDERED: Nursing to Pharmacy Communication SCH (04:45)
[2022-09-12] MEDS: metroNIDAZOLE 500 MG/100 ML BAG IV SCH ×3 (05:29→22:32)
[2022-09-12] MEDS: HEPARIN SOD 5,000 UNIT/0.5 ML VIAL SQ SCH ×3 (05:30→21:48)
[2022-09-12] MEDS ORDERED: INSULIN HUMAN REGULAR PER UNIT 8 UNITS in SYRINGE 7.92 ML IV ONE (08:45)
[2022-09-12] MEDS ORDERED: LANTUS PER UNIT CHARGE SQ SCH ×2 (09:00→21:00)
[2022-09-12] MEDS: PANTOprazole 40 MG in SYRINGE 0 ML IV SCH ×2 (09:06→09:17)
--- NOTE | 2022-09-12 13:15 | Pharmacy Report ---
Pharmacy Glycemic Short Note 2 - Date of Service September 12, 2022 - Glycemic Short BSG Results (Last 24 hours): 09/11/22 09/11/22 09/11/22 13:16 13:55 16:09 POC Glucose 210 H 188 H 212 H 09/11/22 09/12/22 09/12/22 18:18 00:08 07:54 POC Glucose 190 H 287 H 352 H* 09/12/22 09/12/22 07:57 11:49 POC Glucose 377 H* 196 H OUTPATIENT ANTIDIABETIC REGIMEN: * N/A ASSESSMENT: 09/12: * After insulin drip was discontinued yesterday, patient received 10 units of bolus Novolog but BSGs trended up above 200 mg/dl. * Fasting BSG today was 377 mg/dl. Novolog parameters tightened, Lantus 15 units given and additionally 8 units of IV Regular insulin bolus given to correct hyperglycemia. * Pre-lunch BSG trended down to 196 mg/dl. Lantus HS dose scale conservatively added for tonight based on BSG. * Patient seems to have no food intake since this morning though diet was resumed. * Also, added overnight checks. 09/11/22: * 57 y/o F admitted for DKA yesterday. Patient has history of diabetes with morbid obesity but has been non-compliant on anti-diabetic meds in the past. It does not look like she was on any anti-diabetic meds recently. Of note, she was admitted in the hospital at the end of last month for cholecystitis. * HbA1c = 10.9% on 08/25/22 * Insulin drip was started for patient yesterday. Drip rate trended down to ~3.1 units/hr this morning and BSG at goal. Labs within normal limits. * A Lantus dose of 15 units was given this morning to help with transitioning the insulin off. Dosing was based off data from last admission. * Insulin drip discontinued around 1400 and Novolog parameters ordered based on stress between 2 and 3. * Patient is NPO. IV fluids with Dextrose rate decreased after insulin drip discontinuation. PLAN FOR INPATIENT GLYCEMIC CONTROL: * Basal insulin * Lantus 15 units SQ QAM * Lantus 5-15 units SQ HS based on BSG * Bolus insulin * NovoLog per scale ACHS or Q6hrs while NPO. Added check at 0400 * Goal Range: Low 110 mg/dL - High 140 mg/dL * Correction Factor: 20 mg/dL/unit * Nutritional / Prandial insulin per carb ratio of 1 unit per 6 grams CHO consumed
--- NOTE | 2022-09-12 14:51 | Hospitalist Progress Note ---
Date of Service September 12, 2022 Assessment & Plan (1) DKA (diabetic ketoacidosis): (2) Acute metabolic encephalopathy: (3) High anion gap metabolic acidosis: (4) Lactic acidosis: (5) SONAL (acute kidney injury): Plan This is a 57-year-old female who presents to ED with significant past medical history of HIV on HAART, T2DM, history of bariatric surgery, HLD, history of moderate CLEMENT no longer on CPAP who presented to ER secondary to lethargy and weakness x1 week. Patient recently hospitalized 08/25-08/31/22 2/2 acute cholecystitis complicated by partial GB resection, bile leak s/p SAMANTHA drain, requiring transfer to [facility] for EGD due to hx of bariatric surgery and subsequent stent placement. Pt discharged on oral antibiotics and recently started on Augmentin. 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 During time of admission A1C 10.9, currently not on diabetic regimen. Returns to ED today 2/2 weakness, lethargy x 1 week. Acute metabolic encephalopathy Diabetic ketoacidosis [id number] A1c 10.9 High Anion gap Metabolic acidosis Lactic acidosis -resolved Was admitted to ICU Started on insulin gtt per protocol, DKA goal range 150-250 Received adequate amount of intravenous fluid with electrolyte replacement Appreciate building superintendent input and recommendation Still remains n.p.o. due to lethargy and minimally communicative Pt will need to meet with orientation and mobility instructor as well as will require initiation of outpt tx of diabetes, currently not on any oral or injectable medications The patient has been feeling much better and talking almost normally Has been eating normally Denies any significant symptoms except weakness We will ask for PT and OT evaluation Acute kidney injury kidney function was normal prior to recent hospitalizations likely in setting of dehydration, dka CTdid not show any obstruction Received adequate amount of intravenous fluid Kidney function has been improving Advised to drink more fluid and IV fluid will be discontinued Hypernatremia 2/2 to dehydration and dka corrected sodium 153 Received half-normal saline Sodium level has been corrected as of this morning is 144 Acute cholecystitis s/p partial GB removal with bile leak s/p SAMANTHA drain by Dr. Villalta 08/25/22 - currently on Augmentin as outpt EGDE/EGD procedure done at [facility] and stents placed no acute infection, but will continue IV antibiotics with rocephin, would resume oral augmentin when pt able to tolerate Pt is to f/u with Dr. Villalta as OP for drain removal, if still hospitalized will likely need to recall surgery for removal at that time SAMANTHA drain remains in situ and the drainage is minimal CT did not show any increase in accumulation of the fluid SAMANTHA drain is still draining-appreciate surgery input and recommendation HIV on biktarvy as outpatient resume when able Morbid obesity, hx of gastric bypass BMI 48.9 when able pt will require weight loss counseling DVT Ppx: SQ Heparin Dispo: Admit to ICU FULL CODE PCP : Dr. Irizarry Admission and Anticipated Discharge Date Admission Date: September 10, 2022 Subjective 09/11/2022 The patient was seen and examined in ICU She remains minimally communicative but looks much better Complains to extreme weakness and tiredness but denies any other distress 09/12/2022 The patient was seen and examined in telemetry unit She has been feeling much better and has been eating from this morning Remains generally very weak and wants to go home Review of Systems Review of Systems: All systems reviewed and are unremarkable except as noted below Physical Exam Physical Exam: Lying in bed comfortably Constitutional: well developed, well nourished, + ill appearing and + obese Eyes: PERRL, conjunctivae normal, anicteric sclerae ENMT: external ear and nose normal, oropharynx normal Neck: trachea midline, no thyromegaly Respiratory: no respiratory distress Auscultation: + diminished lung sounds; no crackles Cardiovascular: Rate/Rhythm: regular rate and regular rhythm; not tachycardic Heart Sounds: normal S1 and normal S2; no murmur Extremities: no edema Gastrointestinal (Abdomen): Inspection/Auscultation: normal bowel sounds; abdomen not distended Percussion/Palpation: abdomen soft; abdomen nontender Musculoskeletal: No acute arthritis involving any joint Neurologic: normal touch/pain/proprioception and + focal motor deficit; + does not move all extremities Lymphatic: no cervical or axillary lymphadenopathy Results & Data Results & Data ([facility]) Vital Signs (Past 12 Hours) Vital Signs Temp Pulse Pulse Resp BP Pulse Ox O2 Del Method 09/12/22 11:51 37.1 C 73 20 130/82 94 Room Air 09/12/22 07:58 73 09/12/22 07:36 36.7 C 88 20 141/84 H 99 Room Air 09/12/22 04:11 37.1 C 69 18 133/81 97 Room Air Medications Administered Current Inpatient Medications Dextrose (Dextrose 50% 50 Ml Syringe) 25 - 50 ml IV UD PRN; Protocol PRN Reason: Hypoglycemia Protocol Stop: 10/10/22 12:17 Glucagon (Glucagon For Inj 1 Mg Vial) 1 mg SQ UD PRN; Protocol PRN Reason: Hypoglycemia Protocol Stop: 10/10/22 12:17 Glucose (Glucose 40% Gel 15 Gm Tube) 15 - 30 gm PO UD PRN; Protocol PRN Reason: Hypoglycemia Protocol Stop: 10/10/22 12:17 Glucose (Glucose 10 Tab/Tube) 4 - 8 tab PO UD PRN; Protocol PRN Reason: Hypoglycemia Treatment Stop: 10/10/22 12:17 Heparin Sodium (Porcine) (Heparin Sod 5,000 Unit/0.5 Ml Vial) 5,000 units SQ Q8 [facility] Stop: 10/10/22 21:59 Last Admin: 09/12/22 13:51 Dose: 5,000 units Pantoprazole Sodium 40 mg/ (Syringe) 10 mls @ 5 mls/min IV DAILY [facility] Stop: 10/10/22 16:29 Last Admin: 09/12/22 09:17 Dose: Not Given Ceftriaxone Sodium 2,000 mg/ (Dextrose) 70 mls @ 100 mls/hr IV Q24H [facility]; Protocol Stop: 09/14/22 20:59 Last Infusion: 09/12/22 04:19 Dose: Infused Potassium Chloride/Dextrose/Sod Cl (D5w And 1/2nss + 20meq Kcl) 20 meq in 1,000 mls @ 75 mls/hr IV .[id number] [facility] Stop: 10/10/22 17:29 Last Admin: 09/12/22 04:18 Dose: 75 mls/hr Metronidazole (Flagyl) 500 mg in 100 mls @ 100 mls/hr IV Q8 [facility] Stop: 09/20/22 19:29 Last Admin: 09/12/22 13:51 Dose: 100 mls/hr Insulin Aspart (Insulin Aspart Per Unit) 0 units SC ACHS [facility] Stop: 10/12/22 07:29 Last Admin: 09/12/22 12:54 Dose: 3 units Insulin Aspart (Insulin Aspart Per Unit) 0 units SC 0000,[id number] [facility] Stop: 09/13/22 04:01 Insulin Glargine (Lantus Per Unit Charge) 15 units SQ QAM [facility] Stop: 10/12/22 08:59 Last Admin: 09/12/22 09:07 Dose: 15 units Insulin Glargine (Lantus Per Unit Charge) 0 units SQ HS [facility]; Protocol Stop: 10/12/22 20:59 Miscellaneous (Carbohydrates For Hypoglycemia ) 15 - 30 gm PO UD PRN PRN Reason: Hypoglycemia Protocol Stop: 10/10/22 12:17 Miscellaneous Information (Pharmacy Glycemic Mgmt Consult) 1 each N/A UD PRN; Protocol PRN Reason: Consult Stop: 10/10/22 15:22 Ondansetron HCl (Ondansetron Inj 2 Mg/Ml 2 Ml Vial) 4 mg IV Q4H PRN PRN Reason: Nausea Stop: 10/11/22 01:14 Last Admin: 09/11/22 08:29 Dose: 4 mg
[2022-09-12] MEDS: cefTRIAXone SODIUM 2,000 MG in DEXTROSE 5% 50 ML IV SCH (21:48)
[2022-09-13] MEDS: INSULIN ASPART PER UNIT SC SCH ×6 (00:53→20:34)
[2022-09-13 06:18] LABS: Basophils # (auto) 0.04 K/uL (0-0.2); Eosinophils # (auto) 0.07 K/uL (0-0.50); Eosinophils % (auto) 1.8 %; Hematocrit (blood only) 33.5 % (34.1-44.9); Hemoglobin 11.7 g/dl (12.0-16.0); Immature Granulocytes # (auto) 0.03 K/uL (0.00-0.02); Immature Granulocytes % (auto) 0.8 %; Lymphocytes # (auto) 1.31 K/uL (1.2-3.4); Lymphocytes % (auto) 33.7 %; Mean Corpuscular Hemoglobin 28.3 pg (25.0-34.0); Mean Corpuscular Hgb Conc 34.9 g/dL (32.0-36.0); Mean Corpuscular Volume 81.1 fL (80.0-100.0); Mean Platelet Volume 11.5 fL (9.4-12.3); Monocytes # (auto) 0.31 K/uL (0.24-0.82); Neutrophils # (auto) 2.13 K/uL (1.4-6.5); Neutrophils % (auto) 54.7 %; Platelet Count 175 K/uL (130-400); RDW Coefficient of Variation 15.3 % (11.5-14.5); RDW Standard Deviation 45.1 fL (36.4-46.3); Red Blood Count 4.13 M/uL (3.93-5.22); White Blood Count 3.89 K/ul (4.8-10.8)
[2022-09-13] MEDS: metroNIDAZOLE 500 MG/100 ML BAG IV SCH (06:19)
[2022-09-13] MEDS: HEPARIN SOD 5,000 UNIT/0.5 ML VIAL SQ SCH ×3 (06:19→21:32)
[2022-09-13 06:47] LABS: BUN Creatinine Ratio 10.6 (10-20); Calcium 7.9 mg/dl (8.5-10.1); Creatinine Clr Calc Pharmacy 68.2 ml/min; Est GFR (African American) 86.9 ml/min; Magnesium 1.6 mg/dl (1.7-2.4); Phosphorus 1.9 mg/dl (2.5-4.9); Potassium 3.3 mmol/L (3.5-5.1)
[2022-09-13] MEDS ORDERED: POTASSIUM PHOS 3 MMOL/1 ML INFUSION IV STA (07:50)
[2022-09-13] MEDS ORDERED: POTASSIUM PHOSPHATE 30 MMOL in SODIUM CHLORIDE 0.9% 500 ML IV ONE (08:00)
[2022-09-13] MEDS: MAGNESIUM SULFATE / D5W 1 GM/100 ML BAG IV SCH ×2 (08:59→12:08)
[2022-09-13] MEDS ORDERED: LANTUS PER UNIT CHARGE SQ SCH ×3 (09:00→21:00)
[2022-09-13] MEDS: PANTOprazole 40 MG in SYRINGE 0 ML IV SCH (09:04)
--- NOTE | 2022-09-13 11:32 | Surgery Progress Note ---
Date of Service September 13, 2022 Assessment & Plan (1) Postoperative follow-up: Plan: pt is a 57 year-old female who was admitted to hospital for DKA, pt is doing better, no abdominal pain, tolerated diet, no fever, IMP: postoperative follow up, pt is doing better, Thanks hospitalist care this pt, pt wants to go home today, pt can be discharged today, keep the SAMANTHA drainage, record SAMANTHA out put every day, F/U me on 09/21/2022, I answered all questions, Thanks, Admission and Anticipated Discharge Date Admission Date: September 10, 2022 Supervising Physician Co-Signing Physician Notes Attending addendum: The patient was seen and examined in emergency room in presence of the family members She is a status post subtotal cholecystectomy on 08/26 followed by biliary stent placement and gastrojejunal stent placement and cholecystectomy bed drainage for bile leak following surgery which was done in [facility] She has been complaining of increasing lethargy, has been almost bedbound and not been eating or drinking much for the last 4 days Brought into ER via 911 call and noted to have DKA with acute renal failure On examination She has been very drowsy and communicating with minimal words Noted to be tachycardic otherwise hemodynamically stable and saturating normally Chest-decreased breath sounds without any crackles Heart-S1-S2, tachycardia Abdomen-distended, mildly tender, drain tube in situ, bowel sound decreased Extremities-negative for any edema TRUCKER HAND-alert and awake. Very drowsy and lethargic. Minimally communicative but moving all limbs Her admission labs, EKG and imaging studies reviewed Acute metabolic encephalopathy secondary to She has DKA with high anion gap metabolic acidosis SONAL Status post recent subtotal cholecystectomy, status post biliary stent and gastrojejunal stent placement and also has intra-abdominal drains Has been getting IV fluid, IV insulin with IV antibiotic in ICU Agree with assessment and plan as outlined above by Daisy Christensen 09/11/2022 The patient was seen and examined in ICU She remains minimally communicative but looks much better Complains to extreme weakness and tiredness but denies any other distress 09/12/2022 The patient was seen and examined in telemetry unit She has been feeling much better and has been eating from this morning Remains generally very weak and wants to go home 09/13/2022 11:30AM, Dr. Villalta I reviewed pt's H/P, labs and CT scan with pt, pt is doing better, no abdominal pain, tolerated diet, no nausea, no vomiting, no fever, SAMANTHA 150ml clear color Physical Exam Constitutional: WD/WN, vitals as above Eyes: PERRL, conjunctivae normal, anicteric sclerae Neck: trachea midline, no thyromegaly Respiratory: normal respiratory effort, lungs clear to auscultation Cardiovascular: RRR, no murmur, no edema Gastrointestinal (Abdomen): soft, NT, ND, SAMANTHA intact, no redness, BS +, Musculoskeletal: no cyanosis or clubbing, extremities motor strength 5/5 Neurologic: patellar DTR's 2+ bilat, sensation intact Psychiatric: A+Ox3, euthymic affect Results & Data ([facility]) Vital Signs (Past 12 Hours) Vital Signs Temp Pulse Pulse Resp BP Pulse Ox O2 Del Method 09/13/22 10:45 37.1 C 87 17 132/71 98 Room Air 09/13/22 08:00 70 09/13/22 07:33 37.1 C 101 H 19 136/94 99 Room Air 09/13/22 03:29 37.2 C 101 H 18 146/90 H 97 Room Air 09/13/22 00:42 37.0 C 87 18 125/80 98 Room Air 09/13/22 00:00 66 Laboratory Results Abnormal lab results 09/12/22 09/12/22 09/13/22 Range/Units 11:49 20:34 00:20 WBC (4.8-10.8) K/ul Hgb (12.0-16.0) g/dl Hct (34.1-44.9) % RDW Coeff of Tami (11.5-14.5) % Immature Gran # (Auto) (0.00-0.02) K/uL Potassium (3.5-5.1) mmol/L Chloride (98-107) mmol/L Glucose (70-99(Fasting)) mg/dl POC Glucose 196 H 203 H 112 H (70-99) mg/dl Calcium (8.5-10.1) mg/dl Phosphorus (2.5-4.9) mg/dl Magnesium (1.7-2.4) mg/dl 09/13/22 09/13/22 09/13/22 Range/Units 04:57 05:52 05:52 WBC 3.89 L (4.8-10.8) K/ul Hgb 11.7 L (12.0-16.0) g/dl Hct 33.5 L (34.1-44.9) % RDW Coeff of Tami 15.3 H (11.5-14.5) % Immature Gran # (Auto) 0.03 H (0.00-0.02) K/uL Potassium 3.3 L (3.5-5.1) mmol/L Chloride 110 H (98-107) mmol/L Glucose 161 H (70-99(Fasting)) mg/dl POC Glucose 154 H (70-99) mg/dl Calcium 7.9 L (8.5-10.1) mg/dl Phosphorus 1.9 L (2.5-4.9) mg/dl Magnesium 1.6 L (1.7-2.4) mg/dl 09/13/22 Range/Units 08:02 WBC (4.8-10.8) K/ul Hgb (12.0-16.0) g/dl Hct (34.1-44.9) % RDW Coeff of Tami (11.5-14.5) % Immature Gran # (Auto) (0.00-0.02) K/uL Potassium (3.5-5.1) mmol/L Chloride (98-107) mmol/L Glucose (70-99(Fasting)) mg/dl POC Glucose 139 H (70-99) mg/dl Calcium (8.5-10.1) mg/dl Phosphorus (2.5-4.9) mg/dl Magnesium (1.7-2.4) mg/dl Diagnostic Findings CT OF THE ABDOMEN AND PELVIS WITHOUT CONTRAST CLINICAL HISTORY: high creatinine, recent surgery COMPARISON STUDY: CT of the abdomen and pelvis August 24, 2022 and MRCP August 26, 2022. TECHNIQUE: Axial images of the abdomen and pelvis were obtained without IV contrast. Images were reviewed in the axial, sagittal, and coronal planes. Automated exposure control was utilized for the study. A dose lowering technique was utilized adhering to the principles of ALARA. FINDINGS: Lung bases are unremarkable. No pneumatosis or portal venous gas is present. Evaluation of the abdomen and pelvis is suboptimal on this unenhanced exam. There are postoperative findings consistent with a cholecystectomy. Surgical drain within the operative bed is in place. A small amount of extraluminal gas within the cholecystectomy bed is noted. Pneumobilia is expected. Biliary stents are well-positioned. There are postoperative findings from Morris-en-Y gastric bypass. A stent extending from the jejunal limb to the excluded stomach is in place. No drainable fluid collection is present. There is no evidence for a bowel obstruction. No renal, ureteral or bladder calculi are present. There's no hydronephrosis. Sanford balloon and gas within the bladder noted. No hepatic lesions are identified on this unenhanced examination. IMPRESSION: 1. No urinary calculi or hydronephrosis. 2. Status post cholecystectomy. Small amount of gas within the cholecystectomy bed is nonspecific. This may be postsurgical or related to the indwelling drain. However, gas related to a biliary/cystic duct remnant leak, given pneumobilia, could appear similar. 3. No bowel obstruction. 4. Status post Morris-en-Y gastric bypass. Placement of an endoscopic stent between the excluded stomach and jejunal limb, as described above. 5. Pneumobilia, as expected. Appropriately positioned biliary stents.
[2022-09-13] MEDS: POT PHOSPHATE MONOBASIC W/ SOD TAB PO SCH ×3 (13:02→21:31)
[2022-09-13] MEDS: MAGNESIUM OXIDE 400 MG TAB PO SCH ×2 (13:02→21:31)
--- NOTE | 2022-09-13 15:50 | Hospitalist Progress Note ---
Date of Service September 13, 2022 Assessment & Plan (1) DKA (diabetic ketoacidosis): (2) Acute metabolic encephalopathy: (3) High anion gap metabolic acidosis: (4) Lactic acidosis: (5) SONAL (acute kidney injury): Plan This is a 57-year-old female who presents to ED with significant past medical history of HIV on HAART, T2DM, history of bariatric surgery, HLD, history of moderate CLEMENT no longer on CPAP who presented to ER secondary to lethargy and weakness x1 week. Patient recently hospitalized 08/25-08/31/22 2/2 acute cholecystitis complicated by partial GB resection, bile leak s/p SAMANTHA drain, requiring transfer to [facility] for EGD due to hx of bariatric surgery and subsequent stent placement. Pt discharged on oral antibiotics and recently started on Augmentin. 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 During time of admission A1C 10.9, currently not on diabetic regimen. Returns to ED today 2/2 weakness, lethargy x 1 week. Acute metabolic encephalopathy Diabetic ketoacidosis [id number] A1c 10.9 High Anion gap Metabolic acidosis Lactic acidosis -resolved Was admitted to ICU Started on insulin gtt per protocol, DKA goal range 150-250 Received adequate amount of intravenous fluid with electrolyte replacement Appreciate hot die press feeder input and recommendation Still remains n.p.o. due to lethargy and minimally communicative Pt will need to meet with primary special educator as well as will require initiation of outpt tx of diabetes, currently not on any oral or injectable medications The patient has been feeling much better and talking almost normally Has been eating normally Denies any significant symptoms except weakness We will ask for PT and OT evaluation Clinically much better and will have diabetic education and also teaching about subcu insulin and blood sugar check as an outpatient Discharge tomorrow Electrolyte imbalance Did not want to have electrolyte replacement through the vein Will start oral replacement Monitor electrolytes tomorrow Acute kidney injury kidney function was normal prior to recent hospitalizations likely in setting of dehydration, dka CTdid not show any obstruction Received adequate amount of intravenous fluid Kidney function has been improving Advised to drink more fluid and IV fluid will be discontinued Kidney function has been normalized Hypernatremia 2/2 to dehydration and dka corrected sodium 153 Received half-normal saline Sodium level has been corrected as of this morning is 144 Acute cholecystitis s/p partial GB removal with bile leak s/p SAMANTHA drain by Dr. Villalta 08/25/22 - currently on Augmentin as outpt EGDE/EGD procedure done at [facility] and stents placed no acute infection, but will continue IV antibiotics with rocephin, would resume oral augmentin when pt able to tolerate Pt is to f/u with Dr. Villalta as OP for drain removal, if still hospitalized will likely need to recall surgery for removal at that time SAMANTHA drain remains in situ and the drainage is minimal CT did not show any increase in accumulation of the fluid SAMANTHA drain is still draining-appreciate surgery input and recommendation Appreciate surgery recommendation to take out SAMANTHA drain on of this month HIV on biktarvy as outpatient resume when able Morbid obesity, hx of gastric bypass BMI 48.9 when able pt will require weight loss counseling DVT Ppx: SQ Heparin Dispo: Admit to ICU FULL CODE PCP : Dr. Irizarry Admission and Anticipated Discharge Date Admission Date: September 10, 2022 Subjective 09/11/2022 The patient was seen and examined in ICU She remains minimally communicative but looks much better Complains to extreme weakness and tiredness but denies any other distress 09/12/2022 The patient was seen and examined in telemetry unit She has been feeling much better and has been eating from this morning Remains generally very weak and wants to go home 09/13/2022 11:30AM, Dr. Villalta I reviewed pt's H/P, labs and CT scan with pt, pt is doing better, no abdominal pain, tolerated diet, no nausea, no vomiting, no fever, SAMANTHA 150ml clear color 09/13/2022 The patient was seen and examined in telemetry unit He has been stable and much better today Awaiting PT evaluation prior to discharge likely tomorrow SAMANTHA drain has decreased Review of Systems Review of Systems: All systems reviewed and are unremarkable except as noted below Physical Exam Physical Exam: Lying in bed comfortably Constitutional: well developed, well nourished, + ill appearing and + obese Eyes: PERRL, conjunctivae normal, anicteric sclerae ENMT: external ear and nose normal, oropharynx normal Neck: trachea midline, no thyromegaly Respiratory: no respiratory distress Auscultation: + diminished lung sounds; no crackles Cardiovascular: Rate/Rhythm: regular rate and regular rhythm; not tachycardic Heart Sounds: normal S1 and normal S2; no murmur Extremities: no edema Gastrointestinal (Abdomen): Inspection/Auscultation: normal bowel sounds; abdomen not distended Percussion/Palpation: abdomen soft; abdomen nontender Musculoskeletal: No acute arthritis in any joint Neurologic: normal touch/pain/proprioception and + focal motor deficit; + does not move all extremities Lymphatic: no cervical or axillary lymphadenopathy Results & Data Results & Data ([facility]) Vital Signs (Past 12 Hours) Vital Signs Temp Pulse Pulse Resp BP Pulse Ox O2 Del Method 09/13/22 10:45 37.1 C 87 17 132/71 98 Room Air 09/13/22 08:00 70 09/13/22 07:33 37.1 C 101 H 19 136/94 99 Room Air Laboratory Results Short CBC 09/13/22 Range/Units 05:52 WBC 3.89 L (4.8-10.8) K/ul Hgb 11.7 L (12.0-16.0) g/dl Hct 33.5 L (34.1-44.9) % Plt Count 175 (130-400) K/uL BMP 09/13/22 05:52 Sodium 140 Potassium 3.3 L Chloride 110 H Carbon Dioxide 25 BUN 9 Creatinine 0.85 D Glucose 161 H Calcium 7.9 L Medications Administered Current Inpatient Medications Amoxicillin/Clavulanate Potassium (Amoxicillin/Clavulanate 875 Mg Tab) 1 tab PO BIDM [facility] Stop: 09/23/22 16:59 Dextrose (Dextrose 50% 50 Ml Syringe) 25 - 50 ml IV UD PRN; Protocol PRN Reason: Hypoglycemia Protocol Stop: 10/10/22 12:17 Glucagon (Glucagon For Inj 1 Mg Vial) 1 mg SQ UD PRN; Protocol PRN Reason: Hypoglycemia Protocol Stop: 10/10/22 12:17 Glucose (Glucose 40% Gel 15 Gm Tube) 15 - 30 gm PO UD PRN; Protocol PRN Reason: Hypoglycemia Protocol Stop: 10/10/22 12:17 Glucose (Glucose 10 Tab/Tube) 4 - 8 tab PO UD PRN; Protocol PRN Reason: Hypoglycemia Treatment Stop: 10/10/22 12:17 Heparin Sodium (Porcine) (Heparin Sod 5,000 Unit/0.5 Ml Vial) 5,000 units SQ Q8 [facility] Stop: 10/10/22 21:59 Last Admin: 09/13/22 14:52 Dose: 5,000 units Pantoprazole Sodium 40 mg/ (Syringe) 10 mls @ 5 mls/min IV DAILY [facility] Stop: 10/10/22 16:29 Last Admin: 09/13/22 09:04 Dose: 5 mls/min Insulin Aspart (Insulin Aspart Per Unit) 0 units SC ACHS [facility] Stop: 10/12/22 07:29 Last Admin: 09/13/22 12:40 Dose: 1 units Insulin Glargine (Lantus Per Unit Charge) 20 units SQ QAM [facility] Stop: 10/12/22 08:59 Last Admin: 09/13/22 08:58 Dose: 20 units Insulin Glargine (Lantus Per Unit Charge) 0 units SQ HS [facility]; Protocol Stop: 10/13/22 20:59 Magnesium Oxide (Magnesium Oxide 400 Mg Tab) 400 mg PO BID [facility] Stop: 10/13/22 11:59 Last Admin: 09/13/22 13:02 Dose: 400 mg Miscellaneous (Carbohydrates For Hypoglycemia ) 15 - 30 gm PO UD PRN PRN Reason: Hypoglycemia Protocol Stop: 10/10/22 12:17 Miscellaneous Information (Pharmacy Glycemic Mgmt Consult) 1 each N/A UD PRN; Protocol PRN Reason: Consult Stop: 10/10/22 15:22 Ondansetron HCl (Ondansetron Inj 2 Mg/Ml 2 Ml Vial) 4 mg IV Q4H PRN PRN Reason: Nausea Stop: 10/11/22 01:14 Last Admin: 09/11/22 08:29 Dose: 4 mg Potassium Phosphate (Pot Phosphate Monobasic W/ Sod Tab) 2 tab PO QID [facility] Stop: 10/13/22 12:59 Last Admin: 09/13/22 13:02 Dose: 2 tab
[2022-09-13] MEDS: AMOXICILLIN/CLAVULANATE 875 MG TAB PO SCH (17:46)
[2022-09-14] MEDS: HEPARIN SOD 5,000 UNIT/0.5 ML VIAL SQ SCH ×2 (06:17→13:17)
[2022-09-14] MEDS: POT PHOSPHATE MONOBASIC W/ SOD TAB PO SCH ×2 (08:58→13:16)
[2022-09-14] MEDS: AMOXICILLIN/CLAVULANATE 875 MG TAB PO SCH (08:59)
[2022-09-14] MEDS: MAGNESIUM OXIDE 400 MG TAB PO SCH (08:59)
[2022-09-14] MEDS ORDERED: LANTUS PER UNIT CHARGE SQ SCH (09:00)
[2022-09-14] MEDS ORDERED: PANTOprazole 40 MG TAB PO SCH (09:00)
--- NOTE | 2022-09-14 09:39 | Pharmacy Report ---
Pharmacy Glycemic Short Note 2 - Date of Service September 14, 2022 - Glycemic Short BSG Results (Last 24 hours): 09/13/22 09/13/22 09/13/22 11:57 16:43 20:32 POC Glucose 126 H 132 H 80 09/14/22 08:02 POC Glucose 157 H OUTPATIENT ANTIDIABETIC REGIMEN: * N/A HbA1c: 10.9% (08/25/22) ASSESSMENT: 09/14/22: * BSGs well-controlled yesterday, ranging 80-139 mg/dL * Received 25 units of insulin (20 units of basal and 5 units of prandial/correctional bolus) * Fasting BSG up from yesterday at 157 mg/dL, will increase AM Lantus this morning * Front-loading basal to AM to facilitate discharge, as patient will likely require basal insulin as an outpatient * If patient still inpatient tomorrow and hyperglycemia noted throughout day today, consider tightening Novolog parameters in AM 09/12/22: * After insulin drip was discontinued yesterday, patient received 10 units of bolus Novolog but BSGs trended up above 200 mg/dl. * Fasting BSG today was 377 mg/dl. Novolog parameters tightened, Lantus 15 units given and additionally 8 units of IV Regular insulin bolus given to correct hyperglycemia. * Pre-lunch BSG trended down to 196 mg/dl. Lantus HS dose scale conservatively added for tonight based on BSG. * Patient seems to have no food intake since this morning though diet was resumed. * Also, added overnight checks. 09/11/22: * 57 y/o F admitted for DKA yesterday. Patient has history of diabetes with morbid obesity but has been non-compliant on anti-diabetic meds in the past. It does not look like she was on any anti-diabetic meds recently. Of note, she was admitted in the hospital at the end of last month for cholecystitis. * HbA1c = 10.9% on 08/25/22 * Insulin drip was started for patient yesterday. Drip rate trended down to ~3.1 units/hr this morning and BSG at goal. Labs within normal limits. * A Lantus dose of 15 units was given this morning to help with transitioning the insulin off. Dosing was based off data from last admission. * Insulin drip discontinued around 1400 and Novolog parameters ordered based on stress between 2 and 3. * Patient is NPO. IV fluids with Dextrose rate decreased after insulin drip discontinuation. PLAN FOR INPATIENT GLYCEMIC CONTROL: * Basal insulin * Lantus 25 units SC qAM * Lantus 0-10 units SC HS (see EHR for details) * Bolus insulin * NovoLog per scale ACHS or Q6hrs while NPO. * Goal Range: Low 110 mg/dL - High 140 mg/dL * Correction Factor: 25 mg/dL/unit * Nutritional / Prandial insulin per carb ratio of 1 unit per 8 grams CHO consumed
[2022-09-14] MEDS: INSULIN ASPART PER UNIT SC SCH ×2 (09:41→13:14)
[2022-09-14 11:13] LABS: Calcium 7.7 mg/dl (8.5-10.1); Est GFR (African American) 88.2 ml/min; Est GFR (Non-African American) 76.1 ml/min; Magnesium 1.6 mg/dl (1.7-2.4); Phosphorus 3.4 mg/dl (2.5-4.9); Potassium 3.3 mmol/L (3.5-5.1)
--- NOTE | 2022-09-14 13:51 | Hospitalist Progress Note ---
Date of Service September 14, 2022 Assessment & Plan (1) DKA (diabetic ketoacidosis): (2) Acute metabolic encephalopathy: (3) High anion gap metabolic acidosis: (4) Lactic acidosis: (5) SONAL (acute kidney injury): (6) DM (diabetes mellitus): Plan This is a 57-year-old female who presents to ED with significant past medical history of HIV on HAART, T2DM, history of bariatric surgery, HLD, history of moderate CLEMENT no longer on CPAP who presented to ER secondary to lethargy and we akness x1 week. Patient recently hospitalized 08/25-08/31/22 2/2 acute cholecystitis complicated by partial GB resection, bile leak s/p SAMANTHA drain, requiring transfer to [facility] for EGD due to hx of bariatric surgery and subsequent stent placement. Pt discharged on oral antibiotics and recently started on Augmentin. 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 During time of admission A1C 10.9, currently not on diabetic regimen. Returns to ED today 2/2 weakness, lethargy x 1 week. Acute metabolic encephalopathy Diabetic ketoacidosis [id number] A1c 10.9 High Anion gap Metabolic acidosis Lactic acidosis -resolved Was admitted to ICU Started on insulin gtt per protocol, DKA goal range 150-250 Received adequate amount of intravenous fluid with electrolyte replacement Appreciate chief vendor quality input and recommendation Still remains n.p.o. due to lethargy and minimally communicative Pt will need to meet with intelligence engineer as well as will require initiation of outpt tx of diabetes, currently not on any oral or injectable medications The patient has been feeling much better and talking almost normally Has been eating normally Denies any significant symptoms except weakness We will ask for PT and OT evaluation Clinically much better and will have diabetic education and also teaching about subcu insulin and blood sugar check as an outpatient Much better today without any symptoms She has been taught about diabetic diet and insulin regimen and she will keep a record of the blood sugar Will be discharged home this afternoon and will have her follow-up with primary care physician within 1 week Electrolyte imbalance Did not want to have electrolyte replacement through the vein Will start oral replacement Monitor electrolytes tomorrow Remains hypokalemic Will give supplement on discharge Acute kidney injury kidney function was normal prior to recent hospitalizations likely in setting of dehydration, dka CTdid not show any obstruction Received adequate amount of intravenous fluid Kidney function has been improving Advised to drink more fluid and IV fluid will be discontinued Kidney function has been normalized Hypernatremia 2/2 to dehydration and dka corrected sodium 153 Received half-normal saline Sodium level has been corrected as of this morning is 144 Acute cholecystitis s/p partial GB removal with bile leak s/p SAMANTHA drain by Dr. Villalta 08/25/22 - currently on Augmentin as outpt EGDE/EGD procedure done at [facility] and stents placed no acute infection, but will continue IV antibiotics with rocephin, would resume oral augmentin when pt able to tolerate Pt is to f/u with Dr. Villalta as OP for drain removal, if still hospitalized will likely need to recall surgery for removal at that time SAMANTHA drain remains in situ and the drainage is minimal CT did not show any increase in accumulation of the fluid SAMANTHA drain is still draining-appreciate surgery input and recommendation Appreciate surgery recommendation to take out SAMANTHA drain on of this month We will continue antibiotic as an outpatient HIV on biktarvy as outpatient resume when able Morbid obesity, hx of gastric bypass BMI 48.9 when able pt will require weight loss counseling DVT Ppx: SQ Heparin Dispo: Admit to ICU FULL CODE PCP : Dr. Irizarry Admission and Anticipated Discharge Date Admission Date: September 10, 2022 Subjective 09/11/2022 The patient was seen and examined in ICU She remains minimally communicative but looks much better Complains to extreme weakness and tiredness but denies any other distress 09/12/2022 The patient was seen and examined in telemetry unit She has been feeling much better and has been eating from this morning Remains generally very weak and wants to go home 09/13/2022 11:30AM, Dr. Villalta I reviewed pt's H/P, labs and CT scan with pt, pt is doing better, no abdominal pain, tolerated diet, no nausea, no vomiting, no fever, SAMANTHA 150ml clear color 09/13/2022 The patient was seen and examined in telemetry unit He has been stable and much better today Awaiting PT evaluation prior to discharge likely tomorrow SAMANTHA drain has decreased 09/14/2022 The patient was seen and examined in telemetry unit She has been stable and feeling a lot better Conversing normally and has had physical therapy Denies any weakness and knows how to take insulin She will be discharged home this afternoon Review of Systems Review of Systems: All systems reviewed and are unremarkable except as noted below Physical Exam Physical Exam: Lying in bed comfortably Constitutional: well developed, well nourished, + ill appearing and + obese Eyes: PERRL, conjunctivae normal, anicteric sclerae ENMT: external ear and nose normal, oropharynx normal Neck: trachea midline, no thyromegaly Respiratory: no respiratory distress Auscultation: + diminished lung sounds; no crackles Cardiovascular: Rate/Rhythm: regular rate and regular rhythm; not tachycardic Heart Sounds: normal S1 and normal S2; no murmur Extremities: no edema Gastrointestinal (Abdomen): Inspection/Auscultation: normal bowel sounds; abdomen not distended Percussion/Palpation: abdomen soft; abdomen nontender Neurologic: normal touch/pain/proprioception and + focal motor deficit; + does not move all extremities Lymphatic: no cervical or axillary lymphadenopathy Results & Data Results & Data ([facility]) Vital Signs (Past 12 Hours) Vital Signs Temp Pulse Pulse Resp BP Pulse Ox O2 Del Method 09/14/22 08:00 79 09/14/22 08:21 37.1 C 84 20 139/93 100 Room Air 09/14/22 02:42 36.9 C 84 18 129/91 99 Room Air Laboratory Results [facility] 09/14/22 10:22 Sodium 136 Potassium 3.3 L Chloride 104 Carbon Dioxide 22 BUN 8 Creatinine 0.84 Calcium 7.7 L
--- NOTE | 2022-09-15 07:44 | Discharge Summary ---
Date of Service September 14, 2022 Admission HPI Per Admitting Provider This is a 57-year-old female who presents to ED with significant past medical history of HIV on HAART, T2DM, history of bariatric surgery, HLD, history of moderate CLEMENT no longer on CPAP who presented to ER secondary to lethargy and weakness x1 week. Of significance patient was recently hospitalized on 08/25/2022 secondary to acute cholecystitis. She underwent acute cholecystectomy by Dr. Villalta. Her postop surgical course was complicated by a partial gallbladder removal with subsequent bile leak status post SAMANTHA drain. She required transfer to [facility] for Edge procedure and stent placement. She followed up with Dr. Villalta as outpatient and continued on antibiotics Augmentin. Her gallbladder pathology returned high-grade dysplasia. She was discharged from [facility] on 08/31. at bedside started to notice a general decline starting 09/02. He states she gradually came a week, nausea, unable to take oral pills and eventually lethargic. She has not taken her medications in the last 3 days. This includes her antibiotics. She also has not taken her narcotics. Today she was mostly unarousable and therefore EMS was called. ROS unable to be obtained from patient due to lethargy. History obtained from ED provider and family member at bedside. In ED patient was hemodynamically stable although tachycardic. She was found to be in DKA with pH of 7.1, CO2 of 18 and bicarb of 7. She had significant elevation of renal function with a BUN 42, creatinine 2.27, elevated potassium 5.7, admitting glucose of 608. Her infectious work-up was otherwise unremarkable. 1 blood culture was drawn as they were unable to obtain to despite multiple attempts. CT abdomen pelvis revealed postsurgical changes but nothing acute. She was treated with empiric antibiotics cefepime, 2 L of IV fluid and started on insulin drip. Per ED provider she did make slight improvement while in ED. and sister at bedside. Admission Exam Per Admitting Provider Physical Exam: Constitutional: WD/WN, obese, F, vitals as above, lethargic, minimally arousable Head: Normocephalic, Atraumatic Eyes: PERRL, conjunctivae normal, anicteric sclerae ENMT: external ear and nose normal, oropharynx normal dry membranes Neck: trachea midline, no thyromegaly normal visual inspection Respiratory: normal respiratory effort, lungs clear to auscultation, no wheeze, rales, rhonchi. Normal insp/exp effort, no accessory muscle use Cardiovascular: tachycardic rate, regular rhythm, no murmur, no edema Vessels: no JVD or carotid bruit Chest: normal inspection of chest Abdomen: obsee abd, soft, + lap batool incisions x4, SAMANTHA drain in place with serous drainage, normal bowel sounds, + tender to palpation no rebound, guarding, rigidity, hepatosplenomegaly Musculoskeletal: no cyanosis or clubbing, unable to assess strength due to mental status Skin: no rashes, warm and dry normal turgor Neurologic: PERRL, EOMI, accommodation nl, no face palsy, no dysarthria CN's II-XI intact bilaterally and moves all extremities Psychiatric: lethargic, minimally alert, not oriented, unable to assess affect Lymphatic: no cervical or axillary lymphadenopathy : deferred Principal Diagnosis Acute metabolic encephalopathy-resolved, DKA, SONAL-resolved, recent partial removal of gallbladder with stent placement Discharge Exam Lying in bed comfortably Constitutional well developed, well nourished, + ill appearing and + obese Eyes PERRL, conjunctivae normal, anicteric sclerae ENMT external ear and nose normal, oropharynx normal Neck trachea midline, no thyromegaly Respiratory no respiratory distress Auscultation: + diminished lung sounds; no crackles Cardiovascular Rate/Rhythm: regular rate and regular rhythm; not tachycardic Heart Sounds: normal S1 and normal S2; no murmur Extremities: no edema Gastrointestinal (Abdomen) Inspection/Auscultation: normal bowel sounds; abdomen not distended Percussion/Palpation: abdomen soft; abdomen nontender Neurologic normal touch/pain/proprioception and + focal motor deficit; + does not move all extremities Lymphatic no cervical or axillary lymphadenopathy Discharge Data Allergies Allergy/AdvReac Type Severity Reaction Status Date / Time ciprofloxacin Allergy Severe TONGUE Verified 08/24/22 23:30 SWELLS, HIVES/ITCHING, THROAT "CLOSES" metformin AdvReac Severe DIARRHEA/VO Verified 08/24/22 23:30 MITING Consultations 09/10/22 12:40 ED Decision to Admit Stat 09/10/22 13:09 Consult Target Worker Routine 09/10/22 15:28 Consult General Surgery Stat Ordered Studies 09/10/22 10:57 CT head/brain wo con Stat 09/10/22 12:10 CT abd pelvis wo con Stat Hospital Course (1) DKA (diabetic ketoacidosis): (2) Acute metabolic encephalopathy: (3) High anion gap metabolic acidosis: (4) Lactic acidosis: (5) SONAL (acute kidney injury): (6) DM (diabetes mellitus): Plan This is a 57-year-old female who presents to ED with significant past medical history of HIV on HAART, T2DM, history of bariatric surgery, HLD, history of moderate CLEMENT no longer on CPAP who presented to ER secondary to lethargy and weakness x1 week. Patient recently hospitalized 08/25-08/31/22 2/2 acute cholecystitis complicated by partial GB resection, bile leak s/p SAMANTHA drain, requiring transfer to [facility] for EGD due to hx of bariatric surgery and subsequent stent placement. Pt discharged on oral antibiotics and recently started on Augmentin. 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 During time of admission A1C 10.9, currently not on diabetic regimen. Returns to ED today 2/2 weakness, lethargy x 1 week. Acute metabolic encephalopathy Diabetic ketoacidosis [id number] A1c 10.9 High Anion gap Metabolic acidosis Lactic acidosis -resolved Was admitted to ICU Started on insulin gtt per protocol, DKA goal range 150-250 Received adequate amount of intravenous fluid with electrolyte replacement Appreciate nurseryman assistant input and recommendation Still remains n.p.o. due to lethargy and minimally communicative Pt will need to meet with software educator as well as will require initiation of outpt tx of diabetes, currently not on any oral or injectable medications The patient has been feeling much better and talking almost normally Has been eating normally Denies any significant symptoms except weakness We will ask for PT and OT evaluation Clinically much better and will have diabetic education and also teaching about subcu insulin and blood sugar check as an outpatient Much better today without any symptoms She has been taught about diabetic diet and insulin regimen and she will keep a record of the blood sugar Will be discharged home this afternoon and will have her follow-up with primary care physician within 1 week Electrolyte imbalance Did not want to have electrolyte replacement through the vein Will start oral replacement Monitor electrolytes tomorrow Remains hypokalemic Will give supplement on discharge Acute kidney injury kidney function was normal prior to recent hospitalizations likely in setting of dehydration, dka CTdid not show any obstruction Received adequate amount of intravenous fluid Kidney function has been improving Advised to drink more fluid and IV fluid will be discontinued Kidney function has been normalized Hypernatremia 2/2 to dehydration and dka corrected sodium 153 Received half-normal saline Sodium level has been corrected as of this morning is 144 Acute cholecystitis s/p partial GB removal with bile leak s/p SAMANTHA drain by Dr. Villalta 08/25/22 - currently on Augmentin as outpt EGDE/EGD procedure done at [facility] and stents placed no acute infection, but will continue IV antibiotics with rocephin, would resume oral augmentin when pt able to tolerate Pt is to f/u with Dr. Villalta as OP for drain removal, if still hospitalized will likely need to recall surgery for removal at that time SAMANTHA drain remains in situ and the drainage is minimal CT did not show any increase in accumulation of the fluid SAMANTHA drain is still draining-appreciate surgery input and recommendation Appreciate surgery recommendation to take out SAMANTHA drain on of this month We will continue antibiotic as an outpatient HIV on biktarvy as outpatient resume when able Morbid obesity, hx of gastric bypass BMI 48.9 when able pt will require weight loss counseling DVT Ppx: SQ Heparin Dispo: Admit to ICU FULL CODE PCP : Dr. Irizarry Total Time Total Time Spent Total Time Spent (In Minutes): 40 minutes Discharge Plan Discharge Items Patient Disposition: Home - Self-Care Reason For Visit: DKA Discharge Diagnosis: Acute metabolic encephalopathy-resolved, DKA, SONAL-resolved, recent partial removal of gallbladder with stent placement Condition on Discharge: Fair Activity: Resume your previous activity Non-emergency contact: Primary Care Provider Call non-emergency contact if: you have any medication questions and your symptoms worsen Follow-up/Referrals: Idania Irizarry MD [Primary Care Provider] - 09/16/22 11:20 am (Date & Time 09/16/2022 11:20 AM Provider Idania Irizarry MD Department General Internal Medicine [facility] ) Diet: Carb Consistent or DM2 Addtl Attending Provider Instructions: Please take precautions to avoid fall Follow diabetic diet and take insulin as advised Check your blood sugar and keep a record of that before you see your primary care physician Take your medications as advised Pending Studies at Discharge: No Stand-Alone Forms: My Peer5, Smoking Cessation Medications and DC Order Prescriptions: New magnesium oxide 400 mg (241.3 mg magnesium) Tablet 400 mg PO BID 30 Days Qty: 60 0RF insulin glargine 100 unit/mL (3 mL) insulin pen 15 unit subcut QAM Qty: 15 0RF (DME) pen needle, diabetic [Comfort EZ Pen [place]] 32 gauge x 5/32" needle See Rx Instructions .Route Qty: 50 0RF Rx Instructions: As directed (DME) blood-glucose meter [OneTouch Verio Meter] Misc See Rx Instructions .Route Qty: 1 0RF Rx Instructions: As directed (DME) OneTouch Verio test strips Strip See Rx Instructions .Route Qty: 50 0RF Rx Instructions: As directed (DME) lancets [OneTouch Delica Lancets] 33 gauge misc See Rx Instructions .Route Qty: 100 0RF Rx Instructions: As directed Continued cyanocobalamin (vitamin B-12) 1,000 mcg/mL Solution 1,000 mcg IM .[id number] Biktarvy 50-200-25 mg tablet 1 tab PO DAILY omeprazole 20 mg capsule,delayed release(DR/EC) 20 mg PO DAILY amoxicillin-pot clavulanate 875-125 mg tablet 1 tab PO BID Rx Instructions: x 7 days Discharge Orders: Discharge Order (Routine); Ordered 09/14/22 Ordered By: Lee Clifton Admission Data Admit Date/Time: 09/10/22 13:09 Attending Provider: Lee Clifton Admit Provider: Lee Clifton Primary Care Provider: Idania Irizarry Other Providers: Lee Clifton ; Sy Borges ; Kieth Lobo Other Interventions: Discharge Summary Assessment (RN) Last Done: 09/14/22 14:38
== END 2022-09-14 16:50 | disposition home or self-care (01) | DRG 637 ==
LOC: ED 10:47 → 1E 13:09 → 4W 09-11 15:02